=== PATIENT | female | born 1930 | race Two or more races ===

== ENCOUNTER → 2017-03-16 | Outpatient (CLI) | payer MEDICARE ==
[2017-03-16 10:39] LABS: ABSOLUTE EOSINOPHILS # (AUTO) 0.2 10^3/uL (0.0-0.6); ABSOLUTE LYMPHOCYTES (AUTO) 2.6 10^3/uL (0.5-4.7); BASOPHILS % (AUTO) 0.4 % (0-2); MEAN CORPUSCULAR HEMOGLOBIN 28.3 pg (27.0-33.4); MEAN CORPUSCULAR HGB CONC 33.2 g/dL (32.0-36.0); MEAN CORPUSCULAR VOLUME 85 fl (80-97); MONOCYTES % (AUTO) 9.1 % (3-13); RED BLOOD COUNT 3.87 10^6/uL (3.72-5.28); RED CELL DISTRIBUTION WIDTH 14.1 % (11.5-14.0); SEGMENTED NEUTROPHILS % (AUTO) 64.5 % (42-78); WHITE BLOOD COUNT 10.9 10^3/uL (4.0-10.5)
[2017-03-16 10:59] LABS: ALANINE AMINOTRANSFERASE 23 U/L (9-52); ALBUMIN 3.9 g/dL (3.5-5.0); ALKALINE PHOSPHATASE 76 U/L (38-126); ANION GAP 16 (5-19); ASPARTATE AMINO TRANSFERASE 22 U/L (14-36); BILIRUBIN,DIRECT 0.3 mg/dL (0.0-0.4); BILIRUBIN,TOTAL 0.7 mg/dL (0.2-1.3); BLOOD UREA NITROGEN 38 mg/dL (7-20); CALCIUM 9.3 mg/dL (8.4-10.2); CARBON DIOXIDE 27 mmol/L (22-30); CHLORIDE 100 mmol/L (98-107); CREATININE RESULT 1.29 mg/dL (0.52-1.25); GLUCOSE 175 mg/dL (75-110); POTASSIUM 4.9 mmol/L (3.6-5.0); TOTAL PROTEIN 7.8 g/dL (6.3-8.2)
== END ==
LOC: OD 09:28
PROVIDERS: ATTEND Internal Medicine
DX: K21.9 Gastro-esophageal reflux disease without esophagitis (principal)
CPT/HCPCS: 36415; 80053; 85025

== ENCOUNTER 2017-07-22 12:28 | Emergency (ER) | payer MEDICARE, MEDICAID ==
--- NOTE | 2017-07-22 13:24 | ER Document Report ---
ED Medical Screen (RME) - General Chief Complaint: Feet Swelling Stated Complaint: FOOT SWELLING Time Seen by Provider: 07/22/17 13:17 Notes: 87-year-old female here with complaints of bilateral lower extremity swelling that started this week. She has never had lower extremity swelling prior to this. She has been urinating normal amount. She denies any shortness of breath chest pain. She has no prior history of CHF or renal failure or DVT. EXAM LE swelling TRAVEL OUTSIDE OF THE [place] IN LAST 30 DAYS: No - Related Data Allergies/Adverse Reactions: No Known Allergies Allergy (Unverified 07/22/17 12:31) Past Medical History - Social History Chew tobacco use (# tins/day): No Frequency of alcohol use: None Drug Abuse: None Renal/ Medical History: Denies: Hx Peritoneal Dialysis Physical Exam - Vital signs Vitals: Temp Pulse Resp BP Pulse Ox 98.6 F 75 16 218/77 H 99 07/22/17 12:40 07/22/17 12:40 07/22/17 12:40 07/22/17 12:40 07/22/17 12:40 Course - Vital Signs Vital signs: Temp Pulse Resp BP Pulse Ox 98.6 F 75 16 218/77 H 99 07/22/17 12:40 07/22/17 12:40 07/22/17 12:40 07/22/17 12:40 07/22/17 12:40
[2017-07-22 13:48] LABS: ABSOLUTE BASOPHILS # (AUTO) 0.1 10^3/uL (0.0-0.2); ABSOLUTE EOSINOPHILS # (AUTO) 0.2 10^3/uL (0.0-0.6); ABSOLUTE LYMPHOCYTES (AUTO) 2.8 10^3/uL (0.5-4.7); ABSOLUTE MONOCYTES (AUTO) 0.9 10^3/uL (0.1-1.4); ABSOLUTE NEUT (AUTO) 5.1 10^3/uL (1.7-8.2); BASOPHILS % (AUTO) 0.7 % (0-2); EOSINOPHILS % (AUTO) 2.1 % (0-6); HEMATOCRIT 32.4 % (36.0-47.0); HEMOGLOBIN 10.9 g/dL (12.0-15.5); HGB HCT DIFFERENCE 0.3; LYMPHOCYTES % (AUTO) 31.1 % (13-45); MEAN CORPUSCULAR HEMOGLOBIN 28.7 pg (27.0-33.4); MEAN CORPUSCULAR HGB CONC 33.6 g/dL (32.0-36.0); MEAN CORPUSCULAR VOLUME 86 fl (80-97); MONOCYTES % (AUTO) 9.9 % (3-13); RED BLOOD COUNT 3.79 10^6/uL (3.72-5.28); RED CELL DISTRIBUTION WIDTH 12.7 % (11.5-14.0); SEGMENTED NEUTROPHILS % (AUTO) 56.2 % (42-78); WHITE BLOOD COUNT 9.1 10^3/uL (4.0-10.5)
[2017-07-22 14:08] LABS: ANION GAP 13 (5-19); BLOOD UREA NITROGEN 21 mg/dL (7-20); CALCIUM 9.6 mg/dL (8.4-10.2); CARBON DIOXIDE 27 mmol/L (22-30); CHLORIDE 103 mmol/L (98-107); CREATININE RESULT 0.87 mg/dL (0.52-1.25); POTASSIUM 4.2 mmol/L (3.6-5.0); SODIUM 143.4 mmol/L (137-145)
[2017-07-22 14:20] LABS: GLUCOSE 38 mg/dL (75-110)
--- NOTE | 2017-07-22 15:20 | ER Document Report ---
ED General - General Chief Complaint: Feet Swelling Stated Complaint: FOOT SWELLING Time Seen by Provider: 07/22/17 13:17 Mode of Arrival: Ambulatory Information source: Patient Notes: This is an 87-year-old female with a history of diabetes and diabetic neuropathy who presents to the emergency room with lower extremity pain and swelling having run out of her gabapentin. The patient denies any chest pain, shortness of breath, abdominal pain. The patient sugar was noted to be low. She does admit that she took her insulin this morning but she has any normal day. She was given juice and it and has eaten. TRAVEL OUTSIDE OF THE [place] IN LAST 30 DAYS: No - HPI Onset: Last week Onset/Duration: Gradual Quality of pain: Dull Severity: Mild Pain Level: 1 Associated symptoms: Leg swelling. denies: Fever, Shortness of breath Exacerbated by: Movement Relieved by: Denies Similar symptoms previously: No Recently seen / treated by doctor: No - Related Data Allergies/Adverse Reactions: No Known Allergies Allergy (Unverified 07/22/17 12:31) Past Medical History - General Information source: Patient - Social History Smoking Status: Never Smoker Cigarette use (# per day): No Chew tobacco use (# tins/day): No Frequency of alcohol use: None Drug Abuse: None Lives with: Family Family History: None Patient has suicidal ideation: No Patient has homicidal ideation: No - Past Medical History Cardiac Medical History: Reports: None Pulmonary Medical History: Reports: None EENT Medical History: Reports: None Neurological Medical History: Reports: None Endocrine Medical History: Reports: Hx Diabetes Mellitus Type 1 Renal/ Medical History: Denies: Hx Peritoneal Dialysis Malignancy Medical History: Reports: None GI Medical History: Reports: None Musculoskeltal Medical History: Reports Hx Arthritis, Reports Other Skin Medical History: Reports None Psychiatric Medical History: Reports: None Traumatic Medical History: Reports: None Infectious Medical History: Reports: None Surgical Hx: Negative Review of Systems - Review of Systems Constitutional: denies: Chills, Fever EENT: No symptoms reported Cardiovascular: No symptoms reported Respiratory: No symptoms reported Gastrointestinal: No symptoms reported Genitourinary: No symptoms reported Female Genitourinary: No symptoms reported Musculoskeletal: See HPI Skin: No symptoms reported Hematologic/Lymphatic: No symptoms reported Neurological/Psychological: No symptoms reported Physical Exam - Vital signs Vitals: Temp Pulse Resp BP Pulse Ox 98.6 F 75 16 218/77 H 99 07/22/17 12:40 07/22/17 12:40 07/22/17 12:40 07/22/17 12:40 07/22/17 12:40 Notes: Physical exam: GENERAL: Pleasant 87-year-old female, alert and oriented 3, HEAD: Atraumatic, normocephalic. EYES: Pupils equal round and reactive to light, extraocular movements intact, sclera anicteric, conjunctiva are normal. ENT: TMs normal, nares patent, oropharynx clear without exudates. Moist mucous membranes. NECK: Normal range of motion, supple without obvious mass or JVD. LUNGS: Breath sounds clear to auscultation bilaterally and equal. No wheezes rales or rhonchi. HEART: Regular rate and rhythm without murmurs, rubs or gallops. ABDOMEN: Soft, normoactive bowel sounds. No tenderness to palpation. No guarding, no rebound. No masses appreciated. EXTREMITIES: Normal range of motion, no pitting or edema. No clubbing or cyanosis. NEUROLOGICAL: Cranial nerves II through XII grossly intact. Normal speech, moving all extremities. PSYCH: Normal mood, normal affect. SKIN: Warm, Dry, normal turgor, no rashes or lesions noted. Course - Vital Signs Vital signs: Temp Pulse Resp BP Pulse Ox 98 F 84 15 184/75 H 97 07/22/17 16:00 07/22/17 16:00 07/22/17 16:00 07/22/17 16:00 07/22/17 16:00 - Laboratory Result Diagrams: 07/22/17 13:30 07/22/17 13:30 Laboratory results interpreted by me: 07/22/17 07/22/17 07/22/17 13:30 13:30 15:49 Hgb 10.9 L Hct 32.4 L BUN 21 H Glucose 38 L* POC Glucose 149 H - Diagnostic Test Radiology reviewed: Image reviewed, Reports reviewed - Ultrasound of the lower extremity shows no evidence of DVT Discharge - Discharge Clinical Impression: Diabetic neuropathy, Hypoglycemia Condition: Stable Disposition: HOME, SELF-CARE Instructions: Neuropathy ([facility]) Additional Instructions: The ultrasound of the lower legs showed no evidence of DVT. Your electrolytes and kidney function were good. You did have a low sugar but we feel this was because you have taken your insulin this morning and not eaten. I recommend continuing your current medicines. Your blood pressure was elevated in the emergency room. We do not change medicines based upon a single, asymptomatic elevated blood pressure. I recommend having your blood pressure rechecked when following up with a doctor. Restarting the gabapentin for the diabetic neuropathy. Follow-up with the new doctor's appointment as planned: Bring a copy of today's lab work and x-ray report with you when you go. Return to the emergency room for any problems. Prescriptions: Gabapentin 300 mg PO BID #60 capsule
--- NOTE | 2017-07-22 15:23 | RADIOLOGY REPORT (SQ) ---
EXAM DESCRIPTION: VENOUS BILATERAL LOWER COMPLETED DATE/TIME: 07/22/2017 3:06 pm REASON FOR STUDY: BLEs swelling; eval for DVT COMPARISON: None. TECHNIQUE: Dynamic and static brasher scale and color images acquired of both lower extremity venous sy stems. Selected spectral images acquired with additional compression and augmentation maneuvers. Imag es stored on PACS. LIMITATIONS: None. FINDINGS: RIGHT LEG COMMON FEMORAL AND FEMORAL: Normal phasicity, compression and augmentation. No visualized echogenic m aterial on brasher scale. No defects on color images. POPLITEAL: Normal compression and augmentation. No visualized echogenic material on brasher scale. No de fects on color images. CALF VESSELS: Normal compression and augmentation. No visualized echogenic material on brasher scale. No defects on color image. GSV AND SSV: Normal compression. No visualized echogenic material on brasher scale. No defects on color images. ANY DEEP VENOUS INSUFFICIENCY: Not evaluated. ANY EVIDENCE OF POPLITEAL CYST: No. OTHER: No other significant finding. LEFT LEG COMMON FEMORAL AND FEMORAL: Normal phasicity, compression and augmentation. No visualized echogenic m aterial on brasher scale. No defects on color images. POPLITEAL: Normal compression and augmentation. No visualized echogenic material on brasher scale. No de fects on color images. CALF VESSELS: Normal compression and augmentation. No visualized echogenic material on brasher scale. No defects on color images. GSV AND SSV: Normal compression. No visualized echogenic material on brasher scale. No defects on color images. ANY DEEP VENOUS INSUFFICIENCY: Not evaluated. ANY EVIDENCE POPLITEAL CYST: No. OTHER: No other significant finding. IMPRESSION: NO EVIDENCE DVT OR SVT IN EITHER LEG. TECHNICAL DOCUMENTATION: JOB ID: [id number] [employer]- All Rights Reserved
[2017-07-22 16:02] VITALS: BP 184/75
== END 2017-07-22 16:02 | disposition home or self-care (01) ==
LOC: ER 12:28
DX: M79.89 Other specified soft tissue disorders (principal); E11.649 Type 2 diabetes mellitus with hypoglycemia without coma; E10.40 Type 1 diabetes mellitus with diabetic neuropathy, unspecified
CPT/HCPCS: 36415; 80048; 82962; 85025; 93970; 99284

== ENCOUNTER → 2017-09-02 | Outpatient (CLI) | payer MEDICARE, MEDICAID ==
--- NOTE | 2017-09-02 10:08 | RADIOLOGY REPORT (SQ) ---
EXAM DESCRIPTION: HIP RIGHT AP/LATERAL COMPLETED DATE/TIME: 09/02/2017 9:49 am REASON FOR STUDY: RIGHT HIP PAIN (M25.551), PELVIC AND PERINEAL PAIN (R10.2) M25.551 PAIN IN RIGHT HIP R10.2 PELVIC AND PERINEAL PAIN COMPARISON: None. NUMBER OF VIEWS: Two views. TECHNIQUE: AP pelvis and additional frog-leg view of the right hip. LIMITATIONS: None. FINDINGS: MINERALIZATION: Osteopenic RIGHT HIP: No acute fracture or malalignment. There is very mild right hip joint space narrowing wit hout bulky bony spurring. There are ossified bodies over the greater trochanter, which could indicat e chronic trochanteric bursitis or calcific gluteal tendinopathy. LEFT HIP: No acute fracture or malalignment. Mild left hip joint space narrowing with moderate aceta bular rim bony spurring. PUBIS AND ISCHIUM: No fracture. PELVIS: No fracture. SACRUM: No fracture or dislocation. No worrisome bone lesions. Mild bony spurring at both SI joints LOWER LUMBAR SPINE: Disc space narrowing and facet arthropathy at L4-5 and L5-S1 SOFT TISSUES: Diffuse arterial vascular calcification OTHER: No other significant finding. IMPRESSION: No acute changes TECHNICAL DOCUMENTATION: JOB ID: [id number] [employer]- All Rights Reserved
== END ==
LOC: RAD 09:21
PROVIDERS: ATTEND Internal Medicine
DX: M25.551 Pain in right hip (principal); R10.2 Pelvic and perineal pain

== ENCOUNTER → 2017-11-17 | Outpatient (CLI) | payer MEDICARE, MEDICAID ==
[2017-11-17 08:47] LABS: ABSOLUTE BASOPHILS # (AUTO) 0.1 10^3/uL (0.0-0.2); ABSOLUTE EOSINOPHILS # (AUTO) 0.3 10^3/uL (0.0-0.6); ABSOLUTE LYMPHOCYTES (AUTO) 2.5 10^3/uL (0.5-4.7); ABSOLUTE MONOCYTES (AUTO) 0.9 10^3/uL (0.1-1.4); ABSOLUTE NEUT (AUTO) 3.8 10^3/uL (1.7-8.2); BASOPHILS % (AUTO) 1.4 % (0-2); EOSINOPHILS % (AUTO) 4.1 % (0-6); HEMATOCRIT 29.3 % (36.0-47.0); HEMOGLOBIN 9.6 g/dL (12.0-15.5); LYMPHOCYTES % (AUTO) 32.6 % (13-45); MEAN CORPUSCULAR HEMOGLOBIN 27.7 pg (27.0-33.4); MEAN CORPUSCULAR HGB CONC 32.8 g/dL (32.0-36.0); MEAN CORPUSCULAR VOLUME 85 fl (80-97); MONOCYTES % (AUTO) 12.2 % (3-13); PLATELET COUNT 278 10^3/uL (150-450); RED BLOOD COUNT 3.46 10^6/uL (3.72-5.28); SEGMENTED NEUTROPHILS % (AUTO) 49.7 % (42-78); TOTAL CELLS COUNTED % (AUTO) 100 %; WHITE BLOOD COUNT 7.6 10^3/uL (4.0-10.5)
[2017-11-17 09:12] LABS: ALANINE AMINOTRANSFERASE 25 U/L (9-52); ALBUMIN 3.1 g/dL (3.5-5.0); ALKALINE PHOSPHATASE 98 U/L (38-126); ANION GAP 6 (5-19); ASPARTATE AMINO TRANSFERASE 24 U/L (14-36); BILIRUBIN,DIRECT 0.1 mg/dL (0.0-0.4); BILIRUBIN,TOTAL 0.4 mg/dL (0.2-1.3); BLOOD UREA NITROGEN 26 mg/dL (7-20); CALCIUM 9.2 mg/dL (8.4-10.2); CARBON DIOXIDE 33 mmol/L (22-30); CHLORIDE 101 mmol/L (98-107); CHOLESTEROL 238.65 mg/dL (0-200); GLUCOSE 194 mg/dL (75-110); POTASSIUM 4.4 mmol/L (3.6-5.0); SODIUM 139.6 mmol/L (137-145); TOTAL PROTEIN 6.1 g/dL (6.3-8.2); TRIGLYCERIDES 113 mg/dL (<150)
[2017-11-17 09:23] LABS: DIRECT LDL 142 mg/dL (<100)
[2017-11-17 18:25] LABS: IRON(TIBC) 38.1 ug/dL (37-170)
[2017-11-17 18:27] LABS: ABSOLUTE RETICS # 0.049 10^6/uL (0.028-0.122); RETICULOCYTE COUNT (AUTO) 1.42 % (0.66-2.85)
[2017-11-17 19:36] LABS: FOLATE > 20.00 ng/mL (>2.76)
== END ==
LOC: OD 07:33
PROVIDERS: ATTEND Internal Medicine
DX: R60.9 Edema, unspecified (principal); I73.9 Peripheral vascular disease, unspecified; E11.9 Type 2 diabetes mellitus without complications; E78.5 Hyperlipidemia, unspecified; N18.9 Chronic kidney disease, unspecified; R53.83 Other fatigue; D64.9 Anemia, unspecified
CPT/HCPCS: 36415; 80053; 80061; 82607; 82728; 82746; 83036; 83540; 83550; 83735; 84443; 85025; 85045

== ENCOUNTER 2018-03-15 17:03 | Emergency (ER) | payer MEDICARE, MEDICAID ==
--- NOTE | 2018-03-15 19:55 | ER Document Report ---
ED Hand/Wrist Injury - General Chief Complaint: Hand Pain Stated Complaint: HAND PAIN Time Seen by Provider: 03/15/18 19:43 Mode of Arrival: Ambulatory Information source: Patient, Relative Notes: 87-year-old female presents to ED for complaint of left hand and right rib pain. She states she fell a week ago and the pain is continually gotten worse. She states she has swelling to the left hand and has some difficulty moving the middle finger. Daughter states she has been breathing okay but she states it hurts every time she takes a deep breath. Patient is alert and oriented respirations are regular and unlabored she does have clear breath sounds with equal air exchange on both sides. O2 sat was 99%. TRAVEL OUTSIDE OF THE [place] IN LAST 30 DAYS: No - HPI Injury to: Hand Onset: Last week Where: Home Timing: Still present Quality of pain: Achy, Sharp Severity: Moderate Pain Level: 4 Context: Fall, Swelling - Related Data Allergies/Adverse Reactions: No Known Allergies Allergy (Unverified 07/22/17 12:31) Past Medical History - General Information source: Patient - Social History Smoking Status: Never Smoker Cigarette use (# per day): No Chew tobacco use (# tins/day): No Smoking Education Provided: No Frequency of alcohol use: None Drug Abuse: None Lives with: Family Family History: None Patient has suicidal ideation: No Patient has homicidal ideation: No - Medical History Medical History: Other - Anemia - Past Medical History Cardiac Medical History: Reports: None Pulmonary Medical History: Reports: None EENT Medical History: Reports: None Neurological Medical History: Reports: None Endocrine Medical History: Reports: Hx Diabetes Mellitus Type 1, Hx Hypothyroidism Renal/ Medical History: Reports: None Malignancy Medical History: Reports: None GI Medical History: Reports: None Musculoskeletal Medical History: Reports Hx Arthritis Skin Medical History: Reports None Psychiatric Medical History: Reports: None Traumatic Medical History: Reports: None Infectious Medical History: Reports: None Surgical Hx: Negative Past Surgical History: Reports: None Review of Systems - Review of Systems Constitutional: No symptoms reported EENT: No symptoms reported Cardiovascular: No symptoms reported Respiratory: Hurts to breathe, Other - Right posterior rib pain Gastrointestinal: No symptoms reported Genitourinary: No symptoms reported Female Genitourinary: No symptoms reported Musculoskeletal: Back pain - Right posterior rib pain, Other - Left hand pain and swelling Skin: Other - Bruising to left hand Hematologic/Lymphatic: No symptoms reported Neurological/Psychological: No symptoms reported Physical Exam - Vital signs Vitals: Temp Pulse Resp BP Pulse Ox 98.6 F 62 16 155/49 H 99 03/15/18 17:10 03/15/18 17:10 03/15/18 17:10 03/15/18 17:10 03/15/18 17:10 Interpretation: Normal - General General appearance: Appears well, Alert - HEENT Head: Normocephalic, Atraumatic Eyes: Normal Pupils: PERRL - Respiratory Respiratory status: No respiratory distress Chest status: Tender - Posterior right ribs, Pain on movement - Posterior right ribs, Pain with cough - Posterior right ribs Breath sounds: Normal Chest palpation: Normal - Cardiovascular Rhythm: Regular Heart sounds: Normal auscultation Murmur: No - Abdominal Inspection: Normal Distension: No distension Bowel sounds: Normal Tenderness: Nontender Organomegaly: No organomegaly - Back Back: Normal, Nontender - Extremities General upper extremity: Normal temperature General lower extremity: Normal inspection, Nontender, Normal color, Normal ROM , Normal temperature, Normal weight bearing. No: Venessa's sign Hand: Tender, Ecchymosis, No evidence of human bite, No evidence of FB, Swelling , Other - Decreased range of motion to the middle finger left hand - Neurological Neuro grossly intact: Yes Cognition: Normal Orientation: AAOx4 Blanca Coma Scale Eye Opening: Spontaneous Delta Coma Scale Verbal: Oriented Delta Coma Scale Motor: Obeys Commands Blanca Coma Scale Total: 15 Speech: Normal Motor strength normal: LUE, RUE, LLE, RLE Sensory: Normal - Psychological Associated symptoms: Normal affect, Normal mood - Skin Skin Temperature: Warm Skin Moisture: Dry Skin Color: Normal Course - Re-evaluation Re-evalutation: 03/15/18 21:33 Discussed x-rays with patient and with family. Written report of x-rays given to daughter to follow-up with primary doctor. At time of discharge patient's blood pressure was 230/80. Discussed this with patient and with daughter. I then discussed it with Dr. Aguirre. Patient states she is feeling fine she does not have a headache she is not dizzy she does not feel anything different than normal she feels like her normal self except that she has some pain in her right ribs and left hand. She has been medicated with Tylenol which was what she would agree to take for her pain. She has also been instructed on use of incentive spirometry and ice for her pain. She states she feels fine please she wants to go home I discussed this with Dr. Aguirre and he stated she was okay to go home as long as she agreed to follow-up with her primary doctor tomorrow. Patient and daughter both verbalized understanding of instructions and agreement with treatment plan. - Vital Signs Vital signs: Temp Pulse Resp BP Pulse Ox 97.3 F 55 L 18 230/80 H 99 03/15/18 21:38 03/15/18 21:38 03/15/18 21:38 03/15/18 21:38 03/15/18 21:38 - Diagnostic Test Radiology reviewed: Image reviewed, Reports reviewed Discharge - Discharge Clinical Impression: HTN (hypertension) Contusion Qualifiers: Encounter type: initial encounter Contusion area: hand Laterality: left Qualified Code(s): S60.222A - Contusion of left hand, initial encounter Contusion of rib on right side Qualifiers: Encounter type: initial encounter Qualified Code(s): S20.211A - Contusion of right front wall of thorax, initial encounter Fall Qualifiers: Encounter type: initial encounter Qualified Code(s): W19.XXXA - Unspecified fall, initial encounter Condition: Stable Disposition: HOME, SELF-CARE Additional Instructions: CONTUSION: Your injury has resulted in a contusion -- a crushing of the deep tissues. No injury to important structures was detected during the physician's exam. Contusions vary in the amount of pain they cause, and in the length of time required for healing. Typically, the area will become bruised, and will remain painful to touch for two or three weeks. However, most patients are back to working and playing within a few days. After the initial period of rest and cold-packs, your symptoms (together with the doctor's recommendations) will determine how rapidly you can get back to full activity. Usually this means "do what feels okay, but don't do things that hurt." If re-examination was recommended, it's important to follow up as instructed. Call the doctor or return any time if pain increases, if swelling becomes severe, if you develop numbness or weakness in an injured extremity, or if any other alarming symptoms occur. Rib Contusion You have been diagnosed as having bruised ribs. It will usually take a few weeks for these injured ribs to heal. You should cough or take a deep breath at least every hour or two to prevent lung complications. You should not engage in any strenuous physical activity until released by your physician. The usual rule is "if it hurts, don' t do it." Return if you develop any of the following: (1) Fever or chills. (2) Persistent cough, coughing up blood, or shortness of breath. (3) Increasing pain. (4) Weakness, lightheadedness, or fainting. USE OF TYLENOL (ACETAMINOPHEN): Acetaminophen may be taken for pain relief or fever control. It's much safer than aspirin, offering a wider range of "safe" dosages. It is safe during . Some brand names are Tylenol, Panadol, Datril, Anacin 3, Tempra, and Liquiprin. Acetaminophen can be repeated every four hours. The following are maximum recommended dosages: WEIGHT Dose Drops Elixir Chewable( 80mg) (LBS.) drprs=droppers tsp=teaspoon 6 40 mg 0.4 ml (1/2) 6-11 80 mg 0.8 ml (full) tsp 1 tab 12-16 120 mg 1 1/2 drprs 3/4 tsp 1 1/2 tabs 17-23 160 mg 2 drprs 1 tsp 2 tabs 24-30 240 mg 3 drprs 1 1/2 tsp 3 tabs 30-35 320 mg 2 tsp 4 tabs 36-41 360 mg 2 1/4 tsp 4 1/2 tabs 42-47 400 mg 2 1/2 tsp 5 tabs 48-53 480 mg 3 tsp 6 tabs 54-59 520 mg 3 1/4 tsp 6 1/2 tabs 60-64 560 mg 3 1/2 tsp 7 tabs 65-70 600 mg 3 3/4 tsp 7 1/2 tabs 71-76 640 mg 4 tsp 8 tabs 77-82 720 mg 4 1/2 tsp 9 tabs 83-88 800 mg 5 tsp 10 tabs >89 pounds or adults 650 mg to 900 mg Acetaminophen can be repeated every four hours. Maximum dose not to exceed 4000 mg a day. These maximum recommended dosages are slightly higher than the dosages written on the product container, but these dosages are very safe and below the toxic dosage for acetaminophen. ICE PACKS: Apply ice packs frequently against the painful area. Many different schedules are recommended, such as "20 minutes on, 20 minutes off" or "one hour ice, two hours rest." If you need to work, you may need to go longer between ice treatments. You should plan to have the area ice packed AT LEAST one fourth of the time. The ice should be applied over the wrap, tape, or splint, or over a layer of cloth -- not directly against the skin. Some ice bags have a built-in cloth and can be put directly on the skin. FOLLOW-UP CARE: If you have been referred to a physician for follow-up care, call the physician s office for an appointment as you were instructed or within the next two days. If you experience worsening or a significant change in your symptoms, notify the physician immediately or return to the Emergency Department at any time for re-evaluation. Forms: Elevated Blood Pressure Referrals: EMILY CHANG MD [Primary Care Provider] - Follow up as needed VIN HOFF MD [ACTIVE STAFF] - Follow up as needed
--- NOTE | 2018-03-15 20:26 | RADIOLOGY REPORT (SQ) ---
EXAM DESCRIPTION: WRIST LEFT 3 VIEWS COMPLETED DATE/TIME: 03/15/2018 8:08 pm REASON FOR STUDY: fall with hand wrist and rib pain COMPARISON: None. NUMBER OF VIEWS: Three views. TECHNIQUE: AP, lateral, and oblique radiographic images acquired of the left wrist. LIMITATIONS: None. FINDINGS: MINERALIZATION: Normal. BONES: No acute fracture or dislocation. No worrisome bone lesions. Normal alignment. SOFT TISSUES: No soft tissue swelling. No foreign body. OTHER: No other significant finding. IMPRESSION: NEGATIVE STUDY OF THE LEFT WRIST. NO RADIOGRAPHIC EVIDENCE OF ACUTE INJURY. TECHNICAL DOCUMENTATION: JOB ID: [id number] [employer]- All Rights Reserved Reading location - IP/workstation name: [email or web address]
--- NOTE | 2018-03-15 20:28 | RADIOLOGY REPORT (SQ) ---
EXAM DESCRIPTION: HAND LEFT 3 VIEWS COMPLETED DATE/TIME: 03/15/2018 8:08 pm REASON FOR STUDY: fall with hand wrist and rib pain COMPARISON: None. EXAM PARAMETERS: NUMBER OF VIEWS: Three views. TECHNIQUE: AP, lateral and oblique radiographic images acquired of the left hand. LIMITATIONS: None. FINDINGS: MINERALIZATION: Normal. BONES: No acute fracture or dislocation. No worrisome bone lesions. JOINTS: Mild degenerative joint changes in the interphalangeal joints. SOFT TISSUES: No soft tissue swelling. No foreign body. OTHER: No other significant finding. IMPRESSION: Mild degenerative joint disease with no acute osseous abnormality. TECHNICAL DOCUMENTATION: JOB ID: [id number] [employer]- All Rights Reserved Reading location - IP/workstation name: [email or web address]
--- NOTE | 2018-03-15 20:29 | RADIOLOGY REPORT (SQ) ---
EXAM DESCRIPTION: RIBS RIGHT W/PA CHEST COMPLETED DATE/TIME: 03/15/2018 8:08 pm REASON FOR STUDY: fall with hand wrist and rib pain COMPARISON: None. TECHNIQUE: Frontal view of the chest and additional views of the right ribs acquired. NUMBER OF VIEWS: Three views LIMITATIONS: None. FINDINGS: FRONTAL CXR: No pneumothorax. No pleural effusion. No atelectasis or infiltrates. RIBS: No displaced rib fractures. No lytic or blastic bony lesions. OTHER: No other significant finding. IMPRESSION: NO PNEUMOTHORAX. NO DISPLACED RIB FRACTURES. COMMENT: SITE OF TRAUMA/COMPLAINT MARKED/STAMP COMPLETED: YES. TECHNICAL DOCUMENTATION: JOB ID: [id number] [employer]- All Rights Reserved Reading location - IP/workstation name: [email or web address]
[2018-03-15] MEDS ORDERED: ACETAMINOPHEN 325 MG TABLET PO ONE (20:50)
--- NOTE | 2018-03-15 21:32 | ER Document Report ---
Doctor's Note Notes: 03/15/18 21:31 Case was discussed with the nurse practitioner. This is an 87-year-old female with asymptomatic hypertension at this time. Already on Lasix. Has musculoskeletal injuries and some pain. Her discharge vitals revealed a systolic blood pressure that is around 200. At this time after lengthy discussion we have decided that the risk-benefit ratio is higher at this time getting more aggressive with blood pressure lowering than keeping a systolic blood pressure a little high at this patient's age. Patient does not want to stay here any longer. She has been made aware of fact that her blood pressure is high and that she needs to see her regular doctor for repeat evaluation. At this time we will discharge her in stable condition.
[2018-03-15 21:40] VITALS: BP 230/80
== END 2018-03-15 21:40 | disposition home or self-care (01) ==
LOC: ER 17:03
DX: S60.222A Contusion of left hand, initial encounter (principal); S20.211A Contusion of right front wall of thorax, initial encounter; W06.XXXA Fall from bed, initial encounter; Y92.003 Bedroom of unspecified non-institutional (private) residence as the place of occurrence of the external cause; I10 Essential (primary) hypertension; E10.9 Type 1 diabetes mellitus without complications
CPT/HCPCS: 99283; 73130; 71101; 73110; A9270

== ENCOUNTER 2018-03-25 12:38 | Inpatient (IN) | payer MEDICARE, MEDICAID ==
--- NOTE | 2018-03-25 13:22 | ER Document Report ---
ED Medical Screen (RME) - General Chief Complaint: Weakness Stated Complaint: BODY PAIN, NUMBNESS IN HANDS Time Seen by Provider: 03/25/18 13:15 Mode of Arrival: Wheelchair Information source: Patient, Relative TRAVEL OUTSIDE OF THE [place] IN LAST 30 DAYS: No - HPI Patient complains to provider of: generalized pain; confusion Onset: This morning - family states pt. had episode of confusion this am and lethargy. Also c/o generalized body pain - Related Data Allergies/Adverse Reactions: No Known Allergies Allergy (Verified 03/25/18 12:39) Past Medical History Endocrine Medical History: Reports: Hx Diabetes Mellitus Type 1, Hx Hypothyroidism Renal/ Medical History: Denies: Hx Peritoneal Dialysis Musculoskeltal Medical History: Reports Hx Arthritis Physical Exam - Vital signs Vitals: Temp Pulse Resp BP Pulse Ox 98.3 F 67 18 129/45 H 98 03/25/18 12:44 03/25/18 12:44 03/25/18 12:44 03/25/18 12:44 03/25/18 12:44 Course - Vital Signs Vital signs: Temp Pulse Resp BP Pulse Ox 98.3 F 67 18 129/45 H 98 03/25/18 12:44 03/25/18 12:44 03/25/18 12:44 03/25/18 12:44 03/25/18 12:44 Doctor's Discharge - Discharge Referrals: EMILY CHANG MD [Primary Care Provider] - Follow up as needed
[2018-03-25 14:24] LABS: ABSOLUTE BASOPHILS # (AUTO) 0.1 10^3/uL (0.0-0.2); ABSOLUTE EOSINOPHILS # (AUTO) 0.2 10^3/uL (0.0-0.6); ABSOLUTE LYMPHOCYTES (AUTO) 2.4 10^3/uL (0.5-4.7); ABSOLUTE MONOCYTES (AUTO) 0.6 10^3/uL (0.1-1.4); ABSOLUTE NEUT (AUTO) 8.5 10^3/uL (1.7-8.2); BASOPHILS % (AUTO) 0.6 % (0-2); EOSINOPHILS % (AUTO) 1.7 % (0-6); HEMATOCRIT 31.7 % (36.0-47.0); HEMOGLOBIN 10.1 g/dL (12.0-15.5); LYMPHOCYTES % (AUTO) 20.3 % (13-45); MEAN CORPUSCULAR HEMOGLOBIN 27.5 pg (27.0-33.4); MEAN CORPUSCULAR HGB CONC 31.8 g/dL (32.0-36.0); MEAN CORPUSCULAR VOLUME 87 fl (80-97); MONOCYTES % (AUTO) 5.5 % (3-13); PLATELET COUNT 256 10^3/uL (150-450); RED BLOOD COUNT 3.66 10^6/uL (3.72-5.28); RED CELL DISTRIBUTION WIDTH 12.6 % (11.5-14.0); SEGMENTED NEUTROPHILS % (AUTO) 71.9 % (42-78); TOTAL CELLS COUNTED % (AUTO) 100 %; WHITE BLOOD COUNT 11.8 10^3/uL (4.0-10.5)
--- NOTE | 2018-03-25 14:27 | RADIOLOGY REPORT (SQ) ---
EXAM DESCRIPTION: CT HEAD WITHOUT COMPLETED DATE/TIME: 03/25/2018 2:13 pm REASON FOR STUDY: confusion COMPARISON: None. TECHNIQUE: Axial images acquired through the brain without intravenous contrast. Images reviewed wi th bone, brain and subdural windows. Additional sagittal and coronal reconstructions were generated. Images stored on PACS. All CT scanners at this facility use dose modulation, iterative reconstruction, and/or weight based d osing when appropriate to reduce radiation dose to as low as reasonably achievable (ALARA). [facility]: Dose Right [facility]: CareDose [facility]: Dose Right [facility]: Teradose 4D [facility]: [employer] RADIATION DOSE: CT Rad equipment meets quality standard of care and radiation dose reduction techniq ues were employed. CTDIvol: 53.2 mGy. DLP: 964 mGy-cm.mGy. LIMITATIONS: None. FINDINGS: VENTRICLES: Prominent. CEREBRUM: No masses. No hemorrhage. No midline shift. Areas of low density in the white matter mos t likely due to chronic micro-vascular ischemic change. No evidence for acute infarction. CEREBELLUM: No masses. No hemorrhage. No alteration of density. No evidence for acute infarction. EXTRAAXIAL SPACES: Age-related involutional change. No fluid collections. No masses. ORBITS AND GLOBE: No intra- or extraconal masses. Normal contour of globe without masses. CALVARIUM: No fracture. PARANASAL SINUSES: No fluid or mucosal thickening. SOFT TISSUES: No mass or hematoma. OTHER: No other significant finding. IMPRESSION: CHRONIC CHANGES OF ATROPHY AND MICROVASCULAR ISCHEMIA. NO ACUTE PROCESS. EVIDENCE OF ACUTE STROKE: NO. TECHNICAL DOCUMENTATION: JOB ID: [id number] Quality ID # [id number]: Final reports with documentation of one or more dose reduction techniques (e.g., Au tomated exposure control, adjustment of the mA and/or kV according to patient size, use of iterative reconstruction technique) 2010 [employer]- All Rights Reserved Reading location - IP/workstation name: [email or web address]
[2018-03-25 14:42] LABS: ALANINE AMINOTRANSFERASE 23 U/L (9-52); ALBUMIN 4.1 g/dL (3.5-5.0); ALKALINE PHOSPHATASE 62 U/L (38-126); ANION GAP 17 (5-19); ASPARTATE AMINO TRANSFERASE 22 U/L (14-36); BILIRUBIN,DIRECT 0.3 mg/dL (0.0-0.4); BILIRUBIN,TOTAL 0.5 mg/dL (0.2-1.3); BLOOD UREA NITROGEN 74 mg/dL (7-20); CALCIUM 9.8 mg/dL (8.4-10.2); CARBON DIOXIDE 23 mmol/L (22-30); CHLORIDE 103 mmol/L (98-107); CREATINE KINASE 65 U/L (30-135); GLUCOSE 263 mg/dL (75-110); POTASSIUM 5.9 mmol/L (3.6-5.0); SODIUM 143.2 mmol/L (137-145); TOTAL PROTEIN 7.8 g/dL (6.3-8.2)
[2018-03-25 14:44] LABS: APPEARANCE,URINE CLOUDY; BILIRUBIN,URINE NEGATIVE (NEGATIVE); COLOR,URINE YELLOW; GLUCOSE, URINE NEGATIVE (NEGATIVE); KETONES,URINE NEGATIVE (NEGATIVE); LEUKOCYTE ESTERASE,URINE LARGE (NEGATIVE); NITRITE,URINE NEGATIVE (NEGATIVE); PROTEIN,URINE 100 mg/dL (NEGATIVE); URINE SPECIFIC GRAVITY 1.015; UROBILINOGEN,URINE NEGATIVE mg/dL (<2.0)
[2018-03-25 15:10] LABS: CREATINE KINASE MB 1.54 ng/mL (<4.55)
[2018-03-25 15:13] LABS: TROPONIN I < 0.012 ng/mL
--- NOTE | 2018-03-25 16:39 | ER Document Report ---
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 TRAVEL OUTSIDE OF THE [place] IN LAST 30 DAYS: No - HPI Onset: Other - 2 days Onset/Duration: Gradual Quality of pain: Other - HARD TO DESCRIBE Severity: Mild Associated symptoms: Body/muscle aches, Weakness. denies: Chest pain, Chills, Fever, Nausea, Shortness of breath Exacerbated by: Other - ANY ACTIVITY Relieved by: Other - REST Similar symptoms previously: No Recently seen / treated by doctor: Yes - YESTERDAY, BEGUN ON LISINOPRIL - Related Data Allergies/Adverse Reactions: No Known Allergies Allergy (Verified 03/25/18 12:39) Past Medical History - General Information source: Patient, Relative - Social History Smoking Status: Never Smoker Chew tobacco use (# tins/day): No Frequency of alcohol use: None Drug Abuse: None Lives with: Alone Family History: None Patient has suicidal ideation: No Patient has homicidal ideation: No - Past Medical History Cardiac Medical History: Reports: Hx Hypertension Pulmonary Medical History: Reports: None EENT Medical History: Reports: None Neurological Medical History: Reports: None Endocrine Medical History: Reports: Hx Diabetes Mellitus Type 1, Hx Hypothyroidism Renal/ Medical History: Reports: None. Denies: Hx Peritoneal Dialysis Malignancy Medical History: Reports: None GI Medical History: Reports: None Musculoskeletal Medical History: Reports Hx Arthritis Psychiatric Medical History: Reports: None Past Surgical History: Reports: Hx Hysterectomy Review of Systems - Review of Systems Constitutional: Weakness EENT: No symptoms reported Cardiovascular: Dizziness, Lightheaded. denies: Chest pain, Syncope Respiratory: No symptoms reported Gastrointestinal: Poor appetite Genitourinary: No symptoms reported Female Genitourinary: Post menopausal Musculoskeletal: See HPI Skin: No symptoms reported Neurological/Psychological: Weakness Physical Exam - Vital signs Vitals: Temp Pulse Resp BP Pulse Ox 98.3 F 67 18 129/45 H 98 03/25/18 12:44 03/25/18 12:44 03/25/18 12:44 03/25/18 12:44 03/25/18 12:44 Interpretation: Normal. No: Hypotensive, Tachycardic, Hypoxic, Tachypneic, Febrile - General General appearance: Appears well, Alert In distress: None - HEENT Head: Normocephalic Eyes: Normal Conjunctiva: Normal Ears: Normal Nasal: Normal Mouth/Lips: Normal Mucous membranes: Normal - Respiratory Respiratory status: No respiratory distress Breath sounds: Normal - Cardiovascular Rhythm: Regular Heart sounds: Normal auscultation Murmur: No - Abdominal Inspection: Normal Distension: No distension Bowel sounds: Normal - Extremities General upper extremity: Normal inspection General lower extremity: Normal inspection. No: Tender, Edema - Neurological Neuro grossly intact: Yes Cognition: Normal Orientation: AAOx4 - Psychological Associated symptoms: Normal affect, Normal mood - Skin Skin Temperature: Warm Skin Moisture: Dry Skin Color: Normal Skin Turgor: Elastic Course - Vital Signs Vital signs: Temp Pulse Resp BP Pulse Ox 98.3 F 67 18 129/45 H 98 03/25/18 12:44 03/25/18 12:44 03/25/18 12:44 03/25/18 12:44 03/25/18 12:44 - Laboratory Result Diagrams: 03/25/18 13:42 03/25/18 13:42 Laboratory results interpreted by me: 03/25/18 03/25/18 03/25/18 13:42 13:42 13:42 WBC 11.8 H RBC 3.66 L Hgb 10.1 L Hct 31.7 L MCHC 31.8 L Absolute Neutrophils 8.5 H Potassium 5.9 H BUN 74 H Creatinine 2.52 H Est GFR ( Amer) 22 L Est GFR (Non-Af Amer) 18 L Glucose 263 H Urine Protein 100 H Ur Leukocyte Esterase LARGE H Urine Ascorbic Acid 40 H - Consults DR. GU Time consulted: 17:20 Consulted provider: will come to ER Discharge - Discharge Clinical Impression: Hyperkalemia Acute renal failure (ARF) Qualifiers: Acute renal failure type: unspecified Qualified Code(s): N17.9 - Acute kidney failure, unspecified Urinary tract infection Qualifiers: Urinary tract infection type: site unspecified Hematuria presence: without hematuria Qualified Code(s): N39.0 - Urinary tract infection, site not specified Condition: Fair Admitting Provider: Hospitalist Referrals: EMILY CHANG MD [Primary Care Provider] - Follow up as needed
[2018-03-25] MEDS ORDERED: NORMAL SALINE 1000 ML 1,000 ML IV PRN (17:02)
[2018-03-25] MEDS ORDERED: CALCIUM GLUCONATE 1000 MG/10 ML INJ IV ONE (17:03)
[2018-03-25] MEDS ORDERED: INSULIN REG, HUMAN 100 UNIT/ML 3 ML VIAL (PYX) IV ONE (17:04)
[2018-03-25] MEDS ORDERED: ACETAMINOPHEN 325 MG TABLET PO PRN (18:33)
[2018-03-25] MEDS ORDERED: DEXTROSE 50%-WATER 25 GM/50 ML DISP.SYRIN IV PRN ×2 (18:40)
[2018-03-25] MEDS ORDERED: DEXTROSE 40% GEL 15 GM TUBE PO PRN ×2 (18:40)
[2018-03-25] MEDS ORDERED: GLUCAGON,HUMAN RECOMB 1 MG INJ IM PRN (18:40)
--- NOTE | 2018-03-25 21:07 | EKG REPORT ---
SEVERITY:- NORMAL ECG - SINUS RHYTHM : Confirmed by: Andreia Zuniga MD 25-Mar-2018 21:06:23
--- NOTE | 2018-03-25 22:36 | PDOC H&P ---
History of Present Illness Admission Date/PCP: 03/25/18 19:44 EMILY CHANG MD Patient complains of: Weakness, unable to walk. FTT. Poor appetite. History of Present Illness: RAJESH NIX is a 87 year old female who lives on her own. She was most recently seen normal the day before yesterday. Her daughter visited her today and found her too weak to walk and not eating. The patient is resting quietly, and currently denies any complaints. In the ED she was found to have a UTI and an elevated creatinine. Past Medical History Cardiac Medical History: Reports: Hypertension Pulmonary Medical History: Reports: None EENT Medical History: Reports: None Neurological Medical History: Reports: None Endocrine Medical History: Reports: Diabetes Mellitus Type 1, Hypothyroidism Renal/ Medical History: Reports: None Malignancy Medical History: Reports: None GI Medical History: Reports: None Musculoskeltal Medical History: Reports: Arthritis Psychiatric Medical History: Reports: None Past Surgical History Past Surgical History: Reports: Hysterectomy Social History Lives with: Alone Smoking Status: Never Smoker Family History Family History: None, Reviewed & Not Pertinent Parental Family History Reviewed: Yes Children Family History Reviewed: Yes Sibling(s) Family History Reviewed.: Yes Medication/Allergy Home Medications: Gabapentin 300 mg PO BID #60 capsule 07/22/17 Allergies/Adverse Reactions: No Known Allergies Allergy (Verified 03/25/18 12:39) Review of Systems Constitutional: PRESENT: anorexia, weakness Eyes: ABSENT: visual disturbances Ears: ABSENT: hearing changes Nose, Mouth, and Throat: ABSENT: mouth pain, sore throat, vertigo Cardiovascular: ABSENT: chest pain, dyspnea on exertion, orthropnea Respiratory: ABSENT: cough, dyspnea, hemoptysis Gastrointestinal: ABSENT: abdominal pain, coffee ground emesis, constipation, diarrhea, dysphagia, hematemesis, hematochezia, melena, nausea, vomiting Genitourinary: ABSENT: difficulty urinating, dysuria, hematuria, nocturia, other Musculoskeletal: ABSENT: deformity, joint swelling, muscle weakness Integumentary: ABSENT: lesions, pruritus, rash Neurological: PRESENT: dizziness, weakness. ABSENT: confusion, focal weakness, lack of coordination, memory loss, syncope Psychiatric: ABSENT: anxiety, depression, hallucinations Endocrine: ABSENT: cold intolerance, polyphagia, polyuria Hematologic/Lymphatic: ABSENT: easy bleeding, easy bruising, lymphadenopathy Physical Exam Vital Signs: Temp Pulse Resp BP Pulse Ox 98.1 F 67 19 162/69 H 98 03/25/18 20:15 03/25/18 12:44 03/25/18 20:32 03/25/18 20:32 03/25/18 20:32 General appearance: PRESENT: no acute distress, cooperative, thin, other - Elderlyh, weak, and frail. Head exam: PRESENT: atraumatic, normocephalic Eye exam: PRESENT: EOMI, PERRLA, other - No scleral injection.. ABSENT: scleral icterus Ear exam: ABSENT: bleeding, drainage, normal external ear exam Mouth exam: PRESENT: moist, neck supple, tongue midline Throat exam: ABSENT: post pharyngeal erythema, tonsillar erythema, tonsillar exudate Neck exam: ABSENT: JVD, lymphadenopathy, tenderness, thyromegaly Respiratory exam: PRESENT: other - No increased work of breathing.. ABSENT: accessory muscle use, rales, rhonchi, wheezes Cardiovascular exam: PRESENT: RRR. ABSENT: gallop, rubs, systolic murmur Pulses: PRESENT: other - Diminished distal pulses. GI/Abdominal exam: PRESENT: normal bowel sounds, soft. ABSENT: distended, hernia, organolmegaly, tenderness Rectal exam: PRESENT: deferred Extremities exam: ABSENT: calf tenderness, clubbing, joint swelling, tenderness Musculoskeletal exam: PRESENT: normal inspection. ABSENT: deformity, dislocation, tenderness Neurological exam: PRESENT: alert, awake, oriented to person, oriented to place , CN II-XII grossly intact. ABSENT: motor sensory deficit Psychiatric exam: PRESENT: appropriate affect, normal mood. ABSENT: anxious, depressed Skin exam: PRESENT: dry, intact, warm Results Laboratory Results: 03/25/18 03/25/18 03/25/18 13:42 13:42 13:42 WBC 11.8 H RBC 3.66 L Hgb 10.1 L Hct 31.7 L MCV 87 MCH 27.5 MCHC 31.8 L RDW 12.6 Plt Count 256 Seg Neutrophils % 71.9 Sodium 143.2 Potassium 5.9 H Chloride 103 Carbon Dioxide 23 Anion Gap 17 BUN 74 H Creatinine 2.52 H Est GFR ( Amer) 22 L Est GFR (Non-Af Amer) 18 L Glucose 263 H POC Glucose Calcium 9.8 Total Bilirubin 0.5 Direct Bilirubin 0.3 AST 22 ALT 23 Alkaline Phosphatase 62 Creatine Kinase 65 CK-MB (CK-2) 1.54 Troponin I < 0.012 Total Protein 7.8 Albumin 4.1 Urine Color Urine Appearance Urine pH Ur Specific [place] Urine Protein Ur Leukocyte Esterase Urine WBC (Auto) Urine RBC (Auto) U Hyaline Cast (Auto) Urine Bacteria (Auto) Squamous Epi Cells Auto Urine Ascorbic Acid 03/25/18 03/25/18 13:42 19:58 WBC RBC Hgb Hct MCV MCH MCHC RDW Plt Count Seg Neutrophils % Sodium Potassium Chloride Carbon Dioxide Anion Gap BUN Creatinine Est GFR ( Amer) Est GFR (Non-Af Amer) Glucose POC Glucose 103 Calcium Total Bilirubin Direct Bilirubin AST ALT Alkaline Phosphatase Creatine Kinase CK-MB (CK-2) Troponin I Total Protein Albumin Urine Color YELLOW Urine Appearance CLOUDY Urine pH 8.0 Ur Specific [place] 1.015 Urine Protein 100 H Ur Leukocyte Esterase LARGE H Urine WBC (Auto) 93 Urine RBC (Auto) 3 U Hyaline Cast (Auto) 7 Urine Bacteria (Auto) 2+ Squamous Epi Cells Auto 3 Urine Ascorbic Acid 40 H Impressions: Head CT 03/25/18 13:15 IMPRESSION: CHRONIC CHANGES OF ATROPHY AND MICROVASCULAR ISCHEMIA. NO ACUTE PROCESS. EVIDENCE OF ACUTE STROKE: NO. Assessment & Plan - Diagnosis (1) Adult failure to thrive Is this a current diagnosis for this admission?: Yes Plan: PT/OT. (2) Debility Is this a current diagnosis for this admission?: Yes Plan: PT/OT. The patient may require discharge to rehab. (3) Acute renal failure (ARF) Qualifiers: Acute renal failure type: unspecified Qualified Code(s): N17.9 - Acute kidney failure, unspecified Is this a current diagnosis for this admission?: Yes Plan: IV fluids. (4) Hyperkalemia Is this a current diagnosis for this admission?: Yes Plan: IV fluids and monitor. (5) Urinary tract infection Qualifiers: Urinary tract infection type: site unspecified Hematuria presence: without hematuria Qualified Code(s): N39.0 - Urinary tract infection, site not specified Is this a current diagnosis for this admission?: Yes Plan: IV antibiotics. Await culture. - Time Time Spent: 50 to 70 Minutes Medications reviewed and adjusted accordingly: Yes Anticipated discharge: SNF - Inpatient Certification Based on my medical assessment, after consideration of the patient's comorbidities, presenting symptoms, or acuity I expect that the services needed warrant INPATIENT care.: Yes I certify that my determination is in accordance with my understanding of Medicare's requirements for reasonable and necessary INPATIENT services [42 CFR 412.3e].: Yes Medical Necessity: Need Close Monitoring Due to Risk of Patient Decompensation, Need For IV Fluids, Need for IV Antibiotics
[2018-03-25] MEDS: HEPARIN SOD (PORCINE) 5,000 UNIT/ML 1 ML SYRINGE SUBCUT SCH (22:51)
[2018-03-25] MEDS: NORMAL SALINE 1000 ML 1,000 ML IV PRN (22:51)
[2018-03-26 04:42] LABS: ABSOLUTE BASOPHILS # (AUTO) 0.1 10^3/uL (0.0-0.2); ABSOLUTE EOSINOPHILS # (AUTO) 0.4 10^3/uL (0.0-0.6); ABSOLUTE LYMPHOCYTES (AUTO) 2.4 10^3/uL (0.5-4.7); ABSOLUTE NEUT (AUTO) 5.2 10^3/uL (1.7-8.2); BASOPHILS % (AUTO) 0.7 % (0-2); EOSINOPHILS % (AUTO) 4.2 % (0-6); HEMATOCRIT 25.5 % (36.0-47.0); HEMOGLOBIN 8.5 g/dL (12.0-15.5); LYMPHOCYTES % (AUTO) 26.8 % (13-45); MEAN CORPUSCULAR HEMOGLOBIN 28.6 pg (27.0-33.4); MEAN CORPUSCULAR HGB CONC 33.4 g/dL (32.0-36.0); MEAN CORPUSCULAR VOLUME 86 fl (80-97); MONOCYTES % (AUTO) 10.7 % (3-13); PLATELET COUNT 187 10^3/uL (150-450); RED BLOOD COUNT 2.98 10^6/uL (3.72-5.28); RED CELL DISTRIBUTION WIDTH 12.6 % (11.5-14.0); SEGMENTED NEUTROPHILS % (AUTO) 57.6 % (42-78); TOTAL CELLS COUNTED % (AUTO) 100 %
[2018-03-26 05:24] LABS: ALANINE AMINOTRANSFERASE 22 U/L (9-52); ALKALINE PHOSPHATASE 60 U/L (38-126); ANION GAP 12 (5-19); ASPARTATE AMINO TRANSFERASE 16 U/L (14-36); BILIRUBIN,DIRECT 0.2 mg/dL (0.0-0.4); BILIRUBIN,TOTAL 0.2 mg/dL (0.2-1.3); BLOOD UREA NITROGEN 62 mg/dL (7-20); CARBON DIOXIDE 22 mmol/L (22-30); CHLORIDE 111 mmol/L (98-107); GLUCOSE 200 mg/dL (75-110); SODIUM 144.5 mmol/L (137-145); TOTAL PROTEIN 6.1 g/dL (6.3-8.2)
[2018-03-26] MEDS: HEPARIN SOD (PORCINE) 5,000 UNIT/ML 1 ML SYRINGE SUBCUT SCH ×3 (05:30→21:11)
[2018-03-26 06:22] LABS: POTASSIUM 4.9 mmol/L (3.6-5.0)
[2018-03-26] MEDS: CEFTRIAXONE SODIUM 1,000 MG in NORMAL SALINE 50 ML IV SCH (09:35)
[2018-03-26] MEDS ORDERED: GABAPENTIN 300 MG CAPSULE PO SCH (10:00)
[2018-03-26] MEDS ORDERED: CEFTRIAXONE 1 GM/D5W RTU 1 GM/50 ML RTUPB IV SCH (10:00)
[2018-03-26] MEDS: GABAPENTIN 300 MG CAPSULE PO SCH ×2 (10:54→21:15)
[2018-03-26] MEDS: NORMAL SALINE 1000 ML 1,000 ML IV PRN (12:33)
[2018-03-26] MEDS: INSULIN REG, HUMAN 100 UNIT/ML 3 ML VIAL (PYX) SUBCUT PRN ×2 (12:37→21:14)
--- NOTE | 2018-03-26 18:29 | PDOC PROGRESS REPORT ---
Subjective Progress Note for:: 03/26/18 Subjective:: The patient states that she is feeling better. No new complaints. Reason For Visit: UTI,BALDOMERO Physical Exam Vital Signs: Temp Pulse Resp BP Pulse Ox 98.3 F 67 15 174/48 H 100 03/26/18 16:07 03/26/18 16:07 03/26/18 16:07 03/26/18 16:07 03/26/18 16:07 Intake & Output 03/25/18 03/26/18 03/27/18 06:59 06:59 06:59 Intake Total 1015 1050 Output Total 100 Balance 915 1050 Weight 52.4 kg General appearance: PRESENT: no acute distress, cooperative, thin Respiratory exam: PRESENT: other - No increased work of breathing. No wheezes, rales or rhonchi. No tactile fremitus. Cardiovascular exam: PRESENT: RRR, other - No lateral PMI. No thrills.. ABSENT : gallop, rubs, systolic murmur Pulses: PRESENT: other - Diminished distal pulses. GI/Abdominal exam: PRESENT: normal bowel sounds, soft, other - Scaffoid.. ABSENT: hernia, mass, organolmegaly, tenderness Rectal exam: PRESENT: deferred Neurological exam: PRESENT: alert, awake, oriented to person, oriented to place , oriented to time, oriented to situation, CN II-XII grossly intact. ABSENT: motor sensory deficit Psychiatric exam: PRESENT: appropriate affect, normal mood Skin exam: PRESENT: dry, intact, warm Results Laboratory Results: 03/26/18 03:49 03/26/18 03:49 03/26/18 03/26/18 03:49 03:49 WBC 9.0 RBC 2.98 L Hgb 8.5 L Hct 25.5 L MCV 86 MCH 28.6 MCHC 33.4 RDW 12.6 Plt Count 187 Seg Neutrophils % 57.6 Lymphocytes % 26.8 Monocytes % 10.7 Eosinophils % 4.2 Basophils % 0.7 Absolute Neutrophils 5.2 Absolute Lymphocytes 2.4 Absolute Monocytes 1.0 Absolute Eosinophils 0.4 Absolute Basophils 0.1 Sodium 144.5 Potassium 4.9 D Chloride 111 H Carbon Dioxide 22 Anion Gap 12 BUN 62 H Creatinine 2.07 H Est GFR ( Amer) 27 L Est GFR (Non-Af Amer) 23 L Glucose 200 H Calcium 9.0 Magnesium 2.2 Total Bilirubin 0.2 AST 16 ALT 22 Alkaline Phosphatase 60 Total Protein 6.1 L Albumin 3.0 L 03/25/18 03/25/18 03/25/18 13:42 13:42 13:42 WBC 11.8 H RBC 3.66 L Hgb 10.1 L Hct 31.7 L MCV 87 MCH 27.5 MCHC 31.8 L RDW 12.6 Plt Count 256 Seg Neutrophils % 71.9 Sodium 143.2 Potassium 5.9 H Chloride 103 Carbon Dioxide 23 Anion Gap 17 BUN 74 H Creatinine 2.52 H Est GFR ( Amer) 22 L Est GFR (Non-Af Amer) 18 L Glucose 263 H POC Glucose Calcium 9.8 Magnesium Total Bilirubin 0.5 Direct Bilirubin 0.3 AST 22 ALT 23 Alkaline Phosphatase 62 Creatine Kinase 65 CK-MB (CK-2) 1.54 Troponin I < 0.012 Total Protein 7.8 Albumin 4.1 Urine Color Urine Appearance Urine pH Ur Specific [place] Urine Protein Ur Leukocyte Esterase Urine WBC (Auto) Urine RBC (Auto) U Hyaline Cast (Auto) Urine Bacteria (Auto) Squamous Epi Cells Auto Urine Ascorbic Acid 03/25/18 03/25/18 03/26/18 13:42 19:58 03:49 WBC 9.0 RBC 2.98 L Hgb 8.5 L Hct 25.5 L MCV 86 MCH 28.6 MCHC 33.4 RDW 12.6 Plt Count 187 Seg Neutrophils % Sodium Potassium Chloride Carbon Dioxide Anion Gap BUN Creatinine Est GFR ( Amer) Est GFR (Non-Af Amer) Glucose POC Glucose 103 Calcium Magnesium Total Bilirubin Direct Bilirubin AST ALT Alkaline Phosphatase Creatine Kinase CK-MB (CK-2) Troponin I Total Protein Albumin Urine Color YELLOW Urine Appearance CLOUDY Urine pH 8.0 Ur Specific [place] 1.015 Urine Protein 100 H Ur Leukocyte Esterase LARGE H Urine WBC (Auto) 93 Urine RBC (Auto) 3 U Hyaline Cast (Auto) 7 Urine Bacteria (Auto) 2+ Squamous Epi Cells Auto 3 Urine Ascorbic Acid 40 H 03/26/18 03:49 WBC RBC Hgb Hct MCV MCH MCHC RDW Plt Count Seg Neutrophils % Sodium 144.5 Potassium 4.9 D Chloride 111 H Carbon Dioxide 22 Anion Gap 12 BUN 62 H Creatinine 2.07 H Est GFR ( Amer) 27 L Est GFR (Non-Af Amer) 23 L Glucose 200 H POC Glucose Calcium 9.0 Magnesium 2.2 Total Bilirubin 0.2 Direct Bilirubin 0.2 AST 16 ALT 22 Alkaline Phosphatase 60 Creatine Kinase CK-MB (CK-2) Troponin I Total Protein 6.1 L Albumin 3.0 L Urine Color Urine Appearance Urine pH Ur Specific [place] Urine Protein Ur Leukocyte Esterase Urine WBC (Auto) Urine RBC (Auto) U Hyaline Cast (Auto) Urine Bacteria (Auto) Squamous Epi Cells Auto Urine Ascorbic Acid Impressions: Head CT 03/25/18 13:15 IMPRESSION: CHRONIC CHANGES OF ATROPHY AND MICROVASCULAR ISCHEMIA. NO ACUTE PROCESS. EVIDENCE OF ACUTE STROKE: NO. Assessment & Plan - Diagnosis (1) Adult failure to thrive Is this a current diagnosis for this admission?: Yes Plan: PT/OT.Nutrition consult. (2) Debility Is this a current diagnosis for this admission?: Yes Plan: PT/OT. The patient may require discharge to rehab. (3) Acute renal failure (ARF) Qualifiers: Acute renal failure type: unspecified Qualified Code(s): N17.9 - Acute kidney failure, unspecified Is this a current diagnosis for this admission?: Yes Plan: IV fluids. Creatinine is improved, but not at baseline. (4) Hyperkalemia Is this a current diagnosis for this admission?: Yes Plan: Resolved. IV fluids and monitor. (5) Urinary tract infection Qualifiers: Urinary tract infection type: site unspecified Hematuria presence: without hematuria Qualified Code(s): N39.0 - Urinary tract infection, site not specified Is this a current diagnosis for this admission?: Yes Plan: IV antibiotics. Await culture. Gram negative rods have grown from urine. - Time Time Spent with patient: 25-34 minutes Medications reviewed and adjusted accordingly: Yes Anticipated discharge: SNF - Inpatient Certification Based on my medical assessment, after consideration of the patient's comorbidities, presenting symptoms, or acuity I expect that the services needed warrant INPATIENT care.: Yes I certify that my determination is in accordance with my understanding of Medicare's requirements for reasonable and necessary INPATIENT services [42 CFR 412.3e].: Yes Medical Necessity: Need For IV Fluids, Need for IV Antibiotics
[2018-03-26] MEDS ORDERED: HYDRALAZINE HCL INJ/PF 20 MG/1 ML SDV IV ONE (20:45)
[2018-03-27] MEDS: NORMAL SALINE 1000 ML 1,000 ML IV PRN ×2 (04:32→21:20)
[2018-03-27] MEDS: HEPARIN SOD (PORCINE) 5,000 UNIT/ML 1 ML SYRINGE SUBCUT SCH ×3 (05:40→21:20)
[2018-03-27] MEDS: CEFTRIAXONE SODIUM 1,000 MG in NORMAL SALINE 50 ML IV SCH (09:15)
[2018-03-27] MEDS: GABAPENTIN 300 MG CAPSULE PO SCH ×2 (09:15→21:20)
[2018-03-27 09:27] LABS: ABSOLUTE EOSINOPHILS # (AUTO) 0.3 10^3/uL (0.0-0.6); ABSOLUTE MONOCYTES (AUTO) 0.8 10^3/uL (0.1-1.4); ABSOLUTE NEUT (AUTO) 5.1 10^3/uL (1.7-8.2); BASOPHILS % (AUTO) 0.6 % (0-2); EOSINOPHILS % (AUTO) 3.3 % (0-6); HEMOGLOBIN 9.5 g/dL (12.0-15.5); MEAN CORPUSCULAR HEMOGLOBIN 28.4 pg (27.0-33.4); MEAN CORPUSCULAR HGB CONC 32.9 g/dL (32.0-36.0); MEAN CORPUSCULAR VOLUME 86 fl (80-97); MONOCYTES % (AUTO) 9.2 % (3-13); PLATELET COUNT 203 10^3/uL (150-450); RED BLOOD COUNT 3.36 10^6/uL (3.72-5.28); RED CELL DISTRIBUTION WIDTH 12.7 % (11.5-14.0); SEGMENTED NEUTROPHILS % (AUTO) 62.9 % (42-78); TOTAL CELLS COUNTED % (AUTO) 100 %; WHITE BLOOD COUNT 8.2 10^3/uL (4.0-10.5)
[2018-03-27 09:43] LABS: ANION GAP 12 (5-19); BLOOD UREA NITROGEN 43 mg/dL (7-20); CALCIUM 8.5 mg/dL (8.4-10.2); CARBON DIOXIDE 20 mmol/L (22-30); CHLORIDE 111 mmol/L (98-107); GLUCOSE 253 mg/dL (75-110); POTASSIUM 4.3 mmol/L (3.6-5.0); SODIUM 143.2 mmol/L (137-145)
[2018-03-27] MEDS: FOLIC ACID 1 MG TABLET PO SCH (12:31)
[2018-03-27] MEDS: ASPIRIN 81 MG TABLET, ENT COATED PO SCH (12:32)
[2018-03-27] MEDS: LISINOPRIL 10 MG TABLET PO SCH (12:32)
[2018-03-27] MEDS: LEVOTHYROXINE SODIUM 0.05 MG TABLET PO SCH (12:33)
[2018-03-27] MEDS: INSULIN REG, HUMAN 100 UNIT/ML 3 ML VIAL (PYX) SUBCUT PRN (12:34)
[2018-03-27] MEDS: GLIMEPIRIDE 1 MG TABLET PO SCH (12:34)
[2018-03-27] MEDS ORDERED: AMLODIPINE BESYLATE 5 MG TABLET PO ONE (13:31)
[2018-03-27] MEDS ORDERED: DEXTROSE 40% GEL 15 GM TUBE PO PRN (13:36)
[2018-03-27] MEDS ORDERED: GLUCAGON,HUMAN RECOMB 1 MG INJ IM PRN (13:36)
[2018-03-27] MEDS ORDERED: DEXTROSE 50%-WATER 25 GM/50 ML DISP.SYRIN IV PRN ×2 (13:36)
--- NOTE | 2018-03-27 13:36 | PDOC PROGRESS REPORT ---
Subjective Progress Note for:: 03/27/18 Subjective:: She states to feeling fine denies any headaches, dizziness, shortness of breath , weakness she ate 100% of her breakfast. Reason For Visit: UTI,BALDOMERO Physical Exam Vital Signs: Temp Pulse Resp BP Pulse Ox 98.3 F 61 14 188/55 H 99 03/27/18 07:28 03/27/18 07:28 03/27/18 07:28 03/27/18 07:28 03/27/18 07:28 Intake & Output 03/26/18 03/27/18 03/28/18 06:59 06:59 06:59 Intake Total 1015 2970 50 Output Total 100 Balance 915 2970 50 Weight 52.4 kg 51.9 kg General appearance: PRESENT: no acute distress, well-developed, well-nourished Head exam: PRESENT: atraumatic, normocephalic Eye exam: PRESENT: conjunctiva pink, EOMI, PERRLA. ABSENT: scleral icterus Ear exam: PRESENT: normal external ear exam Mouth exam: PRESENT: moist, tongue midline Neck exam: PRESENT: full ROM. ABSENT: carotid bruit, JVD, lymphadenopathy, thyromegaly Respiratory exam: PRESENT: clear to auscultation francisco, symmetrical, unlabored Cardiovascular exam: PRESENT: systolic murmur Murmur grade: 3 Pulses: PRESENT: normal dorsalis pedis pul, +2 pedal pulses bilateral Vascular exam: PRESENT: normal capillary refill GI/Abdominal exam: PRESENT: normal bowel sounds, soft. ABSENT: distended, guarding, mass, organolmegaly, rebound, tenderness Rectal exam: PRESENT: deferred Neurological exam: PRESENT: alert, awake, oriented to person, oriented to place , oriented to time, oriented to situation, CN II-XII grossly intact. ABSENT: motor sensory deficit Psychiatric exam: PRESENT: appropriate affect, normal mood. ABSENT: homicidal ideation, suicidal ideation Skin exam: PRESENT: dry, intact, warm. ABSENT: cyanosis, rash Results Laboratory Results: 03/27/18 08:58 03/27/18 08:58 03/27/18 03/27/18 08:58 08:58 WBC 8.2 RBC 3.36 L Hgb 9.5 L Hct 29.0 L MCV 86 MCH 28.4 MCHC 32.9 RDW 12.7 Plt Count 203 Seg Neutrophils % 62.9 Lymphocytes % 24.0 Monocytes % 9.2 Eosinophils % 3.3 Basophils % 0.6 Absolute Neutrophils 5.1 Absolute Lymphocytes 2.0 Absolute Monocytes 0.8 Absolute Eosinophils 0.3 Absolute Basophils 0.0 Sodium 143.2 Potassium 4.3 Chloride 111 H Carbon Dioxide 20 L Anion Gap 12 BUN 43 H Creatinine 1.39 H Est GFR ( Amer) 43 L Est GFR (Non-Af Amer) 36 L Glucose 253 H Calcium 8.5 Impressions: Head CT 03/25/18 13:15 IMPRESSION: CHRONIC CHANGES OF ATROPHY AND MICROVASCULAR ISCHEMIA. NO ACUTE PROCESS. EVIDENCE OF ACUTE STROKE: NO. Assessment & Plan - Diagnosis (1) Acute renal failure (ARF) Qualifiers: Acute renal failure type: unspecified Qualified Code(s): N17.9 - Acute kidney failure, unspecified Is this a current diagnosis for this admission?: Yes Plan: Continue on louise IV hydration monitor electrolytes, (2) Urinary tract infection Qualifiers: Urinary tract infection type: site unspecified Hematuria presence: without hematuria Qualified Code(s): N39.0 - Urinary tract infection, site not specified Is this a current diagnosis for this admission?: Yes Plan: Continue on ceftriaxone 1 sensitivities will switch over to orals antibiotics (3) Hyperkalemia Is this a current diagnosis for this admission?: Yes Plan: Resolved (4) Hypertension Qualifiers: Hypertension type: essential hypertension Qualified Code(s): I10 - Essential (primary) hypertension Is this a current diagnosis for this admission?: Yes Plan: Add amlodipine 5 mg daily (5) Diabetes mellitus Qualifiers: 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 Is this a current diagnosis for this admission?: Yes Plan: We will discontinue metformin as her creatinine is over 2, continue the glimepiride and we will put on Lantus 10 units daily at bedtime - Time Time Spent with patient: 15-24 minutes Medications reviewed and adjusted accordingly: Yes Anticipated discharge: Home Within: within 24 hours - Inpatient Certification I certify that my determination is in accordance with my understanding of Medicare's requirements for reasonable and necessary INPATIENT services [42 CFR 412.3e].: Yes Medical Necessity: Need for IV Antibiotics Post Hospital Care: D/C Certified Nurse Operating Room Documentation
[2018-03-27] MEDS: INSULIN GLARGINE,HUM.REC.ANLOG 300 UNIT/3 ML INSULN.PEN SUBCUT SCH (21:20)
[2018-03-28] MEDS: HEPARIN SOD (PORCINE) 5,000 UNIT/ML 1 ML SYRINGE SUBCUT SCH ×3 (05:37→21:53)
[2018-03-28] MEDS: LEVOTHYROXINE SODIUM 0.05 MG TABLET PO SCH (05:46)
[2018-03-28] MEDS: BISACODYL 5 MG TABEC PO PRN (05:46)
[2018-03-28 07:24] LABS: ANION GAP 11 (5-19); BLOOD UREA NITROGEN 41 mg/dL (7-20); CALCIUM 8.4 mg/dL (8.4-10.2); CARBON DIOXIDE 18 mmol/L (22-30); CHLORIDE 115 mmol/L (98-107); GLUCOSE 68 mg/dL (75-110); POTASSIUM 3.9 mmol/L (3.6-5.0)
[2018-03-28] MEDS: GLIMEPIRIDE 1 MG TABLET PO SCH (08:02)
[2018-03-28] MEDS: FOLIC ACID 1 MG TABLET PO SCH (09:46)
[2018-03-28] MEDS: GABAPENTIN 300 MG CAPSULE PO SCH ×2 (09:46→21:54)
[2018-03-28] MEDS: AMLODIPINE BESYLATE 10 MG TABLET PO SCH (09:47)
[2018-03-28] MEDS: DOCUSATE SODIUM 100 MG CAPSULE PO SCH ×2 (09:48→18:17)
[2018-03-28] MEDS: LISINOPRIL 10 MG TABLET PO SCH (09:48)
[2018-03-28] MEDS: ASPIRIN 81 MG TABLET, ENT COATED PO SCH (09:48)
[2018-03-28] MEDS: 1/2 NORMAL SALINE 1,000 ML IV PRN ×2 (09:49→23:27)
[2018-03-28] MEDS ORDERED: LEVOFLOXACIN 500 MG TABLET PO ONE (10:00)
[2018-03-28] MEDS: INSULIN REG, HUMAN 100 UNIT/ML 3 ML VIAL (PYX) SUBCUT PRN (13:06)
--- NOTE | 2018-03-28 15:15 | PDOC PROGRESS REPORT ---
Subjective Progress Note for:: 03/28/18 Subjective:: She states to feeling fine denies any headaches, dizziness, shortness of breath , weakness she ate 100% of her breakfast. Reason For Visit: UTI,BALDOMERO Patient is seen she is awake sitting up having breakfast offers no complaints. Physical Exam Vital Signs: Temp Pulse Resp BP Pulse Ox 97.6 F 72 16 227/58 H 97 03/28/18 11:59 03/28/18 11:59 03/28/18 11:59 03/28/18 11:59 03/28/18 11:59 Intake & Output 03/27/18 03/28/18 03/29/18 06:59 06:59 06:59 Intake Total 2970 2354 1300 Balance 2970 2354 1300 Weight 51.9 kg 52.8 kg General appearance: PRESENT: no acute distress, well-developed, well-nourished Head exam: PRESENT: atraumatic, normocephalic Eye exam: PRESENT: conjunctiva pink, EOMI, PERRLA. ABSENT: scleral icterus Ear exam: PRESENT: normal external ear exam Mouth exam: PRESENT: moist, tongue midline Neck exam: PRESENT: full ROM. ABSENT: carotid bruit, JVD, lymphadenopathy, thyromegaly Respiratory exam: PRESENT: clear to auscultation francisco, symmetrical, unlabored Cardiovascular exam: PRESENT: RRR. ABSENT: diastolic murmur, rubs, systolic murmur Murmur grade: 3 Pulses: PRESENT: normal dorsalis pedis pul, +2 pedal pulses bilateral Vascular exam: PRESENT: normal capillary refill GI/Abdominal exam: PRESENT: normal bowel sounds, soft. ABSENT: distended, guarding, mass, organolmegaly, rebound, tenderness Rectal exam: PRESENT: deferred Neurological exam: PRESENT: alert, awake, oriented to person, oriented to place , oriented to time, oriented to situation, CN II-XII grossly intact. ABSENT: motor sensory deficit Psychiatric exam: PRESENT: appropriate affect, normal mood. ABSENT: homicidal ideation, suicidal ideation Skin exam: PRESENT: dry, intact, warm. ABSENT: cyanosis, rash Results Laboratory Results: 03/27/18 08:58 03/28/18 06:10 03/28/18 06:10 Sodium 144.0 Potassium 3.9 Chloride 115 H Carbon Dioxide 18 L Anion Gap 11 BUN 41 H Creatinine 1.27 H Est GFR ( Amer) 48 L Est GFR (Non-Af Amer) 40 L Glucose 68 L Calcium 8.4 Impressions: Head CT 03/25/18 13:15 IMPRESSION: CHRONIC CHANGES OF ATROPHY AND MICROVASCULAR ISCHEMIA. NO ACUTE PROCESS. EVIDENCE OF ACUTE STROKE: NO. Assessment & Plan - Diagnosis (1) Acute renal failure (ARF) Qualifiers: Acute renal failure type: unspecified Qualified Code(s): N17.9 - Acute kidney failure, unspecified Is this a current diagnosis for this admission?: Yes (2) Urinary tract infection Qualifiers: Urinary tract infection type: site unspecified Hematuria presence: without hematuria Qualified Code(s): N39.0 - Urinary tract infection, site not specified Is this a current diagnosis for this admission?: Yes (3) Hyperkalemia Is this a current diagnosis for this admission?: Yes (4) Hypertension Qualifiers: Hypertension type: essential hypertension Qualified Code(s): I10 - Essential (primary) hypertension Is this a current diagnosis for this admission?: Yes Plan: Amlodipine 10 mg daily will be started. We will also put on metoprolol 25 p.o. 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
[2018-03-28] MEDS: CLONIDINE HCL 0.1 MG TABLET PO SCH ×2 (16:04→21:53)
[2018-03-28] MEDS: INSULIN GLARGINE,HUM.REC.ANLOG 300 UNIT/3 ML INSULN.PEN SUBCUT SCH (21:54)
[2018-03-29] MEDS: HEPARIN SOD (PORCINE) 5,000 UNIT/ML 1 ML SYRINGE SUBCUT SCH ×2 (05:03→15:28)
[2018-03-29] MEDS: LEVOTHYROXINE SODIUM 0.05 MG TABLET PO SCH (05:24)
[2018-03-29 05:42] LABS: ANION GAP 10 (5-19); BLOOD UREA NITROGEN 37 mg/dL (7-20); CALCIUM 8.4 mg/dL (8.4-10.2); CARBON DIOXIDE 19 mmol/L (22-30); CHLORIDE 114 mmol/L (98-107); GLUCOSE 57 mg/dL (75-110); SODIUM 142.8 mmol/L (137-145)
[2018-03-29] MEDS: GLIMEPIRIDE 1 MG TABLET PO SCH (08:18)
[2018-03-29] MEDS: FOLIC ACID 1 MG TABLET PO SCH (09:08)
[2018-03-29] MEDS: AMLODIPINE BESYLATE 10 MG TABLET PO SCH (09:08)
[2018-03-29] MEDS: GABAPENTIN 300 MG CAPSULE PO SCH (09:08)
[2018-03-29] MEDS: ASPIRIN 81 MG TABLET, ENT COATED PO SCH (09:08)
[2018-03-29] MEDS: DOCUSATE SODIUM 100 MG CAPSULE PO SCH ×2 (09:08→17:19)
[2018-03-29] MEDS: CLONIDINE HCL 0.1 MG TABLET PO SCH (09:08)
[2018-03-29] MEDS: LISINOPRIL 10 MG TABLET PO SCH (09:09)
[2018-03-29] MEDS ORDERED: LEVOFLOXACIN 250 MG TABLET PO SCH (10:00)
[2018-03-29] MEDS: BISACODYL 5 MG TABEC PO PRN (11:36)
[2018-03-29 11:49] LABS: FOLATE > 20.00 ng/mL (>2.76)
--- NOTE | 2018-03-29 14:27 | PDOC DISCHARGE SUMMARY ---
General - Admit/Disc Date/PCP Admission Date/Primary Care Provider: 03/25/18 19:44 EMILY CHANG MD Discharge Date: 03/29/18 - Discharge Diagnosis (1) Acute renal failure (ARF) Is this a current diagnosis for this admission?: Yes (2) Urinary tract infection Is this a current diagnosis for this admission?: Yes (3) Hyperkalemia Is this a current diagnosis for this admission?: Yes (4) Hypertension Is this a current diagnosis for this admission?: Yes (5) Diabetes mellitus Is this a current diagnosis for this admission?: Yes - Additional Information Prescriptions: Amlodipine Besylate [Norvasc 10 mg Tablet] 10 mg PO DAILY #30 tablet Clonidine HCl [Catapres 0.1 mg Tablet] 0.1 mg PO Q12 30 Days #60 tablet Docusate Sodium [Colace 100 mg Capsule] 100 mg PO BID 30 Days #60 capsule Levofloxacin [Levaquin 250 mg Tablet] 250 mg PO DAILY #7 tablet Home Medications: Gabapentin 300 mg PO BID #60 capsule 07/22/17 Aspirin [Aspirin EC] 81 mg PO DAILY 03/26/18 Levothyroxine Sodium [Synthroid 0.05 mg Tablet] 0.05 mg PO Q6AM 03/26/18 Lisinopril [Prinivil] 20 mg PO DAILY 03/26/18 Amlodipine Besylate [Norvasc 10 mg Tablet] 10 mg PO DAILY #30 tablet 03/29/18 Clonidine HCl [Catapres 0.1 mg Tablet] 0.1 mg PO Q12 30 Days #60 tablet Docusate Sodium [Colace 100 mg Capsule] 100 mg PO BID 30 Days #60 capsule Glimepiride [Amaryl] 2 mg PO BID 30 Days #60 03/29/18 Levofloxacin [Levaquin 250 mg Tablet] 250 mg PO DAILY #7 tablet 03/29/18 Lisinopril [Prinivil 10 mg Tablet] 20 mg PO DAILY tablet 03/29/18 History of Present Illness Patient complains of: Rest of weakness, anorexia, dizziness History of Present Illness: RAJESH NIX is a 87 year old female Hospital Course Hospital Course: Patient was seen was found to have acute on chronic kidney disease also found to have a urinary tract infection and hyperkalemia. She was placed on IV fluids her initial GFR was down to 27 prior to discharge it was 40. Her potassium prior to discharge was 3.9. She was placed on IV antibiotics once the sensitivities were found her leukocytosis, her fever and her kidney function had improved was changed over to Levaquin which was sensitive orally and she tolerated without any complications. With regards to blood pressure her medications were adjusted throughout her course prior to discharge they were stable with the addition of amlodipine and clonidine. Diabetes due to the worsening renal failure metformin was discontinued her Amaryl was increased and prior to discharge her fasting blood sugar was 90. Case was discussed in full detail with the 2 daughters at bedside she will be followed up in the office in 1 week. Physical Exam Vital Signs: Temp Pulse Resp BP Pulse Ox 97.4 F 58 L 15 174/61 H 99 03/29/18 12:00 03/29/18 12:00 03/29/18 12:00 03/29/18 12:00 03/29/18 12:00 Intake & Output 03/28/18 03/29/18 03/30/18 06:59 06:59 06:59 Intake Total 2354 2986 Balance 2354 2986 Weight 52.8 kg 56.5 kg General appearance: PRESENT: no acute distress, well-developed, well-nourished Head exam: PRESENT: atraumatic, normocephalic Eye exam: PRESENT: conjunctiva pink, EOMI, PERRLA. ABSENT: scleral icterus Ear exam: PRESENT: normal external ear exam Mouth exam: PRESENT: moist, tongue midline Neck exam: PRESENT: full ROM. ABSENT: carotid bruit, JVD, lymphadenopathy, thyromegaly Respiratory exam: PRESENT: clear to auscultation francisco, unlabored Cardiovascular exam: PRESENT: RRR. ABSENT: diastolic murmur, rubs, systolic murmur Murmur grade: 3 Pulses: PRESENT: normal dorsalis pedis pul, +2 pedal pulses bilateral Vascular exam: PRESENT: normal capillary refill GI/Abdominal exam: PRESENT: normal bowel sounds, soft. ABSENT: distended, guarding, mass, organolmegaly, rebound, tenderness Rectal exam: PRESENT: deferred Extremities exam: PRESENT: full ROM Musculoskeletal exam: PRESENT: ambulatory Neurological exam: PRESENT: alert, awake, oriented to person, oriented to place , oriented to time, oriented to situation, CN II-XII grossly intact. ABSENT: motor sensory deficit Psychiatric exam: PRESENT: appropriate affect, normal mood. ABSENT: homicidal ideation, suicidal ideation Skin exam: PRESENT: dry, intact, warm. ABSENT: cyanosis, rash Results Laboratory Results: 03/27/18 08:58 03/29/18 03:57 03/29/18 03/29/18 03:57 03:57 Sodium 142.8 Potassium 4.0 Chloride 114 H Carbon Dioxide 19 L Anion Gap 10 BUN 37 H Creatinine 1.54 H Est GFR ( Amer) 39 L Est GFR (Non-Af Amer) 32 L Glucose 57 L Calcium 8.4 Vitamin B12 370.0 Folate > 20.00 Impressions: Head CT 03/25/18 13:15 IMPRESSION: CHRONIC CHANGES OF ATROPHY AND MICROVASCULAR ISCHEMIA. NO ACUTE PROCESS. EVIDENCE OF ACUTE STROKE: NO. Qualifiers - * PATIENT BEING DISCHARGED WITH ANY OF THE FOLLOWING DIAGNOSIS: No Reason(s) for not prescribing Overlap Therapy:: Tx not tolerated, Medical Contraindication, Drug intolerance, Adverse reaction to drug, Drug declined by patient, Procedure Contraindicated, Drug Resistance, Compl of medication care, Not indicated, Contraindicated, Drug allergy, Propensity to reaction, Procedure not indicated, Comfort Measure, Hospice Care Reason(s) for not prescribing Anti-thrombolytic therapy:: Tx not tolerated, Medical Contraindication, Drug intolerance, Adverse reaction to drug, Drug declined by patient, Procedure Contraindicated, Drug Resistance, Compl of medication care, Not indicated, Contraindicated, Drug allergy, Propensity to reaction, Procedure not indicated, Comfort Measure, Hospice Care Reason(s) for not prescribing Anti-coagulation therapy:: Tx not tolerated, Medical Contraindication, Drug intolerance, Adverse reaction to drug, Drug declined by patient, Procedure Contraindicated, Drug Resistance, Compl of medication care, Not indicated, Contraindicated, Drug allergy, Propensity to reaction, Procedure not indicated, Comfort Measure, Hospice Care Reason(s) for not prescribing Statins therapy:: Tx not tolerated, Medical Contraindication, Drug intolerance, Adverse reaction to drug, Drug declined by patient, Procedure Contraindicated, Drug Resistance, Compl of medication care, Not indicated, Contraindicated, Drug allergy, Propensity to reaction, Procedure not indicated, Comfort Measure, Hospice Care Reason(s) for not prescribing Aspirin therapy:: Tx not tolerated, Medical Contraindication, Drug intolerance, Adverse reaction to drug, Drug declined by patient, Procedure Contraindicated, Drug Resistance, Compl of medication care, Not indicated, Contraindicated, Drug allergy, Propensity to reaction, Procedure not indicated, Comfort Measure, Hospice Care Reason(s) for not prescribing Statin therapy:: Tx not tolerated, Medical Contraindication, Drug intolerance, Adverse reaction to drug, Drug declined by patient, Procedure Contraindicated, Drug Resistance, Compl of medication care, Not indicated, Contraindicated, Drug allergy, Propensity to reaction, Procedure not indicated, Comfort Measure, Hospice Care Reason(s) for not prescribing ACEI/ARBS:: Tx not tolerated, Medical Contraindication, Drug intolerance, Adverse reaction to drug, Drug declined by patient, Procedure Contraindicated, Drug Resistance, Compl of medication care, Not indicated, Contraindicated, Drug allergy, Propensity to reaction, Procedure not indicated, Comfort Measure, Hospice Care Reason(s) for not prescribing ACEI:: Tx not tolerated, Medical Contraindication , Drug intolerance, Adverse reaction to drug, Drug declined by patient, Procedure Contraindicated, Drug Resistance, Compl of medication care, Not indicated, Contraindicated, Drug allergy, Propensity to reaction, Procedure not indicated, Comfort Measure, Hospice Care Reason(s) for not prescribing ARBS:: Tx not tolerated, Medical Contraindication , Drug intolerance, Adverse reaction to drug, Drug declined by patient, Procedure Contraindicated, Drug Resistance, Compl of medication care, Not indicated, Contraindicated, Drug allergy, Propensity to reaction, Procedure not indicated, Comfort Measure, Hospice Care Reason(s) for not prescribing Warfarin:: Tx not tolerated, Medical Contraindication, Drug intolerance, Adverse reaction to drug, Drug declined by patient, Procedure Contraindicated, Drug Resistance, Compl of medication care, Not indicated, Contraindicated, Drug allergy, Propensity to reaction, Procedure not indicated, Comfort Measure, Hospice Care Reason(s) for not prescribing evidence-based Beta Gregory:: Tx not tolerated, Medical Contraindication, Drug intolerance, Adverse reaction to drug, Drug declined by patient, Procedure Contraindicated, Drug Resistance, Compl of medication care, Not indicated, Contraindicated, Drug allergy, Propensity to reaction, Procedure not indicated, Comfort Measure, Hospice Care Plan Discharge Plan: Patient will be discharged home with home health aide, PT, physical therapy and occupational. She will get a repeat blood test in 1 week to follow-up kidney function and potassium. And she will be seen in the office in 1 week. Time Spent: Less than 30 Minutes
[2018-03-29] MEDS ORDERED: NA PHOS,M-B/NA PHOS,DI-BA (ADULT) 133 ML ENEMA PR ONE ×2 (15:00→15:26)
[2018-03-29 16:10] VITALS: BP 149/89
== END 2018-03-29 18:40 | disposition home health service (06) | DRG 683 ==
LOC: ER 12:38 → EH 19:44 → 4S 21:15
PROVIDERS: ADMIT Internal Medicine; ATTEND Internal Medicine
DX: N17.9 Acute kidney failure, unspecified (principal); N39.0 Urinary tract infection, site not specified; E87.5 Hyperkalemia; E11.22 Type 2 diabetes mellitus with diabetic chronic kidney disease; I12.9 Hypertensive chronic kidney disease with stage 1 through stage 4 chronic kidney disease, or unspecified chronic kidney disease; N18.9 Chronic kidney disease, unspecified; R62.7 Adult failure to thrive; E03.9 Hypothyroidism, unspecified; M19.90 Unspecified osteoarthritis, unspecified site; Z90.49 Acquired absence of other specified parts of digestive tract; Z90.710 Acquired absence of both cervix and uterus; Z79.4 Long term (current) use of insulin
CPT/HCPCS: 36415; 70450; 80048; 80053; 81001; 82550; 82553; 82607; 82746; 82962; 83735; 84484; 85025; 87040; 87086; 87088; 87186; 93005; 93010; 96365; 99285; G8978-GP; G8979-GP; J0360; J0610; J0696; J1644; J1815; J7030

== ENCOUNTER → 2018-04-06 | Outpatient (CLI) | payer MEDICARE, MEDICAID ==
[2018-04-06 09:56] LABS: ANION GAP 12 (5-19); BLOOD UREA NITROGEN 37 mg/dL (7-20); CALCIUM 9.2 mg/dL (8.4-10.2); CARBON DIOXIDE 25 mmol/L (22-30); CHLORIDE 107 mmol/L (98-107); GLUCOSE 213 mg/dL (75-110); POTASSIUM 5.5 mmol/L (3.6-5.0); SODIUM 143.7 mmol/L (137-145)
== END ==
LOC: OD 08:05
PROVIDERS: ATTEND Family Medicine
DX: R60.9 Edema, unspecified (principal)
CPT/HCPCS: 36415; 80048

== ENCOUNTER → 2018-04-10 | Outpatient (CLI) | payer MEDICARE, MEDICAID ==
[2018-04-10 11:54] LABS: ABSOLUTE BASOPHILS # (AUTO) 0.1 10^3/uL (0.0-0.2); ABSOLUTE EOSINOPHILS # (AUTO) 0.3 10^3/uL (0.0-0.6); ABSOLUTE LYMPHOCYTES (AUTO) 2.5 10^3/uL (0.5-4.7); ABSOLUTE MONOCYTES (AUTO) 0.8 10^3/uL (0.1-1.4); ABSOLUTE NEUT (AUTO) 6.5 10^3/uL (1.7-8.2); BASOPHILS % (AUTO) 0.5 % (0-2); HEMATOCRIT 26.4 % (36.0-47.0); HEMOGLOBIN 8.8 g/dL (12.0-15.5); LYMPHOCYTES % (AUTO) 24.8 % (13-45); MEAN CORPUSCULAR HEMOGLOBIN 28.5 pg (27.0-33.4); MEAN CORPUSCULAR HGB CONC 33.1 g/dL (32.0-36.0); MEAN CORPUSCULAR VOLUME 86 fl (80-97); MONOCYTES % (AUTO) 8.1 % (3-13); PLATELET COUNT 287 10^3/uL (150-450); RED BLOOD COUNT 3.07 10^6/uL (3.72-5.28); RED CELL DISTRIBUTION WIDTH 12.3 % (11.5-14.0); SEGMENTED NEUTROPHILS % (AUTO) 63.6 % (42-78); TOTAL CELLS COUNTED % (AUTO) 100 %; WHITE BLOOD COUNT 10.2 10^3/uL (4.0-10.5)
[2018-04-10 12:28] LABS: ANION GAP 12 (5-19); BLOOD UREA NITROGEN 36 mg/dL (7-20); CALCIUM 9.4 mg/dL (8.4-10.2); CARBON DIOXIDE 28 mmol/L (22-30); CHLORIDE 104 mmol/L (98-107); GLUCOSE 136 mg/dL (75-110); POTASSIUM 4.6 mmol/L (3.6-5.0); SODIUM 143.9 mmol/L (137-145)
== END ==
LOC: OD 11:02
PROVIDERS: ATTEND Internal Medicine
DX: N17.9 Acute kidney failure, unspecified (principal); D64.9 Anemia, unspecified
CPT/HCPCS: 36415; 80048; 85025

== ENCOUNTER → 2018-04-12 | Outpatient (CLI) | payer MEDICARE, MEDICAID ==
[2018-04-12 14:46] LABS: IRON(TIBC) 14.7 ug/dL (37-170)
[2018-04-13 11:40] LABS: CREATININE URINE 14.9 mg/dL (Not Estab.)
[2018-04-13 12:32] LABS: MICROALBUMIN URINE 448.4 ug/mL (Not Estab.)
[2018-04-13 14:16] LABS: ERYTHROPOIETIN (EPO) 6.8 mIU/mL (2.6-18.5)
[2018-04-13 16:39] LABS: A/G RATIO 0.8 (0.7-1.7); ALBUMIN 2 3.6 g/dL (2.9-4.4); BETA GLOBULINS 1.1 g/dL (0.7-1.3); GAMMA GLOBULIN 1.8 g/dL (0.4-1.8); GLOBULIN TOTAL 4.3 g/dL (2.2-3.9); MONOCLONAL SPIKE Not Observed g/dL (Not Observ); PROTEIN TOTAL SERUM 7.9 g/dL (6.0-8.5)
[2018-04-13 17:37] LABS: IMMUNOGLOBULIN A 351 mg/dL (64-422); IMMUNOGLOBULIN G 1821 mg/dL (700-1600)
[2018-04-13 17:37] LABS: ALBUMIN UR 69.1 % (.); ALPHA-1-GLOBULIN URINE 3.8 % (.); ALPHA-2-GLOBULIN URINE 2.7 % (.); GAMMA GLOBULIN URINE 14.5 % (.); M-SPIKE % UR Not Observed % (Not Observ); PROTEIN TOTAL URINE 67.8 mg/dL (Not Estab.)
[2018-04-14 14:53] LABS: IMMUNOGLOBULIN M 161 mg/dL (26-217)
== END ==
LOC: OD 11:59
PROVIDERS: ATTEND Internal Medicine
DX: D64.9 Anemia, unspecified (principal); E11.9 Type 2 diabetes mellitus without complications; N19 Unspecified kidney failure
CPT/HCPCS: 36415; 82043; 82570; 82668; 82728; 82784; 83036; 83540; 83550; 84165; 84166

== ENCOUNTER → 2018-04-25 | Outpatient (CLI) | payer MEDICARE, MEDICAID ==
[2018-04-25 13:24] LABS: ABSOLUTE BASOPHILS # (AUTO) 0.1 10^3/uL (0.0-0.2); ABSOLUTE EOSINOPHILS # (AUTO) 0.3 10^3/uL (0.0-0.6); ABSOLUTE LYMPHOCYTES (AUTO) 2.5 10^3/uL (0.5-4.7); ABSOLUTE MONOCYTES (AUTO) 1.1 10^3/uL (0.1-1.4); ABSOLUTE NEUT (AUTO) 5.8 10^3/uL (1.7-8.2); BASOPHILS % (AUTO) 0.9 % (0-2); EOSINOPHILS % (AUTO) 2.7 % (0-6); HEMOGLOBIN 8.2 g/dL (12.0-15.5); LYMPHOCYTES % (AUTO) 25.6 % (13-45); MEAN CORPUSCULAR HEMOGLOBIN 28.4 pg (27.0-33.4); MEAN CORPUSCULAR HGB CONC 32.9 g/dL (32.0-36.0); MEAN CORPUSCULAR VOLUME 86 fl (80-97); MONOCYTES % (AUTO) 11.2 % (3-13); PLATELET COUNT 347 10^3/uL (150-450); RED CELL DISTRIBUTION WIDTH 12.6 % (11.5-14.0); SEGMENTED NEUTROPHILS % (AUTO) 59.6 % (42-78); TOTAL CELLS COUNTED % (AUTO) 100 %; WHITE BLOOD COUNT 9.7 10^3/uL (4.0-10.5)
== END ==
LOC: OD 11:12
PROVIDERS: ATTEND Internal Medicine
DX: D64.9 Anemia, unspecified (principal)
CPT/HCPCS: 36415; 85025

== ENCOUNTER → 2018-05-10 | Outpatient (CLI) | payer MEDICARE, MEDICAID ==
[2018-05-10 11:17] LABS: ABSOLUTE BASOPHILS # (AUTO) 0.1 10^3/uL (0.0-0.2); ABSOLUTE EOSINOPHILS # (AUTO) 0.3 10^3/uL (0.0-0.6); ABSOLUTE LYMPHOCYTES (AUTO) 2.4 10^3/uL (0.5-4.7); ABSOLUTE MONOCYTES (AUTO) 0.9 10^3/uL (0.1-1.4); ABSOLUTE NEUT (AUTO) 5.2 10^3/uL (1.7-8.2); BASOPHILS % (AUTO) 0.9 % (0-2); EOSINOPHILS % (AUTO) 3.4 % (0-6); HEMATOCRIT 25.5 % (36.0-47.0); HEMOGLOBIN 8.4 g/dL (12.0-15.5); MEAN CORPUSCULAR HEMOGLOBIN 28.1 pg (27.0-33.4); MEAN CORPUSCULAR HGB CONC 32.9 g/dL (32.0-36.0); MEAN CORPUSCULAR VOLUME 85 fl (80-97); PLATELET COUNT 302 10^3/uL (150-450); RED CELL DISTRIBUTION WIDTH 12.7 % (11.5-14.0); SEGMENTED NEUTROPHILS % (AUTO) 58.7 % (42-78); TOTAL CELLS COUNTED % (AUTO) 100 %; WHITE BLOOD COUNT 8.8 10^3/uL (4.0-10.5)
== END ==
LOC: OD 10:20
PROVIDERS: ATTEND Internal Medicine
DX: D64.9 Anemia, unspecified (principal)
CPT/HCPCS: 36415; 85025

== ENCOUNTER → 2018-05-11 | Outpatient (CLI) | payer MEDICARE, MEDICAID ==
[2018-05-11 11:17] LABS: ABSOLUTE BASOPHILS # (AUTO) 0.1 10^3/uL (0.0-0.2); ABSOLUTE EOSINOPHILS # (AUTO) 0.3 10^3/uL (0.0-0.6); ABSOLUTE LYMPHOCYTES (AUTO) 2.3 10^3/uL (0.5-4.7); ABSOLUTE MONOCYTES (AUTO) 0.9 10^3/uL (0.1-1.4); ABSOLUTE NEUT (AUTO) 6.7 10^3/uL (1.7-8.2); BASOPHILS % (AUTO) 0.8 % (0-2); EOSINOPHILS % (AUTO) 2.7 % (0-6); HEMATOCRIT 27.6 % (36.0-47.0); HEMOGLOBIN 9.1 g/dL (12.0-15.5); LYMPHOCYTES % (AUTO) 22.1 % (13-45); MEAN CORPUSCULAR HGB CONC 32.9 g/dL (32.0-36.0); MEAN CORPUSCULAR VOLUME 85 fl (80-97); MONOCYTES % (AUTO) 8.9 % (3-13); PLATELET COUNT 318 10^3/uL (150-450); RED BLOOD COUNT 3.24 10^6/uL (3.72-5.28); RED CELL DISTRIBUTION WIDTH 12.7 % (11.5-14.0); SEGMENTED NEUTROPHILS % (AUTO) 65.5 % (42-78); TOTAL CELLS COUNTED % (AUTO) 100 %; WHITE BLOOD COUNT 10.2 10^3/uL (4.0-10.5)
[2018-05-11 11:36] LABS: ANION GAP 9 (5-19); BLOOD UREA NITROGEN 36 mg/dL (7-20); CALCIUM 9.4 mg/dL (8.4-10.2); CARBON DIOXIDE 25 mmol/L (22-30); CHLORIDE 106 mmol/L (98-107); CREATINE KINASE 117 U/L (30-135); GLUCOSE 171 mg/dL (75-110); POTASSIUM 5.8 mmol/L (3.6-5.0); SODIUM 140.1 mmol/L (137-145); URIC ACID 5.5 mg/dL (2.5-7.5)
== END ==
LOC: OD 10:39
PROVIDERS: ATTEND Internal Medicine
DX: M32.9 Systemic lupus erythematosus, unspecified (principal); N19 Unspecified kidney failure; E83.42 Hypomagnesemia
CPT/HCPCS: 36415; 80048; 82550; 83735; 83970; 84436; 84443; 84550; 85025; 86038

== ENCOUNTER → 2018-05-31 | Outpatient (CLI) | payer MEDICARE, MEDICAID ==
[2018-05-31 12:17] LABS: ANION GAP 13 (5-19); BLOOD UREA NITROGEN 71 mg/dL (7-20); CALCIUM 9.7 mg/dL (8.4-10.2); CARBON DIOXIDE 30 mmol/L (22-30); CHLORIDE 95 mmol/L (98-107); GLUCOSE 330 mg/dL (75-110); POTASSIUM 5.7 mmol/L (3.6-5.0); SODIUM 138.2 mmol/L (137-145)
== END ==
LOC: OD 10:40
PROVIDERS: ATTEND Internal Medicine
DX: E87.5 Hyperkalemia (principal)
CPT/HCPCS: 36415; 80048

== ENCOUNTER 2018-06-01 12:08 | Inpatient (IN) | payer MEDICARE ==
[2018-06-01] MEDS ORDERED: DEXTROSE 40% GEL 15 GM TUBE X 2 PO PRN (13:08)
[2018-06-01] MEDS ORDERED: GLUCAGON,HUMAN RECOMB 1 MG INJ IM PRN (13:08)
[2018-06-01] MEDS ORDERED: DEXTROSE 50%-WATER SYRINGE 12.5 GM/25 ML DOSE IV PRN (13:08)
[2018-06-01] MEDS ORDERED: DEXTROSE 50%-WATER SYRINGE 25 GM/50 ML DOSE IV PRN (13:08)
[2018-06-01] MEDS ORDERED: DEXTROSE 40% GEL 15 GM TUBE PO PRN (13:08)
--- NOTE | 2018-06-01 13:18 | PDOC H&P ---
History of Present Illness Admission Date/PCP: 06/01/18 12:08 MARISSA JOHN MD Patient complains of: Patient comes in today having some weakness and worsening lab testing. She denies any fever chills nausea vomiting. She does state that she had been taking glipizide which was not documented on the records. She has also been taking her Lasix as it was thought she had discontinued them. History of Present Illness: RAJESH NIX is a 87 year old female presents to the hospital after direct admit from my office due to worsening renal failure and hyperkalemia. Past Medical History Cardiac Medical History: Reports: Hypertension EENT Medical History: Reports: Cataracts Endocrine Medical History: Reports: Diabetes Mellitus Type 1, Hypothyroidism Renal/ Medical History: Reports: Chronic Kidney Disease Musculoskeltal Medical History: Reports: Arthritis Psychiatric Medical History: Denies: Depression Hematology: Reports: Anemia Past Surgical History Past Surgical History: Reports: Hysterectomy Social History Lives with: Family Smoking Status: Never Smoker Frequency of Alcohol Use: None Hx Recreational Drug Use: No Drugs: None Hx Prescription Drug Abuse: No Family History Family History: None, Reviewed & Not Pertinent, Hyperlipidemia Parental Family History Reviewed: Yes Children Family History Reviewed: Yes Sibling(s) Family History Reviewed.: Yes Medication/Allergy Home Medications: Gabapentin 300 mg PO BID #60 capsule 07/22/17 Aspirin [Aspirin EC] 81 mg PO DAILY 03/26/18 Levothyroxine Sodium [Synthroid 0.05 mg Tablet] 0.05 mg PO Q6AM 03/26/18 Lisinopril [Prinivil] 20 mg PO DAILY 03/26/18 Amlodipine Besylate [Norvasc 10 mg Tablet] 10 mg PO DAILY #30 tablet 03/29/18 Clonidine HCl [Catapres 0.1 mg Tablet] 0.1 mg PO Q12 30 Days #60 tablet Docusate Sodium [Colace 100 mg Capsule] 100 mg PO BID 30 Days #60 capsule Glimepiride [Amaryl] 2 mg PO BID 30 Days #60 03/29/18 Levofloxacin [Levaquin 250 mg Tablet] 250 mg PO DAILY #7 tablet 03/29/18 Lisinopril [Prinivil 10 mg Tablet] 20 mg PO DAILY tablet 03/29/18 Allergies/Adverse Reactions: No Known Allergies Allergy (Verified 03/26/18 13:53) Review of Systems Constitutional: PRESENT: weight loss Neurological: PRESENT: dizziness, weakness Endocrine: PRESENT: as per HPI Physical Exam Vital Signs: Temp Pulse Resp BP Pulse Ox 97.6 F 70 13 151/52 H 100 06/01/18 12:58 06/01/18 12:58 06/01/18 12:58 06/01/18 12:58 06/01/18 12:58 Intake & Output 05/31/18 06/01/18 06/02/18 06:59 06:59 06:59 Weight 56.4 kg General appearance: PRESENT: no acute distress Head exam: PRESENT: atraumatic, normocephalic Eye exam: PRESENT: conjunctiva pink Mouth exam: PRESENT: moist Teeth exam: PRESENT: poor dentation Throat exam: PRESENT: post pharyngeal erythema Neck exam: PRESENT: full ROM, JVD Respiratory exam: PRESENT: decreased breath sounds Cardiovascular exam: PRESENT: RRR. ABSENT: diastolic murmur, rubs, systolic murmur Pulses: PRESENT: normal dorsalis pedis pul, +2 pedal pulses bilateral Vascular exam: PRESENT: normal capillary refill GI/Abdominal exam: PRESENT: normal bowel sounds, soft. ABSENT: distended, guarding, mass, organolmegaly, rebound, tenderness Rectal exam: PRESENT: deferred Extremities exam: PRESENT: full ROM Musculoskeletal exam: PRESENT: ambulatory Neurological exam: PRESENT: alert, awake, oriented to person, oriented to place , oriented to time, oriented to situation, CN II-XII grossly intact. ABSENT: motor sensory deficit Psychiatric exam: PRESENT: appropriate affect, normal mood. ABSENT: homicidal ideation, suicidal ideation Skin exam: PRESENT: dry, intact, warm. ABSENT: cyanosis, rash Assessment & Plan - Diagnosis (1) Diabetes mellitus Qualifiers: Diabetes mellitus type: type 1 Diabetes mellitus complication status: with kidney complications Diabetes mellitus complication detail: with chronic kidney disease Chronic kidney disease stage: stage 4 (severe) Qualified Code (s): E10.22 - Type 1 diabetes mellitus with diabetic chronic kidney disease; N18.4 - Chronic kidney disease, stage 4 (severe); N18.4 - Chronic kidney disease , stage 4 (severe); N18.4 - Chronic kidney disease, stage 4 (severe); N18.4 - Chronic kidney disease, stage 4 (severe) (3) Hypertension Qualifiers: Hypertension type: essential hypertension Qualified Code(s): I10 - Essential (primary) hypertension Is this a current diagnosis for this admission?: Yes (4) Anemia Qualifiers: Anemia type: iron deficiency Iron deficiency anemia type: unspecified iron deficiency Qualified Code(s): D50.9 - Iron deficiency anemia, unspecified Is this a current diagnosis for this admission?: Yes - Time Time Spent: 30 to 50 Minutes Medications reviewed and adjusted accordingly: Yes Anticipated discharge: Home Within: Other - Inpatient Certification I certify that my determination is in accordance with my understanding of Medicare's requirements for reasonable and necessary INPATIENT services [42 CFR 412.3e].: Yes Medical Necessity: Significant Comorbidiites Make Outpatient Treatment Too Risky , Need Close Monitoring Due to Risk of Patient Decompensation, Need For IV Fluids 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 We will put her on Kayexalate to decrease her potassium level we will resume her gabapentin her folic acid and iron we will consult nephrology.
[2018-06-01] MEDS: HYDRALAZINE HCL 25 MG TABLET PO SCH ×2 (14:55→21:20)
[2018-06-01] MEDS: NORMAL SALINE 1000 ML 1,000 ML IV PRN (14:56)
[2018-06-01] MEDS: SODIUM POLYSTYRENE SULFONATE 15 GM/60 ML PO SCH ×2 (14:56→21:20)
[2018-06-01 15:42] LABS: APPEARANCE,URINE CLOUDY; BILIRUBIN,URINE NEGATIVE (NEGATIVE); COLOR,URINE YELLOW; GLUCOSE, URINE 50 mg/dL (NEGATIVE); KETONES,URINE NEGATIVE (NEGATIVE); LEUKOCYTE ESTERASE,URINE MODERATE (NEGATIVE); NITRITE,URINE NEGATIVE (NEGATIVE); PROTEIN,URINE 100 mg/dL (NEGATIVE); UROBILINOGEN,URINE NEGATIVE mg/dL (<2.0)
[2018-06-01] MEDS: INSULIN LISPRO 100 UNIT/ML 3 ML VIAL SUBCUT PRN (16:52)
--- NOTE | 2018-06-01 18:57 | PDOC CONSULTATION ---
Consultation Consult Date: 06/01/18 Attending physician:: MARISSA JOHN Consult reason:: I was asked to see the patient because of worsening kidney function and hyperkalemia. History of Present Illness Admission Date/PCP: 06/01/18 12:08 MARISSA JOHN MD History of Present Illness: RAJESH NIX is a 87 year old female from [place] with history of diabetes mellitus, hypertension, chronic kidney disease baseline stage IV and proteinuria who was directly admitted by Dr. John because of worsening kidney function and hyperkalemia. According the patient's daughter the patient has been feeling weak on and off but has actually felt better for the last 4 days. The patient herself though denies this and the daughter at bedside told me that she is denying symptoms because she wants to go back to [place]. The patient said she has good appetite. She has some constipation. She denies any nausea, vomiting, diarrhea, cough, fever, chest pains, no shortness of breath. She denies any known problems with urination including gross hematuria or foamy urine. According to the daughter whom I spoke to over the phone along with her other sister at bedside the patient has been having increased swelling about 2 weeks ago so she was taking Lasix 40 mg twice a day approximately 1 month now. She is been on Lasix on and off. Patient is not being given any NSAIDs, no history of hepatitis, no history of kidney stones, but known to have kidney disease at least for the last 2-3 months while they were following up with Dr. John. Yesterday the patient had a blood work which showed a potassium of 5.7, BUN of 71, creatinine of 2.35 and estimated GFR of 20. Base for the last few months patient's BUN is been running around 36-38 and her creatinine has been running 1.5-1.86 with baseline EGFR of about 26-32%. She has negative serum protein electrophoresis and urine protein electrophoresis in April 12, 2018. She has a urine to microalbumin ratio of 3009.4 on April 12. She had a kidney ultrasound on April 19 which showed the right kidney measuring 9.5 cm in the left kidney 11.7 cm with increased echogenicity. There was a finding of several hypoechoic lesion on the right kidney which was interpreted as a complex cystic lesion otherwise the left kidney does not have any other solid or suspicious masses. Both kidneys has no hydronephrosis nor calcifications. 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 Renal/ Medical History: Reports: Chronic Kidney Disease Stage IV Musculoskeltal Medical History: Reports: Arthritis Hematology Medical History: Reports Anemia of Chronic Kidney Disease, Reports Iron Deficiency Anemia Past Surgical History Past Surgical History: Reports: Hysterectomy, Other - Cataract surgery Social History Information Source: Patient, Relative Lives with: Family Smoking Status: Never Smoker Frequency of Alcohol Use: None Hx Recreational Drug Use: No Drugs: None Hx Prescription Drug Abuse: No Family History Family History: DM - Brother and children Parental Family History Reviewed: Yes Children Family History Reviewed: Yes Sibling(s) Family History Reviewed.: Yes Medication/Allergy Home Medications: Aspirin [Aspirin EC] 81 mg PO DAILY 03/26/18 Levothyroxine Sodium [Synthroid 0.05 mg Tablet] 0.05 mg PO Q6AM 03/26/18 Amlodipine Besylate [Norvasc 10 mg Tablet] 10 mg PO DAILY #30 tablet 03/29/18 Cyanocobalamin/FA/Pyridoxine [Folbee Tablet] 1 tab PO DAILY 06/01/18 Ferrous Sulfate [Iron] 325 mg PO DAILY 06/01/18 Folic Acid 1 mg PO DAILY 06/01/18 Furosemide [Lasix 40 mg Tablet] 40 mg PO BID 06/01/18 Gabapentin 300 mg PO TID 06/01/18 Glimepiride [Amaryl] 2 mg PO [id number] 06/01/18 Hydralazine HCl [Apresoline 25 mg Tablet] 25 mg PO TID 06/01/18 Insulin Glargine,Hum.rec.anlog [Lantus Solostar] 15 unit SQ DAILY 06/01/18 Metformin HCl [Glucophage] 1,000 mg PO BID 06/01/18 Polyethylene Glycol 3350 [Miralax Powder 17 gm/Packet] 1 packet PO DAILY Sodium Polystyrene Sulfonate [Kayexalate 15 Gm/60 Ml Susp 60 Ml] 30 gm PO BID Allergies/Adverse Reactions: No Known Allergies Allergy (Verified 03/26/18 13:53) Review of Systems All systems: reviewed and no additional remarkable complaints except as stated Review of Systems: Constitutional: ABSENT: chills, fever(s), headache(s), weight gain, weight loss ; admits feeling weak Eyes: ABSENT: visual disturbances Ears: ABSENT: hearing changes Cardiovascular: ABSENT: chest pain, dyspnea on exertion, edema, orthropnea, palpitations Respiratory: ABSENT: cough, dyspnea, hemoptysis Gastrointestinal: ABSENT: abdominal pain, diarrhea, hematemesis, hematochezia, nausea, vomiting; admits constipation Genitourinary: ABSENT: dysuria, hematuria Musculoskeletal: ABSENT: joint swelling Integumentary: ABSENT: rash, wounds Neurological: ABSENT: abnormal gait, abnormal speech, confusion, dizziness, focal weakness, numbness, syncope Psychiatric: ABSENT: anxiety, depression Endocrine: ABSENT: cold intolerance, heat intolerance, polydipsia, polyuria Hematologic/Lymphatic: ABSENT: easy bleeding, easy bruising, lymphadenopathy Physical Exam Vital Signs: Temp Pulse Resp BP Pulse Ox 98.0 F 68 15 131/47 H 100 06/01/18 15:40 06/01/18 15:40 06/01/18 15:40 06/01/18 15:40 06/01/18 15:40 Intake & Output 05/31/18 06/01/18 06/02/18 06:59 06:59 06:59 Intake Total 237 Balance 237 Weight 56.4 kg Exam: General appearance: No acute distress, cooperative, well-developed, well- nourished Head exam: PRESENT: atraumatic, normocephalic Eye exam: PRESENT: Conjunctiva pale, EOMI, PERRLA. ABSENT: conjunctival injection, scleral icterus Mouth exam: PRESENT: moist, neck supple, tongue midline Neck exam: PRESENT: full ROM. ABSENT: carotid bruit, JVD, lymphadenopathy, thyromegaly Respiratory exam: PRESENT: clear to auscultation bilaterally. ABSENT: rales, rhonchi, stridor, wheezes Cardiovascular exam: PRESENT: RRR, +S1, +S2. Grade 2/6 systolic murmur Pulses: PRESENT: normal radial pulses, normal dorsalis pedis pulses GI/Abdominal exam: PRESENT: normal bowel sounds, soft. ABSENT: guarding, mass, tenderness Rectal exam: Deferred Extremities exam: PRESENT: full ROM. ABSENT: calf tenderness, pedal edema Musculoskeletal: PRESENT: full ROM. ABSENT: deformity Neurological exam: PRESENT: alert, Awake, Oriented to person, Oriented to place , Oriented to time, reflexes normal, CN II-XII grossly intact. ABSENT: motor sensory deficit Psychiatric exam: PRESENT: appropriate affect, normal mood. ABSENT: homicidal ideation, suicidal ideation Skin exam: PRESENT: intact, dry, warm. ABSENT: rash Results Laboratory Results: 06/01/18 15:16 Urine Color YELLOW Urine Appearance CLOUDY Urine pH 5.0 Ur Specific [place] 1.010 Urine Protein 100 H Urine Glucose (UA) 50 H Urine Ketones NEGATIVE Urine Blood NEGATIVE Urine Nitrite NEGATIVE Ur Leukocyte Esterase MODERATE H Urine WBC (Auto) 112 Urine RBC (Auto) 1 04/10/18 04/12/18 04/12/18 11:13 12:30 12:30 BUN 36 H Creatinine 1.72 H Est GFR (Non-Af Amer) 28 L Hemoglobin A1c % Iron % Saturation Erythropoietin Ferritin Microalb/Creat Ratio 3009.4 H U Random M-Rad (%) Not Observed Stool Occult Blood ONDINA (Multiplex) 04/12/18 04/12/18 05/11/18 12:38 12:38 11:01 BUN 36 H Creatinine 1.86 H Est GFR (Non-Af Amer) 26 L Hemoglobin A1c % Iron 14.7 L % Saturation 5 Erythropoietin 6.8 Ferritin 165.00 Microalb/Creat Ratio U Random M-Rad (%) Stool Occult Blood ONDINA (Multiplex) 05/11/18 05/12/18 05/31/18 11:01 23:00 10:47 BUN 71 H Creatinine 2.35 H Est GFR (Non-Af Amer) 20 L Hemoglobin A1c % Iron % Saturation Erythropoietin Ferritin Microalb/Creat Ratio U Random M-Rad (%) Stool Occult Blood NEGATIVE ONDINA (Multiplex) Negative 06/01/18 13:17 BUN Creatinine Est GFR (Non-Af Amer) Hemoglobin A1c % 6.8 H Iron % Saturation Erythropoietin Ferritin Microalb/Creat Ratio U Random M-Rad (%) Stool Occult Blood ONDINA (Multiplex) Assessment & Plan - Diagnosis (1) Acute kidney injury superimposed on chronic kidney disease Is this a current diagnosis for this admission?: Yes Plan: This could be secondary to prerenal azotemia because of intake of Lasix for the last few weeks. Agree with holding the Lasix at this time since the patient does not really have any leg swelling anymore. Agree with holding metformin as well. Agree with cautious IV fluid hydration. Avoid any nephrotoxic medications. Patient does not need any renal replacement therapy at this time. Continue to monitor kidney function. (2) Chronic kidney disease, stage IV (severe) Is this a current diagnosis for this admission?: Yes Plan: Patient has nephrotic range proteinuria from previous months. This is most likely secondary to diabetic nephropathy. She has negative serum and urine protein electrophoresis in the past. (3) Diabetic nephropathy Qualifiers: Diabetes mellitus type: type 2 Qualified Code(s): E11.21 - Type 2 diabetes mellitus with diabetic nephropathy Is this a current diagnosis for this admission?: Yes (4) Hyperkalemia Is this a current diagnosis for this admission?: Yes Plan: Patient seems to be have been given Kayexalate and is currently now on IV fluids. I think her potassium is just going to go down from here. (5) Anemia in chronic kidney disease (CKD) Qualifiers: Chronic kidney disease stage: stage 4 (severe) Qualified Code(s): N18.4 - Chronic kidney disease, stage 4 (severe); D63.1 - Anemia in chronic kidney disease; D63.1 - Anemia in chronic kidney disease Is this a current diagnosis for this admission?: Yes Plan: As the patient has been taking iron for at least more than 1 month we will check her iron panel again. If her iron panel is within acceptable limits patient might need to be initiated on Procrit injections. Check stool for occult blood. (6) Iron deficiency anemia Is this a current diagnosis for this admission?: Yes Plan: Recheck iron panel. (7) Diabetes mellitus type 2 in nonobese Is this a current diagnosis for this admission?: Yes (8) Complex renal cyst Is this a current diagnosis for this admission?: Yes Plan: Patient probably needs to be evaluated by urology after she gets discharged. (9) Hypertension Qualifiers: Hypertension type: essential hypertension Qualified Code(s): I10 - Essential (primary) hypertension Is this a current diagnosis for this admission?: Yes - Notes Notes: Impression and assessment discussed with the patient in the presence of 1 of her daughters and another daughter on the phone. Thank you very much for this consultation, I will follow the patient with you here in the hospital and as an outpatient. - Time Time Spent: Greater than 70 Minutes
[2018-06-01] MEDS: ACETAMINOPHEN 325 MG TABLET PO PRN (21:20)
[2018-06-01] MEDS ORDERED: INSULIN GLARGINE,HUM.REC.ANLOG 300 UNIT/3 ML INSULN.PEN SUBCUT SCH (22:00)
[2018-06-02] MEDS: NORMAL SALINE 1000 ML 1,000 ML IV PRN ×3 (00:51→22:17)
[2018-06-02 04:52] LABS: ABSOLUTE BASOPHILS # (AUTO) 0.1 10^3/uL (0.0-0.2); ABSOLUTE EOSINOPHILS # (AUTO) 0.2 10^3/uL (0.0-0.6); ABSOLUTE LYMPHOCYTES (AUTO) 2.3 10^3/uL (0.5-4.7); ABSOLUTE NEUT (AUTO) 4.9 10^3/uL (1.7-8.2); ABSOLUTE RETICS # 0.037 10^6/uL (0.028-0.122); BASOPHILS % (AUTO) 0.6 % (0-2); HEMATOCRIT 25.5 % (36.0-47.0); HEMOGLOBIN 8.5 g/dL (12.0-15.5); LYMPHOCYTES % (AUTO) 26.9 % (13-45); MEAN CORPUSCULAR HEMOGLOBIN 27.9 pg (27.0-33.4); MEAN CORPUSCULAR HGB CONC 33.2 g/dL (32.0-36.0); MEAN CORPUSCULAR VOLUME 84 fl (80-97); MONOCYTES % (AUTO) 11.8 % (3-13); PLATELET COUNT 213 10^3/uL (150-450); RED BLOOD COUNT 3.04 10^6/uL (3.72-5.28); RED CELL DISTRIBUTION WIDTH 12.6 % (11.5-14.0); SEGMENTED NEUTROPHILS % (AUTO) 57.7 % (42-78); TOTAL CELLS COUNTED % (AUTO) 100 %; WHITE BLOOD COUNT 8.4 10^3/uL (4.0-10.5)
[2018-06-02 05:09] LABS: ANION GAP 11 (5-19); BLOOD UREA NITROGEN 80 mg/dL (7-20); CALCIUM 8.3 mg/dL (8.4-10.2); CARBON DIOXIDE 28 mmol/L (22-30); CHLORIDE 102 mmol/L (98-107); GLUCOSE 172 mg/dL (75-110); IRON(TIBC) 39.9 ug/dL (37-170); PHOSPHORUS 5.7 mg/dL (2.5-4.5); POTASSIUM 3.7 mmol/L (3.6-5.0); SODIUM 141.1 mmol/L (137-145)
[2018-06-02] MEDS: SODIUM POLYSTYRENE SULFONATE 15 GM/60 ML PO SCH (05:21)
[2018-06-02] MEDS: HYDRALAZINE HCL 25 MG TABLET PO SCH ×3 (05:21→21:15)
[2018-06-02 06:21] LABS: FOLATE > 20.00 ng/mL (>2.76)
--- NOTE | 2018-06-02 09:17 | PDOC PROGRESS REPORT ---
Subjective Progress Note for:: 06/02/18 Subjective:: She states today to feeling good denies any fever, shortness of breath, chest pain Kayexalate as work she has had 3 bowel movements her potassium is 3.7. She denies abdominal pain nausea vomiting. Appreciate Dr. Londono's consultation. Reason For Visit: ACUTE RENAL FAILURE/HYPERKALEMIA Physical Exam Vital Signs: Temp Pulse Resp BP Pulse Ox 98.3 F 76 17 135/47 H 97 06/02/18 07:32 06/02/18 07:32 06/02/18 07:32 06/02/18 07:32 06/02/18 07:32 Intake & Output 06/01/18 06/02/18 06/03/18 06:59 06:59 06:59 Intake Total 1869 Output Total 700 Balance 1169 Weight 59.8 kg General appearance: PRESENT: no acute distress, well-developed, well-nourished Head exam: PRESENT: atraumatic, normocephalic Eye exam: PRESENT: conjunctiva pink, EOMI, PERRLA. ABSENT: scleral icterus Ear exam: PRESENT: normal external ear exam Mouth exam: PRESENT: moist, tongue midline Teeth exam: PRESENT: poor dentation Throat exam: PRESENT: post pharyngeal erythema Neck exam: PRESENT: full ROM. ABSENT: carotid bruit, JVD, lymphadenopathy, thyromegaly Respiratory exam: PRESENT: clear to auscultation francisco, unlabored Cardiovascular exam: PRESENT: systolic murmur Murmur grade: 2 Pulses: PRESENT: normal dorsalis pedis pul, +2 pedal pulses bilateral Vascular exam: PRESENT: normal capillary refill GI/Abdominal exam: PRESENT: normal bowel sounds, soft. ABSENT: distended, guarding, mass, organolmegaly, rebound, tenderness Rectal exam: PRESENT: deferred Extremities exam: PRESENT: full ROM Musculoskeletal exam: PRESENT: ambulatory Neurological exam: PRESENT: alert, awake, oriented to person, oriented to place , oriented to time, oriented to situation, CN II-XII grossly intact. ABSENT: motor sensory deficit Psychiatric exam: PRESENT: appropriate affect, normal mood. ABSENT: homicidal ideation, suicidal ideation Skin exam: PRESENT: dry, intact, warm. ABSENT: cyanosis, rash Results Laboratory Results: 06/02/18 04:24 06/02/18 04:24 1006/02/18 06/02/18 15:16 04:24 04:24 WBC 8.4 RBC 3.04 L Hgb 8.5 L Hct 25.5 L MCV 84 MCH 27.9 MCHC 33.2 RDW 12.6 Plt Count 213 Seg Neutrophils % 57.7 Lymphocytes % 26.9 Monocytes % 11.8 Eosinophils % 3.0 Basophils % 0.6 Absolute Neutrophils 4.9 Absolute Lymphocytes 2.3 Absolute Monocytes 1.0 Absolute Eosinophils 0.2 Absolute Basophils 0.1 Retic Count (auto) 1.20 Absolute Retic 0.037 Sodium 141.1 Potassium 3.7 Chloride 102 Carbon Dioxide 28 Anion Gap 11 BUN 80 H Creatinine 2.43 H Est GFR ( Amer) 23 L Est GFR (Non-Af Amer) 19 L Glucose 172 H Calcium 8.3 L Phosphorus 5.7 H Iron 39.9 TIBC 253 % Saturation 16 Ferritin 177.00 Vitamin B12 763.0 Folate > 20.00 Urine Color YELLOW Urine Appearance CLOUDY Urine pH 5.0 Ur Specific [place] 1.010 Urine Protein 100 H Urine Glucose (UA) 50 H Urine Ketones NEGATIVE Urine Blood NEGATIVE Urine Nitrite NEGATIVE Ur Leukocyte Esterase MODERATE H Urine WBC (Auto) 112 Urine RBC (Auto) 1 Stool Occult Blood 06/02/18 05:00 WBC RBC Hgb Hct MCV MCH MCHC RDW Plt Count Seg Neutrophils % Lymphocytes % Monocytes % Eosinophils % Basophils % Absolute Neutrophils Absolute Lymphocytes Absolute Monocytes Absolute Eosinophils Absolute Basophils Retic Count (auto) Absolute Retic Sodium Potassium Chloride Carbon Dioxide Anion Gap BUN Creatinine Est GFR ( Amer) Est GFR (Non-Af Amer) Glucose Calcium Phosphorus Iron TIBC % Saturation Ferritin Vitamin B12 Folate Urine Color Urine Appearance Urine pH Ur Specific [place]yson Urine Protein Urine Glucose (UA) Urine Ketones Urine Blood Urine Nitrite Ur Leukocyte Esterase Urine WBC (Auto) Urine RBC (Auto) Stool Occult Blood NEGATIVE Assessment & Plan - Diagnosis (1) Diabetes mellitus Qualifiers: Diabetes mellitus type: type 1 Diabetes mellitus complication status: with kidney complications Diabetes mellitus complication detail: with chronic kidney disease Chronic kidney disease stage: stage 4 (severe) Qualified Code (s): E10.22 - Type 1 diabetes mellitus with diabetic chronic kidney disease; N18.4 - Chronic kidney disease, stage 4 (severe); N18.4 - Chronic kidney disease , stage 4 (severe); N18.4 - Chronic kidney disease, stage 4 (severe); N18.4 - Chronic kidney disease, stage 4 (severe) Is this a current diagnosis for this admission?: Yes Plan: We will increase her Lantus to 25 units daily her hemoglobin A1c was 6.8 her microalbumin was over 3000 (2) Hyperkalemia Is this a current diagnosis for this admission?: Yes Plan: Potassium is 3.7 we will continue to monitor we will hold Kayexalate presently and check BMP daily. (3) Hypertension Qualifiers: Hypertension type: essential hypertension Qualified Code(s): I10 - Essential (primary) hypertension Is this a current diagnosis for this admission?: Yes Plan: To new hydroxylate her present dosage we will try to maintain systolic less than 135 diastolic less than 80 (4) Anemia Qualifiers: Anemia type: iron deficiency Iron deficiency anemia type: unspecified iron deficiency Qualified Code(s): D50.9 - Iron deficiency anemia, unspecified Is this a current diagnosis for this admission?: Yes (5) Acute kidney injury superimposed on chronic kidney disease Is this a current diagnosis for this admission?: Yes Plan: Continue IV hydration gingerly will monitor daily BMP 7 waiting for vitamin D level calcium level is within normal - Time Time Spent with patient: 15-24 minutes Anticipated discharge: Home Within: within 72 hours - Inpatient Certification I certify that my determination is in accordance with my understanding of Medicare's requirements for reasonable and necessary INPATIENT services [42 CFR 412.3e].: Yes Medical Necessity: Failure to Improve With Outpatient Therapy, Need Close Monitoring Due to Risk of Patient Decompensation, Need For IV Fluids Post Hospital Care: D/C Cigar Maker Documentation - Plan Summary Plan Summary: Plan discussion was had with patient and family she wishes to be a DNR documented on the records and will not change current treatment plan though discussion will be had with family as she continues to hydrate if her hemoglobin drops below critical level whether transfusion will be indicated for bone marrow stimulation with erythropoietin will be utilized.
[2018-06-02 10:56] LABS: ANION GAP 15 (5-19); BLOOD UREA NITROGEN 75 mg/dL (7-20); CALCIUM 8.6 mg/dL (8.4-10.2); CARBON DIOXIDE 25 mmol/L (22-30); CHLORIDE 102 mmol/L (98-107); GLUCOSE 308 mg/dL (75-110); POTASSIUM 4.1 mmol/L (3.6-5.0)
[2018-06-02] MEDS: FOLIC ACID 1 MG TABLET PO SCH (11:17)
[2018-06-02] MEDS: ENOXAPARIN SODIUM INJ 60 MG/0.6 ML DISP.SYRIN SUBCUT SCH (11:18)
[2018-06-02] MEDS: FERROUS SULFATE 325 MG TABLET PO SCH (11:18)
[2018-06-02] MEDS: GABAPENTIN 300 MG CAPSULE PO SCH (11:18)
[2018-06-02] MEDS: ACETAMINOPHEN 325 MG TABLET PO PRN (11:19)
[2018-06-02] MEDS: INSULIN LISPRO 100 UNIT/ML 3 ML VIAL SUBCUT PRN ×2 (12:36→21:14)
--- NOTE | 2018-06-02 18:06 | PDOC PROGRESS REPORT ---
Subjective Progress Note for:: 06/02/18 Subjective:: Patient is doing fine and is hemodynamically stable except for episodes of hypoglycemia. She is just complaining of right arm pain and back pain which the daughter said is been going on for a couple weeks and is nothing new. When I saw her she is eating her dinner. No other new complaints. Reason For Visit: ACUTE RENAL FAILURE/HYPERKALEMIA Physical Exam Vital Signs: Temp Pulse Resp BP Pulse Ox 98.2 F 78 16 118/38 L 98 06/02/18 15:42 06/02/18 15:42 06/02/18 15:42 06/02/18 15:42 06/02/18 15:42 Intake & Output 06/01/18 06/02/18 06/03/18 06:59 06:59 06:59 Intake Total 1869 1237 Output Total 700 Balance 1169 1237 Weight 59.8 kg Exam: General appearance: PRESENT: no acute distress, cooperative, well-developed, well-nourished Head exam: PRESENT: atraumatic, normocephalic Eye exam: PRESENT: conjunctiva pale, PERRLA. ABSENT: scleral icterus Neck exam: ABSENT: JVD Respiratory exam: PRESENT: Diminished breath sounds. ABSENT: crackles, rales, rhonchi, unlabored, wheezes Cardiovascular exam: PRESENT: Regular rate rhythm -+S1, +S2. ABSENT: diastolic murmur, systolic murmur GI/Abdominal exam: PRESENT: normal bowel sounds, soft. ABSENT: guarding, mass, tenderness Extremities exam: ABSENT: No edema Neurological exam: PRESENT: alert, awake, oriented to person, place and time. Skin exam: PRESENT: dry, warm, Results Laboratory Results: 06/02/18 04:24 06/02/18 10:30 06/02/18 06/02/18 06/02/18 04:24 04:24 05:00 WBC 8.4 RBC 3.04 L Hgb 8.5 L Hct 25.5 L MCV 84 MCH 27.9 MCHC 33.2 RDW 12.6 Plt Count 213 Seg Neutrophils % 57.7 Lymphocytes % 26.9 Monocytes % 11.8 Eosinophils % 3.0 Basophils % 0.6 Absolute Neutrophils 4.9 Absolute Lymphocytes 2.3 Absolute Monocytes 1.0 Absolute Eosinophils 0.2 Absolute Basophils 0.1 Retic Count (auto) 1.20 Absolute Retic 0.037 Sodium 141.1 Potassium 3.7 Chloride 102 Carbon Dioxide 28 Anion Gap 11 BUN 80 H Creatinine 2.43 H Est GFR ( Amer) 23 L Est GFR (Non-Af Amer) 19 L Glucose 172 H Calcium 8.3 L Phosphorus 5.7 H Iron 39.9 TIBC 253 % Saturation 16 Ferritin 177.00 Vitamin B12 763.0 Folate > 20.00 Stool Occult Blood NEGATIVE 06/02/18 10:30 WBC RBC Hgb Hct MCV MCH MCHC RDW Plt Count Seg Neutrophils % Lymphocytes % Monocytes % Eosinophils % Basophils % Absolute Neutrophils Absolute Lymphocytes Absolute Monocytes Absolute Eosinophils Absolute Basophils Retic Count (auto) Absolute Retic Sodium 142.0 Potassium 4.1 Chloride 102 Carbon Dioxide 25 Anion Gap 15 BUN 75 H Creatinine 2.24 H Est GFR ( Amer) 25 L Est GFR (Non-Af Amer) 21 L Glucose 308 H Calcium 8.6 Phosphorus Iron TIBC % Saturation Ferritin Vitamin B12 Folate Stool Occult Blood Assessment & Plan - Diagnosis (1) Acute kidney injury superimposed on chronic kidney disease Is this a current diagnosis for this admission?: Yes Plan: Patient's kidney function is minimally improved with IV fluid hydration. Patient appears to be euvolemic currently. I suspect this is the patient's new baseline kidney function. (2) Chronic kidney disease, stage IV (severe) Is this a current diagnosis for this admission?: Yes (3) Diabetic nephropathy Qualifiers: Diabetes mellitus type: type 2 Qualified Code(s): E11.21 - Type 2 diabetes mellitus with diabetic nephropathy Is this a current diagnosis for this admission?: Yes Plan: Patient has nephrotic range proteinuria and will benefit from an YUKI or ARB which we can consider in the future. (4) Urinary tract infection Qualifiers: Urinary tract infection type: site unspecified Hematuria presence: without hematuria Qualified Code(s): N39.0 - Urinary tract infection, site not specified Is this a current diagnosis for this admission?: Yes Plan: Urine cultures positive for gram-negative rods. We will start oral ciprofloxacin 250 mg p.o. daily starting today. (5) Hyperkalemia Is this a current diagnosis for this admission?: Yes Plan: Currently resolved. If we start the patient on YUKI or ARB for her proteinuria she is probably going to need a maintenance medication for hyperkalemia like Veltassa. (6) Anemia in chronic kidney disease (CKD) Qualifiers: Chronic kidney disease stage: stage 4 (severe) Qualified Code(s): N18.4 - Chronic kidney disease, stage 4 (severe); D63.1 - Anemia in chronic kidney disease; D63.1 - Anemia in chronic kidney disease Is this a current diagnosis for this admission?: Yes Plan: Patient's iron panel are near acceptable level. We will continue oral ferrous sulfate. We will give the patient Procrit 40,000 units subcutaneously x1 dose today. Discussed benefits and risks with the patient and daughter at bedside. The Procrit injection is most likely going to need to be continued as an outpatient which we can give in the office. (7) Iron deficiency anemia Is this a current diagnosis for this admission?: Yes (8) Diabetes mellitus type 2 in nonobese Is this a current diagnosis for this admission?: Yes (9) Complex renal cyst Is this a current diagnosis for this admission?: Yes (10) Hypertension Qualifiers: Hypertension type: essential hypertension Qualified Code(s): I10 - Essential (primary) hypertension Is this a current diagnosis for this admission?: Yes - Notes Notes: From nephrology standpoint as long as the patient's kidney function is improving and the patient is eating and drinking fluids, I think she may be able to go home over the weekend. I would be happy to see her in my office in 2 -3 weeks with repeat labs including at least CBC and BMP. - Time Time with patient: 15-25 minutes
[2018-06-02] MEDS ORDERED: EPOETIN ALFA INJ 40000 UNIT/1 ML (RENAL) SUBCUT ONE (19:00)
[2018-06-02] MEDS ORDERED: INSULIN LISPRO 100 UNIT/ML 3 ML VIAL ONE (21:11)
[2018-06-02] MEDS: INSULIN GLARGINE,HUM.REC.ANLOG 300 UNIT/3 ML INSULN.PEN SUBCUT SCH (21:14)
[2018-06-02] MEDS: CIPROFLOXACIN HCL 500 MG TABLET PO SCH (21:15)
[2018-06-03] MEDS: HYDRALAZINE HCL 25 MG TABLET PO SCH ×3 (05:34→21:40)
[2018-06-03 06:36] LABS: ABSOLUTE RETICS # 0.036 10^6/uL (0.028-0.122); RETICULOCYTE COUNT (AUTO) 1.21 % (0.66-2.85)
[2018-06-03 06:49] LABS: IRON(TIBC) 23.5 ug/dL (37-170)
[2018-06-03 07:20] LABS: UR PRO/CREAT RATIO RESULT 2.1 mg/mg (0.0-0.2); URINE CREATININE 61.4 mg/dL (15-278); URINE PROTEIN 127.7 mg/dL (<12)
[2018-06-03 08:01] LABS: FOLATE > 20.00 ng/mL (>2.76)
[2018-06-03] MEDS: GABAPENTIN 300 MG CAPSULE PO SCH (10:08)
[2018-06-03] MEDS: ACETAMINOPHEN 325 MG TABLET PO PRN (10:08)
[2018-06-03] MEDS: FERROUS SULFATE 325 MG TABLET PO SCH (10:08)
[2018-06-03] MEDS: FOLIC ACID 1 MG TABLET PO SCH (10:08)
[2018-06-03] MEDS: ENOXAPARIN SODIUM INJ 60 MG/0.6 ML DISP.SYRIN SUBCUT SCH (10:09)
[2018-06-03] MEDS: NORMAL SALINE 1000 ML 1,000 ML IV PRN ×2 (10:09→20:09)
[2018-06-03 10:23] LABS: ANION GAP 9 (5-19); CALCIUM 8.6 mg/dL (8.4-10.2); CARBON DIOXIDE 26 mmol/L (22-30); CHLORIDE 106 mmol/L (98-107); GLUCOSE 107 mg/dL (75-110); PHOSPHORUS 3.7 mg/dL (2.5-4.5); POTASSIUM 3.8 mmol/L (3.6-5.0); SODIUM 140.6 mmol/L (137-145)
[2018-06-03 10:35] LABS: BLOOD UREA NITROGEN 52 mg/dL (7-20)
--- NOTE | 2018-06-03 15:02 | PDOC PROGRESS REPORT ---
Subjective Progress Note for:: 06/03/18 Subjective:: 87 y.o. F admitted to [facility] for ARF and HYPERkalemia. Patient seen this morning on rounds. Lungs clear to auscultation, S1S2, (+) systolic murmur, no peripheral edema. Nursing staff reports the patient did not eat very much yesterday, no other concerns. Creatinine improving, BUN remains very high (>50). HYPERkalemia resolved. Urine C&S resulted today, resistant to Cipro. Will adjust antibiotics. Reason For Visit: ACUTE RENAL FAILURE/HYPERKALEMIA Physical Exam Vital Signs: Temp Pulse Resp BP Pulse Ox 97.8 F 72 20 125/55 L 99 06/03/18 07:17 06/03/18 07:17 06/03/18 07:17 06/03/18 07:17 06/03/18 07:17 Intake & Output 06/02/18 06/03/18 06/04/18 06:59 06:59 06:59 Intake Total 1869 2461 1000 Output Total 700 350 300 Balance 1169 2111 700 Weight 59.8 kg 63.4 kg General appearance: PRESENT: no acute distress, well-developed, well-nourished Head exam: PRESENT: atraumatic, normocephalic Eye exam: PRESENT: conjunctiva pink, EOMI, PERRLA. ABSENT: scleral icterus Ear exam: PRESENT: normal external ear exam Mouth exam: PRESENT: moist, tongue midline Teeth exam: PRESENT: poor dentation Neck exam: ABSENT: carotid bruit, JVD, lymphadenopathy, thyromegaly Respiratory exam: PRESENT: clear to auscultation francisco, symmetrical, unlabored. ABSENT: rales, rhonchi, wheezes Cardiovascular exam: PRESENT: RRR, +S1, +S2, systolic murmur. ABSENT: diastolic murmur, rubs Pulses: PRESENT: normal radial pulses, normal dorsalis pedis pul Vascular exam: PRESENT: normal capillary refill GI/Abdominal exam: PRESENT: normal bowel sounds, soft. ABSENT: distended, guarding, mass, organolmegaly, rebound, tenderness Rectal exam: PRESENT: deferred Extremities exam: PRESENT: full ROM. ABSENT: calf tenderness, clubbing, pedal edema Neurological exam: PRESENT: alert, awake, oriented to person, oriented to place , oriented to time, oriented to situation Psychiatric exam: PRESENT: appropriate affect, normal mood Skin exam: PRESENT: dry, intact, warm Results Laboratory Results: 06/02/18 04:24 06/03/18 09:35 06/03/18 06/03/18 06/03/18 05:37 05:37 09:35 Retic Count (auto) 1.21 Absolute Retic 0.036 Sodium 140.6 Potassium 3.8 Chloride 106 Carbon Dioxide 26 Anion Gap 9 BUN 52 H D Creatinine 1.87 H Est GFR ( Amer) 31 L Est GFR (Non-Af Amer) 25 L Glucose 107 Calcium 8.6 Phosphorus 3.7 Magnesium 2.3 Iron 23.5 L TIBC 235 L % Saturation 10 Ferritin 145.00 Vitamin B12 616.0 Folate > 20.00 Status: Imported from PACS Assessment & Plan - Diagnosis (1) Diabetes mellitus Qualifiers: Diabetes mellitus type: type 1 Diabetes mellitus complication status: with kidney complications Diabetes mellitus complication detail: with chronic kidney disease Chronic kidney disease stage: stage 4 (severe) Qualified Code (s): E10.22 - Type 1 diabetes mellitus with diabetic chronic kidney disease; N18.4 - Chronic kidney disease, stage 4 (severe); N18.4 - Chronic kidney disease , stage 4 (severe); N18.4 - Chronic kidney disease, stage 4 (severe); N18.4 - Chronic kidney disease, stage 4 (severe) Is this a current diagnosis for this admission?: Yes Plan: Continue Lantus 25 units daily Accu-Cheks AC at bedtime Humalog sliding scale insulin for mealtime coverage (2) Hyperkalemia Is this a current diagnosis for this admission?: Yes Plan: Resolved. Potassium is 3.8 Daily BMP (3) Hypertension Qualifiers: Hypertension type: essential hypertension Qualified Code(s): I10 - Essential (primary) hypertension Is this a current diagnosis for this admission?: Yes Plan: Blood pressure well controlled on scheduled hydralazine (4) Urinary tract infection Qualifiers: Urinary tract infection type: site unspecified Hematuria presence: without hematuria Qualified Code(s): N39.0 - Urinary tract infection, site not specified Is this a current diagnosis for this admission?: Yes Plan: Urine culture positive for E. coli Cultures and sensitivities resulted today Resistance to ciprofloxacin Switch to ceftriaxone - Time Time Spent with patient: 15-24 minutes Anticipated discharge: Home Within: within 48 hours - Inpatient Certification Based on my medical assessment, after consideration of the patient's comorbidities, presenting symptoms, or acuity I expect that the services needed warrant INPATIENT care.: Yes I certify that my determination is in accordance with my understanding of Medicare's requirements for reasonable and necessary INPATIENT services [42 CFR 412.3e].: Yes Medical Necessity: Risk of Complication if Not Cared For in Hospital - Plan Summary Plan Summary: CONTINUE GENTLE HYDRATION. SWITCH ABX FROM CIPRO TO CEFTRIAXONE.
[2018-06-03] MEDS: CIPROFLOXACIN HCL 500 MG TABLET PO SCH (21:40)
[2018-06-03] MEDS: INSULIN GLARGINE,HUM.REC.ANLOG 300 UNIT/3 ML INSULN.PEN SUBCUT SCH (21:45)
[2018-06-04] MEDS: NORMAL SALINE 1000 ML 1,000 ML IV PRN ×3 (06:12→16:20)
[2018-06-04] MEDS: HYDRALAZINE HCL 25 MG TABLET PO SCH ×3 (06:13→21:37)
[2018-06-04 09:28] LABS: ANION GAP 8 (5-19); BLOOD UREA NITROGEN 39 mg/dL (7-20); CALCIUM 8.5 mg/dL (8.4-10.2); CARBON DIOXIDE 22 mmol/L (22-30); CHLORIDE 110 mmol/L (98-107); GLUCOSE 230 mg/dL (75-110); PHOSPHORUS 3.2 mg/dL (2.5-4.5); POTASSIUM 3.7 mmol/L (3.6-5.0); SODIUM 139.9 mmol/L (137-145)
[2018-06-04] MEDS: ENOXAPARIN SODIUM INJ 60 MG/0.6 ML DISP.SYRIN SUBCUT SCH (10:21)
[2018-06-04] MEDS: FERROUS SULFATE 325 MG TABLET PO SCH (10:21)
[2018-06-04] MEDS: GABAPENTIN 300 MG CAPSULE PO SCH (10:22)
[2018-06-04] MEDS: FOLIC ACID 1 MG TABLET PO SCH (10:22)
[2018-06-04] MEDS: INSULIN LISPRO 100 UNIT/ML 3 ML VIAL SUBCUT PRN (12:37)
[2018-06-04] MEDS ORDERED: CEFTRIAXONE 1 GM/D5W RTU 1 GM/50 ML RTUPB IV ONE (20:37)
--- NOTE | 2018-06-04 21:31 | PDOC PROGRESS REPORT ---
Subjective Progress Note for:: 06/04/18 Subjective:: 87 y.o. F admitted to [facility] for ARF and HYPERkalemia. Patient seen this morning on rounds. Lungs clear to auscultation, S1S2, (+) systolic murmur, no peripheral edema. No concerns per nursing staff. Creatinine at baseline, BUN acceptable. HYPERkalemia resolved. Discontinue IVF. Discuss need for YUKI or ARB with Nephrology prior to discharge. Plan for d/c home tomorrow. Reason For Visit: ACUTE RENAL FAILURE/HYPERKALEMIA Physical Exam Vital Signs: Temp Pulse Resp BP Pulse Ox 99.1 F 85 18 167/80 H 96 06/04/18 19:41 06/04/18 19:41 06/04/18 19:41 06/04/18 19:41 06/04/18 19:41 Intake & Output 06/03/18 06/04/18 06/05/18 06:59 06:59 06:59 Intake Total 2461 4017 1696 Output Total 350 1150 900 Balance 2111 2867 796 Weight 63.4 kg 65.5 kg General appearance: PRESENT: no acute distress, thin Head exam: PRESENT: atraumatic Eye exam: PRESENT: conjunctiva pink, PERRLA Mouth exam: PRESENT: moist Teeth exam: PRESENT: poor dentation Neck exam: PRESENT: full ROM Respiratory exam: PRESENT: clear to auscultation francisco, symmetrical, unlabored Cardiovascular exam: PRESENT: +S1, +S2, systolic murmur Pulses: PRESENT: normal radial pulses, normal dorsalis pedis pul Vascular exam: PRESENT: normal capillary refill GI/Abdominal exam: PRESENT: normal bowel sounds, soft. ABSENT: tenderness Rectal exam: PRESENT: deferred Extremities exam: PRESENT: full ROM Musculoskeletal exam: PRESENT: ambulatory, full ROM, normal inspection Neurological exam: PRESENT: alert, awake, oriented to person, oriented to place , oriented to time, oriented to situation Psychiatric exam: PRESENT: appropriate affect Skin exam: PRESENT: dry, intact, normal color, warm Results Laboratory Results: 06/02/18 04:24 06/04/18 08:56 06/04/18 08:56 Sodium 139.9 Potassium 3.7 Chloride 110 H Carbon Dioxide 22 Anion Gap 8 BUN 39 H Creatinine 1.63 H Est GFR ( Amer) 36 L Est GFR (Non-Af Amer) 30 L Glucose 230 H Calcium 8.5 Phosphorus 3.2 Magnesium 2.2 06/01/18 15:16 Clean Catch Midstream Urine Culture - Final Escherichia Coli Klebsiella Pneumoniae Status: Imported from PACS Assessment & Plan - Diagnosis (1) Diabetes mellitus Qualifiers: Diabetes mellitus type: type 1 Diabetes mellitus complication status: with kidney complications Diabetes mellitus complication detail: with chronic kidney disease Chronic kidney disease stage: stage 4 (severe) Qualified Code (s): E10.22 - Type 1 diabetes mellitus with diabetic chronic kidney disease; N18.4 - Chronic kidney disease, stage 4 (severe); N18.4 - Chronic kidney disease , stage 4 (severe); N18.4 - Chronic kidney disease, stage 4 (severe); N18.4 - Chronic kidney disease, stage 4 (severe) Is this a current diagnosis for this admission?: Yes Plan: Continue Lantus 25 units daily Accu-Cheks AC at bedtime Humalog sliding scale insulin for mealtime coverage (2) Hyperkalemia Is this a current diagnosis for this admission?: Yes Plan: Resolved. Potassium is 3.7 Daily BMP (3) Hypertension Qualifiers: Hypertension type: essential hypertension Qualified Code(s): I10 - Essential (primary) hypertension Is this a current diagnosis for this admission?: Yes Plan: Blood pressure well controlled on scheduled hydralazine (4) Urinary tract infection Qualifiers: Urinary tract infection type: site unspecified Hematuria presence: without hematuria Qualified Code(s): N39.0 - Urinary tract infection, site not specified Is this a current diagnosis for this admission?: Yes Plan: Urine culture positive for E. coli Cultures and sensitivities resulted today Resistance to ciprofloxacin Switch to ceftriaxone - Time Time Spent with patient: 15-24 minutes Medications reviewed and adjusted accordingly: Yes Anticipated discharge: Home Within: within 24 hours - Inpatient Certification Based on my medical assessment, after consideration of the patient's comorbidities, presenting symptoms, or acuity I expect that the services needed warrant INPATIENT care.: Yes I certify that my determination is in accordance with my understanding of Medicare's requirements for reasonable and necessary INPATIENT services [42 CFR 412.3e].: Yes Medical Necessity: Risk of Complication if Not Cared For in Hospital - Plan Summary Plan Summary: DISCUSS NEED FOR YUKI/ARB WITH NEPHROLOGY PRIOR TO D/C. CONTINUE ABX FOR UTI. LIKELY READY FOR D/C HOME TOMORROW.
[2018-06-04] MEDS: INSULIN GLARGINE,HUM.REC.ANLOG 300 UNIT/3 ML INSULN.PEN SUBCUT SCH (21:37)
[2018-06-04] MEDS ORDERED: CEFTRIAXONE 1 GM/D5W RTU 1 GM/50 ML RTUPB IV SCH (22:00)
[2018-06-05] MEDS ORDERED: METOPROLOL TARTRATE PF/INJ 5 MG/5 ML SDV IV PRN ×2 (03:03→04:30)
[2018-06-05] MEDS ORDERED: FUROSEMIDE INJ/PF 20 MG/2 ML SDV IV ONE (03:15)
[2018-06-05] MEDS: HYDRALAZINE HCL 25 MG TABLET PO SCH (05:30)
[2018-06-05] MEDS: ENOXAPARIN SODIUM INJ 60 MG/0.6 ML DISP.SYRIN SUBCUT SCH (10:19)
[2018-06-05] MEDS: FERROUS SULFATE 325 MG TABLET PO SCH (10:20)
[2018-06-05] MEDS: FOLIC ACID 1 MG TABLET PO SCH (10:20)
[2018-06-05] MEDS: GABAPENTIN 300 MG CAPSULE PO SCH (10:20)
[2018-06-05 10:26] LABS: ANION GAP 9 (5-19); BLOOD UREA NITROGEN 30 mg/dL (7-20); CALCIUM 8.7 mg/dL (8.4-10.2); CARBON DIOXIDE 24 mmol/L (22-30); CHLORIDE 108 mmol/L (98-107); GLUCOSE 200 mg/dL (75-110); POTASSIUM 4.2 mmol/L (3.6-5.0); SODIUM 140.7 mmol/L (137-145)
--- NOTE | 2018-06-05 11:30 | PDOC PROGRESS REPORT ---
Subjective Progress Note for:: 06/05/18 Subjective:: She is sitting up in her chair having breakfast she is eating well she denies nausea vomiting shortness of breath she does have low-grade temperature today. She vocalizes her or wanting to go home as soon as possible. Reason For Visit: ACUTE RENAL FAILURE/HYPERKALEMIA Physical Exam Vital Signs: Temp Pulse Resp BP Pulse Ox 100.0 F 90 22 H 158/50 H 95 06/05/18 07:41 06/05/18 07:41 06/05/18 07:41 06/05/18 07:41 06/05/18 07:41 Intake & Output 06/04/18 06/05/18 06/06/18 06:59 06:59 06:59 Intake Total 4017 2299 Output Total 1150 1900 Balance 2867 399 Weight 65.5 kg 67 kg General appearance: PRESENT: no acute distress, well-developed, well-nourished Head exam: PRESENT: atraumatic, normocephalic Eye exam: PRESENT: conjunctiva pink, EOMI, PERRLA. ABSENT: scleral icterus Ear exam: PRESENT: normal external ear exam Mouth exam: PRESENT: moist, tongue midline Neck exam: PRESENT: full ROM. ABSENT: carotid bruit, JVD, lymphadenopathy, thyromegaly Respiratory exam: PRESENT: clear to auscultation francisco Cardiovascular exam: PRESENT: systolic murmur Murmur grade: 2 Pulses: PRESENT: normal dorsalis pedis pul, +2 pedal pulses bilateral Vascular exam: PRESENT: normal capillary refill GI/Abdominal exam: PRESENT: normal bowel sounds, soft. ABSENT: distended, guarding, mass, organolmegaly, rebound, tenderness Rectal exam: PRESENT: deferred Extremities exam: PRESENT: full ROM Musculoskeletal exam: PRESENT: ambulatory Neurological exam: PRESENT: alert, awake, oriented to person, oriented to place , oriented to time, oriented to situation, CN II-XII grossly intact. ABSENT: motor sensory deficit Psychiatric exam: PRESENT: appropriate affect, normal mood. ABSENT: homicidal ideation, suicidal ideation Skin exam: PRESENT: dry, intact, warm. ABSENT: cyanosis, rash Results Laboratory Results: 06/02/18 04:24 06/05/18 09:53 06/05/18 09:53 Sodium 140.7 Potassium 4.2 Chloride 108 H Carbon Dioxide 24 Anion Gap 9 BUN 30 H Creatinine 1.55 H Est GFR ( Amer) 38 L Est GFR (Non-Af Amer) 32 L Glucose 200 H Calcium 8.7 06/01/18 15:16 Clean Catch Midstream Urine Culture - Final Escherichia Coli Klebsiella Pneumoniae Assessment & Plan - Diagnosis (1) Diabetes mellitus Qualifiers: Diabetes mellitus type: type 1 Diabetes mellitus complication status: with kidney complications Diabetes mellitus complication detail: with chronic kidney disease Chronic kidney disease stage: stage 4 (severe) Qualified Code (s): E10.22 - Type 1 diabetes mellitus with diabetic chronic kidney disease; N18.4 - Chronic kidney disease, stage 4 (severe); N18.4 - Chronic kidney disease , stage 4 (severe); N18.4 - Chronic kidney disease, stage 4 (severe); N18.4 - Chronic kidney disease, stage 4 (severe) Is this a current diagnosis for this admission?: Yes Plan: We will increase her Lantus to 30 units at at bedtime as her fasting blood sugar was 200 today. (2) Hyperkalemia Is this a current diagnosis for this admission?: Yes Plan: Continue current treatment of monitoring her potassium level and other electrolytes. (3) Hypertension Qualifiers: Hypertension type: essential hypertension Qualified Code(s): I10 - Essential (primary) hypertension Is this a current diagnosis for this admission?: Yes Plan: Increase hydralazine to 50 mg every 8 understanding that prior to discharge her when she goes home she will be instituted on YUIK or ARB medication for the diabetic proteinuria reduction. (4) Anemia Qualifiers: Anemia type: iron deficiency Iron deficiency anemia type: unspecified iron deficiency Qualified Code(s): D50.9 - Iron deficiency anemia, unspecified Is this a current diagnosis for this admission?: Yes Plan: Continue on the iron supplementation and agree with Dr. Londono will require Procrit injections periodically due to the anemia of chronic disease. (5) Acute kidney injury superimposed on chronic kidney disease Is this a current diagnosis for this admission?: Yes Plan: Tana hydration she is getting closer to baseline with a GFR 38 we will decrease her IV fluids. (6) Urinary tract infection Qualifiers: Urinary tract infection type: acute cystitis Is this a current diagnosis for this admission?: Yes Plan: A low-grade temperature we will monitor she has been started on ceftriaxone which is sensitive to the 2 E. coli isolates. - Time Time Spent with patient: 15-24 minutes Medications reviewed and adjusted accordingly: Yes Anticipated discharge: Home Within: within 24 hours - Inpatient Certification I certify that my determination is in accordance with my understanding of Medicare's requirements for reasonable and necessary INPATIENT services [42 CFR 412.3e].: Yes Medical Necessity: Need For IV Fluids, Need for IV Antibiotics Post Hospital Care: D/C [employer] Documentation
[2018-06-05] MEDS ORDERED: INSULIN GLARGINE,HUM.REC.ANLOG 300 UNIT/3 ML INSULN.PEN SUBCUT SCH (11:31)
[2018-06-05] MEDS: INSULIN LISPRO 100 UNIT/ML 3 ML VIAL SUBCUT PRN (12:09)
[2018-06-05] MEDS: HYDRALAZINE HCL 50 MG TABLET PO SCH ×2 (14:09→21:49)
[2018-06-05] MEDS ORDERED: CEFTRIAXONE SODIUM 1,000 MG in DEXTROSE 5%-WATER 50 ML IV SCH (22:00)
[2018-06-06] MEDS: HYDRALAZINE HCL 50 MG TABLET PO SCH (08:11)
--- NOTE | 2018-06-06 09:28 | PDOC DISCHARGE SUMMARY ---
General - Admit/Disc Date/PCP Admission Date/Primary Care Provider: 06/01/18 12:08 MARISSA JOHN MD Discharge Date: 06/06/18 - Discharge Diagnosis (1) Diabetes mellitus Is this a current diagnosis for this admission?: Yes (2) Hyperkalemia Is this a current diagnosis for this admission?: Yes (3) Hypertension Is this a current diagnosis for this admission?: Yes (4) Anemia Is this a current diagnosis for this admission?: Yes (5) Acute kidney injury superimposed on chronic kidney disease Is this a current diagnosis for this admission?: Yes (6) Urinary tract infection Is this a current diagnosis for this admission?: Yes - Additional Information Resuscitation Status: Do Not Resuscitate Prescriptions: Hydralazine HCl [Apresoline 50 mg Tablet] 50 mg PO Q8 30 Days #90 tablet Insulin Glargine,Hum.rec.anlog [Lantus Insulin 100 Unit/mL] 30 unit SUBCUT QHS # 7 insuln.pen Home Medications: Aspirin [Aspirin EC] 81 mg PO DAILY 03/26/18 Levothyroxine Sodium [Synthroid 0.05 mg Tablet] 0.05 mg PO Q6AM 03/26/18 Cyanocobalamin/FA/Pyridoxine [Folbee Tablet] 1 tab PO DAILY 06/01/18 Ferrous Sulfate [Iron] 325 mg PO DAILY 06/01/18 Folic Acid 1 mg PO DAILY 06/01/18 Ferrous Sulfate [Feosol 325 mg Tablet] 325 mg PO DAILY tablet 06/06/18 Folic Acid [Folvite 1 mg Tablet] 1 mg PO DAILY tablet 06/06/18 Gabapentin [Neurontin 300 mg Capsule] 300 mg PO DAILY #30 capsule 06/06/18 Hydralazine HCl [Apresoline 50 mg Tablet] 50 mg PO Q8 30 Days #90 tablet Insulin Glargine,Hum.rec.anlog [Lantus Insulin 100 Unit/mL] 30 unit SUBCUT QHS # 7 insuln.pen 06/06/18 History of Present Illness Patient complains of: Patient had worsening renal failure and hyperkalemia with progressive weakness. History of Present Illness: Patient was sent from my office due to progressive worsening of acute on chronic kidney disease stage IV also found to have hyperkalemia refractory to Kayexalate. Hospital Course Hospital Course: Patient was admitted to the hospital started on IV fluids any nephrotoxic medication was discontinued, she was continued on Accu-Cheks with sliding scale her insulin dose of Lantus was increased to 30 units at at bedtime which was deemed her discharge dose. She was also found to have leukocyte esterase and bacteria in the urine she grew E. coli and Klebsiella she was started on ceftriaxone, after she became afebrile she will be switched to Bactrim double strength adjusted for renal dose disease. She clinically improved and was felt stable for discharge her creatinine prior to discharge went down to 1.53 with her GFR up to 39. He was seen by nephrology was advised follow-up with nephrology in 2 weeks. Physical Exam Vital Signs: Temp Pulse Resp BP Pulse Ox 98.4 F 84 21 H 173/63 H 98 06/06/18 08:04 06/06/18 08:04 06/06/18 08:04 06/06/18 08:04 06/06/18 08:04 Intake & Output 06/05/18 06/06/18 06/07/18 06:59 06:59 06:59 Intake Total 2299 1697 Output Total 1900 600 Balance 399 1097 Weight 67 kg 67.5 kg General appearance: PRESENT: no acute distress, well-developed, well-nourished Head exam: PRESENT: atraumatic, normocephalic Eye exam: PRESENT: conjunctiva pink, EOMI, PERRLA. ABSENT: scleral icterus Ear exam: PRESENT: normal external ear exam Mouth exam: PRESENT: moist, tongue midline Teeth exam: PRESENT: poor dentation Neck exam: PRESENT: full ROM. ABSENT: carotid bruit, JVD, lymphadenopathy, thyromegaly Respiratory exam: PRESENT: clear to auscultation francisco Cardiovascular exam: PRESENT: systolic murmur Murmur grade: 2 Pulses: PRESENT: normal dorsalis pedis pul, +2 pedal pulses bilateral Vascular exam: PRESENT: normal capillary refill GI/Abdominal exam: PRESENT: normal bowel sounds, soft. ABSENT: distended, guarding, mass, organolmegaly, rebound, tenderness Rectal exam: PRESENT: deferred Extremities exam: PRESENT: full ROM Musculoskeletal exam: PRESENT: ambulatory Neurological exam: PRESENT: alert, awake, oriented to person, oriented to place , oriented to time, oriented to situation, CN II-XII grossly intact. ABSENT: motor sensory deficit Psychiatric exam: PRESENT: appropriate affect, normal mood. ABSENT: homicidal ideation, suicidal ideation Skin exam: PRESENT: dry, intact, warm. ABSENT: cyanosis, rash Results Laboratory Results: 06/02/18 04:24 06/05/18 09:53 06/05/18 09:53 Sodium 140.7 Potassium 4.2 Chloride 108 H Carbon Dioxide 24 Anion Gap 9 BUN 30 H Creatinine 1.55 H Est GFR ( Amer) 38 L Est GFR (Non-Af Amer) 32 L Glucose 200 H Calcium 8.7 Qualifiers - * PATIENT BEING DISCHARGED WITH ANY OF THE FOLLOWING DIAGNOSIS: No Plan Discharge Plan: Patient will be discharged home on increased dose of hydralazine to 50 every 8, she will be sent home on Bactrim double strength 1 tablet twice daily, her Lantus will be 30 mg at at bedtime she will no longer be on glimepiride or metformin. She will be seen in the office in 1 week and she will follow-up with nephrology in 2 weeks. This hospitalization she was given a flu vaccine. Time Spent: Less than 30 Minutes
[2018-06-06] MEDS: FOLIC ACID 1 MG TABLET PO SCH (10:35)
[2018-06-06] MEDS: ENOXAPARIN SODIUM INJ 60 MG/0.6 ML DISP.SYRIN SUBCUT SCH (10:35)
[2018-06-06] MEDS: FERROUS SULFATE 325 MG TABLET PO SCH (10:35)
[2018-06-06] MEDS: GABAPENTIN 300 MG CAPSULE PO SCH (10:35)
[2018-06-06 10:49] VITALS: BP 187/64
== END 2018-06-06 14:12 | disposition home or self-care (01) | DRG 683 ==
LOC: 3W 12:08
PROVIDERS: ADMIT Internal Medicine; ATTEND Internal Medicine
DX: N17.9 Acute kidney failure, unspecified (principal); N39.0 Urinary tract infection, site not specified; E87.5 Hyperkalemia; E11.22 Type 2 diabetes mellitus with diabetic chronic kidney disease; E11.21 Type 2 diabetes mellitus with diabetic nephropathy; N18.4 Chronic kidney disease, stage 4 (severe); I12.9 Hypertensive chronic kidney disease with stage 1 through stage 4 chronic kidney disease, or unspecified chronic kidney disease; D63.1 Anemia in chronic kidney disease; E03.9 Hypothyroidism, unspecified; R53.1 Weakness; N28.1 Cyst of kidney, acquired; B96.20 Unspecified Escherichia coli [E. coli] as the cause of diseases classified elsewhere
CPT/HCPCS: 36415; 80048; 81001; 82272; 82570; 82607; 82652; 82728; 82746; 82962; 83036; 83540; 83550; 83735; 84100; 84156; 85025; 85045; 87086; 87088; 87186; 90686; J0696; J1650; J1815; J1940; J3490; J7030; Q4081

== ENCOUNTER 2018-06-15 10:41 | Inpatient (IN) | payer MEDICARE ==
--- NOTE | 2018-06-15 11:04 | ER Document Report ---
ED General - General Stated Complaint: BLOOD SUGAR ISSUES Time Seen by Provider: 06/15/18 10:50 Notes: Patient is a 88-year-old female with diabetes and chronic kidney disease that presents to the emergency department for chief complaint of generalized weakness and fall. Patient apparently had fallen around midnight, and was on the floor since until this morning until family was able to help her. She is complaining of some pain in her right knee and right forearm. She was laying on her right side over the entire night. She currently rates her pain as a 2 out of 10, describes as aching sensation in her knee and arm. She denies any numbness, tingling or weakness in any extremity. Denies having any chest pain, shortness of breath, nausea or vomiting. She did not have a syncopal episode she does not believe that she passed out. Per EMS, her blood glucose was 67, they did attempt to give her D10 water, but were unsuccessful, to give her 3 g of oral glucose prior to ED arrival. Past Medical History: Diabetes mellitus, chronic kidney disease, hypertension Past Surgical History: Denies recent and pertinent surgical history Social History: Lives at home, denies current tobacco, alcohol or drug use Family History: Reviewed and noncontributory for presenting illness Allergies: Reviewed, see documented allergy list. REVIEW OF SYSTEMS: Unless otherwise stated in this report the patient's positive and negative responses for review of systems for constitutional, eyes, ENT, cardiovascular, respiratory, gastrointestinal, neurological, genitourinary, musculoskeletal, and integumentary systems and related systems to the presenting problem are either as stated in the HPI or were not pertinent or were negative for the symptoms and/or complaints related to the presenting medical problem. PHYSICAL EXAMINATION: Vital signs reviewed, nursing noted reviewed. GENERAL: Elderly female, no acute distress HEAD: There is some edema over the patient's right zygoma, without tenderness or laceration, normocephalic. EYES: Eyes appear normal, extraocular movements intact, sclera anicteric, conjunctiva are normal. ENT: nares patent, oropharynx clear without exudates. Moist mucous membranes. NECK: Normal range of motion, supple without lymphadenopathy LUNGS: Breath sounds clear to auscultation bilaterally and equal. No wheezes rales or rhonchi. HEART: Regular rate and rhythm without murmurs ABDOMEN: Soft, nontender, normoactive bowel sounds. No rebound, guarding, or rigidity. No masses appreciated. EXTREMITIES: Mild tenderness to palpation of the left knee, but she is able to move it without too much difficulty, she is able to flex at the hips without difficulty or pain, there is mild tenderness to palpation of the right forearm as well, no obvious deformity. Patient is neurovascular intact distally in all extremities. Nontender, good range of motion, no pitting or edema. NEUROLOGICAL: No focal neurological deficits. Moves all extremities spontaneously Motor and sensory grossly intact on exam. PSYCH: Normal mood, normal affect. SKIN: Warm, Dry, normal turgor, no rashes or lesions noted on exposed skin TRAVEL OUTSIDE OF THE [place] IN LAST 30 DAYS: No - Related Data Allergies/Adverse Reactions: No Known Allergies Allergy (Verified 03/26/18 13:53) Past Medical History - Social History Smoking Status: Never Smoker Family History: None, Reviewed & Not Pertinent, Hyperlipidemia - Past Medical History Cardiac Medical History: Reports: Hx Hypertension Endocrine Medical History: Reports: Hx Diabetes Mellitus Type 1, Hx Diabetes Mellitus Type 2, Hx Hypothyroidism Renal/ Medical History: Denies: Hx Peritoneal Dialysis Musculoskeletal Medical History: Reports Hx Arthritis Psychiatric Medical History: Denies: Hx Depression Past Surgical History: Reports: Hx Hysterectomy, Other - Cataract surgery Physical Exam - Vital signs Vitals: Temp Pulse Resp BP Pulse Ox 97.3 F 90 21 H 153/95 H 93 06/15/18 11:25 06/15/18 11:25 06/15/18 11:25 06/15/18 11:25 06/15/18 11:25 Course - Re-evaluation Re-evalutation: Patient seen and examined vital signs reviewed. Laboratory data and imaging were ordered as appropriate for the patient's presenting symptoms and complaint, with consideration of any critical or life threatening conditions that may be associated with their obtained history and exam as noted above. Patient was treated with IV fluid Results were reviewed when available and demonstrated hyperkalemia with a potassium of 6.7, at this point I ordered sodium bicarbonate, calcium gluconate , Kayexalate, did not use insulin as the patient was hypoglycemic. She was actually given an amp of D50. The patient was re-evaluated and was hemodynamically stable, and tolerating medications, case discussed with the patient's primary care physician Evaluation was most consistent with fall, hyperkalemia, hyperglycemia, contusion to the right knee and forearm Results were discussed with the patient at this point after careful consideration I feel that that patient should be admitted to the hospital. This was discussed with the patient that it is in the best interest for their care to be admitted for further evaluation and management. Patient agreed with this plan of care. A call was placed to the admitted physician, [] who graciously accepted the patient onto their service. *Note is created using voice recognition software and may contain spelling, syntax or grammatical errors. Laboratory 06/15/18 06/15/18 06/15/18 11:00 12:33 12:33 WBC 9.8 RBC 3.00 L Hgb 8.6 L Hct 26.2 L MCV 87 MCH 28.7 MCHC 32.9 RDW 15.4 H Plt Count 477 H Seg Neutrophils % 89.1 H Lymphocytes % 6.9 L Monocytes % 3.1 Eosinophils % 0.1 Basophils % 0.8 Absolute Neutrophils 8.7 H Absolute Lymphocytes 0.7 Absolute Monocytes 0.3 Absolute Eosinophils 0.0 Absolute Basophils 0.1 Sodium Cancelled Potassium Cancelled Chloride Cancelled Carbon Dioxide Cancelled Anion Gap Cancelled BUN Cancelled Creatinine Cancelled Est GFR ( Amer) Cancelled Est GFR (Non-Af Amer) Cancelled Glucose Cancelled POC Glucose 82 Calcium Cancelled Total Bilirubin Cancelled Direct Bilirubin Cancelled Neonat Total Bilirubin Cancelled Neonat Direct Bilirubin Cancelled Neonat Indirect Bili Cancelled AST Cancelled ALT Cancelled Alkaline Phosphatase Cancelled Creatine Kinase Cancelled Troponin I Total Protein Cancelled Albumin Cancelled 06/15/18 06/15/18 06/15/18 13:27 15:02 15:30 WBC RBC Hgb Hct MCV MCH MCHC RDW Plt Count Seg Neutrophils % Lymphocytes % Monocytes % Eosinophils % Basophils % Absolute Neutrophils Absolute Lymphocytes Absolute Monocytes Absolute Eosinophils Absolute Basophils Sodium 139.6 Potassium 6.7 H* Chloride 107 Carbon Dioxide 21 L Anion Gap 12 BUN 41 H Creatinine 2.03 H Est GFR ( Amer) 28 L Est GFR (Non-Af Amer) 23 L Glucose 40 L* POC Glucose 137 H Calcium 9.0 Total Bilirubin 0.4 Direct Bilirubin 0.1 Neonat Total Bilirubin Not Reportable Neonat Direct Bilirubin Not Reportable Neonat Indirect Bili Not Reportable AST 49 H ALT 31 Alkaline Phosphatase 110 Creatine Kinase 260 H 274 H Troponin I Total Protein 7.3 Albumin 3.7 06/15/18 06/15/18 15:30 17:23 WBC RBC Hgb Hct MCV MCH MCHC RDW Plt Count Seg Neutrophils % Lymphocytes % Monocytes % Eosinophils % Basophils % Absolute Neutrophils Absolute Lymphocytes Absolute Monocytes Absolute Eosinophils Absolute Basophils Sodium Potassium Chloride Carbon Dioxide Anion Gap BUN Creatinine Est GFR ( Amer) Est GFR (Non-Af Amer) Glucose POC Glucose 82 Calcium Total Bilirubin Direct Bilirubin Neonat Total Bilirubin Neonat Direct Bilirubin Neonat Indirect Bili AST ALT Alkaline Phosphatase Creatine Kinase Troponin I 0.026 Total Protein Albumin Hip/Pelvis X-Ray 06/15/18 00:00 IMPRESSION: Mild osteoarthritis. Knee X-Ray 06/15/18 11:02 IMPRESSION: NO RADIOGRAPHIC EVIDENCE OF ACUTE INJURY. Forearm X-Ray 06/15/18 12:18 IMPRESSION: NEGATIVE STUDY OF THE RIGHT FOREARM. NO RADIOGRAPHIC EVIDENCE OF ACUTE INJURY. - Vital Signs Vital signs: Temp Pulse Resp BP Pulse Ox 98.2 F 64 20 187/51 H 97 06/15/18 17:22 06/15/18 17:51 06/15/18 17:22 06/15/18 17:22 06/15/18 17:22 - Laboratory Result Diagrams: 06/15/18 12:33 06/15/18 13:27 Laboratory results interpreted by me: 06/15/18 06/15/18 06/15/18 12:33 13:27 15:02 RBC 3.00 L Hgb 8.6 L Hct 26.2 L RDW 15.4 H Plt Count 477 H Seg Neutrophils % 89.1 H Lymphocytes % 6.9 L Absolute Neutrophils 8.7 H Potassium 6.7 H* Carbon Dioxide 21 L BUN 41 H Creatinine 2.03 H Est GFR ( Amer) 28 L Est GFR (Non-Af Amer) 23 L Glucose 40 L* POC Glucose 137 H AST 49 H Creatine Kinase 260 H - EKG Interpretation by Me Additional EKG results interpreted by me: EKG demonstrates sinus rhythm with a ventricular rate of 85 bpm, normal axis, normal intervals, no evidence of acute ischemia on this EKG, this is compared with prior EKG from 03/25/2018, without significant change. Critical Care Note - Critical Care Note Total time excluding time spent on procedures (mins): 38 Comments: Critical care time 38 minutes exclusive from separate billable procedures for a patient requiring complex medical decision making, and high potential for clinical deterioration. In a patient with significant hyperkalemia requiring intervention,. Time spent obtaining history from patient or surrogate, discussions with consultants, development of treatment plan with patient or surrogate, evaluation of patient's response to treatment, examination of patient , ordering and performing treatments and interventions, ordering and review of laboratory studies, re-evaluation of patient's condition, ordering and review of radiographic studies and review of old charts Discharge - Discharge Clinical Impression: Hyperkalemia, Hypoglycemia, Right leg pain, Right forearm pain Fall Qualifiers: Encounter type: initial encounter Qualified Code(s): W19.XXXA - Unspecified fall, initial encounter Condition: Stable Disposition: ADMITTED INPATIENT Admitting Provider: Mauro [facility] Admitted: [facility]
--- NOTE | 2018-06-15 12:48 | RADIOLOGY REPORT (SQ) ---
EXAM DESCRIPTION: KNEE RIGHT 3 VIEWS COMPLETED DATE/TIME: 06/15/2018 11:57 am REASON FOR STUDY: right knee pain COMPARISON: None. NUMBER OF VIEWS: Three views. TECHNIQUE: AP, lateral, and sunrise patella radiographic images acquired of the right knee. LIMITATIONS: None. FINDINGS: MINERALIZATION: Osteopenia. BONES: No acute fracture or dislocation. No worrisome bone lesions. JOINT: Chondrocalcinosis. No effusion. SOFT TISSUES: No soft tissue swelling. No radio-opaque foreign body. OTHER: No other significant finding. IMPRESSION: NO RADIOGRAPHIC EVIDENCE OF ACUTE INJURY. TECHNICAL DOCUMENTATION: JOB ID: [id number] [employer]- All Rights Reserved Reading location - IP/workstation name: [email or web address]
[2018-06-15 13:00] LABS: ABSOLUTE BASOPHILS # (AUTO) 0.1 10^3/uL (0.0-0.2); ABSOLUTE LYMPHOCYTES (AUTO) 0.7 10^3/uL (0.5-4.7); ABSOLUTE MONOCYTES (AUTO) 0.3 10^3/uL (0.1-1.4); ABSOLUTE NEUT (AUTO) 8.7 10^3/uL (1.7-8.2); BASOPHILS % (AUTO) 0.8 % (0-2); EOSINOPHILS % (AUTO) 0.1 % (0-6); HEMATOCRIT 26.2 % (36.0-47.0); HEMOGLOBIN 8.6 g/dL (12.0-15.5); LYMPHOCYTES % (AUTO) 6.9 % (13-45); MEAN CORPUSCULAR HEMOGLOBIN 28.7 pg (27.0-33.4); MEAN CORPUSCULAR HGB CONC 32.9 g/dL (32.0-36.0); MEAN CORPUSCULAR VOLUME 87 fl (80-97); MONOCYTES % (AUTO) 3.1 % (3-13); PLATELET COUNT 477 10^3/uL (150-450); RED CELL DISTRIBUTION WIDTH 15.4 % (11.5-14.0); SEGMENTED NEUTROPHILS % (AUTO) 89.1 % (42-78); TOTAL CELLS COUNTED % (AUTO) 100 %; WHITE BLOOD COUNT 9.8 10^3/uL (4.0-10.5)
--- NOTE | 2018-06-15 13:34 | RADIOLOGY REPORT (SQ) ---
EXAM DESCRIPTION: FOREARM RIGHT COMPLETED DATE/TIME: 06/15/2018 1:24 pm REASON FOR STUDY: arm pain, fall COMPARISON: None. NUMBER OF VIEWS: Two views. TECHNIQUE: Two radiographic images acquired of the right forearm, including elbow and wrist in at le ast one projection. LIMITATIONS: None. FINDINGS: MINERALIZATION: Normal. BONES: No acute fracture. No worrisome bone lesions. SOFT TISSUES: No obvious swelling or foreign body. OTHER: No other significant finding. IMPRESSION: NEGATIVE STUDY OF THE RIGHT FOREARM. NO RADIOGRAPHIC EVIDENCE OF ACUTE INJURY. TECHNICAL DOCUMENTATION: JOB ID: [id number] [employer]- All Rights Reserved Reading location - IP/workstation name: [email or web address]
[2018-06-15 13:59] LABS: ALANINE AMINOTRANSFERASE 31 U/L (9-52); ALBUMIN 3.7 g/dL (3.5-5.0); ALKALINE PHOSPHATASE 110 U/L (38-126); ANION GAP 12 (5-19); ASPARTATE AMINO TRANSFERASE 49 U/L (14-36); BILIRUBIN,DIRECT 0.1 mg/dL (0.0-0.4); BILIRUBIN,TOTAL 0.4 mg/dL (0.2-1.3); BLOOD UREA NITROGEN 41 mg/dL (7-20); CARBON DIOXIDE 21 mmol/L (22-30); CHLORIDE 107 mmol/L (98-107); CREATINE KINASE 260 U/L (30-135); SODIUM 139.6 mmol/L (137-145); TOTAL PROTEIN 7.3 g/dL (6.3-8.2)
[2018-06-15 14:06] LABS: POTASSIUM 6.7 mmol/L (3.6-5.0)
[2018-06-15 14:07] LABS: GLUCOSE 40 mg/dL (75-110)
[2018-06-15] MEDS ORDERED: SODIUM POLYSTYRENE SULFONATE 15 GM/60 ML PO ONE (14:07)
[2018-06-15] MEDS ORDERED: NORMAL SALINE 1000 ML 1,000 ML IV ONE (14:07)
[2018-06-15] MEDS ORDERED: SODIUM BICARBONATE 8.4% INJ 50 MEQ/50 ML DISP.SYRIN IV ONE (14:08)
[2018-06-15] MEDS ORDERED: DEXTROSE 50%-WATER 25 GM/50 ML DISP.SYRIN IV ONE (14:08)
[2018-06-15] MEDS ORDERED: CALCIUM GLUCONATE 1000 MG/10 ML INJ IV ONE (14:18)
[2018-06-15] MEDS ORDERED: ONDANSETRON HCL INJ/PF 4 MG/2 ML SDV IV PRN (14:34)
[2018-06-15] MEDS ORDERED: NORMAL SALINE 1000 ML 1,000 ML IV PRN (14:34)
[2018-06-15] MEDS ORDERED: DEXTROSE 40% GEL 15 GM TUBE PO PRN ×2 (14:42)
[2018-06-15] MEDS ORDERED: DEXTROSE 50%-WATER 25 GM/50 ML DISP.SYRIN IV PRN ×2 (14:42)
[2018-06-15] MEDS ORDERED: GLUCAGON,HUMAN RECOMB 1 MG INJ IM PRN (14:42)
[2018-06-15] MEDS ORDERED: CYANOCOBALAMIN (VITAMIN B-12) 1,000 MCG TABLET PO ONE (14:43)
--- NOTE | 2018-06-15 15:23 | PDOC H&P ---
History of Present Illness Admission Date/PCP: June 15, 2018 MARISSA JOHN MD Patient complains of: Patient had a slip and fall was unable to get up out of bed is complaining of multiple joint pains was found to be hyperglycemic and hyperkalemic. History of Present Illness: RAJESH NIX is a 88 year old female Woke up in the middle night to go to the bathroom had a slip and fall as far as aware of was unable to get up out of the bathroom was found this morning by the daughter checked the blood sugar showed low EMS was called on the sugar less than 40. She denied any chest pain, shortness of breath palpitations fever chills. He is complaining of right forearm and right hip pain. Past Medical History Cardiac Medical History: Reports: Coronary Artery Disease, Hypertension Endocrine Medical History: Reports: Diabetes Mellitus Type 1, Diabetes Mellitus Type 2, Hypothyroidism Renal/ Medical History: Reports: Chronic Kidney Disease Musculoskeltal Medical History: Reports: Arthritis Psychiatric Medical History: Denies: Depression Hematology: Reports: Anemia Infectious Medical History: Reports: Other Infectious History Note: Urinary tract infections Past Surgical History Past Surgical History: Reports: Hysterectomy, Other - Cataract surgery Social History Lives with: Family Smoking Status: Never Smoker Frequency of Alcohol Use: None Hx Recreational Drug Use: No Drugs: None Hx Prescription Drug Abuse: No Family History Family History: None, Reviewed & Not Pertinent, Hyperlipidemia Parental Family History Reviewed: Yes Children Family History Reviewed: Yes Sibling(s) Family History Reviewed.: Yes Medication/Allergy Home Medications: Aspirin [Aspirin 81 mg Chewable Tablet] 81 mg PO DAILY 06/15/18 Ferrous Sulfate [Feosol 325 mg Tablet] 325 mg PO DAILY 06/15/18 Folic Acid [Folvite 1 mg Tablet] 1 mg PO DAILY 06/15/18 Gabapentin [Neurontin 300 mg Capsule] 300 mg PO Q8 06/15/18 Hydralazine HCl [Apresoline 50 mg Tablet] 50 mg PO Q8 06/15/18 Insulin Glargine,Hum.rec.anlog [Lantus Solostar] 20 units SQ QPM 06/15/18 Levothyroxine Sodium [Synthroid] 50 mcg PO Q6AM 06/15/18 Allergies/Adverse Reactions: No Known Allergies Allergy (Verified 03/26/18 13:53) Review of Systems All systems: as per PMH Constitutional: PRESENT: anorexia Eyes: ABSENT: visual disturbances Ears: ABSENT: hearing changes Cardiovascular: ABSENT: chest pain, dyspnea on exertion, edema, orthropnea, palpitations Respiratory: ABSENT: cough, hemoptysis Gastrointestinal: ABSENT: abdominal pain, constipation, diarrhea, hematemesis, hematochezia, nausea, vomiting Genitourinary: ABSENT: dysuria, hematuria Musculoskeletal: PRESENT: other Integumentary: ABSENT: rash, wounds Neurological: ABSENT: abnormal gait, abnormal speech, confusion, dizziness, focal weakness, syncope Psychiatric: ABSENT: anxiety, depression, homidical ideation, suicidal ideation Endocrine: ABSENT: cold intolerance, heat intolerance, menstrual abnormalities, polydipsia, polyuria Hematologic/Lymphatic: ABSENT: easy bleeding, easy bruising, lymphadenopathy Physical Exam Vital Signs: Temp Pulse Resp BP Pulse Ox 97.3 F 90 24 H 153/95 H 92 06/15/18 11:25 06/15/18 11:25 06/15/18 14:49 06/15/18 11:25 06/15/18 14:49 Intake & Output 06/14/18 06/15/18 06/16/18 06:59 06:59 06:59 Weight 68.4 kg General appearance: PRESENT: mild distress Head exam: PRESENT: atraumatic, normocephalic Eye exam: PRESENT: conjunctiva pink Ear exam: PRESENT: normal external ear exam Mouth exam: PRESENT: moist, tongue midline Neck exam: PRESENT: full ROM. ABSENT: carotid bruit, JVD, lymphadenopathy, thyromegaly Respiratory exam: PRESENT: clear to auscultation francisco Cardiovascular exam: PRESENT: systolic murmur Murmur grade: 2 Pulses: PRESENT: normal dorsalis pedis pul, +2 pedal pulses bilateral Vascular exam: PRESENT: normal capillary refill GI/Abdominal exam: PRESENT: normal bowel sounds, soft. ABSENT: distended, guarding, mass, organolmegaly, rebound, tenderness Rectal exam: PRESENT: deferred Extremities exam: PRESENT: tenderness Additional comments: Right forearm tenderness there is no deformity swelling or ecchymosis has full range of motion, right hip pain over the lateral aspect no bruising or swelling no pain on abduction or abduction Musculoskeletal exam: PRESENT: ambulatory Neurological exam: PRESENT: alert, awake, oriented to person, oriented to place , oriented to time, oriented to situation, CN II-XII grossly intact. ABSENT: motor sensory deficit Psychiatric exam: PRESENT: appropriate affect, normal mood. ABSENT: homicidal ideation, suicidal ideation Results Laboratory Results: 06/15/18 12:33 06/15/18 13:27 06/15/18 06/15/18 06/15/18 12:33 12:33 13:27 WBC 9.8 RBC 3.00 L Hgb 8.6 L Hct 26.2 L MCV 87 MCH 28.7 MCHC 32.9 RDW 15.4 H Plt Count 477 H Seg Neutrophils % 89.1 H Lymphocytes % 6.9 L Monocytes % 3.1 Eosinophils % 0.1 Basophils % 0.8 Absolute Neutrophils 8.7 H Absolute Lymphocytes 0.7 Absolute Monocytes 0.3 Absolute Eosinophils 0.0 Absolute Basophils 0.1 Sodium Cancelled 139.6 Potassium Cancelled 6.7 H* Chloride Cancelled 107 Carbon Dioxide Cancelled 21 L Anion Gap Cancelled 12 BUN Cancelled 41 H Creatinine Cancelled 2.03 H Est GFR ( Amer) Cancelled 28 L Est GFR (Non-Af Amer) Cancelled 23 L Glucose Cancelled 40 L* Calcium Cancelled 9.0 Total Bilirubin Cancelled 0.4 AST Cancelled 49 H ALT Cancelled 31 Alkaline Phosphatase Cancelled 110 Total Protein Cancelled 7.3 Albumin Cancelled 3.7 06/15/18 06/15/18 12:33 13:27 Creatine Kinase Cancelled 260 H Impressions: Knee X-Ray 06/15/18 11:02 IMPRESSION: NO RADIOGRAPHIC EVIDENCE OF ACUTE INJURY. Forearm X-Ray 06/15/18 12:18 IMPRESSION: NEGATIVE STUDY OF THE RIGHT FOREARM. NO RADIOGRAPHIC EVIDENCE OF ACUTE INJURY. Assessment & Plan - Diagnosis (1) Hypertension Is this a current diagnosis for this admission?: Yes Plan: Her hydralazine 50 mg every 8 (2) Hip pain Qualifiers: Laterality: right Qualified Code(s): M25.551 - Pain in right hip Is this a current diagnosis for this admission?: Yes Plan: X-ray will be done she has been given a codeine on 12/15/2024 every 6 (3) Hyperkalemia Is this a current diagnosis for this admission?: Yes Plan: 1 amp of sodium bicarb, 1 g of calcium gluconate, Kayexalate 30 g every 6 (4) Hypoglycemia Is this a current diagnosis for this admission?: Yes Plan: Lantus and we will do Accu-Cheks every 6 with a Humalog sliding scale (5) Acute kidney injury superimposed on chronic kidney disease Is this a current diagnosis for this admission?: Yes Plan: She will be started on IV fluids at 125 cc an hour (6) Anemia Qualifiers: Anemia type: due to chronic kidney disease Chronic kidney disease stage: stage 4 (severe) Qualified Code(s): N18.4 - Chronic kidney disease, stage 4 ( severe); D63.1 - Anemia in chronic kidney disease; D63.1 - Anemia in chronic kidney disease Is this a current diagnosis for this admission?: Yes Plan: She will be admitted to [facility] for monitoring, we will put her on normal saline at 125 she is Bryan been given an amp of sodium bicarb we will give her a gram of calcium gluconate we will start her on Kayexalate 30 every 6 she will get a BMP 7 at 6 PM, we will resume her levothyroxine and her hydralazine we will give her Zofran as needed for nausea and vomiting we will give her Tylenol 650 as needed for temp, we will do Accu-Cheks every 6 with a Humalog sliding scale we will hold her Lovenox we will do blood cultures and urine cultures. We will put her on oxycodone 12/15/2024 every 6 as needed for pain she will get a right hip x-ray she will be put on Lovenox 30 subcu daily we will consult nephrology. - Time Time Spent: 30 to 50 Minutes Medications reviewed and adjusted accordingly: Yes Anticipated discharge: Home Within: Other - Inpatient Certification I certify that my determination is in accordance with my understanding of Medicare's requirements for reasonable and necessary INPATIENT services [42 CFR 412.3e].: Yes Medical Necessity: Significant Comorbidiites Make Outpatient Treatment Too Risky , Need For IV Fluids Post Hospital Care: D/C [employer] Documentation
[2018-06-15] MEDS: SODIUM POLYSTYRENE SULFONATE 15 GM/60 ML PO SCH ×2 (15:51→21:46)
[2018-06-15] MEDS ORDERED: LEVOTHYROXINE SODIUM 0.05 MG TABLET PO ONE (16:00)
--- NOTE | 2018-06-15 16:01 | RADIOLOGY REPORT (SQ) ---
EXAM DESCRIPTION: HIP RIGHT AP/LATERAL COMPLETED DATE/TIME: 06/15/2018 3:51 pm REASON FOR STUDY: Hip pain COMPARISON: None. NUMBER OF VIEWS: Two views. TECHNIQUE: AP pelvis and additional frog-leg view of the right hip. LIMITATIONS: None. FINDINGS: MINERALIZATION: Normal. RIGHT HIP: Mild joint space narrowing and osteophyte formation. LEFT HIP: Mild joint space narrowing and osteophyte formation. PUBIS AND ISCHIUM: No fracture. PELVIS: No fracture. SACRUM: No fracture or dislocation. No worrisome bone lesions. LOWER LUMBAR SPINE: Spondylosis. SOFT TISSUES: Vascular calcifications. OTHER: No other significant finding. IMPRESSION: Mild osteoarthritis. TECHNICAL DOCUMENTATION: JOB ID: [id number] [employer]- All Rights Reserved Reading location - IP/workstation name: [email or web address]
[2018-06-15] MEDS ORDERED: METOPROLOL TARTRATE PF/INJ 5 MG/5 ML SDV IV ONE ×2 (16:40→17:53)
[2018-06-15] MEDS: ACETAMINOPHEN 325 MG TABLET PO PRN (16:44)
[2018-06-15] MEDS ORDERED: HYDRALAZINE HCL 50 MG TABLET ONE (17:53)
[2018-06-15] MEDS: DOCUSATE SODIUM 100 MG CAPSULE PO SCH (17:59)
[2018-06-15] MEDS ORDERED: DEXTROSE 5%-WATER 1000 ML 1,000 ML IV PRN (18:02)
[2018-06-15] MEDS: HYDROCODONE/ACETAMINOPHEN 5-325 MG TABLET PO PRN (18:03)
[2018-06-15] MEDS ORDERED: HYDRALAZINE HCL 50 MG TABLET PO ONE (18:30)
[2018-06-15 19:31] LABS: ANION GAP 10 (5-19); BLOOD UREA NITROGEN 41 mg/dL (7-20); CALCIUM 8.8 mg/dL (8.4-10.2); CARBON DIOXIDE 21 mmol/L (22-30); CHLORIDE 109 mmol/L (98-107); SODIUM 140.3 mmol/L (137-145)
[2018-06-15 19:41] LABS: GLUCOSE 32 mg/dL (75-110)
--- NOTE | 2018-06-15 20:43 | EKG REPORT ---
SEVERITY:- NORMAL ECG - SINUS RHYTHM : Confirmed by: Andreia Zuniga MD 15-Jun-2018 20:42:52
[2018-06-15] MEDS: ZOLPIDEM TARTRATE 5 MG TABLET PO SCH ×2 (21:46→21:48)
[2018-06-15] MEDS: HYDRALAZINE HCL 50 MG TABLET PO SCH (21:46)
[2018-06-16] MEDS: SODIUM POLYSTYRENE SULFONATE 15 GM/60 ML PO SCH ×2 (03:57→11:33)
[2018-06-16 04:31] LABS: ABSOLUTE BASOPHILS # (AUTO) 0.1 10^3/uL (0.0-0.2); ABSOLUTE EOSINOPHILS # (AUTO) 0.2 10^3/uL (0.0-0.6); ABSOLUTE LYMPHOCYTES (AUTO) 1.6 10^3/uL (0.5-4.7); ABSOLUTE MONOCYTES (AUTO) 0.8 10^3/uL (0.1-1.4); ABSOLUTE NEUT (AUTO) 4.2 10^3/uL (1.7-8.2); BASOPHILS % (AUTO) 0.8 % (0-2); EOSINOPHILS % (AUTO) 3.2 % (0-6); HEMATOCRIT 22.4 % (36.0-47.0); LYMPHOCYTES % (AUTO) 22.8 % (13-45); MEAN CORPUSCULAR HEMOGLOBIN 28.2 pg (27.0-33.4); MEAN CORPUSCULAR HGB CONC 32.4 g/dL (32.0-36.0); MEAN CORPUSCULAR VOLUME 87 fl (80-97); MONOCYTES % (AUTO) 12.3 % (3-13); PLATELET COUNT 325 10^3/uL (150-450); RED BLOOD COUNT 2.58 10^6/uL (3.72-5.28); RED CELL DISTRIBUTION WIDTH 14.9 % (11.5-14.0); SEGMENTED NEUTROPHILS % (AUTO) 60.9 % (42-78); TOTAL CELLS COUNTED % (AUTO) 100 %; WHITE BLOOD COUNT 6.8 10^3/uL (4.0-10.5)
[2018-06-16 04:36] LABS: HEMOGLOBIN 7.3 g/dL (12.0-15.5)
[2018-06-16 04:47] LABS: ANION GAP 11 (5-19); BLOOD UREA NITROGEN 36 mg/dL (7-20); CALCIUM 8.2 mg/dL (8.4-10.2); CARBON DIOXIDE 23 mmol/L (22-30); CHLORIDE 104 mmol/L (98-107); GLUCOSE 120 mg/dL (75-110); POTASSIUM 5.1 mmol/L (3.6-5.0)
[2018-06-16] MEDS ORDERED: SODIUM POLYSTYRENE SULFONATE 15 GM/60 ML PO ONE ×2 (05:00→05:17)
[2018-06-16] MEDS: LANSOPRAZOLE 30 MG TAB.RAP.DR PO SCH (05:24)
[2018-06-16] MEDS: HYDRALAZINE HCL 50 MG TABLET PO SCH ×3 (05:24→21:14)
[2018-06-16] MEDS: HYDROCODONE/ACETAMINOPHEN 5-325 MG TABLET PO PRN ×3 (05:29→21:13)
[2018-06-16] MEDS ORDERED: NORMAL SALINE 250 ML IV PRN (08:55)
[2018-06-16 09:16] LABS: RETICULOCYTE COUNT (AUTO) 1.95 % (0.66-2.85)
--- NOTE | 2018-06-16 10:30 | RADIOLOGY REPORT (SQ) ---
EXAM DESCRIPTION: SHOULDER RIGHT 1 VIEW COMPLETED DATE/TIME: 06/16/2018 10:01 am REASON FOR STUDY: fall COMPARISON: None. NUMBER OF VIEWS: One view. TECHNIQUE: AP portable images acquired of the right shoulder. LIMITATIONS: None. FINDINGS: No fracture or dislocation identified. Moderate right pleural effusion. IMPRESSION: No fracture or dislocation. TECHNICAL DOCUMENTATION: JOB ID: [id number] [employer]- All Rights Reserved Reading location - IP/workstation name: [facility]
[2018-06-16 11:01] LABS: FOLATE > 20.00 ng/mL (>2.76)
--- NOTE | 2018-06-16 11:01 | RADIOLOGY REPORT (SQ) ---
EXAM DESCRIPTION: CT HEAD WITHOUT COMPLETED DATE/TIME: 06/16/2018 10:41 am REASON FOR STUDY: fell at home. COMPARISON: 03/25/2018 TECHNIQUE: Axial images acquired through the brain without intravenous contrast. Images reviewed wi th bone, brain and subdural windows. Additional sagittal and coronal reconstructions were generated. Images stored on PACS. All CT scanners at this facility use dose modulation, iterative reconstruction, and/or weight based d osing when appropriate to reduce radiation dose to as low as reasonably achievable (ALARA). [facility]: Dose Right [facility]: CareDose [facility]: Dose Right [facility]: Teradose 4D [facility]: Smart Well Beyond Care RADIATION DOSE: CT Rad equipment meets quality standard of care and radiation dose reduction techniq ues were employed. CTDIvol: 48.6 mGy. DLP: 953 mGy-cm. LIMITATIONS: None. FINDINGS: VENTRICLES: Prominent commensurate with the sulci. The cisterns are patent. CEREBRUM: Chronic small vessel ischemic changes. No masses. No hemorrhage. No midline shift. No evidence for acute infarction. CEREBELLUM: No masses. No hemorrhage. No alteration of density. No evidence for acute infarction. EXTRAAXIAL SPACES: Age related involutional change. No fluid collections. No masses. ORBITS AND GLOBE: No intra- or extraconal masses. Normal contour of globe without masses. CALVARIUM: No fracture. PARANASAL SINUSES: No fluid or mucosal thickening. SOFT TISSUES: No mass or hematoma. OTHER: There is opacification of the left mastoid air cells which represents a new finding since the previous examinations. Considerations for this finding includes left mastoid effusion. IMPRESSION: 1. Since the previous examination dated 03/25/2018, new left mastoid effusion. Correlat ion suggested. 2. No acute intracranial abnormality. 3. Atrophy and chronic small vessel ischemic changes. EVIDENCE OF ACUTE STROKE: NO. COMMENT: Quality ID # [id number]: Final reports with documentation of one or more dose reduction techniques (e.g., Automated exposure control, adjustment of the mA and/or kV according to patient size, use of iterative reconstruction technique) TECHNICAL DOCUMENTATION: JOB ID: [id number] [employer]- All Rights Reserved Reading location - IP/workstation name: [email or web address]
--- NOTE | 2018-06-16 11:10 | PDOC PROGRESS REPORT ---
Subjective Progress Note for:: 06/16/18 Subjective:: SHE STATES TO STILL SOME RT. SHOULDER PAIN, APPETITE POOR DENIES ABD. PAIN N/V, NO C/P, FEVER, CSOB. dISCUSSED LAB RESULTS WITH PATIENT AND FAMILY. Reason For Visit: HYPERKALEMIA,ACUTE ON CHRONIC RENAL FAILURE Physical Exam Vital Signs: Temp Pulse Resp BP Pulse Ox 98.5 F 74 16 171/49 H 96 06/16/18 09:31 06/16/18 09:31 06/16/18 09:31 06/16/18 09:31 06/16/18 09:31 Intake & Output 06/15/18 06/16/18 06/17/18 06:59 06:59 06:59 Intake Total 1000 Balance 1000 Weight 69.1 kg General appearance: PRESENT: no acute distress, well-developed, well-nourished Head exam: PRESENT: atraumatic, normocephalic Eye exam: PRESENT: conjunctiva pink, EOMI, PERRLA. ABSENT: scleral icterus Ear exam: PRESENT: normal external ear exam Mouth exam: PRESENT: moist, tongue midline Neck exam: PRESENT: full ROM. ABSENT: carotid bruit, JVD, lymphadenopathy, thyromegaly Respiratory exam: PRESENT: clear to auscultation francisco Cardiovascular exam: PRESENT: RRR. ABSENT: diastolic murmur, rubs, systolic murmur Murmur grade: 2 Pulses: PRESENT: normal dorsalis pedis pul, +2 pedal pulses bilateral Vascular exam: PRESENT: normal capillary refill GI/Abdominal exam: PRESENT: normal bowel sounds, soft. ABSENT: distended, guarding, mass, organolmegaly, rebound, tenderness Rectal exam: PRESENT: deferred Extremities exam: PRESENT: full ROM Musculoskeletal exam: PRESENT: ambulatory Neurological exam: PRESENT: alert, awake, oriented to person, oriented to place , oriented to time, oriented to situation, CN II-XII grossly intact. ABSENT: motor sensory deficit Psychiatric exam: PRESENT: appropriate affect, normal mood. ABSENT: homicidal ideation, suicidal ideation Skin exam: PRESENT: dry, intact, warm. ABSENT: cyanosis, rash Results Laboratory Results: 06/16/18 04:06 06/16/18 04:06 06/15/18 06/16/18 06/16/18 19:04 04:06 04:06 WBC 6.8 RBC 2.58 L Hgb 7.3 L Hct 22.4 L MCV 87 MCH 28.2 MCHC 32.4 RDW 14.9 H Plt Count 325 Seg Neutrophils % 60.9 Lymphocytes % 22.8 Monocytes % 12.3 Eosinophils % 3.2 Basophils % 0.8 Absolute Neutrophils 4.2 Absolute Lymphocytes 1.6 Absolute Monocytes 0.8 Absolute Eosinophils 0.2 Absolute Basophils 0.1 Retic Count (auto) Absolute Retic Sodium 140.3 138.0 Potassium 6.0 H* 5.1 H Chloride 109 H 104 Carbon Dioxide 21 L 23 Anion Gap 10 11 BUN 41 H 36 H Creatinine 1.92 H 1.92 H Est GFR ( Amer) 30 L 30 L Est GFR (Non-Af Amer) 25 L 25 L Glucose 32 L* 120 H Calcium 8.8 8.2 L Magnesium 2.4 H Iron TIBC % Saturation Ferritin Vitamin B12 Folate Blood Type Antibody Screen 06/16/18 06/16/18 06/16/18 04:06 04:06 09:25 WBC RBC Hgb Hct MCV MCH MCHC RDW Plt Count Seg Neutrophils % Lymphocytes % Monocytes % Eosinophils % Basophils % Absolute Neutrophils Absolute Lymphocytes Absolute Monocytes Absolute Eosinophils Absolute Basophils Retic Count (auto) 1.95 Absolute Retic 0.050 Sodium Potassium Chloride Carbon Dioxide Anion Gap BUN Creatinine Est GFR ( Amer) Est GFR (Non-Af Amer) Glucose Calcium Magnesium Iron 43.0 TIBC 223 L % Saturation 19 Ferritin 172.00 Vitamin B12 838.0 Folate > 20.00 Blood Type A POSITIVE Antibody Screen NEGATIVE 06/15/18 06/15/18 06/15/18 15:30 15:30 19:04 Creatine Kinase 274 H 265 H Troponin I 0.026 06/15/18 06/16/18 06/16/18 19:04 04:06 04:06 Creatine Kinase 173 H Troponin I 0.032 0.018 Impressions: Hip/Pelvis X-Ray 06/15/18 00:00 IMPRESSION: Mild osteoarthritis. Knee X-Ray 06/15/18 11:02 IMPRESSION: NO RADIOGRAPHIC EVIDENCE OF ACUTE INJURY. Forearm X-Ray 06/15/18 12:18 IMPRESSION: NEGATIVE STUDY OF THE RIGHT FOREARM. NO RADIOGRAPHIC EVIDENCE OF ACUTE INJURY. Head CT 06/15/18 17:49 IMPRESSION: 1. Since the previous examination dated 03/25/2018, new left mastoid effusion. Correlation suggested. 2. No acute intracranial abnormality. 3. Atrophy and chronic small vessel ischemic changes. EVIDENCE OF ACUTE STROKE: NO. Shoulder X-Ray 06/16/18 00:00 IMPRESSION: No fracture or dislocation. Assessment & Plan - Diagnosis (1) Hypertension Is this a current diagnosis for this admission?: Yes Plan: cont on hydralazine and prn metoprolol. (2) Hip pain Qualifiers: Laterality: right Qualified Code(s): M25.551 - Pain in right hip Is this a current diagnosis for this admission?: Yes (3) Hyperkalemia Is this a current diagnosis for this admission?: Yes Plan: cont. kayexalate and will check potassium at 12 oclock (4) Hypoglycemia Is this a current diagnosis for this admission?: Yes Plan: cont. accuchecks with sliding scale and IVD5W (5) Acute kidney injury superimposed on chronic kidney disease Is this a current diagnosis for this admission?: Yes Plan: cont, IV fluids it is improving (6) Anemia Qualifiers: Anemia type: due to chronic kidney disease Chronic kidney disease stage: stage 4 (severe) Qualified Code(s): N18.4 - Chronic kidney disease, stage 4 ( severe); D63.1 - Anemia in chronic kidney disease; D63.1 - Anemia in chronic kidney disease Is this a current diagnosis for this admission?: Yes Plan: transfuse 2 units pRBC, check stools occult blood iron studies - Time Time Spent with patient: 15-24 minutes Anticipated discharge: Home Within: Other - Inpatient Certification I certify that my determination is in accordance with my understanding of Medicare's requirements for reasonable and necessary INPATIENT services [42 CFR 412.3e].: Yes Medical Necessity: Significant Comorbidiites Make Outpatient Treatment Too Risky , Need For IV Fluids Post Hospital 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 above ttreatment
[2018-06-16] MEDS: METOPROLOL TARTRATE PF/INJ 5 MG/5 ML SDV IV PRN ×2 (11:18→18:35)
[2018-06-16] MEDS: ENOXAPARIN SODIUM INJ 30 MG/0.3 ML DISP.SYRIN SUBCUT SCH (11:24)
[2018-06-16] MEDS: IRON POLYSACCHARIDES COMPLEX 150 MG CAPSULE PO SCH (11:24)
[2018-06-16] MEDS: GABAPENTIN 300 MG CAPSULE PO SCH (11:24)
[2018-06-16] MEDS: DOCUSATE SODIUM 100 MG CAPSULE PO SCH ×2 (11:32→17:07)
[2018-06-16] MEDS: INSULIN REG, HUMAN 100 UNIT/ML 3 ML VIAL (PYX) SUBCUT PRN (12:25)
--- NOTE | 2018-06-16 12:38 | EKG REPORT ---
SEVERITY:- BORDERLINE ECG - SINUS RHYTHM BORDERLINE R WAVE PROGRESSION, ANTERIOR LEADS : Confirmed by: Andreia Zuniga MD 16-Jun-2018 12:37:40
[2018-06-16 13:03] LABS: ANION GAP 12 (5-19); BLOOD UREA NITROGEN 31 mg/dL (7-20); CALCIUM 8.2 mg/dL (8.4-10.2); CARBON DIOXIDE 20 mmol/L (22-30); CHLORIDE 104 mmol/L (98-107); GLUCOSE 112 mg/dL (75-110); SODIUM 135.9 mmol/L (137-145)
--- NOTE | 2018-06-16 16:12 | PDOC CONSULTATION ---
Consultation Consult Date: 06/16/18 Attending physician:: MARISSA JOHN Consult reason:: I was asked to see the patient because of hyperkalemia and worsening kidney function. 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 The night prior to the admission yesterday the patient woke up in the middle of the night going to the bathroom and fell. Family found her and she was complaining of multiple joint pains. Her blood sugar was also very low at 40 so she was brought to the emergency room. Initial evaluation yesterday in the emergency room showed a potassium of 6.7, BUN of 41, creatinine of 2.03 with estimated GFR of 23. X- rays were done and were negative for any fracture. Patient was started on IV fluid hydration with D5 water for the hypoglycemia. She was also being given Kayexalate since yesterday. Her blood pressure was also elevated when she came in. The only complaints that the patient has today is right shoulder pain. She otherwise denies any other further complaints. For the hyperkalemia the patient's son confirmed that the patient has been eating orange juice whenever she has hypoglycemia at home at the same time she is eating a lot of oranges and she loves bananas. Patient is also constipated prior to admission. Her fluid intake at home is also questionable per son at bedside. 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, Nephropathy, Other Renal/ Medical History: Reports: Chronic Kidney Disease Stage IV, Proteinuria Musculoskeltal Medical History: Reports: Arthritis Hematology Medical History: Reports Anemia of Chronic Kidney Disease, Reports Iron Deficiency Anemia Past Surgical History Past Surgical History: Reports: Hysterectomy, Other - Cataract surgery Social History Information Source: Patient, [facility] Records Lives with: Family Smoking Status: Never Smoker Frequency of Alcohol Use: None Hx Recreational Drug Use: No Drugs: None Hx Prescription Drug Abuse: No - Advance Directive Resuscitation Status: Do Not Resuscitate Family History Family History: DM - Brother and children Parental Family History Reviewed: Yes Children Family History Reviewed: Yes Sibling(s) Family History Reviewed.: Yes Medication/Allergy Home Medications: Aspirin [Aspirin 81 mg Chewable Tablet] 81 mg PO DAILY 06/15/18 Ferrous Sulfate [Feosol 325 mg Tablet] 325 mg PO DAILY 06/15/18 Folic Acid [Folvite 1 mg Tablet] 1 mg PO DAILY 06/15/18 Gabapentin [Neurontin 300 mg Capsule] 300 mg PO Q8 06/15/18 Hydralazine HCl [Apresoline 50 mg Tablet] 50 mg PO Q8 06/15/18 Insulin Glargine,Hum.rec.anlog [Lantus Solostar] 20 units SQ QPM 06/15/18 Levothyroxine Sodium [Synthroid] 50 mcg PO Q6AM 06/15/18 Allergies/Adverse Reactions: No Known Allergies Allergy (Verified 03/26/18 13:53) Review of Systems All systems: reviewed and no additional remarkable complaints except as stated Review of Systems: Constitutional: ABSENT: chills, fatigue, fever(s), headache(s), weight gain, weight loss Eyes: ABSENT: visual disturbances Ears: ABSENT: hearing changes Cardiovascular: ABSENT: chest pain, dyspnea on exertion, edema, orthropnea, palpitations Respiratory: ABSENT: cough, dyspnea, hemoptysis Gastrointestinal: ABSENT: abdominal pain, diarrhea, hematemesis, hematochezia, nausea, vomiting; admits constipation prior to admission Genitourinary: ABSENT: dysuria, hematuria Musculoskeletal: ABSENT: joint swelling; right shoulder pain Integumentary: ABSENT: rash, wounds Neurological: ABSENT: abnormal gait, abnormal speech, confusion, dizziness, focal weakness, numbness, syncope Psychiatric: ABSENT: anxiety, depression Endocrine: ABSENT: cold intolerance, heat intolerance, polydipsia, polyuria Hematologic/Lymphatic: ABSENT: easy bleeding, easy bruising, lymphadenopathy Physical Exam Vital Signs: Temp Pulse Resp BP Pulse Ox 98.3 F 55 L 20 161/47 H 95 06/16/18 14:26 06/16/18 14:26 06/16/18 14:22 06/16/18 14:26 06/16/18 14:26 Intake & Output 06/15/18 06/16/18 06/17/18 06:59 06:59 06:59 Intake Total 1000 300 Balance 1000 300 Weight 69.1 kg Exam: General appearance: No acute distress, cooperative, well-developed, well- nourished Head exam: PRESENT: atraumatic, normocephalic Eye exam: PRESENT: Conjunctiva pale, EOMI, PERRLA. ABSENT: conjunctival injection, scleral icterus Mouth exam: PRESENT: moist, neck supple, tongue midline Neck exam: PRESENT: full ROM. ABSENT: carotid bruit, JVD, lymphadenopathy, thyromegaly Respiratory exam: PRESENT: clear to auscultation bilaterally. ABSENT: rales, rhonchi, stridor, wheezes Cardiovascular exam: PRESENT: RRR, +S1, +S2. Grade 2/6 systolic murmur Pulses: PRESENT: normal radial pulses, normal dorsalis pedis pulses GI/Abdominal exam: PRESENT: normal bowel sounds, soft. ABSENT: guarding, mass, tenderness Rectal exam: Deferred Extremities exam: PRESENT: full ROM. ABSENT: calf tenderness, pedal edema Musculoskeletal: PRESENT: full ROM. ABSENT: deformity Neurological exam: PRESENT: alert, Awake, Oriented to person, Oriented to place , Oriented to time, reflexes normal, CN II-XII grossly intact. ABSENT: motor sensory deficit Psychiatric exam: PRESENT: appropriate affect, normal mood. ABSENT: homicidal ideation, suicidal ideation Skin exam: PRESENT: intact, dry, warm. Pale ABSENT: rash Results Laboratory Results: 06/16/18 04:06 06/16/18 12:11 06/15/18 06/16/18 06/16/18 19:04 04:06 04:06 WBC 6.8 RBC 2.58 L Hgb 7.3 L Hct 22.4 L MCV 87 MCH 28.2 MCHC 32.4 RDW 14.9 H Plt Count 325 Seg Neutrophils % 60.9 Lymphocytes % 22.8 Monocytes % 12.3 Eosinophils % 3.2 Basophils % 0.8 Absolute Neutrophils 4.2 Absolute Lymphocytes 1.6 Absolute Monocytes 0.8 Absolute Eosinophils 0.2 Absolute Basophils 0.1 Retic Count (auto) Absolute Retic Sodium 140.3 138.0 Potassium 6.0 H* 5.1 H Chloride 109 H 104 Carbon Dioxide 21 L 23 Anion Gap 10 11 BUN 41 H 36 H Creatinine 1.92 H 1.92 H Est GFR ( Amer) 30 L 30 L Est GFR (Non-Af Amer) 25 L 25 L Glucose 32 L* 120 H Calcium 8.8 8.2 L Magnesium 2.4 H Iron TIBC % Saturation Ferritin Vitamin B12 Folate Blood Type Antibody Screen 06/16/18 06/16/18 06/16/18 04:06 04:06 09:25 WBC RBC Hgb Hct MCV MCH MCHC RDW Plt Count Seg Neutrophils % Lymphocytes % Monocytes % Eosinophils % Basophils % Absolute Neutrophils Absolute Lymphocytes Absolute Monocytes Absolute Eosinophils Absolute Basophils Retic Count (auto) 1.95 Absolute Retic 0.050 Sodium Potassium Chloride Carbon Dioxide Anion Gap BUN Creatinine Est GFR ( Amer) Est GFR (Non-Af Amer) Glucose Calcium Magnesium Iron 43.0 TIBC 223 L % Saturation 19 Ferritin 172.00 Vitamin B12 838.0 Folate > 20.00 Blood Type A POSITIVE Antibody Screen NEGATIVE 06/16/18 12:11 WBC RBC Hgb Hct MCV MCH MCHC RDW Plt Count Seg Neutrophils % Lymphocytes % Monocytes % Eosinophils % Basophils % Absolute Neutrophils Absolute Lymphocytes Absolute Monocytes Absolute Eosinophils Absolute Basophils Retic Count (auto) Absolute Retic Sodium 135.9 L Potassium 5.0 Chloride 104 Carbon Dioxide 20 L Anion Gap 12 BUN 31 H Creatinine 1.84 H Est GFR ( Amer) 31 L Est GFR (Non-Af Amer) 26 L Glucose 112 H Calcium 8.2 L Magnesium Iron TIBC % Saturation Ferritin Vitamin B12 Folate Blood Type Antibody Screen 06/15/18 06/15/18 06/15/18 15:30 15:30 19:04 Creatine Kinase 274 H 265 H Troponin I 0.026 06/15/18 06/16/18 06/16/18 19:04 04:06 04:06 Creatine Kinase 173 H Troponin I 0.032 0.018 Impressions: Hip/Pelvis X-Ray 06/15/18 00:00 IMPRESSION: Mild osteoarthritis. Knee X-Ray 06/15/18 11:02 IMPRESSION: NO RADIOGRAPHIC EVIDENCE OF ACUTE INJURY. Forearm X-Ray 06/15/18 12:18 IMPRESSION: NEGATIVE STUDY OF THE RIGHT FOREARM. NO RADIOGRAPHIC EVIDENCE OF ACUTE INJURY. Head CT 06/15/18 17:49 IMPRESSION: 1. Since the previous examination dated 03/25/2018, new left mastoid effusion. Correlation suggested. 2. No acute intracranial abnormality. 3. Atrophy and chronic small vessel ischemic changes. EVIDENCE OF ACUTE STROKE: NO. Shoulder X-Ray 06/16/18 00:00 IMPRESSION: No fracture or dislocation. Assessment & Plan - Diagnosis (1) Acute kidney injury superimposed on chronic kidney disease Is this a current diagnosis for this admission?: Yes Plan: The minimal worsening of kidney function could be secondary to some prerenal azotemia which is currently improved to almost baseline kidney function. (2) Hyperkalemia Is this a current diagnosis for this admission?: Yes Plan: Discussed with the patient and the son regarding low potassium diet. Patient has been consuming a lot of high potassium foods at home which will precipitate hyperkalemia along with constipation. Continue low potassium diet. Continue stool softener. (3) Hypertension Is this a current diagnosis for this admission?: Yes Plan: Uncontrolled but improved from admission. Start amlodipine 5 mg p.o. daily and continue hydralazine. (4) Anemia in chronic kidney disease (CKD) Qualifiers: Chronic kidney disease stage: stage 4 (severe) Qualified Code(s): N18.4 - Chronic kidney disease, stage 4 (severe); D63.1 - Anemia in chronic kidney disease; D63.1 - Anemia in chronic kidney disease Is this a current diagnosis for this admission?: Yes Plan: Patient is being transfused 2 units of packed RBC and his stool for occult blood and iron panel were ordered. I will also order for Procrit 20,000 units subcutaneously to be given today. The Procrit needs to be continued as an outpatient. I instructed son to call my office after discharge so that we can arrange continuation of Procrit shots. (5) Hypoglycemia Is this a current diagnosis for this admission?: Yes Plan: I will change the D5 water to D5 half normal saline due to relative hyponatremia. (6) Chronic kidney disease, stage IV (severe) Is this a current diagnosis for this admission?: Yes (7) Diabetic nephropathy Qualifiers: Diabetes mellitus type: type 2 Qualified Code(s): E11.21 - Type 2 diabetes mellitus with diabetic nephropathy Is this a current diagnosis for this admission?: Yes Plan: With known nephrotic range proteinuria and negative protein electrophoresis. (8) Diabetes mellitus type 2 in nonobese Is this a current diagnosis for this admission?: Yes - Notes Notes: Thank you very much for this consultation. I will follow the patient with you. - Time Time Spent: Greater than 70 Minutes
[2018-06-16] MEDS ORDERED: EPOETIN ALFA INJ 20000 UNIT/1 ML VIAL (RENAL) SUBCUT ONE (16:30)
[2018-06-16] MEDS: AMLODIPINE BESYLATE 5 MG TABLET PO SCH (16:53)
[2018-06-16] MEDS: DEXTROSE 5%-1/2 NORMAL SALINE 1,000 ML IV PRN (17:23)
[2018-06-17] MEDS: DEXTROSE 5%-1/2 NORMAL SALINE 1,000 ML IV PRN ×2 (04:10→14:26)
[2018-06-17] MEDS: ZOLPIDEM TARTRATE 5 MG TABLET PO SCH ×2 (05:06→21:40)
[2018-06-17] MEDS: HYDROCODONE/ACETAMINOPHEN 5-325 MG TABLET PO PRN ×3 (05:12→19:00)
[2018-06-17] MEDS: HYDRALAZINE HCL 50 MG TABLET PO SCH ×3 (05:12→21:35)
[2018-06-17] MEDS: LANSOPRAZOLE 30 MG TAB.RAP.DR PO SCH (05:13)
[2018-06-17 07:09] LABS: ANION GAP 9 (5-19); BLOOD UREA NITROGEN 27 mg/dL (7-20); CALCIUM 7.9 mg/dL (8.4-10.2); CARBON DIOXIDE 23 mmol/L (22-30); CHLORIDE 104 mmol/L (98-107); GLUCOSE 237 mg/dL (75-110); POTASSIUM 4.7 mmol/L (3.6-5.0); SODIUM 136.2 mmol/L (137-145)
[2018-06-17] MEDS: IRON POLYSACCHARIDES COMPLEX 150 MG CAPSULE PO SCH (11:34)
[2018-06-17] MEDS: GABAPENTIN 300 MG CAPSULE PO SCH (11:34)
[2018-06-17] MEDS: DOCUSATE SODIUM 100 MG CAPSULE PO SCH ×2 (11:34→19:00)
[2018-06-17] MEDS: AMLODIPINE BESYLATE 5 MG TABLET PO SCH ×2 (11:35→21:35)
[2018-06-17] MEDS: ENOXAPARIN SODIUM INJ 30 MG/0.3 ML DISP.SYRIN SUBCUT SCH (11:35)
[2018-06-17 13:19] LABS: ABSOLUTE BASOPHILS # (AUTO) 0.1 10^3/uL (0.0-0.2); ABSOLUTE EOSINOPHILS # (AUTO) 0.1 10^3/uL (0.0-0.6); ABSOLUTE LYMPHOCYTES (AUTO) 1.1 10^3/uL (0.5-4.7); ABSOLUTE MONOCYTES (AUTO) 0.6 10^3/uL (0.1-1.4); ABSOLUTE NEUT (AUTO) 3.1 10^3/uL (1.7-8.2); BASOPHILS % (AUTO) 1.8 % (0-2); EOSINOPHILS % (AUTO) 2.1 % (0-6); HEMATOCRIT 34.6 % (36.0-47.0); LYMPHOCYTES % (AUTO) 22.5 % (13-45); MEAN CORPUSCULAR HEMOGLOBIN 28.9 pg (27.0-33.4); MEAN CORPUSCULAR HGB CONC 33.2 g/dL (32.0-36.0); MEAN CORPUSCULAR VOLUME 87 fl (80-97); MONOCYTES % (AUTO) 12.3 % (3-13); PLATELET COUNT 277 10^3/uL (150-450); RED BLOOD COUNT 3.97 10^6/uL (3.72-5.28); RED CELL DISTRIBUTION WIDTH 15.1 % (11.5-14.0); SEGMENTED NEUTROPHILS % (AUTO) 61.3 % (42-78); TOTAL CELLS COUNTED % (AUTO) 100 %; WHITE BLOOD COUNT 5.1 10^3/uL (4.0-10.5)
[2018-06-17 13:29] LABS: HEMOGLOBIN 11.5 g/dL (12.0-15.5)
[2018-06-17] MEDS ORDERED: INSULIN GLARGINE,HUM.REC.ANLOG 300 UNIT/3 ML INSULN.PEN SUBCUT SCH (18:00)
--- NOTE | 2018-06-17 18:56 | PROGRESS NOTE E ---
Progress Note NAME: RAJESH NIX : 1930 AGE: 88Y DATE: 06/17/2018 ROOM: 315 SUBJECTIVE: The patient is lying in bed. The patient does complain that she has low back pain, which correlates with a previous fall. Today the patient had complained to nursing staff regarding abdominal pain. However, she denies that upon my evaluation. The patient has had no shortness of breath, dizziness, chest pain. No documented episodes of vomiting nor diarrhea. The patient does not voice any specific concern at this time. REVIEW OF SYSTEMS: A full review of systems could not be appreciated given the patient's mental status. MEDICATIONS: Medications have been reviewed. OBJECTIVE: GENERAL: The patient is an 88-year-old female who is awake, alert. She is oriented to person, time, place, situation. She is verbal, conversational. She does not appear to be in any acute distress. VITAL SIGNS: Temperature is 98.4, pulse 78, respirations 18, blood pressure is 173/57, oxygen saturation is 92% on room air. SKIN: Warm and dry. No rash. She is not diaphoretic. HEENT: Pupils equal, round and reactive to light and accommodation. Conjunctivae are pink. There is no evidence of JVP. CARDIOVASCULAR: Heart is regular. No rub. CHEST: Clear, symmetrical, unlabored. ABDOMEN: Soft, nontender. BACK: No CVA tenderness or sacral edema. EXTREMITIES: No clubbing, cyanosis, edema. PSYCHIATRIC: Appropriate affect, pleasant mood. DIAGNOSTICS: Lab values are as follows - Hematology on 06/15/18; WBC is 5.1, hemoglobin is 11.5, hematocrit 34.6, platelet count is 277,000. Chemistry obtained on 06/17/2018; sodium is 136, potassium is 4.7, chloride is 104, carbon dioxide 23, BUN 27, creatinine is 1.68, glucose 237, calcium 7.9, lipase is 131.5. Urine culture obtained on 06/15/2018 reveals a gram-negative jody. IMPRESSION AND PLAN: 1. HYPERTENSIVE URGENCY. The patient has been continued on hydralazine. Given the patient's persistent elevations, will slightly increase dose and follow response. 2. HIP PAIN. This has been ongoing. Will treat the patient symptomatically. 3. HYPERKALEMIA. The patient was treated with Kayexalate. 4. HYPERGLYCEMIA. The patient was placed on sliding scale coverage and was placed on fluids with dextrose as well. Basal dosing insulin has been adjusted. 5. CHRONIC KIDNEY DISEASE STAGE 3. Management as per nephrology. 6. ACUTE KIDNEY INJURY. The patient's creatinine appears to be near baseline. 7. ANEMIA, MOST LIKELY OF UNDERLYING CHRONIC DISEASE. The patient has received blood transfusion and hemoglobin has improved. No overt evidence of bleeding. 8. GRAM-NEGATIVE JODY URINARY TRACT INFECTION. The patient's urine culture was positive. The patient is unable to articulate any specific symptoms, but given her confusion will treat this with Ceftin and as her previous cultures have been sensitive to this in the past. CODE STATUS: The patient is a do not resuscitate/do not intubate. DISPOSITION: Depending on the patient's symptomatology and diagnostic findings will reevaluate in the a.m. TIME SPENT: On this follow up, including assessment and plan, physical examination, patient education, review of records, family meeting is 30 minutes. DICTATING PHYSICIAN: EMILY UGARTE NP [id number] PHY#: [id number] ID: [id number] JOB#: [id number] ACCT: [id number] cc: >
[2018-06-17] MEDS: CEFUROXIME 500 MG TABLET PO SCH (19:00)
[2018-06-17] MEDS: GABAPENTIN 100 MG CAPSULE PO SCH (21:35)
[2018-06-17] MEDS ORDERED: GABAPENTIN 300 MG CAPSULE PO SCH ×2 (22:00)
[2018-06-17] MEDS: INSULIN REG, HUMAN 100 UNIT/ML 3 ML VIAL (PYX) SUBCUT PRN (22:45)
[2018-06-18] MEDS: HYDROCODONE/ACETAMINOPHEN 5-325 MG TABLET PO PRN ×3 (01:33→15:10)
[2018-06-18] MEDS: METOPROLOL TARTRATE PF/INJ 5 MG/5 ML SDV IV PRN (01:33)
[2018-06-18] MEDS: DEXTROSE 5%-1/2 NORMAL SALINE 1,000 ML IV PRN (01:34)
[2018-06-18] MEDS: GABAPENTIN 100 MG CAPSULE PO SCH ×3 (05:57→21:31)
[2018-06-18] MEDS: HYDRALAZINE HCL 50 MG TABLET PO SCH ×3 (05:57→21:31)
[2018-06-18] MEDS: LANSOPRAZOLE 30 MG TAB.RAP.DR PO SCH (05:58)
[2018-06-18 06:23] LABS: ANION GAP 8 (5-19); BLOOD UREA NITROGEN 23 mg/dL (7-20); CALCIUM 8.1 mg/dL (8.4-10.2); CARBON DIOXIDE 24 mmol/L (22-30); CHLORIDE 105 mmol/L (98-107); GLUCOSE 110 mg/dL (75-110); POTASSIUM 4.2 mmol/L (3.6-5.0); SODIUM 136.8 mmol/L (137-145)
[2018-06-18] MEDS: DOCUSATE SODIUM 100 MG CAPSULE PO SCH ×2 (10:49→18:47)
[2018-06-18] MEDS: ASPIRIN 81 MG TABLET, CHEWABLE PO SCH (10:49)
[2018-06-18] MEDS: LEVOTHYROXINE SODIUM 0.05 MG TABLET PO SCH (10:49)
[2018-06-18] MEDS: AMLODIPINE BESYLATE 5 MG TABLET PO SCH ×2 (10:49→21:31)
[2018-06-18] MEDS: IRON POLYSACCHARIDES COMPLEX 150 MG CAPSULE PO SCH (10:49)
[2018-06-18] MEDS: ENOXAPARIN SODIUM INJ 30 MG/0.3 ML DISP.SYRIN SUBCUT SCH (10:50)
[2018-06-18] MEDS: CEFUROXIME 500 MG TABLET PO SCH (10:51)
[2018-06-18] MEDS: FOLIC ACID 1 MG TABLET PO SCH (10:51)
[2018-06-18] MEDS ORDERED: IMIPENEM/CILASTATIN SODIUM 1,000 MG in NORMAL SALINE 250 ML IV SCH (12:00)
[2018-06-18] MEDS ORDERED: ONDANSETRON 4 MG TAB.RAPDIS PO PRN (13:47)
[2018-06-18] MEDS: IMIPENEM/CILASTATIN SODIUM 500 MG in NORMAL SALINE 100 ML IV SCH ×2 (15:15→21:31)
--- NOTE | 2018-06-18 17:01 | PROGRESS NOTE E ---
Progress Note NAME: RAJESH NIX : 1930 AGE: 88Y DATE: 06/18/2018 ROOM: 315 SUBJECTIVE: The patient is lying in bed. Her son is present at the bedside, active in the patient's care. The patient today is feeling much better and is intaking orally. The patient denies any nausea or vomiting. No shortness of breath, dizziness, or chest pain. The patient states that her abdominal pain is gone and she does not recall having pain in her right arm. No other concerns are voiced at this time. BRIEF HISTORY: Over the weekend the patient's appetite ever increased. The morning of 06/18/2018, did discontinue her IV fluids as the patient's glucose was trending up as well and the patient's creatinine appeared to be at baseline. The patient has been eating quite well today. However, the patient's urine culture over the weekend grew out polymicrobial findings of staph but most interestingly ESBL. This is not consistent with her previous UTIs. This is sensitive to Augmentin; however, given the patient's hospitalization, will cover her with imipenem for now as both are sensitive to this and the patient can be transitioned at a later time. Family is in agreeance to this plan. The patient has had no evidence of bleeding and has otherwise been stable. REVIEW OF SYSTEMS: Full review of systems is difficult to appreciate given the patient's mental status. MEDICATIONS: Medications have been reviewed. OBJECTIVE: GENERAL: The patient is an 88-year-old female who is awake, alert. She is oriented, very pleasant, does not appear to be in any acute distress. VITAL SIGNS: As follows: Temperature is 97.7, pulse 57, respirations 18, blood pressure is 138/47, oxygen saturation is 90% on room air. SKIN: Warm and dry. No rash. She is not diaphoretic. HEENT: Pupils are reactive. There is no JVP. CARDIOVASCULAR: Heart is regular. No rub. CHEST: Clear, symmetrical, unlabored. ABDOMEN: Soft, nontender. EXTREMITIES: No clubbing, cyanosis, edema. Patient does have some dependent edema in the left hand relative to her IV site. PSYCHIATRIC: Very pleasant. DIAGNOSTICS: Lab values are as follows. Hematology obtained on 06/17/2018: WBCs are 5.1, hemoglobin is 11.3, hematocrit is 34.6, platelet count is 277,000. Chemistry obtained on 06/18/2018: Sodium is 136, potassium 4.2, chloride is 105, carbon dioxide 24, BUN 23, creatinine is 0.16, glucose 110, calcium is 8.1, magnesium is 2.2. IMPRESSION AND PLAN: 1. HYPERTENSIVE URGENCY. The patient has been continued on hydralazine. Did increase the dose slightly and the patient has responded well. Continue current dosing and follow. 2. HYPERKALEMIA. This was treated with Kayexalate. 3. DIABETES MELLITUS, TYPE 2, WITH HYPOGLYCEMIA. The patient has been on dextrose; however, now she is eating quite well. Will discontinue dextrose. Will hold the patient's basal dose of insulin for now and just place on sliding-scale coverage to see how the patient does since her oral intake is quite labile. 4. CHRONIC KIDNEY DISEASE, STAGE 3. The patient's creatinine appears to be at baseline. 5. ACUTE KIDNEY INJURY. Again, has been back to baseline. Will discontinue IV fluids. 6. ANEMIA, MOST LIKELY OF UNDERLYING CHRONIC DISEASE. The patient has received blood transfusion. Hemoglobin has improved. No evidence of bleeding. 7. ESBL URINARY TRACT INFECTION. The patient denies any symptoms of this; however, given the nature of this will go ahead and treat it, start with imipenem and this can be decreased as necessary. While this was pending the patient did receive 1 day's dosing of Ceftin; therefore, she has only been on appropriate antibiotic coverage for 1 day. DISPOSITION: THE PATIENT IS A DO NOT RESUSCITATE/DO NOT INTUBATE. Pending the patient's symptomatology and diagnostic findings, will re-evaluate in the a.m. Time spent on this followup, including assessment/plan, physical examination, patient education, review of records, and family meeting, is 25 minutes. DICTATING PHYSICIAN: EMILY UGARTE NP [id number] PHY#: [id number] ID: [id number] JOB#: [id number] ACCT: [id number] cc: >
[2018-06-18] MEDS ORDERED: INSULIN GLARGINE,HUM.REC.ANLOG 300 UNIT/3 ML INSULN.PEN SUBCUT SCH (18:00)
[2018-06-18] MEDS: ZOLPIDEM TARTRATE 5 MG TABLET PO SCH (22:55)
[2018-06-19] MEDS: IMIPENEM/CILASTATIN SODIUM 500 MG in NORMAL SALINE 100 ML IV SCH ×3 (05:30→21:43)
[2018-06-19] MEDS: HYDRALAZINE HCL 50 MG TABLET PO SCH ×3 (05:30→21:39)
[2018-06-19] MEDS: LEVOTHYROXINE SODIUM 0.05 MG TABLET PO SCH (05:30)
[2018-06-19] MEDS: GABAPENTIN 100 MG CAPSULE PO SCH ×3 (05:30→21:39)
[2018-06-19] MEDS: LANSOPRAZOLE 30 MG TAB.RAP.DR PO SCH (05:30)
[2018-06-19] MEDS: ACETAMINOPHEN 325 MG TABLET PO PRN (05:39)
[2018-06-19 06:23] LABS: HEMOGLOBIN 11.4 g/dL (12.0-15.5); MEAN CORPUSCULAR HEMOGLOBIN 29.3 pg (27.0-33.4); MEAN CORPUSCULAR HGB CONC 33.7 g/dL (32.0-36.0); MEAN CORPUSCULAR VOLUME 87 fl (80-97); PLATELET COUNT 258 10^3/uL (150-450); RED BLOOD COUNT 3.91 10^6/uL (3.72-5.28); RED CELL DISTRIBUTION WIDTH 14.8 % (11.5-14.0); WHITE BLOOD COUNT 5.6 10^3/uL (4.0-10.5)
[2018-06-19 06:39] LABS: ANION GAP 11 (5-19); BLOOD UREA NITROGEN 20 mg/dL (7-20); CALCIUM 8.1 mg/dL (8.4-10.2); CARBON DIOXIDE 23 mmol/L (22-30); CHLORIDE 107 mmol/L (98-107); GLUCOSE 117 mg/dL (75-110); POTASSIUM 4.4 mmol/L (3.6-5.0)
[2018-06-19] MEDS: ASPIRIN 81 MG TABLET, CHEWABLE PO SCH (09:18)
[2018-06-19] MEDS: DOCUSATE SODIUM 100 MG CAPSULE PO SCH ×2 (09:18→17:45)
[2018-06-19] MEDS: IRON POLYSACCHARIDES COMPLEX 150 MG CAPSULE PO SCH (09:19)
[2018-06-19] MEDS: ENOXAPARIN SODIUM INJ 30 MG/0.3 ML DISP.SYRIN SUBCUT SCH (09:19)
[2018-06-19] MEDS: AMLODIPINE BESYLATE 5 MG TABLET PO SCH ×2 (09:19→21:40)
[2018-06-19] MEDS: FOLIC ACID 1 MG TABLET PO SCH (09:19)
--- NOTE | 2018-06-19 11:56 | PDOC PROGRESS REPORT ---
Subjective Progress Note for:: 06/19/18 Subjective:: Patient states today feeling well her appetite increased over the weekend she has been afebrile she is still having some joint pains, she denies any shortness of breath chest pain nausea vomiting. Discuss recent lab test with her at full detail at length. Reason For Visit: HYPERKALEMIA,ACUTE ON CHRONIC RENAL FAILURE Physical Exam Vital Signs: Temp Pulse Resp BP Pulse Ox 98.3 F 73 17 145/43 H 94 06/19/18 07:16 06/19/18 07:16 06/19/18 07:16 06/19/18 07:16 06/19/18 07:48 Intake & Output 06/18/18 06/19/18 06/20/18 06:59 06:59 06:59 Intake Total 825 100 Output Total 1987 Balance -1162 100 Weight 68.1 kg General appearance: PRESENT: no acute distress, well-developed, well-nourished Head exam: PRESENT: atraumatic, normocephalic Eye exam: PRESENT: conjunctiva pink, EOMI, PERRLA. ABSENT: scleral icterus Ear exam: PRESENT: normal external ear exam Mouth exam: PRESENT: moist, tongue midline Neck exam: PRESENT: full ROM. ABSENT: carotid bruit, JVD, lymphadenopathy, thyromegaly Respiratory exam: PRESENT: clear to auscultation francisco Cardiovascular exam: PRESENT: systolic murmur Murmur grade: 2 Pulses: PRESENT: normal dorsalis pedis pul, +2 pedal pulses bilateral Vascular exam: PRESENT: normal capillary refill GI/Abdominal exam: PRESENT: normal bowel sounds, soft. ABSENT: distended, guarding, mass, organolmegaly, rebound, tenderness Rectal exam: PRESENT: deferred Extremities exam: PRESENT: full ROM Musculoskeletal exam: PRESENT: ambulatory Neurological exam: PRESENT: alert, awake, oriented to person, oriented to place , oriented to time, oriented to situation, CN II-XII grossly intact. ABSENT: motor sensory deficit Psychiatric exam: PRESENT: appropriate affect, normal mood. ABSENT: homicidal ideation, suicidal ideation Skin exam: PRESENT: dry, intact, warm. ABSENT: cyanosis, rash Results Laboratory Results: 06/19/18 05:37 06/19/18 05:31 06/19/18 06/19/18 06/19/18 05:31 05:31 05:37 WBC 5.6 RBC 3.91 Hgb 11.4 L Hct 34.0 L MCV 87 MCH 29.3 MCHC 33.7 RDW 14.8 H Plt Count 258 Sodium 141.0 Potassium 4.4 Chloride 107 Carbon Dioxide 23 Anion Gap 11 BUN 20 Creatinine 1.34 H Est GFR ( Amer) 45 L Est GFR (Non-Af Amer) 37 L Glucose 117 H Calcium 8.1 L Magnesium 2.2 TSH 2.81 06/15/18 06/15/18 06/15/18 15:30 15:30 19:04 Creatine Kinase 274 H 265 H Troponin I 0.026 06/15/18 06/16/18 06/16/18 19:04 04:06 04:06 Creatine Kinase 173 H Troponin I 0.032 0.018 Impressions: Hip/Pelvis X-Ray 06/15/18 00:00 IMPRESSION: Mild osteoarthritis. Knee X-Ray 06/15/18 11:02 IMPRESSION: NO RADIOGRAPHIC EVIDENCE OF ACUTE INJURY. Forearm X-Ray 06/15/18 12:18 IMPRESSION: NEGATIVE STUDY OF THE RIGHT FOREARM. NO RADIOGRAPHIC EVIDENCE OF ACUTE INJURY. Head CT 06/15/18 17:49 IMPRESSION: 1. Since the previous examination dated 03/25/2018, new left mastoid effusion. Correlation suggested. 2. No acute intracranial abnormality. 3. Atrophy and chronic small vessel ischemic changes. EVIDENCE OF ACUTE STROKE: NO. Shoulder X-Ray 06/16/18 00:00 IMPRESSION: No fracture or dislocation. Assessment & Plan - Diagnosis (1) Hypertension Is this a current diagnosis for this admission?: Yes Plan: Anaya is currently taking hydroxyzine and amlodipine moderate response she is using as needed metoprolol we will decrease her IV fluids. (2) Hip pain Qualifiers: Laterality: right Qualified Code(s): M25.551 - Pain in right hip Is this a current diagnosis for this admission?: Yes (3) Hyperkalemia Is this a current diagnosis for this admission?: Yes Plan: Patient is now more potassium without using Kayexalate we will continue to monitor. (4) Hypoglycemia Is this a current diagnosis for this admission?: Yes (5) Acute kidney injury superimposed on chronic kidney disease Is this a current diagnosis for this admission?: Yes Plan: Continue monitoring her BMP 7 it seems to be back to her baseline GFR. (6) Anemia Qualifiers: Anemia type: due to chronic kidney disease Chronic kidney disease stage: stage 4 (severe) Qualified Code(s): N18.4 - Chronic kidney disease, stage 4 ( severe); D63.1 - Anemia in chronic kidney disease; D63.1 - Anemia in chronic kidney disease Is this a current diagnosis for this admission?: Yes Plan: Letter is stable no need for any further replacement but she will need erythropoietin as an outpatient. (7) UTI due to extended-spectrum beta lactamase (ESBL) producing Escherichia coli Is this a current diagnosis for this admission?: Yes Plan: Is currently getting imipenem would continue for another 48 hours for a total of [address] there is a decrease incidence of recurrence. - Time Time Spent with patient: 15-24 minutes Medications reviewed and adjusted accordingly: Yes Anticipated discharge: Home Within: within 48 hours - Inpatient Certification Medical Necessity: Need for IV Antibiotics Post Hospital Care: D/C Library Clerk Documentation - Plan Summary Plan Summary: Continue with the IV antibiotics, the Accu-Cheks and the basal insulin, hydroxyzine and amlodipine we will get physical therapy evaluation.
[2018-06-19] MEDS: INSULIN REG, HUMAN 100 UNIT/ML 3 ML VIAL (PYX) SUBCUT PRN (16:31)
[2018-06-19] MEDS: ZOLPIDEM TARTRATE 5 MG TABLET PO SCH (21:40)
[2018-06-20 05:37] LABS: ANION GAP 11 (5-19); BLOOD UREA NITROGEN 20 mg/dL (7-20); CALCIUM 8.3 mg/dL (8.4-10.2); CARBON DIOXIDE 23 mmol/L (22-30); CHLORIDE 106 mmol/L (98-107); GLUCOSE 141 mg/dL (75-110); POTASSIUM 4.5 mmol/L (3.6-5.0); SODIUM 139.9 mmol/L (137-145)
[2018-06-20] MEDS: HYDRALAZINE HCL 50 MG TABLET PO SCH ×3 (06:01→17:47)
[2018-06-20] MEDS: GABAPENTIN 100 MG CAPSULE PO SCH ×3 (06:02→21:59)
[2018-06-20] MEDS: IMIPENEM/CILASTATIN SODIUM 500 MG in NORMAL SALINE 100 ML IV SCH ×3 (06:02→21:59)
[2018-06-20] MEDS: LANSOPRAZOLE 30 MG TAB.RAP.DR PO SCH (06:02)
[2018-06-20] MEDS: LEVOTHYROXINE SODIUM 0.05 MG TABLET PO SCH (06:02)
[2018-06-20] MEDS: IRON POLYSACCHARIDES COMPLEX 150 MG CAPSULE PO SCH (09:51)
[2018-06-20] MEDS: ASPIRIN 81 MG TABLET, CHEWABLE PO SCH (09:51)
[2018-06-20] MEDS: ENOXAPARIN SODIUM INJ 30 MG/0.3 ML DISP.SYRIN SUBCUT SCH (09:51)
[2018-06-20] MEDS: DOCUSATE SODIUM 100 MG CAPSULE PO SCH ×2 (09:52→17:47)
[2018-06-20] MEDS: FOLIC ACID 1 MG TABLET PO SCH (09:52)
[2018-06-20] MEDS: AMLODIPINE BESYLATE 5 MG TABLET PO SCH ×2 (09:52→21:59)
[2018-06-20] MEDS ORDERED: METOPROLOL TARTRATE 25 MG TABLET PO SCH (10:00)
[2018-06-20] MEDS: MEGESTROL ACETATE SUSP 400 MG/10 ML UDCUP PO SCH (10:01)
--- NOTE | 2018-06-20 11:58 | RADIOLOGY REPORT (SQ) ---
EXAM DESCRIPTION: KUB/ABDOMEN (SINGLE VIEW) COMPLETED DATE/TIME: 06/20/2018 11:49 am REASON FOR STUDY: abdominal pain COMPARISON: None. NUMBER OF VIEWS: One view. TECHNIQUE: Supine radiographic image of the abdomen acquired. LIMITATIONS: Body habitus. Positioning. FINDINGS: BOWEL GAS PATTERN: Abundant gas and fecal material within nondilated colon. CALCIFICATIONS: No suspicious calcifications. SOFT TISSUES: No gross mass or suggestion of organomegaly. HARDWARE: None. BONES: No bone lesions or fracture. OTHER: No other significant finding. IMPRESSION: Fecal retention. Reading location - IP/workstation name: [email or web address]
--- NOTE | 2018-06-20 14:13 | PDOC PROGRESS REPORT ---
Subjective Progress Note for:: 06/20/18 Subjective:: Patient is seen today with daughter and her appetite has decreased she is afebrile , constipated early saiety, she denies SOB, she has not gotten out of bed. Reason For Visit: HYPERKALEMIA,ACUTE ON CHRONIC RENAL FAILURE Physical Exam Vital Signs: Temp Pulse Resp BP Pulse Ox 98.3 F 77 20 174/48 H 95 06/20/18 12:10 06/20/18 12:10 06/20/18 12:10 06/20/18 12:10 06/20/18 12:10 Intake & Output 06/19/18 06/20/18 06/21/18 06:59 06:59 06:59 Intake Total 825 727 215 Output Total 1987 200 200 Balance -1162 527 15 Weight 68.1 kg 67.8 kg General appearance: PRESENT: no acute distress, well-developed, well-nourished Head exam: PRESENT: atraumatic, normocephalic Eye exam: PRESENT: conjunctiva pink, EOMI, PERRLA. ABSENT: scleral icterus Ear exam: PRESENT: normal external ear exam Mouth exam: PRESENT: moist, tongue midline Neck exam: PRESENT: full ROM. ABSENT: carotid bruit, JVD, lymphadenopathy, thyromegaly Respiratory exam: PRESENT: clear to auscultation francisco Cardiovascular exam: PRESENT: systolic murmur Murmur grade: 2 Pulses: PRESENT: normal dorsalis pedis pul, +2 pedal pulses bilateral Vascular exam: PRESENT: normal capillary refill GI/Abdominal exam: PRESENT: normal bowel sounds, soft. ABSENT: distended, guarding, mass, organolmegaly, rebound, tenderness Rectal exam: PRESENT: deferred Extremities exam: PRESENT: pedal edema Musculoskeletal exam: PRESENT: ambulatory Neurological exam: PRESENT: alert, awake, oriented to person, oriented to place , oriented to time, oriented to situation, CN II-XII grossly intact. ABSENT: motor sensory deficit Psychiatric exam: PRESENT: depressed Skin exam: PRESENT: dry, intact, warm. ABSENT: cyanosis, rash Results Laboratory Results: 06/19/18 05:37 06/20/18 04:10 06/20/18 06/20/18 04:10 09:40 Sodium 139.9 Potassium 4.5 Chloride 106 Carbon Dioxide 23 Anion Gap 11 BUN 20 Creatinine 1.36 H Est GFR ( Amer) 44 L Est GFR (Non-Af Amer) 37 L Glucose 141 H Calcium 8.3 L Ionized Calcium Altagracia 1.14 06/15/18 06/15/18 06/15/18 15:30 15:30 19:04 Creatine Kinase 274 H 265 H Troponin I 0.026 06/15/18 06/16/18 06/16/18 19:04 04:06 04:06 Creatine Kinase 173 H Troponin I 0.032 0.018 Impressions: Hip/Pelvis X-Ray 06/15/18 00:00 IMPRESSION: Mild osteoarthritis. Knee X-Ray 06/15/18 11:02 IMPRESSION: NO RADIOGRAPHIC EVIDENCE OF ACUTE INJURY. Forearm X-Ray 06/15/18 12:18 IMPRESSION: NEGATIVE STUDY OF THE RIGHT FOREARM. NO RADIOGRAPHIC EVIDENCE OF ACUTE INJURY. Head CT 06/15/18 17:49 IMPRESSION: 1. Since the previous examination dated 03/25/2018, new left mastoid effusion. Correlation suggested. 2. No acute intracranial abnormality. 3. Atrophy and chronic small vessel ischemic changes. EVIDENCE OF ACUTE STROKE: NO. Shoulder X-Ray 06/16/18 00:00 IMPRESSION: No fracture or dislocation. KUB X-Ray 06/20/18 00:00 IMPRESSION: Fecal retention. Assessment & Plan - Diagnosis (1) Hypertension Is this a current diagnosis for this admission?: Yes Plan: will add metoprolol 25 mg bid, cont amlodipine and her hydralazine. (2) Hip pain Qualifiers: Laterality: right Qualified Code(s): M25.551 - Pain in right hip Is this a current diagnosis for this admission?: Yes (3) Hyperkalemia Is this a current diagnosis for this admission?: Yes Plan: has resolved recieved kayexalate (4) Hypoglycemia Is this a current diagnosis for this admission?: Yes (5) Acute kidney injury superimposed on chronic kidney disease Is this a current diagnosis for this admission?: Yes Plan: back to baseline GFR (6) Anemia Qualifiers: Anemia type: due to chronic kidney disease Chronic kidney disease stage: stage 4 (severe) Qualified Code(s): N18.4 - Chronic kidney disease, stage 4 ( severe); D63.1 - Anemia in chronic kidney disease; D63.1 - Anemia in chronic kidney disease Is this a current diagnosis for this admission?: Yes (7) UTI due to extended-spectrum beta lactamase (ESBL) producing Escherichia coli Is this a current diagnosis for this admission?: Yes Plan: will need 5 days IV imipenem (8) Anorexia Is this a current diagnosis for this admission?: Yes Plan: megace 200mg daily (9) Depression Qualifiers: Depression Type: reactive depression Qualified Code(s): F32.9 - Major depressive disorder, single episode, unspecified Is this a current diagnosis for this admission?: Yes Plan: celexa 10 mg daily - Time Time Spent with patient: 25-34 minutes Medications reviewed and adjusted accordingly: Yes Anticipated discharge: Home Within: Other Disposition: HOME - Inpatient Certification I certify that my determination is in accordance with my understanding of Medicare's requirements for reasonable and necessary INPATIENT services [42 CFR 412.3e].: Yes Medical Necessity: Need For IV Fluids, Need for IV Antibiotics Post Hospital Care: D/C 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
[2018-06-20] MEDS: POLYETHYLENE GLYCOL 3350 POWDER 17 GM/1 PACKET PO SCH (16:29)
[2018-06-20] MEDS: METOPROLOL TARTRATE PF/INJ 5 MG/5 ML SDV IV PRN (16:50)
[2018-06-20] MEDS: INSULIN REG, HUMAN 100 UNIT/ML 3 ML VIAL (PYX) SUBCUT PRN ×2 (17:48→22:00)
[2018-06-20] MEDS: METOPROLOL TARTRATE 50 MG TABLET PO SCH (21:59)
[2018-06-20] MEDS: CITALOPRAM HYDROBROMIDE 20 MG TABLET PO SCH (21:59)
[2018-06-21] MEDS: HYDRALAZINE HCL 50 MG TABLET PO SCH ×4 (05:09→17:32)
[2018-06-21 05:34] LABS: ANION GAP 12 (5-19); BLOOD UREA NITROGEN 25 mg/dL (7-20); CALCIUM 8.8 mg/dL (8.4-10.2); CARBON DIOXIDE 24 mmol/L (22-30); CHLORIDE 106 mmol/L (98-107); GLUCOSE 147 mg/dL (75-110); POTASSIUM 4.9 mmol/L (3.6-5.0); SODIUM 141.8 mmol/L (137-145)
[2018-06-21] MEDS: GABAPENTIN 100 MG CAPSULE PO SCH ×3 (05:36→21:14)
[2018-06-21] MEDS: LEVOTHYROXINE SODIUM 0.05 MG TABLET PO SCH (05:36)
[2018-06-21] MEDS: IMIPENEM/CILASTATIN SODIUM 500 MG in NORMAL SALINE 100 ML IV SCH ×3 (05:36→21:14)
[2018-06-21] MEDS: LANSOPRAZOLE 30 MG TAB.RAP.DR PO SCH (05:36)
[2018-06-21] MEDS: POLYETHYLENE GLYCOL 3350 POWDER 17 GM/1 PACKET PO SCH (09:28)
[2018-06-21] MEDS: ENOXAPARIN SODIUM INJ 30 MG/0.3 ML DISP.SYRIN SUBCUT SCH (09:29)
[2018-06-21] MEDS: MEGESTROL ACETATE SUSP 400 MG/10 ML UDCUP PO SCH (09:29)
[2018-06-21] MEDS: METOPROLOL TARTRATE 50 MG TABLET PO SCH ×2 (09:31→21:14)
[2018-06-21] MEDS: FOLIC ACID 1 MG TABLET PO SCH (09:31)
[2018-06-21] MEDS: AMLODIPINE BESYLATE 5 MG TABLET PO SCH ×2 (09:32→21:14)
[2018-06-21] MEDS: DOCUSATE SODIUM 100 MG CAPSULE PO SCH ×2 (09:32→17:32)
[2018-06-21] MEDS: IRON POLYSACCHARIDES COMPLEX 150 MG CAPSULE PO SCH (09:32)
[2018-06-21] MEDS: ASPIRIN 81 MG TABLET, CHEWABLE PO SCH (09:32)
[2018-06-21 09:41] LABS: ALANINE AMINOTRANSFERASE 18 U/L (9-52); ALBUMIN 2.9 g/dL (3.5-5.0); ALKALINE PHOSPHATASE 96 U/L (38-126); ASPARTATE AMINO TRANSFERASE 22 U/L (14-36); BILIRUBIN,DIRECT 0.2 mg/dL (0.0-0.4); BILIRUBIN,TOTAL 0.3 mg/dL (0.2-1.3); TOTAL PROTEIN 6.3 g/dL (6.3-8.2)
--- NOTE | 2018-06-21 13:49 | PDOC PROGRESS REPORT ---
Subjective Progress Note for:: 06/21/18 Subjective:: Patient is seen today with daughter and her appetite has decreased she is afebrile , constipated early saiety, she denies SOB, she got OOB and walked 30 feet with PT. sHE STILL HAS NOT HAD BOWEL MOVEMENT SHE IS AFEBRILE AND LOOKS COMFORTABLE. Reason For Visit: HYPERKALEMIA,ACUTE ON CHRONIC RENAL FAILURE Physical Exam Vital Signs: Temp Pulse Resp BP Pulse Ox 98.3 F 54 L 16 155/52 H 99 06/21/18 11:29 06/21/18 11:29 06/21/18 11:29 06/21/18 11:29 06/21/18 11:29 Intake & Output 06/20/18 06/21/18 06/22/18 06:59 06:59 06:59 Intake Total 727 465 474 Output Total 200 200 400 Balance 527 265 74 Weight 67.8 kg 66.2 kg General appearance: PRESENT: no acute distress, well-developed, well-nourished Head exam: PRESENT: atraumatic, normocephalic Eye exam: PRESENT: conjunctiva pink, EOMI, PERRLA. ABSENT: scleral icterus Ear exam: PRESENT: normal external ear exam Mouth exam: PRESENT: moist, tongue midline Neck exam: PRESENT: full ROM. ABSENT: carotid bruit, JVD, lymphadenopathy, thyromegaly Respiratory exam: PRESENT: clear to auscultation francisco Cardiovascular exam: PRESENT: systolic murmur Murmur grade: 2 Pulses: PRESENT: normal dorsalis pedis pul, +2 pedal pulses bilateral Vascular exam: PRESENT: normal capillary refill GI/Abdominal exam: PRESENT: normal bowel sounds, soft. ABSENT: distended, guarding, mass, organolmegaly, rebound, tenderness Rectal exam: PRESENT: deferred Extremities exam: PRESENT: full ROM, pedal edema Musculoskeletal exam: PRESENT: ambulatory Neurological exam: PRESENT: alert, awake, oriented to person, oriented to place , oriented to time, oriented to situation, CN II-XII grossly intact. ABSENT: motor sensory deficit Psychiatric exam: PRESENT: depressed Skin exam: PRESENT: dry, intact, warm. ABSENT: cyanosis, rash Results Laboratory Results: 06/19/18 05:37 06/21/18 04:02 06/21/18 06/21/18 04:02 04:02 Sodium 141.8 Potassium 4.9 Chloride 106 Carbon Dioxide 24 Anion Gap 12 BUN 25 H Creatinine 1.29 H Est GFR ( Amer) 47 L Est GFR (Non-Af Amer) 39 L Glucose 147 H Calcium 8.8 Total Bilirubin 0.3 AST 22 ALT 18 Alkaline Phosphatase 96 Total Protein 6.3 Albumin 2.9 L 06/15/18 19:04 Blood Blood Culture - Final NO GROWTH IN 5 DAYS 06/15/18 06/15/18 06/15/18 15:30 15:30 19:04 Creatine Kinase 274 H 265 H Troponin I 0.026 06/15/18 06/16/18 06/16/18 19:04 04:06 04:06 Creatine Kinase 173 H Troponin I 0.032 0.018 Impressions: Hip/Pelvis X-Ray 06/15/18 00:00 IMPRESSION: Mild osteoarthritis. Knee X-Ray 06/15/18 11:02 IMPRESSION: NO RADIOGRAPHIC EVIDENCE OF ACUTE INJURY. Forearm X-Ray 06/15/18 12:18 IMPRESSION: NEGATIVE STUDY OF THE RIGHT FOREARM. NO RADIOGRAPHIC EVIDENCE OF ACUTE INJURY. Head CT 06/15/18 17:49 IMPRESSION: 1. Since the previous examination dated 03/25/2018, new left mastoid effusion. Correlation suggested. 2. No acute intracranial abnormality. 3. Atrophy and chronic small vessel ischemic changes. EVIDENCE OF ACUTE STROKE: NO. Shoulder X-Ray 06/16/18 00:00 IMPRESSION: No fracture or dislocation. KUB X-Ray 06/20/18 00:00 IMPRESSION: Fecal retention. Assessment & Plan - Diagnosis (1) Hypertension Is this a current diagnosis for this admission?: Yes Plan: will add metoprolol 25 mg bid, cont amlodipine and her hydralazine. (2) Hip pain Qualifiers: Laterality: right Qualified Code(s): M25.551 - Pain in right hip Is this a current diagnosis for this admission?: Yes (3) Hyperkalemia Is this a current diagnosis for this admission?: Yes Plan: has resolved recieved kayexalate (4) Hypoglycemia Is this a current diagnosis for this admission?: Yes (5) Acute kidney injury superimposed on chronic kidney disease Is this a current diagnosis for this admission?: Yes Plan: Patient is back to baseline she is off fluids will continue to monitor. (6) Anemia Qualifiers: Anemia type: due to chronic kidney disease Chronic kidney disease stage: stage 4 (severe) Qualified Code(s): N18.4 - Chronic kidney disease, stage 4 ( severe); D63.1 - Anemia in chronic kidney disease; D63.1 - Anemia in chronic kidney disease Is this a current diagnosis for this admission?: Yes (7) UTI due to extended-spectrum beta lactamase (ESBL) producing Escherichia coli Is this a current diagnosis for this admission?: Yes Plan: will need 5 days IV imipenem (8) Anorexia Is this a current diagnosis for this admission?: Yes Plan: megace 200mg daily (9) Depression Qualifiers: Depression Type: reactive depression Qualified Code(s): F32.9 - Major depressive disorder, single episode, unspecified Is this a current diagnosis for this admission?: Yes Plan: celexa 10 mg daily - Time Time Spent with patient: 15-24 minutes Medications reviewed and adjusted accordingly: Yes Anticipated discharge: Home Within: Other - Inpatient Certification Medical Necessity: Need for IV Antibiotics Post Hospital Care: D/C Chief Pilot Documentation - Plan Summary Plan Summary: plan will add lactulose and monitorbowel function we discussed continued need for increased activity.
[2018-06-21] MEDS: LACTULOSE SYRUP 20 GM/30 ML UDCUP PO SCH ×2 (14:14→21:12)
[2018-06-21] MEDS: CITALOPRAM HYDROBROMIDE 20 MG TABLET PO SCH (21:14)
[2018-06-21] MEDS: INSULIN REG, HUMAN 100 UNIT/ML 3 ML VIAL (PYX) SUBCUT PRN (21:20)
[2018-06-22] MEDS: METOPROLOL TARTRATE PF/INJ 5 MG/5 ML SDV IV PRN (00:02)
[2018-06-22] MEDS: HYDRALAZINE HCL 50 MG TABLET PO SCH ×4 (00:02→18:08)
[2018-06-22] MEDS: LACTULOSE SYRUP 20 GM/30 ML UDCUP PO SCH ×4 (05:18→21:53)
[2018-06-22] MEDS: GABAPENTIN 100 MG CAPSULE PO SCH ×3 (05:21→21:28)
[2018-06-22] MEDS: LANSOPRAZOLE 30 MG TAB.RAP.DR PO SCH (05:22)
[2018-06-22] MEDS: LEVOTHYROXINE SODIUM 0.05 MG TABLET PO SCH (05:22)
[2018-06-22] MEDS: IMIPENEM/CILASTATIN SODIUM 500 MG in NORMAL SALINE 100 ML IV SCH ×3 (05:22→21:33)
[2018-06-22 08:47] LABS: ALANINE AMINOTRANSFERASE 14 U/L (9-52); ALBUMIN 2.8 g/dL (3.5-5.0); ALKALINE PHOSPHATASE 87 U/L (38-126); ANION GAP 11 (5-19); ASPARTATE AMINO TRANSFERASE 18 U/L (14-36); BILIRUBIN,DIRECT 0.2 mg/dL (0.0-0.4); BILIRUBIN,TOTAL 0.4 mg/dL (0.2-1.3); BLOOD UREA NITROGEN 28 mg/dL (7-20); CALCIUM 8.6 mg/dL (8.4-10.2); CARBON DIOXIDE 23 mmol/L (22-30); CHLORIDE 105 mmol/L (98-107); GLUCOSE 148 mg/dL (75-110); POTASSIUM 4.8 mmol/L (3.6-5.0); SODIUM 139.4 mmol/L (137-145); TOTAL PROTEIN 5.8 g/dL (6.3-8.2)
[2018-06-22] MEDS: POLYETHYLENE GLYCOL 3350 POWDER 17 GM/1 PACKET PO SCH (10:05)
[2018-06-22] MEDS: IRON POLYSACCHARIDES COMPLEX 150 MG CAPSULE PO SCH (10:05)
[2018-06-22] MEDS: ASPIRIN 81 MG TABLET, CHEWABLE PO SCH (10:05)
[2018-06-22] MEDS: METOPROLOL TARTRATE 50 MG TABLET PO SCH ×2 (10:05→21:28)
[2018-06-22] MEDS: AMLODIPINE BESYLATE 5 MG TABLET PO SCH ×2 (10:05→21:28)
[2018-06-22] MEDS: ENOXAPARIN SODIUM INJ 30 MG/0.3 ML DISP.SYRIN SUBCUT SCH (10:05)
[2018-06-22] MEDS: DOCUSATE SODIUM 100 MG CAPSULE PO SCH ×2 (10:05→18:08)
[2018-06-22] MEDS: FOLIC ACID 1 MG TABLET PO SCH (10:07)
[2018-06-22] MEDS: MEGESTROL ACETATE SUSP 400 MG/10 ML UDCUP PO SCH (10:07)
[2018-06-22] MEDS: INSULIN REG, HUMAN 100 UNIT/ML 3 ML VIAL (PYX) SUBCUT PRN ×2 (12:55→21:34)
--- NOTE | 2018-06-22 13:54 | PDOC PROGRESS REPORT ---
Subjective Progress Note for:: 06/22/18 Subjective:: She is seen today laying in bed happy she had 2 bowel movements yesterday she was able to eat better last night she is afebrile no shortness of breath. She was able to ambulate with physical therapy and a walker 80 feet. Test results of recent lab test with her and her daughter in full detail. Advised physical therapy recommended rehab patient is leery that she will have to stay there forever and was hesitant. Reason For Visit: HYPERKALEMIA,ACUTE ON CHRONIC RENAL FAILURE Physical Exam Vital Signs: Temp Pulse Resp BP Pulse Ox 98.5 F 59 L 16 157/46 H 97 06/22/18 11:07 06/22/18 11:07 06/22/18 11:07 06/22/18 11:07 06/22/18 11:07 Intake & Output 06/21/18 06/22/18 06/23/18 06:59 06:59 06:59 Intake Total 565 944 237 Output Total 200 800 Balance 365 144 237 Weight 66.2 kg 70.6 kg General appearance: PRESENT: no acute distress, well-developed, well-nourished Head exam: PRESENT: atraumatic, normocephalic Eye exam: PRESENT: conjunctiva pink, EOMI, PERRLA. ABSENT: scleral icterus Ear exam: PRESENT: normal external ear exam Mouth exam: PRESENT: moist, tongue midline Neck exam: PRESENT: full ROM. ABSENT: carotid bruit, JVD, lymphadenopathy, thyromegaly Respiratory exam: PRESENT: clear to auscultation francisco Cardiovascular exam: PRESENT: RRR, systolic murmur. ABSENT: diastolic murmur, rubs Murmur grade: 2 Pulses: PRESENT: normal dorsalis pedis pul, +2 pedal pulses bilateral Vascular exam: PRESENT: normal capillary refill GI/Abdominal exam: PRESENT: normal bowel sounds, soft. ABSENT: distended, guarding, mass, organolmegaly, rebound, tenderness Rectal exam: PRESENT: deferred Extremities exam: PRESENT: pedal edema Musculoskeletal exam: PRESENT: ambulatory Neurological exam: PRESENT: alert, awake, oriented to person, oriented to place , oriented to time, oriented to situation, CN II-XII grossly intact. ABSENT: motor sensory deficit Psychiatric exam: PRESENT: appropriate affect, depressed. ABSENT: homicidal ideation, suicidal ideation Results Laboratory Results: 06/19/18 05:37 06/22/18 07:56 06/22/18 07:56 Sodium 139.4 Potassium 4.8 Chloride 105 Carbon Dioxide 23 Anion Gap 11 BUN 28 H Creatinine 1.46 H Est GFR ( Amer) 41 L Est GFR (Non-Af Amer) 34 L Glucose 148 H Calcium 8.6 Total Bilirubin 0.4 AST 18 ALT 14 Alkaline Phosphatase 87 Total Protein 5.8 L Albumin 2.8 L 06/15/18 06/15/18 06/15/18 15:30 15:30 19:04 Creatine Kinase 274 H 265 H Troponin I 0.026 06/15/18 06/16/18 06/16/18 19:04 04:06 04:06 Creatine Kinase 173 H Troponin I 0.032 0.018 Impressions: Hip/Pelvis X-Ray 06/15/18 00:00 IMPRESSION: Mild osteoarthritis. Knee X-Ray 06/15/18 11:02 IMPRESSION: NO RADIOGRAPHIC EVIDENCE OF ACUTE INJURY. Forearm X-Ray 06/15/18 12:18 IMPRESSION: NEGATIVE STUDY OF THE RIGHT FOREARM. NO RADIOGRAPHIC EVIDENCE OF ACUTE INJURY. Head CT 06/15/18 17:49 IMPRESSION: 1. Since the previous examination dated 03/25/2018, new left mastoid effusion. Correlation suggested. 2. No acute intracranial abnormality. 3. Atrophy and chronic small vessel ischemic changes. EVIDENCE OF ACUTE STROKE: NO. Shoulder X-Ray 06/16/18 00:00 IMPRESSION: No fracture or dislocation. KUB X-Ray 06/20/18 00:00 IMPRESSION: Fecal retention. Assessment & Plan - Diagnosis (1) Hypertension Is this a current diagnosis for this admission?: Yes Plan: Continue current treatment will increase her beta-beltran (2) Hip pain Qualifiers: Laterality: right Qualified Code(s): M25.551 - Pain in right hip Is this a current diagnosis for this admission?: Yes (3) Hyperkalemia Is this a current diagnosis for this admission?: Yes Plan: Now is normokalemic we will continue on current treatment. (4) Hypoglycemia Is this a current diagnosis for this admission?: Yes (5) Acute kidney injury superimposed on chronic kidney disease Is this a current diagnosis for this admission?: Yes Plan: Anaya is back to her baseline chronic kidney disease 3/4 (6) Anemia Qualifiers: Anemia type: due to chronic kidney disease Chronic kidney disease stage: stage 4 (severe) Qualified Code(s): N18.4 - Chronic kidney disease, stage 4 ( severe); D63.1 - Anemia in chronic kidney disease; D63.1 - Anemia in chronic kidney disease Is this a current diagnosis for this admission?: Yes (7) UTI due to extended-spectrum beta lactamase (ESBL) producing Escherichia coli Is this a current diagnosis for this admission?: Yes Plan: We will give another 24 hours of imipenem and then discontinue. (8) Anorexia Is this a current diagnosis for this admission?: Yes Plan: We will continue on current dose of Megace and she is seems to be responding. 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
[2018-06-22] MEDS: ACETAMINOPHEN 325 MG TABLET PO PRN (18:12)
[2018-06-22] MEDS: CITALOPRAM HYDROBROMIDE 20 MG TABLET PO SCH (21:28)
[2018-06-23] MEDS: HYDRALAZINE HCL 50 MG TABLET PO SCH ×3 (00:33→12:32)
[2018-06-23] MEDS: ACETAMINOPHEN 325 MG TABLET PO PRN (00:33)
[2018-06-23] MEDS: LACTULOSE SYRUP 20 GM/30 ML UDCUP PO SCH ×2 (05:56→13:55)
[2018-06-23] MEDS: GABAPENTIN 100 MG CAPSULE PO SCH ×2 (05:56→13:55)
[2018-06-23] MEDS: LEVOTHYROXINE SODIUM 0.05 MG TABLET PO SCH (05:56)
[2018-06-23] MEDS: LANSOPRAZOLE 30 MG TAB.RAP.DR PO SCH (05:57)
[2018-06-23] MEDS: IMIPENEM/CILASTATIN SODIUM 500 MG in NORMAL SALINE 100 ML IV SCH ×2 (06:02→13:55)
[2018-06-23] MEDS: INSULIN REG, HUMAN 100 UNIT/ML 3 ML VIAL (PYX) SUBCUT PRN ×2 (08:16→12:32)
[2018-06-23] MEDS: POLYETHYLENE GLYCOL 3350 POWDER 17 GM/1 PACKET PO SCH (09:30)
[2018-06-23] MEDS: AMLODIPINE BESYLATE 5 MG TABLET PO SCH (09:31)
[2018-06-23] MEDS: DOCUSATE SODIUM 100 MG CAPSULE PO SCH (09:32)
[2018-06-23] MEDS: IRON POLYSACCHARIDES COMPLEX 150 MG CAPSULE PO SCH (09:32)
[2018-06-23] MEDS: ASPIRIN 81 MG TABLET, CHEWABLE PO SCH (09:32)
[2018-06-23] MEDS: ENOXAPARIN SODIUM INJ 30 MG/0.3 ML DISP.SYRIN SUBCUT SCH (09:33)
[2018-06-23] MEDS: MEGESTROL ACETATE SUSP 400 MG/10 ML UDCUP PO SCH (09:34)
[2018-06-23] MEDS: FOLIC ACID 1 MG TABLET PO SCH (09:36)
[2018-06-23] MEDS: METOPROLOL TARTRATE 50 MG TABLET PO SCH (09:36)
[2018-06-23 15:31] VITALS: BP 145/48
--- NOTE | 2018-06-26 11:58 | PDOC DISCHARGE SUMMARY ---
General - Admit/Disc Date/PCP Admission Date/Primary Care Provider: 06/15/18 15:24 MARISSA JOHN MD Discharge Date: 06/23/18 - Discharge Diagnosis (1) Hypertension Is this a current diagnosis for this admission?: Yes (2) Hip pain Is this a current diagnosis for this admission?: Yes (3) Hyperkalemia Is this a current diagnosis for this admission?: Yes (4) Hypoglycemia Is this a current diagnosis for this admission?: Yes (5) Acute kidney injury superimposed on chronic kidney disease Is this a current diagnosis for this admission?: Yes (6) Anemia Is this a current diagnosis for this admission?: Yes (7) UTI due to extended-spectrum beta lactamase (ESBL) producing Escherichia coli Is this a current diagnosis for this admission?: Yes (8) Anorexia Is this a current diagnosis for this admission?: Yes (9) Depression Is this a current diagnosis for this admission?: Yes - Additional Information Resuscitation Status: Do Not Resuscitate Discharge Diet: Diabetic Discharge Activity: Activity As Tolerated, Balance Activity w/Rest Prescriptions: Amlodipine Besylate [Norvasc 5 mg Tablet] 5 mg PO Q12 30 Days #60 tablet Citalopram Hydrobromide [Celexa 20 mg Tablet] 10 mg PO QHS 30 Days #30 tablet Hydralazine HCl [Apresoline 50 mg Tablet] 50 mg PO Q6 30 Days #120 tablet Megestrol Acetate [Megace Raya 400 mg/10 ml Udcup] 200 mg PO DAILY 30 Days udc Metoprolol Tartrate [Lopressor 50 mg Tablet] 25 mg PO Q12 30 Days #60 tablet Home Medications: Folic Acid [Folvite 1 mg Tablet] 1 mg PO DAILY 06/15/18 Gabapentin [Neurontin 300 mg Capsule] 300 mg PO Q8 06/15/18 Amlodipine Besylate [Norvasc 5 mg Tablet] 5 mg PO Q12 30 Days #60 tablet Aspirin [Aspirin 81 mg Chewable Tablet] 81 mg PO DAILY tab.chew 06/23/18 Citalopram Hydrobromide [Celexa 20 mg Tablet] 10 mg PO QHS 30 Days #30 tablet Docusate Sodium [Colace 100 mg Capsule] 100 mg PO BID capsule 06/23/18 Hydralazine HCl [Apresoline 50 mg Tablet] 50 mg PO Q6 30 Days #120 tablet Iron Polysaccharides Complex [Nu-Iron 150 Capsule] 150 mg PO DAILY capsule 05/02 Levothyroxine Sodium [Synthroid 0.05 mg Tablet] 0.05 mg PO Q6AM tablet Megestrol Acetate [Megace Raya 400 mg/10 ml Udcup] 200 mg PO DAILY 30 Days udc 06/23/18 Metoprolol Tartrate [Lopressor 50 mg Tablet] 25 mg PO Q12 30 Days #60 tablet 05/02 History of Present Illness History of Present Illness: Patient comes into the hospital after having a hypoglycemic episode being found on the ground at home by the daughter in the morning. EMS was called found a blood sugar less than 40. Upon arrival to the emergency room she had a potassium of 6.7 a blood sugar of 58, and acute on chronic renal failure subsequent which was felt she should be admitted for observation and medical management. Hospital Course Hospital Course: Patient was admitted to the hospital IV fluids were given calcium gluconate, D50 and water and insulin, she was started on Kayexalate to correct the 6.7 potassium. That was corrected and throughout her hospitalization no further hyper kalemia was noted. She also came in with acute on chronic renal failure stage IV, IV hydration was given prior to discharge her creatinine went down to a baseline of 1.5. Throughout her hospitalization she was noticed also to have a urine infection culture showed E. coli with ESBL, he was started on imipenem. She received a full course of treatment. Throughout her hospitalization she had complaints of joint pains x-rays were done CT of the head no evidence of acute fracture she was given Tylenol and hydrocodone. Unfortunately because of the hydrocodone she developed constipation which led to anorexia she had an x- ray which showed redundant stools and gas she was given laxatives and she moved her bowels her appetite improved with that and with the addition of Megace. Her blood pressure throughout her hospital course was elevated and medications were adjusted multiple times and prior to discharge her blood pressure was in a safe range. After this it was felt patient was stable for discharge she was evaluated by physical therapy felt the patient would be a good candidate for rehab but she declined so she will go home with physical therapy. Physical Exam Vital Signs: Temp Pulse Resp BP Pulse Ox 98.7 F 51 L 20 145/48 H 95 06/23/18 15:23 06/23/18 15:23 06/23/18 15:23 06/23/18 15:23 06/23/18 15:23 General appearance: PRESENT: no acute distress, well-developed, well-nourished Head exam: PRESENT: atraumatic, normocephalic Eye exam: PRESENT: conjunctiva pink, EOMI, PERRLA. ABSENT: scleral icterus Ear exam: PRESENT: normal external ear exam Mouth exam: PRESENT: moist, tongue midline Neck exam: PRESENT: full ROM. ABSENT: carotid bruit, JVD, lymphadenopathy, thyromegaly Respiratory exam: PRESENT: clear to auscultation francisco Cardiovascular exam: PRESENT: RRR, systolic murmur Murmur grade: 2 Pulses: PRESENT: normal dorsalis pedis pul, +2 pedal pulses bilateral Vascular exam: PRESENT: normal capillary refill GI/Abdominal exam: PRESENT: normal bowel sounds, soft. ABSENT: distended, guarding, mass, organolmegaly, rebound, tenderness Rectal exam: PRESENT: deferred Extremities exam: PRESENT: full ROM Musculoskeletal exam: PRESENT: ambulatory Neurological exam: PRESENT: alert, awake, oriented to person, oriented to place , oriented to time, oriented to situation, CN II-XII grossly intact. ABSENT: motor sensory deficit Psychiatric exam: PRESENT: appropriate affect, depressed, normal mood. ABSENT: homicidal ideation, suicidal ideation Skin exam: PRESENT: dry, intact, warm. ABSENT: cyanosis, rash Results Laboratory Results: 06/19/18 05:37 06/22/18 07:56 06/15/18 06/15/18 06/15/18 15:30 15:30 19:04 Creatine Kinase 274 H 265 H Troponin I 0.026 06/15/18 06/16/18 06/16/18 19:04 04:06 04:06 Creatine Kinase 173 H Troponin I 0.032 0.018 Impressions: Hip/Pelvis X-Ray 06/15/18 00:00 IMPRESSION: Mild osteoarthritis. Knee X-Ray 06/15/18 11:02 IMPRESSION: NO RADIOGRAPHIC EVIDENCE OF ACUTE INJURY. Forearm X-Ray 06/15/18 12:18 IMPRESSION: NEGATIVE STUDY OF THE RIGHT FOREARM. NO RADIOGRAPHIC EVIDENCE OF ACUTE INJURY. Head CT 06/15/18 17:49 IMPRESSION: 1. Since the previous examination dated 03/25/2018, new left mastoid effusion. Correlation suggested. 2. No acute intracranial abnormality. 3. Atrophy and chronic small vessel ischemic changes. EVIDENCE OF ACUTE STROKE: NO. Shoulder X-Ray 06/16/18 00:00 IMPRESSION: No fracture or dislocation. KUB X-Ray 06/20/18 00:00 IMPRESSION: Fecal retention. Qualifiers - * PATIENT BEING DISCHARGED WITH ANY OF THE FOLLOWING DIAGNOSIS: No VTE patient discharged on overlapping Therapy?: No Plan Discharge Plan: Time discharge with home health, aide, medications were sent to her pharmacy and reconciled. She will follow-up in my office in 1 week, she will follow-up with nephrology in 2 weeks for her continued Epogen injections. Time Spent: Less than 30 Minutes
== END 2018-06-23 17:36 | disposition home health service (06) | DRG 638 ==
LOC: ER 10:41 → EH 15:24 → 3W 17:20
PROVIDERS: ADMIT Internal Medicine; ATTEND Internal Medicine
PROC: 30233N1 Transfusion of Nonautologous Red Blood Cells into Peripheral Vein, Percutaneous Approach (ICD-10-PCS; principal; 2018-06-16)
DX: E11.649 Type 2 diabetes mellitus with hypoglycemia without coma (principal); N39.0 Urinary tract infection, site not specified; E87.5 Hyperkalemia; N17.9 Acute kidney failure, unspecified; N18.4 Chronic kidney disease, stage 4 (severe); I16.0 Hypertensive urgency; I12.9 Hypertensive chronic kidney disease with stage 1 through stage 4 chronic kidney disease, or unspecified chronic kidney disease; Z66 Do not resuscitate; D63.1 Anemia in chronic kidney disease; B96.20 Unspecified Escherichia coli [E. coli] as the cause of diseases classified elsewhere; F32.9 Major depressive disorder, single episode, unspecified; R63.0 Anorexia; E11.22 Type 2 diabetes mellitus with diabetic chronic kidney disease; I25.10 Atherosclerotic heart disease of native coronary artery without angina pectoris; E03.9 Hypothyroidism, unspecified; E11.43 Type 2 diabetes mellitus with diabetic autonomic (poly)neuropathy; M19.90 Unspecified osteoarthritis, unspecified site; E11.65 Type 2 diabetes mellitus with hyperglycemia; M25.551 Pain in right hip; S50.11XA Contusion of right forearm, initial encounter; S80.01XA Contusion of right knee, initial encounter; W19.XXXA Unspecified fall, initial encounter; K59.03 Drug induced constipation; T40.2X5A Adverse effect of other opioids, initial encounter; Z90.710 Acquired absence of both cervix and uterus; Z79.82 Long term (current) use of aspirin; Z79.4 Long term (current) use of insulin
CPT/HCPCS: 36415; 36430; 70450; 74018; 80048; 80053; 80076; 82330; 82550; 82607; 82728; 82746; 82962; 83540; 83550; 83690; 83735; 84443; 84484; 85025; 85027; 85045; 86850; 86900; 86901; 86920; 87040; 87086; 87088; 87186; 93005; 93010; 96365; 96375; 99291; G8978-GP; G8979-GP; J0610; J0743; J1650; J1815; J2405; J3490; J7030; J7060; P9016; Q4081

== ENCOUNTER → 2018-06-28 | Outpatient (CLI) | payer MEDICARE ==
--- NOTE | 2018-06-28 12:52 | RADIOLOGY REPORT (SQ) ---
EXAM DESCRIPTION: CHEST PA/LATERAL COMPLETED DATE/TIME: 06/28/2018 12:32 pm REASON FOR STUDY: HEART FAILURE COMPARISON: 03/15/2018 EXAM PARAMETERS: NUMBER OF VIEWS: two views TECHNIQUE: Digital Frontal and Lateral radiographic views of the chest acquired. RADIATION DOSE: NA LIMITATIONS: none FINDINGS: LUNGS AND PLEURA: Marked increase in heart size since the previous study. Large bilateral pleural effusions with basilar opacities. MEDIASTINUM AND HILAR STRUCTURES: No masses or contour abnormalities. HEART AND VASCULAR STRUCTURES: Heart enlarged. Perihilar haziness. BONES: No acute findings. HARDWARE: None in the chest. OTHER: No other significant finding. IMPRESSION: Congestive heart failure. Large bilateral pleural effusions with basilar atelectasis. TECHNICAL DOCUMENTATION: JOB ID: [id number] [employer]- All Rights Reserved Reading location - IP/workstation name: [email or web address]
== END ==
LOC: OD 12:18
PROVIDERS: ATTEND Internal Medicine
DX: I50.9 Heart failure, unspecified (principal)
CPT/HCPCS: 71046

== ENCOUNTER 2018-06-29 10:29 | Inpatient (IN) | payer MEDICARE ==
[2018-06-29] MEDS ORDERED: HYDRALAZINE HCL 50 MG TABLET PO SCH (11:30)
[2018-06-29 11:48] LABS: HEMATOCRIT 34.1 % (36.0-47.0); HEMOGLOBIN 11.3 g/dL (12.0-15.5); MEAN CORPUSCULAR HEMOGLOBIN 28.4 pg (27.0-33.4); MEAN CORPUSCULAR HGB CONC 33.1 g/dL (32.0-36.0); MEAN CORPUSCULAR VOLUME 86 fl (80-97); PLATELET COUNT 313 10^3/uL (150-450); RED BLOOD COUNT 3.98 10^6/uL (3.72-5.28); RED CELL DISTRIBUTION WIDTH 14.5 % (11.5-14.0); WHITE BLOOD COUNT 10.5 10^3/uL (4.0-10.5)
[2018-06-29 12:10] LABS: ALANINE AMINOTRANSFERASE 22 U/L (9-52); ALKALINE PHOSPHATASE 120 U/L (38-126); ANION GAP 12 (5-19); ASPARTATE AMINO TRANSFERASE 28 U/L (14-36); BILIRUBIN,DIRECT 0.3 mg/dL (0.0-0.4); BILIRUBIN,TOTAL 0.5 mg/dL (0.2-1.3); BLOOD UREA NITROGEN 60 mg/dL (7-20); CALCIUM 8.4 mg/dL (8.4-10.2); CARBON DIOXIDE 22 mmol/L (22-30); CHLORIDE 104 mmol/L (98-107); CREATINE KINASE 34 U/L (30-135); GLUCOSE 141 mg/dL (75-110); POTASSIUM 5.2 mmol/L (3.6-5.0); SODIUM 138.4 mmol/L (137-145); TOTAL PROTEIN 6.8 g/dL (6.3-8.2)
--- NOTE | 2018-06-29 12:36 | RADIOLOGY REPORT (SQ) ---
EXAM DESCRIPTION: CHEST SINGLE VIEW COMPLETED DATE/TIME: 06/29/2018 11:40 am REASON FOR STUDY: acute systolic heart failure COMPARISON: Previous day. NUMBER OF VIEWS: One view. TECHNIQUE: Single frontal radiographic image of the chest acquired. LIMITATIONS: None. FINDINGS: LUNGS AND PLEURA: Bilateral pleural effusions, right greater than left not significantly c hanged. No pneumothorax. MEDIASTINUM AND HEART: Stable heart size and mediastinal structures. BONY STRUCTURES: No acute findings. HARDWARE: None. OTHER: No other significant finding. IMPRESSION: CHF. No significant change. TECHNICAL DOCUMENTATION: JOB ID: [id number] Reading location - IP/workstation name: [email or web address]
[2018-06-29 12:37] LABS: NT PRO BNP 4570 pg/mL (<450)
[2018-06-29 12:42] LABS: TROPONIN I < 0.012 ng/mL
[2018-06-29] MEDS: ASPIRIN 81 MG TABLET, ENT COATED PO SCH (14:55)
[2018-06-29] MEDS: FOLIC ACID 1 MG TABLET PO SCH (14:55)
[2018-06-29] MEDS: CARVEDILOL 3.125 MG TABLET PO SCH ×2 (14:55→22:07)
[2018-06-29] MEDS: CITALOPRAM HYDROBROMIDE 20 MG TABLET PO SCH (14:55)
[2018-06-29] MEDS: LEVOTHYROXINE SODIUM 0.05 MG TABLET PO SCH (14:56)
[2018-06-29] MEDS ORDERED: FUROSEMIDE INJ/PF 40 MG/4 ML SDV IV ONE (15:00)
[2018-06-29] MEDS ORDERED: HYDRALAZINE HCL 50 MG TABLET PO ONE (15:00)
[2018-06-29] MEDS: FUROSEMIDE INJ/PF 40 MG/4 ML SDV IV SCH ×2 (15:28→22:07)
[2018-06-29] MEDS: HYDRALAZINE HCL 50 MG TABLET PO SCH ×2 (15:29→18:05)
[2018-06-29] MEDS ORDERED: INSULIN LISPRO 100 UNIT/ML 3 ML VIAL ONE (18:02)
[2018-06-29] MEDS ORDERED: GLUCAGON,HUMAN RECOMB 1 MG INJ IM PRN (18:04)
[2018-06-29] MEDS ORDERED: DEXTROSE 40% GEL 15 GM TUBE PO PRN (18:04)
[2018-06-29] MEDS ORDERED: DEXTROSE 50%-WATER SYRINGE 25 GM/50 ML DOSE IV PRN (18:04)
[2018-06-29] MEDS ORDERED: DEXTROSE 50%-WATER SYRINGE 12.5 GM/25 ML DOSE IV PRN (18:04)
[2018-06-29] MEDS ORDERED: DEXTROSE 40% GEL 15 GM TUBE X 2 PO PRN (18:04)
[2018-06-29 18:13] LABS: CREATINE KINASE MB 1.09 ng/mL (<4.55)
[2018-06-29 18:16] LABS: TROPONIN I < 0.012 ng/mL
--- NOTE | 2018-06-29 18:51 | XCELERA REPORT ---
[address] [address] Transthoracic Echocardiogram Report Name: RAJESH NIX Age: 88 yrs Gender: Female : 1930 Patient Status: Inpatient Patient Location: [address] [place] [address] Study Date: 06/29/2018 02:11 PM Height: 62 in Weight: 163 lb BSA: 1.8 m2 Procedure: A complete two-dimensional transthoracic echocardiogram was performed (2D, M-mode, spectral and color flow Doppler). The study was technically adequate with some images being suboptimal in quality. Reason For Study: acute systolic heart failure Ordering Physician: MARISSA JOHN Performed By: Maria Del Rosario Cuellar Interpretation Summary The left ventricular ejection fraction is normal. There is borderline concentric left ventricular hypertrophy. The left ventricle is grossly normal size. Doppler measurements suggest pseudonormalized left ventricular relaxation, which is associated with grade II/IV or mild to moderate diastolic dysfunction Wall motion cannot be accurately commented on, but no definite regional wall motion abnormalities noted. Borderline right ventricular enlargement. The right ventricular systolic function is normal. The right atrium is mildly dilated. The left atrium is mildly dilated. There is a mild to moderate amount of mitral regurgitation There is no mitral valve stenosis. No aortic regurgitation is present. There is no aortic valve stenosis There is a trace or physiologic amount of tricuspid regurgitation Tricuspid regurgitation jet envelope not well defined to measure RV systolic pressure accurately. The aortic root is not well visualized but is probably normal size. The inferior vena cava appeared normal and decreased < 50% with respiration (RAP 10-15 mmHg) There is no pericardial effusion. MMode/2D Measurements & Calculations RVDd: 2.9 cm LVIDd: 4.4 cm FS: 38.0 % Ao root diam: 2.4 cm IVSd: 0.97 cm LVIDs: 2.8 cm EDV(Teich): 89.3 ml Ao root area: 4.7 cm2 LVPWd: 0.90 cm ESV(Teich): 28.3 ml LA dimension: 3.8 cm EF(Teich): 68.3 % Doppler Measurements & Calculations MV E max anu: MV P1/2t max anu: Ao V2 max: LV V1 max P.4 cm/sec 120.4 cm/sec 179.0 cm/sec 5.5 mmHg MV A max anu: MV P1/2t: 71.0 msec Ao max PG: LV V1 max: 97.2 cm/sec MVA(P1/2t): 3.1 cm2 12.8 mmHg 117.3 cm/sec MV E/A: 1.2 MV dec slope: 496.8 cm/sec2 MV dec time: 0.23 sec PA V2 max: TR max anu: MV P1/2t-pr_phl: 116.5 cm/sec 336.6 cm/sec 71.0 msec PA max P.4 mmHgTR max P.3 mmHg Left Ventricle The left ventricle is grossly normal size. There is borderline concentric left ventricular hypertrophy. The left ventricular ejection fraction is normal. Doppler measurements suggest pseudonormalized left ventricular relaxation, which is associated with grade II/IV or mild to moderate diastolic dysfunction. Wall motion cannot be accurately commented on, but no definite regional wall motion abnormalities noted. Right Ventricle Borderline right ventricular enlargement. There is normal right ventricular wall thickness. The right ventricular systolic function is normal. Atria The right atrium is mildly dilated. The left atrium is mildly dilated. Interarterial septum not well visualized and not well dopplered. Cannot comment on ASD/PFO presence. Mitral Valve The mitral valve leaflets are sclerotic, but show no functional abnormalities. There is no mitral valve stenosis. There is a mild to moderate amount of mitral regurgitation. Aortic Valve The aortic valve opens well. The aortic valve is not well visualized secondary to technical limitations. There is no aortic valve stenosis. No aortic regurgitation is present. Tricuspid Valve The tricuspid valve is not well visualized secondary to technical limitations. There is no tricuspid stenosis. There is a trace or physiologic amount of tricuspid regurgitation. Tricuspid regurgitation jet envelope not well defined to measure RV systolic pressure accurately. Pulmonic Valve The pulmonic valve is not well visualized. Great Vessels The aortic root is not well visualized but is probably normal size. The inferior vena cava appeared normal and decreased < 50% with respiration (RAP 10-15 mmHg). Effusions There is no pericardial effusion. : MARISSA JOHN > Ramone Altman
[2018-06-29] MEDS: ACETAMINOPHEN 325 MG TABLET PO PRN (19:19)
[2018-06-29] MEDS: GABAPENTIN 300 MG CAPSULE PO SCH (22:07)
[2018-06-29] MEDS: INSULIN GLARGINE,HUM.REC.ANLOG 300 UNIT/3 ML INSULN.PEN SUBCUT SCH (22:07)
--- NOTE | 2018-06-29 22:10 | PDOC CONSULTATION ---
Consultation Consult Date: 06/29/18 Attending physician:: MARISSA JOHN Consult reason:: CHF History of Present Illness Admission Date/PCP: 06/29/18 10:29 MARISSA JOHN MD Patient complains of: Pedal edema and shortness of breath History of Present Illness: RAJESH NIX is a 88 year old female Past Medical History Cardiac Medical History: Reports: Coronary Artery Disease, Hypertension Endocrine Medical History: Reports: Diabetes Mellitus Type 1, Diabetes Mellitus Type 2, Hypothyroidism Musculoskeltal Medical History: Reports: Arthritis Psychiatric Medical History: Reports: Depression Hematology: Reports: Anemia Past Surgical History Past Surgical History: Reports: Hysterectomy, Other - Cataract surgery Social History Information Source: Patient Smoking Status: Never Smoker Frequency of Alcohol Use: None Hx Recreational Drug Use: No Drugs: None Hx Prescription Drug Abuse: No - Advance Directive Resuscitation Status: Do Not Resuscitate Family History Family History: Hyperlipidemia, Hypertension Parental Family History Reviewed: Yes Children Family History Reviewed: Yes Sibling(s) Family History Reviewed.: Yes Medication/Allergy Home Medications: Amlodipine Besylate [Norvasc 5 mg Tablet] 5 mg PO BID 06/29/18 Aspirin [Adult Low Dose Aspirin EC] 81 mg PO DAILY 06/29/18 Citalopram Hydrobromide [Celexa 10 mg Tablet] 10 mg PO DAILY 06/29/18 Docusate Sodium [Colace 100 mg Capsule] 100 mg PO DAILYP PRN 06/29/18 Ferrous Sulfate [Feosol 325 mg Tablet] 325 mg PO DAILY 06/29/18 Folic Acid [Folvite 1 mg Tablet] 1 mg PO DAILY 06/29/18 Furosemide [Lasix 20 mg Tablet] 20 mg PO DAILY 06/29/18 Gabapentin [Neurontin 300 mg Capsule] 300 mg PO Q8 06/29/18 Hydralazine HCl [Apresoline 50 mg Tablet] 50 mg PO TID 06/29/18 Insulin Glargine,Hum.rec.anlog [Lantus Insulin 100 Unit/mL] 20 units SQ DAILY Iron Polysaccharide Complex [Poly-Iron] 150 mg PO DAILY 06/29/18 Levothyroxine Sodium [Synthroid 0.05 mg Tablet] 0.05 mg PO Q6AM 06/29/18 Metoprolol Tartrate [Lopressor 25 mg Tablet] 25 mg PO TID 06/29/18 Allergies/Adverse Reactions: No Known Allergies Allergy (Verified 03/26/18 13:53) Review of Systems ROS unobtainable: Due to mental status Physical Exam Vital Signs: Temp Pulse Resp BP Pulse Ox 98.6 F 67 18 148/44 H 94 06/29/18 19:10 06/29/18 19:10 06/29/18 19:10 06/29/18 19:10 06/29/18 19:10 Intake & Output 06/28/18 06/29/18 06/30/18 06:59 06:59 06:59 Intake Total 874 Output Total 1 Balance 873 Weight 76.3 kg General appearance: PRESENT: no acute distress, well-developed, well-nourished Head exam: PRESENT: atraumatic, normocephalic Eye exam: PRESENT: conjunctiva pink, EOMI, PERRLA. ABSENT: scleral icterus Ear exam: PRESENT: normal external ear exam Mouth exam: PRESENT: moist, tongue midline Neck exam: PRESENT: JVD - 10 cm. ABSENT: carotid bruit, lymphadenopathy, thyromegaly Respiratory exam: PRESENT: decreased breath sounds - both bases, rales - bilat basal. ABSENT: rhonchi, wheezes Cardiovascular exam: PRESENT: RRR. ABSENT: diastolic murmur, rubs, systolic murmur Pulses: PRESENT: normal dorsalis pedis pul, +1 pedal pulses bilateral Vascular exam: PRESENT: normal capillary refill GI/Abdominal exam: PRESENT: normal bowel sounds, soft. ABSENT: distended, guarding, mass, organolmegaly, rebound, tenderness Rectal exam: PRESENT: deferred Extremities exam: PRESENT: full ROM, pedal edema, +2 edema. ABSENT: calf tenderness, clubbing Neurological exam: PRESENT: alert, awake, oriented to person, oriented to place , oriented to situation, CN II-XII grossly intact. ABSENT: motor sensory deficit Psychiatric exam: PRESENT: normal mood. ABSENT: homicidal ideation, suicidal ideation Skin exam: PRESENT: dry, intact, warm. ABSENT: cyanosis, rash Results Laboratory Results: 06/29/18 11:25 06/29/18 11:25 06/29/18 06/29/18 11:25 11:25 WBC 10.5 RBC 3.98 Hgb 11.3 L Hct 34.1 L MCV 86 MCH 28.4 MCHC 33.1 RDW 14.5 H Plt Count 313 Sodium 138.4 Potassium 5.2 H Chloride 104 Carbon Dioxide 22 Anion Gap 12 BUN 60 H Creatinine 1.84 H Est GFR ( Amer) 31 L Est GFR (Non-Af Amer) 26 L Glucose 141 H Calcium 8.4 Total Bilirubin 0.5 AST 28 ALT 22 Alkaline Phosphatase 120 Total Protein 6.8 Albumin 3.0 L 06/29/18 06/29/18 06/29/18 11:25 11:25 17:20 Creatine Kinase 34 30 CK-MB (CK-2) 1.20 Troponin I < 0.012 NT-Pro-B Natriuret Pep 4570 H 06/29/18 17:20 Creatine Kinase CK-MB (CK-2) 1.09 Troponin I < 0.012 NT-Pro-B Natriuret Pep EKG Comments: Not available for review. Orders written Impressions: Chest X-Ray 06/29/18 11:00 IMPRESSION: CHF. No significant change. Assessment & Plan - Diagnosis (1) Congestive heart failure Qualifiers: Heart failure type: diastolic Heart failure chronicity: acute on chronic Qualified Code(s): I50.33 - Acute on chronic diastolic (congestive) heart failure Is this a current diagnosis for this admission?: Yes (2) Chronic kidney disease, stage IV (severe) Is this a current diagnosis for this admission?: Yes (3) Diabetes mellitus Qualifiers: Diabetes mellitus type: type 2 Diabetes mellitus complication status: with kidney complications Diabetes mellitus complication detail: with chronic kidney disease Chronic kidney disease stage: stage 4 (severe) Is this a current diagnosis for this admission?: Yes (4) Hypertension Qualifiers: Hypertension type: essential hypertension Qualified Code(s): I10 - Essential (primary) hypertension Is this a current diagnosis for this admission?: Yes - Notes Notes: Congestive heart failure: Continue with diuretic therapy. CHF most likely related to diastolic dysfunction and with contribution from right heart failure. Recommend oxygenation, diuretic therapy. Chronic kidney disease: May consider involving shoulder joiner. Diabetes: Continue current management plans but avoid any hypo-or hyperglycemia. Hypertension: Currently reasonably well controlled. Blood pressure goal is 135/ 85 in a patient with diabetes but can be more liberal in this elderly lady. Bilateral pleural effusion: Possibly CHF related but consider thoracentesis for diagnostic purposes. 2D echo results reviewed. Will follow with restorative rehab aide. - Time Time Spent: 30 to 50 Minutes Medications reviewed and adjusted accordingly: Yes
[2018-06-30 00:23] LABS: CREATINE KINASE MB 0.64 ng/mL (<4.55)
[2018-06-30 00:25] LABS: TROPONIN I < 0.012 ng/mL
[2018-06-30] MEDS: HYDRALAZINE HCL 50 MG TABLET PO SCH ×4 (00:30→17:25)
[2018-06-30 06:05] LABS: ANION GAP 13 (5-19); BLOOD UREA NITROGEN 60 mg/dL (7-20); CALCIUM 8.5 mg/dL (8.4-10.2); CARBON DIOXIDE 23 mmol/L (22-30); CHLORIDE 103 mmol/L (98-107); GLUCOSE 46 mg/dL (75-110); POTASSIUM 4.6 mmol/L (3.6-5.0); SODIUM 138.6 mmol/L (137-145)
--- NOTE | 2018-06-30 09:05 | PDOC H&P ---
History of Present Illness Admission Date/PCP: 06/29/18 10:29 MARISSA JOHN MD Patient complains of: Short of breath and leg edema. History of Present Illness: RAJESH NIX is a 88 year old female She comes in after being sent from my office due to progressive swelling generalized with SOB, SAUL, leg edema gaining 15 pounds. Past Medical History Cardiac Medical History: Reports: Coronary Artery Disease, Hypertension, Heart Murmur Endocrine Medical History: Reports: Diabetes Mellitus Type 1, Diabetes Mellitus Type 2, Hypothyroidism Renal/ Medical History: Reports: Chronic Kidney Disease Musculoskeltal Medical History: Reports: Arthritis Psychiatric Medical History: Reports: Depression Hematology: Reports: Anemia Past Surgical History Past Surgical History: Reports: Hysterectomy, Other - Cataract surgery Social History Lives with: Family Smoking Status: Never Smoker Frequency of Alcohol Use: None Hx Recreational Drug Use: No Drugs: None Hx Prescription Drug Abuse: No - Advance Directive Resuscitation Status: Do Not Resuscitate Family History Family History: Hyperlipidemia, Hypertension Parental Family History Reviewed: Yes Children Family History Reviewed: Yes Sibling(s) Family History Reviewed.: Unknown Medication/Allergy Home Medications: Amlodipine Besylate [Norvasc 5 mg Tablet] 5 mg PO BID 06/29/18 Aspirin [Adult Low Dose Aspirin EC] 81 mg PO DAILY 06/29/18 Citalopram Hydrobromide [Celexa 10 mg Tablet] 10 mg PO DAILY 06/29/18 Docusate Sodium [Colace 100 mg Capsule] 100 mg PO DAILYP PRN 06/29/18 Ferrous Sulfate [Feosol 325 mg Tablet] 325 mg PO DAILY 06/29/18 Folic Acid [Folvite 1 mg Tablet] 1 mg PO DAILY 06/29/18 Furosemide [Lasix 20 mg Tablet] 20 mg PO DAILY 06/29/18 Gabapentin [Neurontin 300 mg Capsule] 300 mg PO Q8 06/29/18 Hydralazine HCl [Apresoline 50 mg Tablet] 50 mg PO TID 06/29/18 Insulin Glargine,Hum.rec.anlog [Lantus Insulin 100 Unit/mL] 20 units SQ DAILY Iron Polysaccharide Complex [Poly-Iron] 150 mg PO DAILY 06/29/18 Levothyroxine Sodium [Synthroid 0.05 mg Tablet] 0.05 mg PO Q6AM 06/29/18 Metoprolol Tartrate [Lopressor 25 mg Tablet] 25 mg PO TID 06/29/18 Allergies/Adverse Reactions: No Known Allergies Allergy (Verified 03/26/18 13:53) Review of Systems All systems: as per PMH Physical Exam Vital Signs: Temp Pulse Resp BP Pulse Ox 97.7 F 68 14 135/44 H 98 06/30/18 07:35 06/30/18 07:35 06/30/18 07:35 06/30/18 07:35 06/30/18 07:35 Intake & Output 06/29/18 06/30/18 07/01/18 06:59 06:59 06:59 Intake Total 974 Output Total 1 Balance 973 Weight 77.7 kg General appearance: PRESENT: no acute distress Head exam: PRESENT: atraumatic, normocephalic Eye exam: PRESENT: conjunctiva pink Ear exam: PRESENT: normal external ear exam Mouth exam: PRESENT: moist, tongue midline Neck exam: PRESENT: full ROM, JVD. ABSENT: carotid bruit, lymphadenopathy, thyromegaly Additional comments: elevated at 45 degrees Respiratory exam: PRESENT: crackles, decreased breath sounds Cardiovascular exam: PRESENT: RRR, systolic murmur Murmur grade: 2 Pulses: PRESENT: normal dorsalis pedis pul, +2 pedal pulses bilateral Vascular exam: PRESENT: normal capillary refill GI/Abdominal exam: PRESENT: normal bowel sounds, soft. ABSENT: distended, guarding, mass, organolmegaly, rebound, tenderness Rectal exam: PRESENT: deferred Extremities exam: PRESENT: other Additional comments: 2 plus edema to mid tibia Neurological exam: PRESENT: alert, awake, oriented to person, oriented to place , oriented to time, oriented to situation, CN II-XII grossly intact. ABSENT: motor sensory deficit Psychiatric exam: PRESENT: appropriate affect, normal mood. ABSENT: homicidal ideation, suicidal ideation Skin exam: PRESENT: dry, intact, warm. ABSENT: cyanosis, rash Results Laboratory Results: 06/29/18 11:25 06/30/18 05:26 06/29/18 06/29/18 06/30/18 11:25 11:25 05:26 WBC 10.5 RBC 3.98 Hgb 11.3 L Hct 34.1 L MCV 86 MCH 28.4 MCHC 33.1 RDW 14.5 H Plt Count 313 Sodium 138.4 138.6 Potassium 5.2 H 4.6 Chloride 104 103 Carbon Dioxide 22 23 Anion Gap 12 13 BUN 60 H 60 H Creatinine 1.84 H 1.77 H Est GFR ( Amer) 31 L 33 L Est GFR (Non-Af Amer) 26 L 27 L Glucose 141 H 46 L Calcium 8.4 8.5 Magnesium 2.7 H Total Bilirubin 0.5 AST 28 ALT 22 Alkaline Phosphatase 120 Total Protein 6.8 Albumin 3.0 L 06/29/18 06/29/18 06/29/18 11:25 11:25 17:20 Creatine Kinase 34 30 CK-MB (CK-2) 1.20 Troponin I < 0.012 NT-Pro-B Natriuret Pep 4570 H 06/29/18 06/29/18 06/29/18 17:20 23:18 23:18 Creatine Kinase 27 L CK-MB (CK-2) 1.09 0.64 Troponin I < 0.012 < 0.012 NT-Pro-B Natriuret Pep Impressions: Chest X-Ray 06/29/18 11:00 IMPRESSION: CHF. No significant change. Assessment & Plan - Diagnosis (1) Congestive heart failure Qualifiers: Heart failure type: diastolic Heart failure chronicity: acute on chronic Qualified Code(s): I50.33 - Acute on chronic diastolic (congestive) heart failure Is this a current diagnosis for this admission?: Yes Plan: will continue louise diuresis, monitor electrolytes (2) Chronic kidney disease, stage IV (severe) Is this a current diagnosis for this admission?: Yes (3) Diabetes mellitus type 2 in nonobese Plan: continue lantus and monitor for hypoglycemia maintain between 120-180 (4) Hypertension Qualifiers: Hypertension type: essential hypertension Qualified Code(s): I10 - Essential (primary) hypertension Is this a current diagnosis for this admission?: Yes Plan: presently controlled maintain less than 130 systolic - Time Time Spent: 50 to 70 Minutes Critical Time spent with patient: 15-24 minutes Medications reviewed and adjusted accordingly: Yes Anticipated discharge: Home Within: Other - Inpatient Certification I certify that my determination is in accordance with my understanding of Medicare's requirements for reasonable and necessary INPATIENT services [42 CFR 412.3e].: Yes Medical Necessity: Failure to Improve With Outpatient Therapy, Significant Comorbidiites Make Outpatient Treatment Too Risky, Need Close Monitoring Due to Risk of Patient Decompensation Post Hospital Care: D/C Manager Baby Documentation
[2018-06-30] MEDS: ACETAMINOPHEN 325 MG TABLET PO PRN ×2 (09:10→16:34)
[2018-06-30] MEDS: CARVEDILOL 3.125 MG TABLET PO SCH ×2 (10:22→22:48)
[2018-06-30] MEDS: FOLIC ACID 1 MG TABLET PO SCH (10:23)
[2018-06-30] MEDS: FUROSEMIDE INJ/PF 40 MG/4 ML SDV IV SCH ×2 (10:23→22:48)
[2018-06-30] MEDS: CITALOPRAM HYDROBROMIDE 20 MG TABLET PO SCH (10:23)
[2018-06-30] MEDS: LEVOTHYROXINE SODIUM 0.05 MG TABLET PO SCH (10:23)
[2018-06-30] MEDS: ASPIRIN 81 MG TABLET, ENT COATED PO SCH (10:23)
--- NOTE | 2018-06-30 10:38 | EKG REPORT ---
SEVERITY:- BORDERLINE ECG - SINUS RHYTHM BORDERLINE R WAVE PROGRESSION, ANTERIOR LEADS : Confirmed by: Ramone Altman 30-Jun-2018 10:37:34
[2018-06-30] MEDS: ENOXAPARIN SODIUM INJ 30 MG/0.3 ML DISP.SYRIN SUBCUT SCH (14:22)
--- NOTE | 2018-06-30 15:13 | RADIOLOGY REPORT (SQ) ---
EXAM DESCRIPTION: NM LUNG PERFUSION SCAN COMPLETED DATE/TIME: 06/30/2018 1:59 pm REASON FOR STUDY: Right heart CHF COMPARISON: CHEST FILMS 06/19/2018, 06/28/2018 RADIONUCLIDE AND DOSE: 5.25 millicuries TC-99m MAA The route of agent administration: Intravenous TECHNIQUE: Eight views of the lungs acquired following injection of MAA. LIMITATIONS: None. FINDINGS: PERFUSION: Patient has a right pleural effusion and right lower lobe airspace disease. Th ere is minimal attenuation of the activity at the right base on the today's profusion scan related to the pleural effusion. No perfusion defects worrisome for acute or chronic pulmonary emboli. OTHER: No other significant finding. IMPRESSION: No perfusion defects worrisome for acute or chronic pulmonary emboli. Mild decrease in intensity of the activity over the right lung base related to right pleural effusion TECHNICAL DOCUMENTATION: JOB ID: [id number] [employer]- All Rights Reserved Reading location - IP/workstation name: [email or web address]
[2018-06-30] MEDS: INSULIN LISPRO 100 UNIT/ML 3 ML VIAL SUBCUT PRN (17:25)
[2018-06-30] MEDS: GABAPENTIN 300 MG CAPSULE PO SCH (22:48)
[2018-06-30] MEDS: INSULIN GLARGINE,HUM.REC.ANLOG 300 UNIT/3 ML INSULN.PEN SUBCUT SCH (22:53)
--- NOTE | 2018-07-01 00:09 | PDOC PROGRESS REPORT ---
Subjective Progress Note for:: 06/30/18 Subjective:: Patient seems to be doing better with gradual improvement. Pt is denying any chest arm or neck discomfort. Patient denying any PND, orthopnea. Patient denied any sustained palpitations, dizziness, syncope, near syncope. Patient denying any fever chills. Patient denying any other significant discomfort. Patient is maintaining sinus rhythm. Review of systems: Rest review of systems negative. Medications: Medications have been reviewed. Reason For Visit: ACUTE SYSTOLIC HEART FAILURE Physical Exam Vital Signs: Temp Pulse Resp BP Pulse Ox 99.4 F 65 20 135/42 H 98 06/30/18 19:59 06/30/18 19:59 06/30/18 19:59 06/30/18 19:59 06/30/18 19:59 Intake & Output 06/29/18 06/30/18 07/01/18 06:59 06:59 06:59 Intake Total 974 887 Output Total 1 0 Balance 973 887 Weight 77.7 kg Exam: GENERAL: well-nourished and in no acute distress. Alert and oriented x2 HEAD: Atraumatic, normocephalic. EYES: [place], sclera anicteric, conjunctiva are normal. ENT: Moist mucous membranes. No oral ulcerations or bleeding gums noted. No obvious ear, nose or throat abnormalities noted. NECK: supple without lymphadenopathy. Trachea is central. No cervical or axillary lymphadenopathy noted. Carotids are 2+, JVD 12 centimeters LUNGS: Bibasilar crackles and mild right basal dullness noted on percussion. CHEST: Palpation of the chest wall shows no significant chest wall tenderness. HEART: [place] INSPECTOR RAG SORTING, No PSH, 1/6 [place] aortic area, 1/6 [place] systolic murmur mitral area, no rubs, no gallops. ABDOMEN: Soft, no significant tenderness appreciated, normoactive bowel sounds. No guarding, no rebound. No rigidity noted . No masses appreciated. EXTREMITIES: Pedal pulses are 1-2+, no calf tenderness noted. No clubbing or cyanosis. negative pedal edema noted NEUROLOGICAL: Focused neurological exam showed no significant neurologic deficit. Normal speech, no focal weakness appreciated. PSYCH: Normal mood, normal affect. Judgment and insight not checked. SKIN: No significant ecchymosis, skin is noted to be warm. MUSCULOSKELETAL EXAM: No significant acute joint swelling noted. Results Laboratory Results: 06/29/18 11:25 06/30/18 05:26 06/30/18 05:26 Sodium 138.6 Potassium 4.6 Chloride 103 Carbon Dioxide 23 Anion Gap 13 BUN 60 H Creatinine 1.77 H Est GFR ( Amer) 33 L Est GFR (Non-Af Amer) 27 L Glucose 46 L Calcium 8.5 Magnesium 2.7 H 06/29/18 06/29/18 06/29/18 11:25 11:25 17:20 Creatine Kinase 34 30 CK-MB (CK-2) 1.20 Troponin I < 0.012 NT-Pro-B Natriuret Pep 4570 H 06/29/18 06/29/18 06/29/18 17:20 23:18 23:18 Creatine Kinase 27 L CK-MB (CK-2) 1.09 0.64 Troponin I < 0.012 < 0.012 NT-Pro-B Natriuret Pep EKG Comments: Telemetry shows sinus rhythm Impressions: Chest X-Ray 06/29/18 11:00 IMPRESSION: CHF. No significant change. Lung Scan-VQ NM 06/30/18 00:00 IMPRESSION: No perfusion defects worrisome for acute or chronic pulmonary emboli. Mild decrease in intensity of the activity over the right lung base related to right pleural effusion Assessment & Plan - Diagnosis (1) Congestive heart failure Qualifiers: Heart failure type: diastolic Heart failure chronicity: acute on chronic Qualified Code(s): I50.33 - Acute on chronic diastolic (congestive) heart failure Is this a current diagnosis for this admission?: Yes (2) Chronic kidney disease, stage IV (severe) Is this a current diagnosis for this admission?: Yes (3) Diabetes mellitus Qualifiers: Diabetes mellitus type: type 2 Diabetes mellitus complication status: with kidney complications Diabetes mellitus complication detail: with chronic kidney disease Chronic kidney disease stage: stage 4 (severe) Is this a current diagnosis for this admission?: Yes (4) Hypertension Qualifiers: Hypertension type: essential hypertension Qualified Code(s): I10 - Essential (primary) hypertension Is this a current diagnosis for this admission?: Yes - Notes Notes: Congestive heart failure: [place] to be predominantly from right heart failure. A VQ scan was ordered which was negative. Continue with diuretic therapy. Patient also has some diastolic dysfunction. Chronic kidney disease: Continue with close monitoring of renal functions. Diabetes: Currently under satisfactory control. Hypertension: Currently stable on current regimen. Dr. Zuniga to follow from tomorrow. - Time Time with patient: Greater than 35 minutes - CODE STATUS : was discussed, patient remains DO NOT RESUSCITATE. Surrogate decision-maker patient's daughter. Multiple medical problems were addressed. More than 50% of the time spent coordinating care, discussing management plans with involved caregivers. Management plans discussed with involved personnels. Medical decision making was of moderate to high complexity, patient's has multiple comorbidities. 2 D Echo results were reviewed. Case and management plans discussed with Dr. Bojorquez. Medications reviewed and adjusted accordingly: Yes
[2018-07-01] MEDS: HYDRALAZINE HCL 50 MG TABLET PO SCH ×4 (00:47→17:26)
[2018-07-01 06:29] LABS: ANION GAP 8 (5-19); BLOOD UREA NITROGEN 58 mg/dL (7-20); CALCIUM 8.2 mg/dL (8.4-10.2); CARBON DIOXIDE 27 mmol/L (22-30); CHLORIDE 101 mmol/L (98-107); GLUCOSE 60 mg/dL (75-110); POTASSIUM 5.3 mmol/L (3.6-5.0); SODIUM 136.1 mmol/L (137-145)
[2018-07-01] MEDS: ACETAMINOPHEN 325 MG TABLET PO PRN ×3 (08:38→17:27)
[2018-07-01] MEDS: CARVEDILOL 3.125 MG TABLET PO SCH ×2 (10:03→21:34)
[2018-07-01] MEDS: CITALOPRAM HYDROBROMIDE 20 MG TABLET PO SCH (10:03)
[2018-07-01] MEDS: ASPIRIN 81 MG TABLET, ENT COATED PO SCH (10:03)
[2018-07-01] MEDS: FUROSEMIDE INJ/PF 40 MG/4 ML SDV IV SCH ×2 (10:04→21:35)
[2018-07-01] MEDS: FOLIC ACID 1 MG TABLET PO SCH (10:04)
[2018-07-01] MEDS: ENOXAPARIN SODIUM INJ 30 MG/0.3 ML DISP.SYRIN SUBCUT SCH (10:04)
[2018-07-01] MEDS: LEVOTHYROXINE SODIUM 0.05 MG TABLET PO SCH (10:04)
[2018-07-01] MEDS ORDERED: INSULIN GLARGINE,HUM.REC.ANLOG 300 UNIT/3 ML INSULN.PEN SUBCUT SCH (10:46)
[2018-07-01] MEDS ORDERED: LACTULOSE SYRUP 20 GM/30 ML UDCUP PO ONE (11:15)
--- NOTE | 2018-07-01 16:22 | Progress Note ---
Provider Note Provider Note: CARDIOLOGY PROGRESS NOTES by Dr. Andreia Zuniga on 07/01/2018. SUBJECTIVE: The patient is complaining of pain all over her body. But denies any chest pressure or tightness suggestive of angina. She has she has no leg edema. She denies any shortness of breath at present. She denies any PND. She does have orthopnea. There is no palpitations syncope or near syncope. There is no TIA CVA symptoms. As per the patient's relatives the patient's appetite is good. There is no cough or wheezing or sputum production. Review of monitor shows no arrhythmias patient is in sinus rhythm. Her medications have been reviewed. PHYSICAL EXAMINATION: The patient is a frail build and looks chronically ill. But appears to be in no acute distress at present. Selected Entries 07/01/18 11:33 Temperature 98.6 F Temperature Oral Source Pulse Rate 63 Blood Pressure 127/35 H Blood Pressure 65 Mean BP Location Left Arm BP Position Sitting O2 Sat by Pulse 97 Oximetry Oxygen Flow 3.00 Rate Oxygen Delivery Nasal Cannula Method HEAD: Is atraumatic normocephalic. EYES: Pupils are equal round regular reactive to light accommodation. ENT: Is negative. Neck is supple there is no JVD. Carotids are equal there is no bruit there is no lymphadenopathy. There is no goiter. Trachea central. LUNGS: Show few bibasilar crackles. And dullness of a small area in the right base. HEART: S1-S2 is heard there is no S3 gallop there is no S4 gallop the systolic murmur in the left sternal border and also at the apex. There is no rub. S1 is of normal intensity. ABDOMEN: Is soft nontender there is no hepatosplenomegaly. Bowel sounds are well heard. There is no tender areas of masses. EXTREMITIES: Pedal pulses are slightly diminished. Femorals are slightly diminished. There is no femoral bruits. There is no pedal edema. There is no DVT or cellulitis. There is no calf tenderness. There is no sinus or clubbing. GLACING MACHINE TENDER: The patient is conscious awake alert oriented x3. PSYCHIATRIC:: At present. Cardiac examination not done. But the patient does not seem to be agitated or anxious. 06/30/18 07/01/18 07/01/18 05:26 05:51 06:11 Sodium 138.6 136.1 L Potassium 4.6 5.3 H Chloride 103 101 Carbon Dioxide 23 27 Anion Gap 13 8 BUN 60 H 58 H Creatinine 1.77 H 1.62 H Est GFR ( Amer) 33 L Est GFR (Non-Af Amer) 27 L 30 L Glucose 60 L POC Glucose 56 L Calcium 8.5 8.2 L Magnesium 2.7 H The patient's intake and output record is not accurate. IMPRESSION/RECOMMENDATION: 1. Congestive heart failure secondary to volume overload due to renal failure causing systolic heart failure, and secondary to LV diastolic dysfunction. 2. Chronic kidney disease: At present slight improvement in the GFR patient now is stage III-IV compared with stage IV from prior GFR. The GFR is improved f from 27-30 mL/min. Continue diuresis. 3. Hyper kalemia: Recommend Kayexalate. 4. Hypertension: Blood pressure well controlled. 5. 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 Continue antidiabetic medication. 6. Hypo-thyroidism: Continue replacement. Will check thyroid function test in the a.m. Medications have been reviewed note that the patient still remains a DNR, with a surrogate healthcare decision maker not having changed. 40 minutes spent on this patient with more than 50% of time spent in direct patient care medical decision making is of moderate complexity. Discussed with the physician covering Dr. Wade for the weekend, the management plan. Note the patient's chart also has been reviewed. The patient's systolic function is normal. She does have significant diastolic dysfunction. She also has volume overload secondary to chronic kidney disease. Once the patient's potassium is controlled and is within the normal range, then consider switching back the patient to Toprol-XL 25 mg once a day, and history of Coreg. Will follow with you. Thanking you
--- NOTE | 2018-07-01 17:06 | PROGRESS NOTE E ---
Progress Note NAME: RAJESH NIX : 1930 AGE: 88Y DATE: 07/01/2018 ROOM: 302 SUBJECTIVE: The patient is lying in bed. She states she feels okay today. Family is present at the bedside, active in the patient's care. It appears the patient's appetite has picked up today. The patient did have some low blood sugars this morning but the patient's appetite was not as good yesterday. The patient herself denies any pain. She has received some Tylenol and also complains of some constipation. No other concerns are voiced at this time. BRIEF HISTORY: The patient is an 88-year-old female with a past medical history of congestive heart failure as well as diabetes. The patient has had 3 inpatient stays since March. The patient is cared for at home by her family who is quite participatory in her care. The patient was brought in at this time due to increasing shortness of breath, wheezing, and findings of anasarca. The patient was admitted by Dr. Wade who is her primary care provider and we are providing coverage this weekend. REVIEW OF SYSTEMS: A full review of systems cannot be appreciated. MEDICATIONS: Have been reviewed. OBJECTIVE: GENERAL: The patient is a very pleasant 88-year-old female who is awake, alert. She is oriented to place and person, but not full insight to situation. She does not appear to be distressed. VITAL SIGNS: Temperature is 98.2, pulse 66, respirations 16, blood pressure is 118/80, oxygen saturation is 100% on 3 liters nasal cannula. SKIN: Warm and dry. No rash. She is not diaphoretic. HEENT: Her pupils are reactive, some slight periorbital edema. Mucous membranes are moist. CARDIOVASCULAR: Heart is regular. CHEST: Symmetrical, unlabored with bilateral basal crackles. Diminished as well. ABDOMEN: Mildly distended, but no area of focal tenderness. EXTREMITIES: Consistent with anasarca. PSYCHIATRIC: A very pleasant affect, very sweet lady. DIAGNOSTICS: Lab values are as follows - Hematology obtained on 06/29/2018; WBC 10.5, hemoglobin 11.3, hematocrit is 34.1, platelet count is 314,000. Chemistry obtained on 07/01/2018; sodium is 136, potassium 5.3, chloride is 101, carbon dioxide 27, BUN 58, creatinine is 1.62, glucose 60, calcium is 8.2. IMPRESSION AND PLAN: 1. ACUTE ON CHRONIC DIASTOLIC CONGESTIVE HEART FAILURE. Will continue with gentle diuresis, monitor the patient's electrolytes. Do appreciate cardiology's help with this. 2. CHRONIC KIDNEY DISEASE STAGE 4. The patient's creatinine is near baseline. 3. DIABETES MELLITUS TYPE 2.. The patient has had an episode of hypoglycemia. Her appetite unfortunately waxes and wanes. We will go ahead and decrease the patient's Lantus dosing at night, but continue sliding scale coverage. Goal for her is between 120-180. 4. HYPERTENSION. Blood pressure has been in acceptable range. CODE STATUS: The patient is a DO NOT RESUSCITATE/DO NOT INTUBATE. DISPOSITION: Depending on the patient's symptomatology and diagnostic findings will reevaluate in the a.m. TIME SPENT: On this follow up, including assessment and plan, physical examination, patient education, review of records is 35 minutes. DICTATING PHYSICIAN: EMILY UGARTE NP [id number] Y#: [id number] ID: [id number] JOB#: [id number] ACCT: [id number] cc: > MTDD
[2018-07-01] MEDS: INSULIN LISPRO 100 UNIT/ML 3 ML VIAL SUBCUT PRN (17:27)
[2018-07-01] MEDS: GABAPENTIN 300 MG CAPSULE PO SCH (21:34)
[2018-07-02] MEDS: HYDRALAZINE HCL 50 MG TABLET PO SCH ×3 (00:15→12:26)
[2018-07-02] MEDS: ACETAMINOPHEN 325 MG TABLET PO PRN ×2 (03:28→16:15)
[2018-07-02 07:08] LABS: ANION GAP 10 (5-19); BLOOD UREA NITROGEN 51 mg/dL (7-20); CALCIUM 8.2 mg/dL (8.4-10.2); CARBON DIOXIDE 28 mmol/L (22-30); CHLORIDE 99 mmol/L (98-107); GLUCOSE 76 mg/dL (75-110); POTASSIUM 4.3 mmol/L (3.6-5.0); SODIUM 136.9 mmol/L (137-145)
[2018-07-02] MEDS: FUROSEMIDE INJ/PF 40 MG/4 ML SDV IV SCH ×2 (09:05→21:48)
[2018-07-02] MEDS: FOLIC ACID 1 MG TABLET PO SCH (09:05)
[2018-07-02] MEDS: LEVOTHYROXINE SODIUM 0.05 MG TABLET PO SCH (09:05)
[2018-07-02] MEDS: ENOXAPARIN SODIUM INJ 30 MG/0.3 ML DISP.SYRIN SUBCUT SCH (09:05)
[2018-07-02] MEDS: ASPIRIN 81 MG TABLET, ENT COATED PO SCH (09:05)
[2018-07-02] MEDS: CARVEDILOL 3.125 MG TABLET PO SCH ×2 (09:06→21:47)
[2018-07-02] MEDS: CITALOPRAM HYDROBROMIDE 20 MG TABLET PO SCH (09:06)
--- NOTE | 2018-07-02 10:37 | EKG REPORT ---
SEVERITY:- NORMAL ECG - SINUS RHYTHM : Confirmed by: Ramone Altman 02-Jul-2018 10:36:57
--- NOTE | 2018-07-02 10:56 | PDOC PROGRESS REPORT ---
Subjective Progress Note for:: 07/02/18 Subjective:: No overnight events per RN. Patient was sleeping in room however awakes to verbal stimuli. Denies complaints, specifically no pain, chest pain, SOB. Reason For Visit: ACUTE SYSTOLIC HEART FAILURE Physical Exam Vital Signs: Temp Pulse Resp BP Pulse Ox 97.9 F 62 16 141/40 H 96 07/02/18 07:36 07/02/18 07:36 07/02/18 07:36 07/02/18 07:36 07/02/18 08:50 Intake & Output 07/01/18 07/02/18 07/03/18 06:59 06:59 06:59 Intake Total 887 474 Output Total 0 950 Balance 887 -476 Weight 72.6 kg 72.2 kg General appearance: PRESENT: no acute distress, other - Elderly Mouth exam: PRESENT: dry mucosa Teeth exam: PRESENT: edentulous Cardiovascular exam: PRESENT: RRR, +S1, +S2. ABSENT: tachycardia GI/Abdominal exam: PRESENT: soft. ABSENT: tenderness Neurological exam: PRESENT: alert, awake Psychiatric exam: PRESENT: normal mood Skin exam: PRESENT: dry, intact Results Laboratory Results: 06/29/18 11:25 07/02/18 06:17 07/02/18 06:17 Sodium 136.9 L Potassium 4.3 Chloride 99 Carbon Dioxide 28 Anion Gap 10 BUN 51 H Creatinine 1.65 H Est GFR ( Amer) 36 L Est GFR (Non-Af Amer) 29 L Glucose 76 Calcium 8.2 L 06/29/18 06/29/18 06/29/18 11:25 11:25 17:20 Creatine Kinase 34 30 CK-MB (CK-2) 1.20 Troponin I < 0.012 NT-Pro-B Natriuret Pep 4570 H 06/29/18 06/29/18 06/29/18 17:20 23:18 23:18 Creatine Kinase 27 L CK-MB (CK-2) 1.09 0.64 Troponin I < 0.012 < 0.012 NT-Pro-B Natriuret Pep Impressions: Chest X-Ray 06/29/18 11:00 IMPRESSION: CHF. No significant change. Lung Scan-VQ NM 06/30/18 00:00 IMPRESSION: No perfusion defects worrisome for acute or chronic pulmonary emboli. Mild decrease in intensity of the activity over the right lung base related to right pleural effusion Assessment & Plan - Diagnosis (1) Congestive heart failure Qualifiers: Heart failure type: diastolic Heart failure chronicity: acute on chronic Qualified Code(s): I50.33 - Acute on chronic diastolic (congestive) heart failure Is this a current diagnosis for this admission?: Yes Plan: Chronic Dystolic dsyfunction - Continue diuresis - Appears euvolemic on exam - Cardiology following, appreciate continued recs (2) Adult failure to thrive Is this a current diagnosis for this admission?: Yes Plan: Appears to be chronic. Unclear home situation - Patient of Dr. Yepez, will defer residential plan to him - Per Social work notes, will need home health equipment and services - Consider placement in facility if caretakes feel patient is not able to be taken care of at home (3) Anorexia Is this a current diagnosis for this admission?: Yes Plan: Per above. (4) Chronic kidney disease, stage IV (severe) Is this a current diagnosis for this admission?: Yes Plan: This appears to be chronic as well. - Cr 1.65 today - Time Time Spent with patient: Less than 15 minutes
[2018-07-02 12:47] LABS: FREE T3 1.88 pg/mL (2.77-5.27); FREE T4 (FREE THYROXINE) 1.27 ng/dL (0.78-2.19)
[2018-07-02 13:01] LABS: THYROID STIMULATING HORMONE 1.79 uIU/mL (0.47-4.68)
--- NOTE | 2018-07-02 13:10 | Progress Note ---
Provider Note Provider Note: CARDIOLOGY PROGRESS NOTES by Dr. Andreia Zuniga on 07/02/2018. SUBJECTIVE: The family states that the patient feels weaker today. Her potassium is now normal. Renal functions have worsened and her GFR has gone down to 29 which is again stage IV chronic kidney disease from stage III chronic kidney disease of yesterday. The patient remains in sinus rhythm. There is no arrhythmias on the monitor. denies any chest pressure or tightness suggestive of angina. She has she has no leg edema. She denies any shortness of breath at present. She denies any PND. She does have orthopnea. There is no palpitations syncope or near syncope. There is no TIA CVA symptoms. As per the patient's relatives the patient's appetite is good. There is no cough or wheezing or sputum production PHYSICAL EXAMINATION: The patient is a frail build, and looks chronically ill, but in no acute distress. Selected Entries 07/02/18 11:14 Temperature 98.3 F Temperature Oral Source Pulse Rate 60 Respiratory 16 Rate Blood Pressure 133/33 H Blood Pressure 66 Mean BP Location Left Arm BP Position Sitting O2 Sat by Pulse 98 Oximetry Oxygen Flow 3.00 Rate Oxygen Delivery Nasal Cannula Method HEAD: Is atraumatic normocephalic. EYES: Pupils are equal round regular reactive to light accommodation. ENT: Is negative. Neck is supple there is no JVD. Carotids are equal there is no bruit there is no lymphadenopathy. There is no goiter. Trachea central. LUNGS: Show few bibasilar crackles. And dullness of a small area in the right base. HEART: S1-S2 is heard there is no S3 gallop there is no S4 gallop the systolic murmur in the left sternal border and also at the apex. There is no rub. S1 is of normal intensity. ABDOMEN: Is soft nontender there is no hepatosplenomegaly. Bowel sounds are well heard. There is no tender areas of masses. EXTREMITIES: Pedal pulses are slightly diminished. Femorals are slightly diminished. There is no femoral bruits. There is no pedal edema. There is no DVT or cellulitis. There is no calf tenderness. There is no sinus or clubbing. FERMENTER OPERATOR: The patient is conscious awake alert oriented x3. PSYCHIATRIC:: At present. Cardiac examination not done. But the patient does not seem to be agitated or anxious. 07/02/18 06:17 Sodium 136.9 L Potassium 4.3 Chloride 99 Carbon Dioxide 28 BUN 51 H Creatinine 1.65 H Est GFR (Non-Af Amer) 29 L Glucose 76 Calcium 8.2 L The patient's 24-hour total intake is 474 mL, with an output of 950 mL. Await results of thyroid function tests. IMPRESSION/RECOMMENDATION: 1. Congestive heart failure secondary to volume overload due to renal failure causing systolic heart failure, and secondary to LV diastolic dysfunction. 2. Chronic kidney disease: At present slight improvement in the GFR patient now is stage III-IV compared with stage IV from prior GFR. The GFR is improved f from 27-30 mL/min. Continue diuresis. 3. Hyper kalemia: Resolved. Potassium now is normal. 4. Hypertension: Blood pressure well controlled. 5. 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 Continue antidiabetic medication. 6. Hypo-thyroidism: Continue replacement. Will check thyroid function test in the a.m. Medications have been reviewed note that the patient still remains a DNR, with a surrogate healthcare decision maker not having changed. 40 minutes spent on this patient with more than 50% of time spent in direct patient care medical decision making is of moderate complexity. Discussed with the physician covering Dr. Wade for the weekend, the management plan. Note the patient's chart also has been reviewed. The patient's left ventricular systolic function is normal. She does have significant diastolic dysfunction. She also has volume overload secondary to chronic kidney disease. Note that the patient's heart rate is only 60 bpm, and in this elderly patient switching to Toprol-XL 25 once a day may further decrease the patient's heart rate. Hence at present we will continue with Coreg 3.125 mg p.o. twice daily. We will later check the patient's thyroid function tests when they are available on the chart in [facility].
[2018-07-02] MEDS ORDERED: SODIUM CHLORIDE NASAL SPRAY 44 ML NASL PRN (15:14)
[2018-07-02] MEDS: GABAPENTIN 300 MG CAPSULE PO SCH (21:47)
[2018-07-02] MEDS: INSULIN GLARGINE,HUM.REC.ANLOG 300 UNIT/3 ML INSULN.PEN SUBCUT SCH (22:05)
[2018-07-03] MEDS: ACETAMINOPHEN 325 MG TABLET PO PRN (08:09)
[2018-07-03 08:36] LABS: ALANINE AMINOTRANSFERASE 16 U/L (9-52); ALBUMIN 2.8 g/dL (3.5-5.0); ALKALINE PHOSPHATASE 115 U/L (38-126); ANION GAP 10 (5-19); ASPARTATE AMINO TRANSFERASE 24 U/L (14-36); BILIRUBIN,DIRECT 0.3 mg/dL (0.0-0.4); BILIRUBIN,TOTAL 0.6 mg/dL (0.2-1.3); BLOOD UREA NITROGEN 49 mg/dL (7-20); CALCIUM 8.6 mg/dL (8.4-10.2); CARBON DIOXIDE 31 mmol/L (22-30); CHLORIDE 97 mmol/L (98-107); GLUCOSE 101 mg/dL (75-110); POTASSIUM 4.3 mmol/L (3.6-5.0); SODIUM 137.7 mmol/L (137-145); TOTAL PROTEIN 6.3 g/dL (6.3-8.2)
[2018-07-03] MEDS: ASPIRIN 81 MG TABLET, ENT COATED PO SCH (09:40)
[2018-07-03] MEDS: FOLIC ACID 1 MG TABLET PO SCH (09:40)
[2018-07-03] MEDS: CARVEDILOL 3.125 MG TABLET PO SCH ×2 (09:40→22:04)
[2018-07-03] MEDS: LEVOTHYROXINE SODIUM 0.05 MG TABLET PO SCH (09:40)
[2018-07-03] MEDS: CITALOPRAM HYDROBROMIDE 20 MG TABLET PO SCH (09:41)
[2018-07-03] MEDS: FUROSEMIDE INJ/PF 40 MG/4 ML SDV IV SCH ×2 (09:42→22:04)
[2018-07-03] MEDS: ENOXAPARIN SODIUM INJ 30 MG/0.3 ML DISP.SYRIN SUBCUT SCH (09:43)
--- NOTE | 2018-07-03 10:22 | RADIOLOGY REPORT (SQ) ---
EXAM DESCRIPTION: CHEST SINGLE VIEW COMPLETED DATE/TIME: 07/03/2018 8:25 am REASON FOR STUDY: chf COMPARISON: 06/29/2018. EXAM PARAMETERS: NUMBER OF VIEWS: One view. TECHNIQUE: Single frontal radiographic view of the chest acquired. RADIATION DOSE: NA LIMITATIONS: None. FINDINGS: LUNGS AND PLEURA: Basilar densities and pleural effusions, right greater than left, unchan ged. MEDIASTINUM AND HILAR STRUCTURES: No masses. Contour normal. HEART AND VASCULAR STRUCTURES: Mild cardiac enlargement unchanged. BONES: No acute findings. HARDWARE: None in the chest. OTHER: No other significant finding. IMPRESSION: NO CHANGE IN APPEARANCE OF THE CHEST. TECHNICAL DOCUMENTATION: JOB ID: [id number] [employer]- All Rights Reserved Reading location - IP/workstation name: [email or web address]
[2018-07-03] MEDS: INSULIN LISPRO 100 UNIT/ML 3 ML VIAL SUBCUT PRN (12:48)
--- NOTE | 2018-07-03 13:21 | PDOC PROGRESS REPORT ---
Subjective Progress Note for:: 07/03/18 Subjective:: She complains neck pain has not been out of bed, denies SOB,C/P,palpitation has had bowel movement denies muscle cramps. Reason For Visit: ACUTE SYSTOLIC HEART FAILURE Physical Exam Vital Signs: Temp Pulse Resp BP Pulse Ox 98.7 F 63 17 146/41 H 97 07/03/18 12:01 07/03/18 12:01 07/03/18 12:01 07/03/18 12:01 07/03/18 12:01 Intake & Output 07/02/18 07/03/18 07/04/18 06:59 06:59 06:59 Intake Total 474 487 200 Output Total 950 4875 700 Balance -796 -4622 -677 Weight 72.2 kg 72.8 kg General appearance: PRESENT: no acute distress, well-developed, well-nourished Head exam: PRESENT: atraumatic, normocephalic Eye exam: PRESENT: conjunctiva pink, EOMI, PERRLA. ABSENT: scleral icterus Ear exam: PRESENT: normal external ear exam Mouth exam: PRESENT: moist, tongue midline Neck exam: PRESENT: JVD Additional comments: 5 cm at 45 degrees Respiratory exam: PRESENT: crackles, decreased breath sounds Cardiovascular exam: PRESENT: systolic murmur Murmur grade: 2 Pulses: PRESENT: normal dorsalis pedis pul, +2 pedal pulses bilateral Vascular exam: PRESENT: normal capillary refill GI/Abdominal exam: PRESENT: normal bowel sounds, soft. ABSENT: distended, guarding, mass, organolmegaly, rebound, tenderness Rectal exam: PRESENT: deferred Additional comments: edema has subsided Neurological exam: PRESENT: alert, awake, oriented to person, oriented to place , oriented to time, oriented to situation, CN II-XII grossly intact. ABSENT: motor sensory deficit Psychiatric exam: PRESENT: appropriate affect, normal mood. ABSENT: homicidal ideation, suicidal ideation Skin exam: PRESENT: dry, intact, warm. ABSENT: cyanosis, rash Results Laboratory Results: 06/29/18 11:25 07/03/18 07:47 07/03/18 07:47 Sodium 137.7 Potassium 4.3 Chloride 97 L Carbon Dioxide 31 H Anion Gap 10 BUN 49 H Creatinine 1.56 H Est GFR ( Amer) 38 L Est GFR (Non-Af Amer) 31 L Glucose 101 Calcium 8.6 Total Bilirubin 0.6 AST 24 ALT 16 Alkaline Phosphatase 115 Total Protein 6.3 Albumin 2.8 L 06/29/18 06/29/18 06/29/18 11:25 11:25 17:20 Creatine Kinase 34 30 CK-MB (CK-2) 1.20 Troponin I < 0.012 NT-Pro-B Natriuret Pep 4570 H 06/29/18 06/29/18 06/29/18 17:20 23:18 23:18 Creatine Kinase 27 L CK-MB (CK-2) 1.09 0.64 Troponin I < 0.012 < 0.012 NT-Pro-B Natriuret Pep Impressions: Lung Scan-VQ NM 06/30/18 00:00 IMPRESSION: No perfusion defects worrisome for acute or chronic pulmonary emboli. Mild decrease in intensity of the activity over the right lung base related to right pleural effusion Chest X-Ray 07/03/18 06:00 IMPRESSION: NO CHANGE IN APPEARANCE OF THE CHEST. Assessment & Plan - Diagnosis (1) Congestive heart failure Qualifiers: Heart failure type: diastolic Heart failure chronicity: acute on chronic Qualified Code(s): I50.33 - Acute on chronic diastolic (congestive) heart failure Is this a current diagnosis for this admission?: Yes Plan: continue diuretics monitor kidney status. (2) Chronic kidney disease, stage IV (severe) Is this a current diagnosis for this admission?: Yes Plan: continue current treatment actually improved to baseline CKD stage3-4 (3) Diabetes mellitus type 2 in nonobese Is this a current diagnosis for this admission?: Yes Plan: maintain blood sugar 120-180 (4) Hypertension Qualifiers: Hypertension type: essential hypertension Qualified Code(s): I10 - Essential (primary) hypertension Is this a current diagnosis for this admission?: Yes Plan: continue current treatment - Time Time Spent with patient: 25-34 minutes Medications reviewed and adjusted accordingly: Yes Anticipated discharge: Other Within: Other - Inpatient Certification I certify that my determination is in accordance with my understanding of Medicare's requirements for reasonable and necessary INPATIENT services [42 CFR 412.3e].: Yes Medical Necessity: Failure to Improve With Outpatient Therapy, Significant Comorbidiites Make Outpatient Treatment Too Risky Post Hospital Care: D/C Bioinformatics Research Technician Documentation - Plan Summary Plan Summary: discussed with family will get paliative care consult and will get PT evaluation will also start on tramadol 50 mg q8 hrs for pain.
[2018-07-03] MEDS: GABAPENTIN 300 MG CAPSULE PO SCH (22:03)
[2018-07-03] MEDS: INSULIN GLARGINE,HUM.REC.ANLOG 300 UNIT/3 ML INSULN.PEN SUBCUT SCH (22:05)
--- NOTE | 2018-07-03 23:15 | Progress Note ---
Provider Note Provider Note: CARDIOLOGY PROGRESS NOTES by Dr. Andreia Zuniga on 07/03/2018. SUBJECTIVE: The family states that the patient feels weaker today. Her potassium is now normal. Renal functions are slightly better, and her GFR has come up to 31 mL/per minute, which is chronic kidney disease from stage III.. The patient remains in sinus rhythm. There is no arrhythmias on the monitor. denies any chest pressure or tightness suggestive of angina. She has she has no leg edema. She denies any shortness of breath at present. She denies any PND. She does have orthopnea. There is no palpitations syncope or near syncope. There is no TIA CVA symptoms. As per the patient's relatives the patient's appetite is good. There is no cough or wheezing or sputum production PHYSICAL EXAMINATION: The patient is a frail build, and looks chronically ill, but in no acute distress. 07/03/18 16:21 Temperature 98.9 F Temperature Oral Source Pulse Rate 63 Respiratory 18 Rate Blood Pressure 146/48 H Blood Pressure 80 Mean BP Location Left Arm BP Position Supine O2 Sat by Pulse 100 Oximetry Oxygen Flow 2.50 Rate Oxygen Delivery Nasal Cannula Method HEAD: Is atraumatic normocephalic. EYES: Pupils are equal round regular reactive to light accommodation. ENT: Is negative. Neck is supple there is no JVD. Carotids are equal there is no bruit there is no lymphadenopathy. There is no goiter. Trachea central. LUNGS: Show few bibasilar crackles. And dullness of a small area in the right base. HEART: S1-S2 is heard there is no S3 gallop there is no S4 gallop the systolic murmur in the left sternal border and also at the apex. There is no rub. S1 is of normal intensity. ABDOMEN: Is soft nontender there is no hepatosplenomegaly. Bowel sounds are well heard. There is no tender areas of masses. EXTREMITIES: Pedal pulses are slightly diminished. Femorals are slightly diminished. There is no femoral bruits. There is no pedal edema. There is no DVT or cellulitis. There is no calf tenderness. There is no sinus or clubbing. HOSPITAL UNIT COORDINATOR: The patient is conscious awake alert oriented x3. PSYCHIATRIC:: At present. Cardiac examination not done. But the patient does not seem to be agitated or anxious. 07/02/18 07/03/18 06:17 07:47 Sodium 137.7 Potassium 4.3 Chloride 97 L Carbon Dioxide 31 H BUN 49 H Creatinine 1.56 H Est GFR (Non-Af Amer) 31 L Glucose 101 Calcium 8.6 Total Bilirubin 0.6 Direct Bilirubin 0.3 Neonat Total Bilirubin Not Reportable Neonat Direct Bilirubin Not Reportable Neonat Indirect Bili Not Reportable AST 24 ALT 16 Alkaline Phosphatase 115 Total Protein 6.3 Albumin 2.8 L TSH 1.79 Free T4 1.27 Free T3 pg/mL 1.88 L The patient's 24-hour total intake is 474 mL, with an output of 950 mL. Await results of thyroid function tests. IMPRESSION/RECOMMENDATION: 1. Congestive heart failure secondary to volume overload due to renal failure causing systolic heart failure, and secondary to LV diastolic dysfunction. 2. Chronic kidney disease: At present slight improvement in the GFR patient now is stage III-IV compared with stage IV from prior GFR. The GFR is improved f from 27-30 mL/min. Continue diuresis. 3. Hyper kalemia: Resolved. Potassium now is normal. 4. Hypertension: Blood pressure well controlled. 5. 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 Continue antidiabetic medication. 6. Hypo-thyroidism: Continue replacement. Although the patient's TSH is normal , the patient's free T3 is slightly low. Will increase the patient's thyroid replacement, and see if this brings the heart rate up, at which point beta- blockers can be increased. Medications have been reviewed note that the patient still remains a DNR, with a surrogate healthcare decision maker not having changed. 40 minutes spent on this patient with more than 50% of time spent in direct patient care medical decision making is of moderate complexity. Discussed with the physician covering Dr. Wade for the weekend, the management plan. Note the patient's chart also has been reviewed. The patient's left ventricular systolic function is normal. She does have significant diastolic dysfunction. She also has volume overload secondary to chronic kidney disease. We will follow with you.
[2018-07-04] MEDS: ACETAMINOPHEN 325 MG TABLET PO PRN (03:48)
[2018-07-04] MEDS: HYDRALAZINE HCL 50 MG TABLET PO PRN (03:48)
[2018-07-04 05:14] LABS: ABSOLUTE BASOPHILS # (AUTO) 0.1 10^3/uL (0.0-0.2); ABSOLUTE EOSINOPHILS # (AUTO) 0.3 10^3/uL (0.0-0.6); ABSOLUTE NEUT (AUTO) 3.3 10^3/uL (1.7-8.2); BASOPHILS % (AUTO) 1.1 % (0-2); EOSINOPHILS % (AUTO) 3.9 % (0-6); HEMATOCRIT 32.1 % (36.0-47.0); HEMOGLOBIN 10.6 g/dL (12.0-15.5); MEAN CORPUSCULAR HEMOGLOBIN 27.8 pg (27.0-33.4); MEAN CORPUSCULAR VOLUME 84 fl (80-97); MONOCYTES % (AUTO) 15.1 % (3-13); PLATELET COUNT 356 10^3/uL (150-450); RED BLOOD COUNT 3.81 10^6/uL (3.72-5.28); RED CELL DISTRIBUTION WIDTH 14.2 % (11.5-14.0); SEGMENTED NEUTROPHILS % (AUTO) 49.9 % (42-78); TOTAL CELLS COUNTED % (AUTO) 100 %; WHITE BLOOD COUNT 6.7 10^3/uL (4.0-10.5)
[2018-07-04 05:36] LABS: ANION GAP 12 (5-19); BLOOD UREA NITROGEN 61 mg/dL (7-20); CALCIUM 8.4 mg/dL (8.4-10.2); CARBON DIOXIDE 30 mmol/L (22-30); CHLORIDE 97 mmol/L (98-107); GLUCOSE 72 mg/dL (75-110); SODIUM 139.4 mmol/L (137-145)
[2018-07-04] MEDS: TRAMADOL HCL 50 MG TABLET PO PRN (07:52)
[2018-07-04] MEDS: FUROSEMIDE INJ/PF 40 MG/4 ML SDV IV SCH ×2 (09:10→22:14)
[2018-07-04] MEDS: FOLIC ACID 1 MG TABLET PO SCH (09:11)
[2018-07-04] MEDS: ENOXAPARIN SODIUM INJ 30 MG/0.3 ML DISP.SYRIN SUBCUT SCH (09:11)
[2018-07-04] MEDS: CARVEDILOL 3.125 MG TABLET PO SCH ×2 (09:11→22:14)
[2018-07-04] MEDS: LEVOTHYROXINE SODIUM 0.05 MG TABLET PO SCH (09:11)
[2018-07-04] MEDS: CITALOPRAM HYDROBROMIDE 20 MG TABLET PO SCH (09:11)
[2018-07-04] MEDS: ASPIRIN 81 MG TABLET, ENT COATED PO SCH (09:12)
--- NOTE | 2018-07-04 09:17 | PDOC PROGRESS REPORT ---
Subjective Progress Note for:: 07/04/18 Subjective:: Patiwent states to feeling weak denies any pain she is afebrile negative balance of 1700 over last 24 hours, denies c/p, SOB,palpitation minimal cough nonproductive. She is scheduled for PT and palliative consults. Discussed in full detail labs results. Reason For Visit: ACUTE SYSTOLIC HEART FAILURE Physical Exam Vital Signs: Temp Pulse Resp BP Pulse Ox 98.1 F 68 18 159/41 H 100 07/04/18 07:50 07/04/18 07:50 07/04/18 07:50 07/04/18 07:50 07/04/18 07:50 Intake & Output 07/03/18 07/04/18 07/05/18 06:59 06:59 06:59 Intake Total 487 437 Output Total 2225 700 Balance -1738 -263 Weight 72.8 kg 64.4 kg General appearance: PRESENT: no acute distress, thin, well-developed, well- nourished Head exam: PRESENT: atraumatic, normocephalic Eye exam: PRESENT: conjunctiva pink, EOMI, PERRLA. ABSENT: scleral icterus Ear exam: PRESENT: normal external ear exam Mouth exam: PRESENT: moist, tongue midline Neck exam: PRESENT: full ROM. ABSENT: carotid bruit, JVD, lymphadenopathy, thyromegaly Additional comments: elevated at 45 degrees Respiratory exam: PRESENT: decreased breath sounds, rales Cardiovascular exam: PRESENT: systolic murmur Murmur grade: 2 Pulses: PRESENT: normal dorsalis pedis pul, +2 pedal pulses bilateral Vascular exam: PRESENT: normal capillary refill GI/Abdominal exam: PRESENT: normal bowel sounds, soft. ABSENT: distended, guarding, mass, organolmegaly, rebound, tenderness Extremities exam: PRESENT: full ROM Additional comments: no further edema Neurological exam: PRESENT: alert, awake, oriented to person, oriented to place , oriented to time, oriented to situation, CN II-XII grossly intact. ABSENT: motor sensory deficit Psychiatric exam: PRESENT: appropriate affect, normal mood. ABSENT: homicidal ideation, suicidal ideation Skin exam: PRESENT: dry, intact, warm. ABSENT: cyanosis, rash Results Laboratory Results: 07/04/18 04:28 07/04/18 04:28 07/04/18 07/04/18 04:28 04:28 WBC 6.7 RBC 3.81 Hgb 10.6 L Hct 32.1 L MCV 84 MCH 27.8 MCHC 33.0 RDW 14.2 H Plt Count 356 Seg Neutrophils % 49.9 Lymphocytes % 30.0 Monocytes % 15.1 H Eosinophils % 3.9 Basophils % 1.1 Absolute Neutrophils 3.3 Absolute Lymphocytes 2.0 Absolute Monocytes 1.0 Absolute Eosinophils 0.3 Absolute Basophils 0.1 Sodium 139.4 Potassium 4.0 Chloride 97 L Carbon Dioxide 30 Anion Gap 12 BUN 61 H Creatinine 1.49 H Est GFR ( Amer) 40 L Est GFR (Non-Af Amer) 33 L Glucose 72 L Calcium 8.4 06/29/18 06/29/18 06/29/18 11:25 11:25 17:20 Creatine Kinase 34 30 CK-MB (CK-2) 1.20 Troponin I < 0.012 NT-Pro-B Natriuret Pep 4570 H 06/29/18 06/29/18 06/29/18 17:20 23:18 23:18 Creatine Kinase 27 L CK-MB (CK-2) 1.09 0.64 Troponin I < 0.012 < 0.012 NT-Pro-B Natriuret Pep Impressions: Lung Scan-VQ NM 06/30/18 00:00 IMPRESSION: No perfusion defects worrisome for acute or chronic pulmonary emboli. Mild decrease in intensity of the activity over the right lung base related to right pleural effusion Chest X-Ray 07/03/18 06:00 IMPRESSION: NO CHANGE IN APPEARANCE OF THE CHEST. Assessment & Plan - Diagnosis (1) Congestive heart failure Qualifiers: Heart failure type: diastolic Heart failure chronicity: acute on chronic Qualified Code(s): I50.33 - Acute on chronic diastolic (congestive) heart failure Is this a current diagnosis for this admission?: Yes Plan: continue diuresing, monitor renal status and electrolytes (2) Chronic kidney disease, stage IV (severe) Is this a current diagnosis for this admission?: Yes Plan: continue current treatment (3) Diabetes mellitus type 2 in nonobese Is this a current diagnosis for this admission?: Yes Plan: continue lantus with humalog range 120-180 (4) Hypertension Qualifiers: Hypertension type: essential hypertension Qualified Code(s): I10 - Essential (primary) hypertension Is this a current diagnosis for this admission?: Yes Plan: controlled and continue current treatment - Time Time Spent with patient: 15-24 minutes Medications reviewed and adjusted accordingly: Yes Anticipated discharge: Home Within: Other - Inpatient Certification I certify that my determination is in accordance with my understanding of Medicare's requirements for reasonable and necessary INPATIENT services [42 CFR 412.3e].: Yes Medical Necessity: Failure to Improve With Outpatient Therapy, Significant Comorbidiites Make Outpatient Treatment Too Risky, Need Close Monitoring Due to Risk of Patient Decompensation
[2018-07-04] MEDS: INSULIN LISPRO 100 UNIT/ML 3 ML VIAL SUBCUT PRN ×2 (16:29→22:18)
--- NOTE | 2018-07-04 21:28 | Progress Note ---
Provider Note Provider Note: CARDIOLOGY PROGRESS NOTES by Dr. Andreia Zuniga on 07/04/2018. OBJECTIVE: As per the patient's daughter the patient feels a little more weaker today. Her appetite is still good. She remains in sinus rhythm. There is no chest pain or discomfort. Patient denies any shortness of breath she has only trace leg edema. Renal function is improved and her GFR has come up to 33 mL/ min. There is no TIA or CVA symptoms. PHYSICAL EXAMINATION: The patient is a frail build, and looks older than his stated age. She appears to be chronically ill. Selected Entries 07/04/18 07:50 Temperature 98.1 F Temperature Axillary Source Pulse Rate 68 Respiratory 18 Rate Blood Pressure 159/41 H Blood Pressure 80 Mean BP Location Left Arm BP Position Supine O2 Sat by Pulse 100 Oximetry Oxygen Flow 2.50 Rate Oxygen Delivery Nasal Cannula Method HEAD: Is atraumatic normocephalic. EYES: Pupils are equal round regular reactive to light accommodation. ENT: Is negative. Neck is supple there is no JVD. Carotids are equal there is no bruit there is no lymphadenopathy. There is no goiter. Trachea central. LUNGS: Clear to auscultation and percussion. And dullness of a small area in the right base. HEART: S1-S2 is heard there is no S3 gallop there is no S4 gallop the systolic murmur in the left sternal border and also at the apex. There is no rub. S1 is of normal intensity. ABDOMEN: Is soft nontender there is no hepatosplenomegaly. Bowel sounds are well heard. There is no tender areas of masses. EXTREMITIES: Pedal pulses are slightly diminished. Femorals are slightly diminished. There is no femoral bruits. There is no pedal edema. There is no DVT or cellulitis. There is no calf tenderness. There is no sinus or clubbing. CERTIFIED MIDWIFE: The patient is conscious awake alert oriented x3. PSYCHIATRIC: But the patient does not seem to be agitated or anxious. 07/04/18 07/04/18 04:28 04:28 WBC 6.7 Hgb 10.6 L Hct 32.1 L Plt Count 356 Sodium 139.4 Potassium 4.0 Chloride 97 L Carbon Dioxide 30 BUN 61 H Creatinine 1.49 H Est GFR (Non-Af Amer) 33 L Glucose 72 L Calcium 8.4 Total 24-hour intake is 437 mL, and output of 700 mL.. IMPRESSION/RECOMMENDATION: 1. Congestive heart failure secondary to volume overload due to renal failure causing systolic heart failure, and secondary to LV diastolic dysfunction. 2. Chronic kidney disease: At present slight improvement in the GFR patient now is stage III-IV compared with stage IV from prior GFR. The GFR is improved f from 30 to 33 mL/min. Continue diuresis. 3. Hyper kalemia: Resolved. Potassium now is normal. 4. Hypertension: Blood pressure well controlled. 5. 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 Continue antidiabetic medication. 6. Hypo-thyroidism: Continue replacement. As mentioned earlier will increase the patient's thyroid dosage, to see if this will bring the heart rate up in which case the patient's beta-beltran can be increased. Note medications have been reviewed, and medications adjusted. Medical decision making is of moderate complexity. Note 40 minutes spent on this patient with more than 50% of the time spent in direct patient care. Discussed with attending physician on the case. Will follow with you.
[2018-07-04] MEDS: INSULIN GLARGINE,HUM.REC.ANLOG 300 UNIT/3 ML INSULN.PEN SUBCUT SCH (22:14)
[2018-07-04] MEDS: GABAPENTIN 300 MG CAPSULE PO SCH (22:14)
[2018-07-05] MEDS: HYDRALAZINE HCL 50 MG TABLET PO PRN ×3 (01:45→15:11)
[2018-07-05 05:29] LABS: ANION GAP 11 (5-19); BLOOD UREA NITROGEN 63 mg/dL (7-20); CALCIUM 8.9 mg/dL (8.4-10.2); CARBON DIOXIDE 34 mmol/L (22-30); CHLORIDE 95 mmol/L (98-107); GLUCOSE 84 mg/dL (75-110); POTASSIUM 4.3 mmol/L (3.6-5.0); SODIUM 139.9 mmol/L (137-145)
[2018-07-05] MEDS: LEVOTHYROXINE SODIUM 0.075 MG TABLET PO SCH (05:56)
[2018-07-05] MEDS: ACETAMINOPHEN 325 MG TABLET PO PRN ×2 (06:16→14:37)
[2018-07-05] MEDS: ENOXAPARIN SODIUM INJ 30 MG/0.3 ML DISP.SYRIN SUBCUT SCH (09:04)
[2018-07-05] MEDS: CITALOPRAM HYDROBROMIDE 20 MG TABLET PO SCH (09:05)
[2018-07-05] MEDS: FUROSEMIDE INJ/PF 40 MG/4 ML SDV IV SCH ×2 (09:05→21:08)
[2018-07-05] MEDS: FOLIC ACID 1 MG TABLET PO SCH (09:05)
[2018-07-05] MEDS: CARVEDILOL 3.125 MG TABLET PO SCH ×2 (09:05→21:07)
[2018-07-05] MEDS: ASPIRIN 81 MG TABLET, ENT COATED PO SCH (09:05)
[2018-07-05] MEDS ORDERED: HYDRALAZINE HCL 50 MG TABLET PO PRN (09:20)
--- NOTE | 2018-07-05 09:25 | PDOC PROGRESS REPORT ---
Subjective Progress Note for:: 07/05/18 Subjective:: Patient seen in bed she just had breakfast, still some weakness denies c/p, SOB , palpitation, she was up out of bed yesterday, but refused PT, they will attempt today to re-eval. Reason For Visit: ACUTE SYSTOLIC HEART FAILURE Physical Exam Vital Signs: Temp Pulse Resp BP Pulse Ox 97.7 F 70 16 142/99 H 100 07/05/18 07:23 07/05/18 07:23 07/05/18 07:23 07/05/18 07:23 07/05/18 07:23 Intake & Output 07/04/18 07/05/18 07/06/18 06:59 06:59 06:59 Intake Total 437 318 Output Total 700 Balance -263 318 Weight 64.4 kg 69.2 kg General appearance: PRESENT: no acute distress, thin Head exam: PRESENT: atraumatic, normocephalic Eye exam: PRESENT: conjunctiva pink, EOMI, PERRLA. ABSENT: scleral icterus Ear exam: PRESENT: normal external ear exam Mouth exam: PRESENT: moist, tongue midline Neck exam: PRESENT: full ROM. ABSENT: carotid bruit, JVD, lymphadenopathy, thyromegaly Respiratory exam: PRESENT: decreased breath sounds Cardiovascular exam: PRESENT: systolic murmur Murmur grade: 2 Pulses: PRESENT: normal dorsalis pedis pul, +2 pedal pulses bilateral Vascular exam: PRESENT: normal capillary refill GI/Abdominal exam: PRESENT: normal bowel sounds, soft. ABSENT: distended, guarding, mass, organolmegaly, rebound, tenderness Rectal exam: PRESENT: deferred Additional comments: no c/c/e Musculoskeletal exam: PRESENT: ambulatory Psychiatric exam: PRESENT: appropriate affect, normal mood. ABSENT: homicidal ideation, suicidal ideation Skin exam: PRESENT: dry, intact, warm. ABSENT: cyanosis, rash Results Laboratory Results: 07/04/18 04:28 07/05/18 04:04 07/05/18 04:04 Sodium 139.9 Potassium 4.3 Chloride 95 L Carbon Dioxide 34 H Anion Gap 11 BUN 63 H Creatinine 1.37 H Est GFR ( Amer) 44 L Est GFR (Non-Af Amer) 36 L Glucose 84 Calcium 8.9 06/29/18 06/29/18 06/29/18 11:25 11:25 17:20 Creatine Kinase 34 30 CK-MB (CK-2) 1.20 Troponin I < 0.012 NT-Pro-B Natriuret Pep 4570 H 06/29/18 06/29/18 06/29/18 17:20 23:18 23:18 Creatine Kinase 27 L CK-MB (CK-2) 1.09 0.64 Troponin I < 0.012 < 0.012 NT-Pro-B Natriuret Pep Impressions: Lung Scan-VQ NM 06/30/18 00:00 IMPRESSION: No perfusion defects worrisome for acute or chronic pulmonary emboli. Mild decrease in intensity of the activity over the right lung base related to right pleural effusion Chest X-Ray 07/03/18 06:00 IMPRESSION: NO CHANGE IN APPEARANCE OF THE CHEST. Assessment & Plan - Diagnosis (1) Congestive heart failure Qualifiers: Heart failure type: diastolic Heart failure chronicity: acute on chronic Qualified Code(s): I50.33 - Acute on chronic diastolic (congestive) heart failure Is this a current diagnosis for this admission?: Yes Plan: continue diuretics her labs no show evidence of worsening. (2) Chronic kidney disease, stage IV (severe) Is this a current diagnosis for this admission?: Yes Plan: continue monitor electrolytes. (3) Diabetes mellitus type 2 in nonobese Is this a current diagnosis for this admission?: Yes Plan: continue lantus with humalog sliding scale maintain blood sugar between 120-180. (4) Hypertension Qualifiers: Hypertension type: essential hypertension Qualified Code(s): I10 - Essential (primary) hypertension Is this a current diagnosis for this admission?: Yes Plan: con orion. (5) Neuropathy Is this a current diagnosis for this admission?: Yes Plan: increase gabapentin 300 mg po tid. - Time Time Spent with patient: 15-24 minutes Anticipated discharge: Home Within: within 72 hours - Inpatient Certification Medical Necessity: Failure to Improve With Outpatient Therapy, Significant Comorbidiites Make Outpatient Treatment Too Risky Post Hospital Care: D/C Can Vacuum Tester Documentation - Plan Summary Plan Summary: patient will be seen by palliative care, and PT
[2018-07-05] MEDS ORDERED: LEVOTHYROXINE SODIUM 0.05 MG TABLET PO SCH (10:00)
[2018-07-05] MEDS: GABAPENTIN 300 MG CAPSULE PO SCH ×2 (13:37→21:07)
[2018-07-05] MEDS: INSULIN LISPRO 100 UNIT/ML 3 ML VIAL SUBCUT PRN ×2 (17:46→22:55)
--- NOTE | 2018-07-05 18:59 | Progress Note ---
Provider Note Provider Note: CARDIOLOGY PRODRESS NOTE ON 07/05/18.
[2018-07-05] MEDS: INSULIN GLARGINE,HUM.REC.ANLOG 300 UNIT/3 ML INSULN.PEN SUBCUT SCH (22:55)
[2018-07-06] MEDS: GABAPENTIN 300 MG CAPSULE PO SCH ×3 (05:40→21:46)
[2018-07-06] MEDS: LEVOTHYROXINE SODIUM 0.075 MG TABLET PO SCH (05:40)
[2018-07-06 05:44] LABS: ANION GAP 13 (5-19); BLOOD UREA NITROGEN 67 mg/dL (7-20); CALCIUM 8.9 mg/dL (8.4-10.2); CARBON DIOXIDE 32 mmol/L (22-30); CHLORIDE 95 mmol/L (98-107); GLUCOSE 89 mg/dL (75-110); POTASSIUM 4.3 mmol/L (3.6-5.0); SODIUM 139.7 mmol/L (137-145)
[2018-07-06] MEDS: HYDRALAZINE HCL 50 MG TABLET PO PRN ×2 (07:35→15:31)
[2018-07-06] MEDS: ENOXAPARIN SODIUM INJ 30 MG/0.3 ML DISP.SYRIN SUBCUT SCH (09:19)
[2018-07-06] MEDS: FUROSEMIDE INJ/PF 40 MG/4 ML SDV IV SCH (09:19)
[2018-07-06] MEDS: CARVEDILOL 3.125 MG TABLET PO SCH ×2 (09:20→21:46)
[2018-07-06] MEDS: CITALOPRAM HYDROBROMIDE 20 MG TABLET PO SCH (09:20)
[2018-07-06] MEDS: ASPIRIN 81 MG TABLET, ENT COATED PO SCH (09:20)
[2018-07-06] MEDS: FOLIC ACID 1 MG TABLET PO SCH (09:21)
[2018-07-06] MEDS: ACETAMINOPHEN 325 MG TABLET PO PRN (09:46)
--- NOTE | 2018-07-06 13:19 | PDOC PROGRESS REPORT ---
Subjective Progress Note for:: 07/06/18 Subjective:: Assumed care today. Ms. Breaux is an 88 yr old female with a PMH of CHF, CKD 3, DM2 and hypertension who was admitted for CHF exacerbation. No acute event overnight. Patient continues to improve. She says her leg swelling has significantly improved. She denies SOB at the moment. No chest pain or dizziness. Reason For Visit: ACUTE SYSTOLIC HEART FAILURE Physical Exam Vital Signs: Temp Pulse Resp BP Pulse Ox 98.5 F 61 16 151/49 H 95 07/06/18 11:15 07/06/18 11:15 07/06/18 11:15 07/06/18 11:15 07/06/18 11:21 Intake & Output 07/05/18 07/06/18 07/07/18 06:59 06:59 06:59 Intake Total 318 300 200 Balance 318 300 200 Weight 152 lb 8.958 oz 146 lb 2.664 oz General appearance: PRESENT: no acute distress, well-developed, well-nourished Head exam: PRESENT: atraumatic, normocephalic Eye exam: PRESENT: conjunctiva pink, EOMI, PERRLA. ABSENT: scleral icterus Ear exam: PRESENT: normal external ear exam Mouth exam: PRESENT: moist, tongue midline Neck exam: ABSENT: carotid bruit, JVD, lymphadenopathy, thyromegaly Respiratory exam: PRESENT: clear to auscultation francisco. ABSENT: rales, rhonchi, wheezes Cardiovascular exam: PRESENT: RRR. ABSENT: diastolic murmur, rubs, systolic murmur Pulses: PRESENT: normal dorsalis pedis pul GI/Abdominal exam: PRESENT: normal bowel sounds, soft. ABSENT: distended, guarding, mass, organolmegaly, rebound, tenderness Rectal exam: PRESENT: deferred Extremities exam: PRESENT: +1 edema Neurological exam: PRESENT: alert, awake, oriented to person, oriented to place , oriented to time, oriented to situation, CN II-XII grossly intact. ABSENT: motor sensory deficit Results Laboratory Results: 07/04/18 04:28 07/06/18 04:01 07/06/18 04:01 Sodium 139.7 Potassium 4.3 Chloride 95 L Carbon Dioxide 32 H Anion Gap 13 BUN 67 H Creatinine 1.46 H Est GFR ( Amer) 41 L Est GFR (Non-Af Amer) 34 L Glucose 89 Calcium 8.9 06/29/18 06/29/18 06/29/18 11:25 11:25 17:20 Creatine Kinase 34 30 CK-MB (CK-2) 1.20 Troponin I < 0.012 NT-Pro-B Natriuret Pep 4570 H 06/29/18 06/29/18 06/29/18 17:20 23:18 23:18 Creatine Kinase 27 L CK-MB (CK-2) 1.09 0.64 Troponin I < 0.012 < 0.012 NT-Pro-B Natriuret Pep Impressions: Lung Scan-VQ NM 06/30/18 00:00 IMPRESSION: No perfusion defects worrisome for acute or chronic pulmonary emboli. Mild decrease in intensity of the activity over the right lung base related to right pleural effusion Chest X-Ray 07/03/18 06:00 IMPRESSION: NO CHANGE IN APPEARANCE OF THE CHEST. Assessment & Plan - Diagnosis (1) Acute CHF (congestive heart failure) Qualifiers: Heart failure type: diastolic Qualified Code(s): I50.31 - Acute diastolic ( congestive) heart failure Is this a current diagnosis for this admission?: Yes Plan: Improved. From volume overload due to renal failure causing systolic heart failure with secondary to LV diastolic dysfunction. Patient's hypervolemia has improved. Decrease Lasix from 40 mg bid to daily as Creatinine is trending up again. (2) Acute kidney injury superimposed on chronic kidney disease Is this a current diagnosis for this admission?: Yes Plan: Reduce Lasix to 40 mg daily from bid as creatinine is trending up again. Avoid nephrotoxic agents. - Time Time Spent with patient: 15-24 minutes
[2018-07-06] MEDS: INSULIN LISPRO 100 UNIT/ML 3 ML VIAL SUBCUT PRN (16:41)
--- NOTE | 2018-07-06 21:11 | Progress Note ---
Provider Note Provider Note: CARDIOLOGY PROGRESS NOTES by Dr. Andreia Zuniga on 07/06/2018. OBJECTIVE: As per the patient's daughter the patient feels a little more weaker today. Her appetite is still good. She remains in sinus rhythm. There is no chest pain or discomfort. Patient denies any shortness of breath she has only trace leg edema. Renal function is improved and her GFR has come up to 33 mL/ min. There is no TIA or CVA symptoms. PHYSICAL EXAMINATION: The patient is a frail build, and looks older than his stated age. She appears to be chronically ill. Selected Entries 07/06/18 07/06/18 11:15 11:21 Temperature 98.5 F Temperature Oral Source Pulse Rate 61 Respiratory 16 Rate Blood Pressure 151/49 H Blood Pressure 83 Mean BP Location Left Arm BP Position Supine O2 Sat by Pulse 94 95 Oximetry Oxygen Delivery Room Air Method ( includes room air) Oxygen Delivery Room Air Method HEAD: Is atraumatic normocephalic. EYES: Pupils are equal round regular reactive to light accommodation. ENT: Is negative. Neck is supple there is no JVD. Carotids are equal there is no bruit there is no lymphadenopathy. There is no goiter. Trachea central. LUNGS: Clear to auscultation and percussion. And dullness of a small area in the right base. HEART: S1-S2 is heard there is no S3 gallop there is no S4 gallop the systolic murmur in the left sternal border and also at the apex. There is no rub. S1 is of normal intensity. ABDOMEN: Is soft nontender there is no hepatosplenomegaly. Bowel sounds are well heard. There is no tender areas of masses. EXTREMITIES: Pedal pulses are slightly diminished. Femorals are slightly diminished. There is no femoral bruits. There is no pedal edema. There is no DVT or cellulitis. There is no calf tenderness. There is no sinus or clubbing. OIL PROGRAM COMPLIANCE SPECIALIST: The patient is conscious awake alert oriented x3. PSYCHIATRIC: But the patient does not seem to be agitated or anxious. 07/06/18 07/06/18 04:01 06:16 Sodium 139.7 Potassium 4.3 Chloride 95 L Carbon Dioxide 32 H BUN 67 H Creatinine 1.46 H Est GFR (Non-Af Amer) 34 L Glucose 89 POC Glucose 72 Calcium 8.9 IMPRESSION/RECOMMENDATION: 1. Congestive heart failure secondary to volume overload due to renal failure causing systolic heart failure, and secondary to LV diastolic dysfunction. 2. Chronic kidney disease: At present slight improvement in the GFR patient now is stage III-IV compared with stage IV from prior GFR. The GFR is improved f from 34 mL/min. Continue diuresis. 3. Hyper kalemia: Resolved. Potassium now is normal. 4. Hypertension: Blood pressure well controlled. 5. 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 Continue antidiabetic medication. 6. Hypo-thyroidism: Continue replacement. As mentioned earlier will increase the patient's thyroid dosage, to see if this will bring the heart rate up in which case the patient's beta-beltran can be increased. Note medications have been reviewed, and medications adjusted. Medical decision making is of moderate complexity. Note 40 minutes spent on this patient with more than 50% of the time spent in direct patient care. Cardiac status is stable. We will sign off the case discussed with attending physician covering Dr. Wade.
[2018-07-06] MEDS: TRAMADOL HCL 50 MG TABLET PO PRN (21:51)
[2018-07-06] MEDS: INSULIN GLARGINE,HUM.REC.ANLOG 300 UNIT/3 ML INSULN.PEN SUBCUT SCH (22:00)
[2018-07-07] MEDS: HYDRALAZINE HCL 50 MG TABLET PO PRN (03:29)
[2018-07-07] MEDS: LEVOTHYROXINE SODIUM 0.075 MG TABLET PO SCH (05:31)
[2018-07-07] MEDS: GABAPENTIN 300 MG CAPSULE PO SCH ×3 (05:31→21:20)
[2018-07-07] MEDS: ACETAMINOPHEN 325 MG TABLET PO PRN (07:23)
[2018-07-07 08:30] LABS: ANION GAP 10 (5-19); BLOOD UREA NITROGEN 57 mg/dL (7-20); CALCIUM 8.6 mg/dL (8.4-10.2); CARBON DIOXIDE 34 mmol/L (22-30); CHLORIDE 94 mmol/L (98-107); GLUCOSE 133 mg/dL (75-110); POTASSIUM 4.4 mmol/L (3.6-5.0); SODIUM 137.9 mmol/L (137-145)
[2018-07-07] MEDS ORDERED: FUROSEMIDE INJ/PF 40 MG/4 ML SDV IV SCH (10:00)
[2018-07-07] MEDS: CARVEDILOL 3.125 MG TABLET PO SCH (10:04)
[2018-07-07] MEDS: ASPIRIN 81 MG TABLET, ENT COATED PO SCH (10:04)
[2018-07-07] MEDS: FOLIC ACID 1 MG TABLET PO SCH (10:04)
[2018-07-07] MEDS: CITALOPRAM HYDROBROMIDE 20 MG TABLET PO SCH (10:04)
[2018-07-07] MEDS: ENOXAPARIN SODIUM INJ 30 MG/0.3 ML DISP.SYRIN SUBCUT SCH (10:09)
--- NOTE | 2018-07-07 11:08 | RADIOLOGY REPORT (SQ) ---
EXAM DESCRIPTION: SHOULDER RIGHT 2 OR MORE VIEWS COMPLETED DATE/TIME: 07/07/2018 10:56 am REASON FOR STUDY: right shoulder pain and swelling COMPARISON: None. NUMBER OF VIEWS: Three views. TECHNIQUE: Internal rotation, external rotation, and Y view images acquired of the right shoulder. LIMITATIONS: None. FINDINGS: MINERALIZATION: Normal. BONES: No acute fracture or dislocation. No worrisome bone lesions. Osteophytes in the acromioclavicu lar joint. GLENOHUMERAL JOINT: No significant findings. ACROMIOCLAVICULAR JOINT: Prominent osteophytes. SOFT TISSUES: No calcifications. VISUALIZED RIBS, SPINE, AND LUNG: No other significant finding. OTHER: No other significant finding. IMPRESSION: DEGENERATIVE CHANGES WITH OSTEOPHYTES IN THE ACROMIOCLAVICULAR JOINT. NO ACUTE FINDINGS . TECHNICAL DOCUMENTATION: JOB ID: [id number] [employer]- All Rights Reserved Reading location - IP/workstation name: [email or web address]
--- NOTE | 2018-07-07 11:09 | RADIOLOGY REPORT (SQ) ---
EXAM DESCRIPTION: CHEST SINGLE VIEW COMPLETED DATE/TIME: 07/07/2018 10:56 am REASON FOR STUDY: reasses pleural effusions COMPARISON: 07/03/2018. EXAM PARAMETERS: NUMBER OF VIEWS: One view. TECHNIQUE: Single frontal radiographic view of the chest acquired. RADIATION DOSE: NA LIMITATIONS: None. FINDINGS: LUNGS AND PLEURA: Improved aeration in the lung bases with decrease in the pleural effusio ns. MEDIASTINUM AND HILAR STRUCTURES: No masses. Contour normal. HEART AND VASCULAR STRUCTURES: Heart normal in size. Normal vasculature. BONES: No acute findings. HARDWARE: None in the chest. OTHER: No other significant finding. IMPRESSION: IMPROVED AERATION IN THE LUNG BASES WITH DECREASE IN THE PLEURAL EFFUSIONS. TECHNICAL DOCUMENTATION: JOB ID: [id number] [employer]- All Rights Reserved Reading location - IP/workstation name: [email or web address]
[2018-07-07] MEDS: INSULIN LISPRO 100 UNIT/ML 3 ML VIAL SUBCUT PRN ×2 (12:18→17:23)
--- NOTE | 2018-07-07 14:12 | PDOC PROGRESS REPORT ---
Subjective Progress Note for:: 07/07/18 Subjective:: Ms. Breaux is an 88 yr old female with a PMH of CHF, CKD 3, DM2 and hypertension who was admitted for CHF exacerbation. No acute event overnight. Patient continues to improve. She says her breathing is much better and that she is almost at her baseline. Her leg swelling continue to improve and only now has minimal edema. She denies SOB at the moment. No chest pain or dizziness. She does complain of right shoulder pain this morning. Family did bring up she had a fall a few months back at home and requires assistance from time to time. Will consult PT to evaluate final disposition. Reason For Visit: ACUTE SYSTOLIC HEART FAILURE Physical Exam Vital Signs: Temp Pulse Resp BP Pulse Ox 97.8 F 61 17 160/77 H 97 07/07/18 11:28 07/07/18 11:28 07/07/18 11:28 07/07/18 11:28 07/07/18 11:28 Intake & Output 07/06/18 07/07/18 07/08/18 06:59 06:59 06:59 Intake Total 300 618 237 Balance 300 618 237 Weight 146 lb 2.664 oz 143 lb 11.862 oz General appearance: PRESENT: no acute distress, well-developed, well-nourished Head exam: PRESENT: atraumatic, normocephalic Eye exam: PRESENT: conjunctiva pink, EOMI, PERRLA. ABSENT: scleral icterus Ear exam: PRESENT: normal external ear exam Mouth exam: PRESENT: moist, tongue midline Neck exam: ABSENT: carotid bruit, JVD, lymphadenopathy, thyromegaly Respiratory exam: PRESENT: clear to auscultation francisco. ABSENT: rales, rhonchi, wheezes Cardiovascular exam: PRESENT: RRR. ABSENT: diastolic murmur, rubs, systolic murmur Pulses: PRESENT: normal dorsalis pedis pul GI/Abdominal exam: PRESENT: normal bowel sounds, soft. ABSENT: distended, guarding, mass, organolmegaly, rebound, tenderness Rectal exam: PRESENT: deferred Extremities exam: PRESENT: full ROM, pedal edema - trace. ABSENT: calf tenderness, clubbing Neurological exam: PRESENT: alert, awake, oriented to person, oriented to place Results Laboratory Results: 07/04/18 04:28 07/07/18 07:45 07/07/18 07:45 Sodium 137.9 Potassium 4.4 Chloride 94 L Carbon Dioxide 34 H Anion Gap 10 BUN 57 H Creatinine 1.63 H Est GFR ( Amer) 36 L Est GFR (Non-Af Amer) 30 L Glucose 133 H Calcium 8.6 06/29/18 06/29/18 06/29/18 11:25 11:25 17:20 Creatine Kinase 34 30 CK-MB (CK-2) 1.20 Troponin I < 0.012 NT-Pro-B Natriuret Pep 4570 H 06/29/18 06/29/18 06/29/18 17:20 23:18 23:18 Creatine Kinase 27 L CK-MB (CK-2) 1.09 0.64 Troponin I < 0.012 < 0.012 NT-Pro-B Natriuret Pep Impressions: Lung Scan-VQ NM 06/30/18 00:00 IMPRESSION: No perfusion defects worrisome for acute or chronic pulmonary emboli. Mild decrease in intensity of the activity over the right lung base related to right pleural effusion Chest X-Ray 07/07/18 00:00 IMPRESSION: IMPROVED AERATION IN THE LUNG BASES WITH DECREASE IN THE PLEURAL EFFUSIONS. Shoulder X-Ray 07/07/18 10:30 IMPRESSION: DEGENERATIVE CHANGES WITH OSTEOPHYTES IN THE ACROMIOCLAVICULAR JOINT. NO ACUTE FINDINGS. Assessment & Plan - Diagnosis (1) Acute CHF (congestive heart failure) Qualifiers: Heart failure type: diastolic Qualified Code(s): I50.31 - Acute diastolic ( congestive) heart failure Is this a current diagnosis for this admission?: Yes Plan: Improved. From volume overload due to renal failure causing systolic heart failure with secondary to LV diastolic dysfunction. Echo shows normal EF with grade 2 diastolic dysfunction. Patient's hypervolemia has significantly improved. Repeat chest x-ray shows significant improvement and decrease of pleural effusions with diuresis. Creatinine has trended to 1.6 from 1.4. Discontinue 40 mg of IV Lasix daily and resume home dose of 20 mg daily PO. (2) Acute kidney injury superimposed on chronic kidney disease Is this a current diagnosis for this admission?: Yes Plan: Creatinine has trended to 1.6 from 1.4. Discontinue 40 mg of IV Lasix daily and resume home dose of 20 mg daily PO. No identifiable pre renal causes of BALDOMERO. Family denies that patient takes NSAIDs at home. Patient did present with severely elevated blood pressures. (3) Hypertension Qualifiers: Hypertension type: essential hypertension Qualified Code(s): I10 - Essential (primary) hypertension Is this a current diagnosis for this admission?: Yes Plan: Resume home antihypertensive regimen: amlodipine 5 mg bid, hydralazine 50 mg tid and lopressor 25 mg tid. (4) Diabetes mellitus type 2 in nonobese Is this a current diagnosis for this admission?: Yes Plan: Noted blood sugars in the 200-300s. Increase Lantus to home dose of 20 u HS. - Time Time Spent with patient: 15-24 minutes
[2018-07-07] MEDS: HYDRALAZINE HCL 50 MG TABLET PO SCH ×2 (15:17→21:20)
[2018-07-07] MEDS: METOPROLOL TARTRATE 25 MG TABLET PO SCH ×2 (15:17→21:24)
[2018-07-07 15:25] LABS: APPEARANCE,URINE CLEAR; BILIRUBIN,URINE NEGATIVE (NEGATIVE); COLOR,URINE YELLOW; GLUCOSE, URINE NEGATIVE (NEGATIVE); KETONES,URINE NEGATIVE (NEGATIVE); LEUKOCYTE ESTERASE,URINE NEGATIVE (NEGATIVE); NITRITE,URINE NEGATIVE (NEGATIVE); PROTEIN,URINE 100 mg/dL (NEGATIVE); UROBILINOGEN,URINE NEGATIVE mg/dL (<2.0)
[2018-07-07] MEDS: INSULIN GLARGINE,HUM.REC.ANLOG 300 UNIT/3 ML INSULN.PEN SUBCUT SCH (21:21)
[2018-07-07] MEDS: AMLODIPINE BESYLATE 5 MG TABLET PO SCH (21:24)
[2018-07-07] MEDS: TRAMADOL HCL 50 MG TABLET PO PRN (21:32)
[2018-07-08] MEDS: GABAPENTIN 300 MG CAPSULE PO SCH ×3 (05:33→21:54)
[2018-07-08] MEDS: LEVOTHYROXINE SODIUM 0.075 MG TABLET PO SCH (05:34)
[2018-07-08] MEDS: HYDRALAZINE HCL 50 MG TABLET PO SCH ×3 (05:34→21:54)
[2018-07-08] MEDS: METOPROLOL TARTRATE 25 MG TABLET PO SCH ×3 (05:34→21:55)
[2018-07-08 05:38] LABS: ANION GAP 11 (5-19); BLOOD UREA NITROGEN 61 mg/dL (7-20); CALCIUM 8.6 mg/dL (8.4-10.2); CARBON DIOXIDE 32 mmol/L (22-30); CHLORIDE 94 mmol/L (98-107); GLUCOSE 134 mg/dL (75-110); POTASSIUM 4.6 mmol/L (3.6-5.0); SODIUM 136.8 mmol/L (137-145)
[2018-07-08] MEDS: ACETAMINOPHEN 325 MG TABLET PO PRN (07:20)
[2018-07-08] MEDS: ASPIRIN 81 MG TABLET, ENT COATED PO SCH (10:40)
[2018-07-08] MEDS: FUROSEMIDE 20 MG TABLET PO SCH (10:40)
[2018-07-08] MEDS: AMLODIPINE BESYLATE 5 MG TABLET PO SCH ×2 (10:40→21:54)
[2018-07-08] MEDS: CITALOPRAM HYDROBROMIDE 20 MG TABLET PO SCH (10:41)
[2018-07-08] MEDS: ENOXAPARIN SODIUM INJ 30 MG/0.3 ML DISP.SYRIN SUBCUT SCH (10:41)
[2018-07-08] MEDS: FOLIC ACID 1 MG TABLET PO SCH (10:41)
[2018-07-08] MEDS: INSULIN LISPRO 100 UNIT/ML 3 ML VIAL SUBCUT PRN ×3 (11:13→21:59)
--- NOTE | 2018-07-08 13:26 | PDOC PROGRESS REPORT ---
Subjective Progress Note for:: 07/08/18 Subjective:: Ms. Breaux is an 88 yr old female with a PMH of CHF, CKD 3, DM2 and hypertension who was admitted for CHF exacerbation. No acute event overnight. Patient continues to improve. She says her breathing is much better today and that she is close to her baseline. Her leg swelling continue to improve and only now has minimal edema. She denies SOB at the moment. No chest pain or dizziness. Right shoulder pain is better. Patient's family did meet with Palliative care team and daughter says the family is discussing possible hospice care for patient. Reason For Visit: ACUTE SYSTOLIC HEART FAILURE Physical Exam Vital Signs: Temp Pulse Resp BP Pulse Ox 98.7 F 58 L 20 141/46 H 95 07/08/18 11:06 07/08/18 11:06 07/08/18 11:06 07/08/18 11:06 07/08/18 11:06 Intake & Output 07/07/18 07/08/18 07/09/18 06:59 06:59 06:59 Intake Total 618 1137 237 Balance 618 1137 237 Weight 143 lb 11.862 oz 144 lb 13.499 oz General appearance: PRESENT: no acute distress, well-developed, well-nourished Head exam: PRESENT: atraumatic, normocephalic Eye exam: PRESENT: conjunctiva pink, EOMI, PERRLA. ABSENT: scleral icterus Ear exam: PRESENT: normal external ear exam Mouth exam: PRESENT: moist, tongue midline Neck exam: ABSENT: carotid bruit, JVD, lymphadenopathy, thyromegaly Respiratory exam: PRESENT: clear to auscultation francisco. ABSENT: rales, rhonchi, wheezes Cardiovascular exam: PRESENT: RRR. ABSENT: diastolic murmur, rubs, systolic murmur Pulses: PRESENT: normal dorsalis pedis pul GI/Abdominal exam: PRESENT: normal bowel sounds, soft. ABSENT: distended, guarding, mass, organolmegaly, rebound, tenderness Rectal exam: PRESENT: deferred Extremities exam: PRESENT: pedal edema - trace, much improved from yesterday Neurological exam: PRESENT: alert, awake, oriented to person, oriented to place Results Laboratory Results: 07/04/18 04:28 07/08/18 03:59 07/07/18 07/08/18 15:00 03:59 Sodium 136.8 L Potassium 4.6 Chloride 94 L Carbon Dioxide 32 H Anion Gap 11 BUN 61 H Creatinine 1.49 H Est GFR ( Amer) 40 L Est GFR (Non-Af Amer) 33 L Glucose 134 H Calcium 8.6 Urine Color YELLOW Urine Appearance CLEAR Urine pH 6.0 Ur Specific Harris 1.010 Urine Protein 100 H Urine Glucose (UA) NEGATIVE Urine Ketones NEGATIVE Urine Blood NEGATIVE Urine Nitrite NEGATIVE Ur Leukocyte Esterase NEGATIVE Urine WBC (Auto) 1 Urine RBC (Auto) 9 06/29/18 06/29/18 06/29/18 11:25 11:25 17:20 Creatine Kinase 34 30 CK-MB (CK-2) 1.20 Troponin I < 0.012 NT-Pro-B Natriuret Pep 4570 H 06/29/18 06/29/18 06/29/18 17:20 23:18 23:18 Creatine Kinase 27 L CK-MB (CK-2) 1.09 0.64 Troponin I < 0.012 < 0.012 NT-Pro-B Natriuret Pep Impressions: Lung Scan-VQ NM 06/30/18 00:00 IMPRESSION: No perfusion defects worrisome for acute or chronic pulmonary emboli. Mild decrease in intensity of the activity over the right lung base related to right pleural effusion Chest X-Ray 07/07/18 00:00 IMPRESSION: IMPROVED AERATION IN THE LUNG BASES WITH DECREASE IN THE PLEURAL EFFUSIONS. Shoulder X-Ray 07/07/18 10:30 IMPRESSION: DEGENERATIVE CHANGES WITH OSTEOPHYTES IN THE ACROMIOCLAVICULAR JOINT. NO ACUTE FINDINGS. Assessment & Plan - Diagnosis (1) Acute CHF (congestive heart failure) Qualifiers: Heart failure type: diastolic Qualified Code(s): I50.31 - Acute diastolic ( congestive) heart failure Is this a current diagnosis for this admission?: Yes Plan: Resolved. From volume overload due to renal failure causing systolic heart failure with secondary to LV diastolic dysfunction. Echo shows normal EF with grade 2 diastolic dysfunction. Repeat chest x-ray shows significant improvement and decrease of pleural effusions with diuresis. Lasix has been decreased back to home dose of 20 mg PO daily. (2) Acute kidney injury superimposed on chronic kidney disease Is this a current diagnosis for this admission?: Yes Plan: Creatinine has trended to 1.6 from 1.4. Lasix decreased back to home dose of 20 mg PO daily. No identifiable pre renal causes of BALDOMERO. Family denies that patient takes NSAIDs at home. Patient did present with severely elevated blood pressures. (3) Hypertension Qualifiers: Hypertension type: essential hypertension Qualified Code(s): I10 - Essential (primary) hypertension Is this a current diagnosis for this admission?: Yes Plan: Controlled. Continue amlodipine 5 mg bid, hydralazine 50 mg tid and lopressor 25 mg tid. (4) Diabetes mellitus type 2 in nonobese Is this a current diagnosis for this admission?: Yes Plan: Now controlled in the 100s after increasing Lantus to home dose of 20 u HS. - Time Time Spent with patient: 15-24 minutes
[2018-07-08] MEDS: INSULIN GLARGINE,HUM.REC.ANLOG 300 UNIT/3 ML INSULN.PEN SUBCUT SCH (21:54)
[2018-07-09] MEDS: LEVOTHYROXINE SODIUM 0.075 MG TABLET PO SCH (06:05)
[2018-07-09] MEDS: TRAMADOL HCL 50 MG TABLET PO PRN ×2 (06:05→22:50)
[2018-07-09] MEDS: GABAPENTIN 300 MG CAPSULE PO SCH ×3 (06:06→22:50)
[2018-07-09] MEDS: HYDRALAZINE HCL 50 MG TABLET PO SCH ×3 (06:06→22:50)
[2018-07-09] MEDS: METOPROLOL TARTRATE 25 MG TABLET PO SCH ×2 (06:06→13:29)
[2018-07-09 06:48] LABS: ANION GAP 12 (5-19); BLOOD UREA NITROGEN 63 mg/dL (7-20); CALCIUM 8.7 mg/dL (8.4-10.2); CARBON DIOXIDE 30 mmol/L (22-30); CHLORIDE 98 mmol/L (98-107); GLUCOSE 77 mg/dL (75-110); POTASSIUM 4.5 mmol/L (3.6-5.0); SODIUM 139.8 mmol/L (137-145)
[2018-07-09] MEDS: CITALOPRAM HYDROBROMIDE 20 MG TABLET PO SCH (10:47)
[2018-07-09] MEDS: ASPIRIN 81 MG TABLET, ENT COATED PO SCH (10:47)
[2018-07-09] MEDS: ACETAMINOPHEN 325 MG TABLET PO PRN (10:47)
[2018-07-09] MEDS: FOLIC ACID 1 MG TABLET PO SCH (10:48)
[2018-07-09] MEDS: ENOXAPARIN SODIUM INJ 30 MG/0.3 ML DISP.SYRIN SUBCUT SCH (10:48)
[2018-07-09] MEDS: FUROSEMIDE 20 MG TABLET PO SCH (10:48)
[2018-07-09] MEDS: AMLODIPINE BESYLATE 5 MG TABLET PO SCH (10:48)
--- NOTE | 2018-07-09 13:41 | PDOC PROGRESS REPORT ---
Subjective Progress Note for:: 07/09/18 Subjective:: Ms. Breaux is an 88 yr old female with a PMH of CHF, CKD 3, DM2 and hypertension who was admitted for CHF exacerbation. No acute event overnight. Patient continues to improve. She says her breathing is back to her baseline. Her leg swelling has also resolved. She denies SOB at the moment. No chest pain or dizziness. Right shoulder pain is better. Patient is deemed fit for discharge. Patient has decided to make her hospice. Awaiting for home hospice to be set-up. Reason For Visit: ACUTE SYSTOLIC HEART FAILURE Physical Exam Vital Signs: Temp Pulse Resp BP Pulse Ox 98.3 F 55 L 16 149/50 H 96 07/09/18 11:33 07/09/18 11:33 07/09/18 11:33 07/09/18 11:33 07/09/18 11:33 Intake & Output 07/08/18 07/09/18 07/10/18 06:59 06:59 06:59 Intake Total 1137 696 100 Balance 1137 696 100 Weight 144 lb 13.499 oz 147 lb 11.355 oz General appearance: PRESENT: no acute distress, well-developed, well-nourished Head exam: PRESENT: atraumatic, normocephalic Eye exam: PRESENT: conjunctiva pink, EOMI, PERRLA. ABSENT: scleral icterus Ear exam: PRESENT: normal external ear exam Mouth exam: PRESENT: moist, tongue midline Neck exam: ABSENT: carotid bruit, JVD, lymphadenopathy, thyromegaly Respiratory exam: PRESENT: clear to auscultation francisco. ABSENT: rales, rhonchi, wheezes Cardiovascular exam: PRESENT: RRR. ABSENT: diastolic murmur, rubs, systolic murmur Pulses: PRESENT: normal dorsalis pedis pul GI/Abdominal exam: PRESENT: normal bowel sounds, soft. ABSENT: distended, guarding, mass, organolmegaly, rebound, tenderness Rectal exam: PRESENT: deferred Neurological exam: PRESENT: alert, awake, oriented to person, oriented to place Results Laboratory Results: 07/04/18 04:28 07/09/18 06:25 07/09/18 06:25 Sodium 139.8 Potassium 4.5 Chloride 98 Carbon Dioxide 30 Anion Gap 12 BUN 63 H Creatinine 1.75 H Est GFR ( Amer) 33 L Est GFR (Non-Af Amer) 27 L Glucose 77 Calcium 8.7 06/29/18 06/29/18 06/29/18 11:25 11:25 17:20 Creatine Kinase 34 30 CK-MB (CK-2) 1.20 Troponin I < 0.012 NT-Pro-B Natriuret Pep 4570 H 06/29/18 06/29/18 06/29/18 17:20 23:18 23:18 Creatine Kinase 27 L CK-MB (CK-2) 1.09 0.64 Troponin I < 0.012 < 0.012 NT-Pro-B Natriuret Pep Impressions: Lung Scan-VQ NM 06/30/18 00:00 IMPRESSION: No perfusion defects worrisome for acute or chronic pulmonary emboli. Mild decrease in intensity of the activity over the right lung base related to right pleural effusion Chest X-Ray 07/07/18 00:00 IMPRESSION: IMPROVED AERATION IN THE LUNG BASES WITH DECREASE IN THE PLEURAL EFFUSIONS. Shoulder X-Ray 07/07/18 10:30 IMPRESSION: DEGENERATIVE CHANGES WITH OSTEOPHYTES IN THE ACROMIOCLAVICULAR JOINT. NO ACUTE FINDINGS. Assessment & Plan - Diagnosis (1) Acute CHF (congestive heart failure) Qualifiers: Heart failure type: diastolic Qualified Code(s): I50.31 - Acute diastolic ( congestive) heart failure Is this a current diagnosis for this admission?: Yes Plan: Resolved. From volume overload due to renal failure causing systolic heart failure with secondary to LV diastolic dysfunction. Echo shows normal EF with grade 2 diastolic dysfunction. Repeat chest x-ray shows significant improvement and decrease of pleural effusions with diuresis. Lasix has been decreased back to home dose of 20 mg PO daily. (2) Acute kidney injury superimposed on chronic kidney disease Is this a current diagnosis for this admission?: Yes Plan: Creatinine at 1.7 today. Lasix decreased back yesterday to home dose of 20 mg PO daily. No identifiable pre renal causes of BALDOMERO. Family denies that patient takes NSAIDs at home. Patient did present with severely elevated blood pressures and likely caused her BALDOMERO. (3) Hypertension Qualifiers: Hypertension type: essential hypertension Qualified Code(s): I10 - Essential (primary) hypertension Is this a current diagnosis for this admission?: Yes Plan: Controlled. On amlodipine 5 mg bid, hydralazine 50 mg tid and lopressor 25 mg tid. HR went down to the 50s this morning. She is not having symptoms. Will decrease lopressor to 12.5 mg bid. (4) Diabetes mellitus type 2 in nonobese Is this a current diagnosis for this admission?: Yes Plan: Now controlled in the 100s after increasing Lantus to home dose of 20 u HS. - Time Time Spent with patient: 15-24 minutes
[2018-07-09] MEDS ORDERED: TRAMADOL HCL 50 MG TABLET PO SCH (14:00)
[2018-07-09] MEDS: INSULIN LISPRO 100 UNIT/ML 3 ML VIAL SUBCUT PRN ×2 (16:26→22:51)
--- NOTE | 2018-07-09 16:47 | RADIOLOGY REPORT (SQ) ---
EXAM DESCRIPTION: HAND RIGHT 2 VIEWS COMPLETED DATE/TIME: 07/09/2018 2:59 pm REASON FOR STUDY: pain COMPARISON: None. EXAM PARAMETERS: NUMBER OF VIEWS: Two view. TECHNIQUE: AP and lateral radiographic images acquired of the right hand. LIMITATIONS: None. FINDINGS: MINERALIZATION: Normal. BONES: No acute fracture or dislocation. No worrisome bone lesions. No significant osteophytes. JOINTS: No erosions. No suad-articular osteopenia. No chondrocalcinosis. SOFT TISSUES: No swelling. No calcifications. OTHER: No other significant finding. IMPRESSION: NEGATIVE STUDY OF THE RIGHT HAND. NO EXPLANATION FOR PAIN. TECHNICAL DOCUMENTATION: JOB ID: [id number] [employer]- All Rights Reserved Reading location - IP/workstation name: [email or web address]
[2018-07-09] MEDS: INSULIN GLARGINE,HUM.REC.ANLOG 300 UNIT/3 ML INSULN.PEN SUBCUT SCH (22:51)
[2018-07-10] MEDS: GABAPENTIN 300 MG CAPSULE PO SCH ×4 (05:39→23:06)
[2018-07-10] MEDS: LEVOTHYROXINE SODIUM 0.075 MG TABLET PO SCH (05:39)
[2018-07-10] MEDS: HYDRALAZINE HCL 50 MG TABLET PO SCH ×3 (05:44→21:08)
[2018-07-10] MEDS ORDERED: METOPROLOL SUCCINATE 25 MG TAB.SR.24H PO SCH (10:00)
[2018-07-10] MEDS: FUROSEMIDE 20 MG TABLET PO SCH (10:33)
[2018-07-10] MEDS: METOPROLOL TARTRATE 25 MG TABLET PO SCH ×2 (10:33→21:08)
[2018-07-10] MEDS: ASPIRIN 81 MG TABLET, ENT COATED PO SCH (10:33)
[2018-07-10] MEDS: FOLIC ACID 1 MG TABLET PO SCH (10:34)
[2018-07-10] MEDS: ENOXAPARIN SODIUM INJ 30 MG/0.3 ML DISP.SYRIN SUBCUT SCH (10:34)
[2018-07-10] MEDS: CITALOPRAM HYDROBROMIDE 20 MG TABLET PO SCH (10:34)
--- NOTE | 2018-07-10 12:06 | PDOC PROGRESS REPORT ---
Subjective Progress Note for:: 07/10/18 Subjective:: Patient today is in a lot of pain and neck the hands, her swelling of her hands per family has decreased. She is off oxygen saturating at 95% she is afebrile her appetite is good she has had a bowel movement. She has not but been up out of bed in 2-3 days per family. Per family still has questions whether hospice or palliative with home health care or trying to make arrangements for him to home to prepare for discharge. Reason For Visit: ACUTE SYSTOLIC HEART FAILURE Physical Exam Vital Signs: Temp Pulse Resp BP Pulse Ox 99.0 F 64 16 149/42 H 95 07/10/18 11:11 07/10/18 11:11 07/10/18 11:11 07/10/18 11:11 07/10/18 11:11 Intake & Output 07/09/18 07/10/18 07/11/18 06:59 06:59 06:59 Intake Total 696 200 Balance 696 200 Weight 67 kg 69.1 kg General appearance: PRESENT: no acute distress, thin Head exam: PRESENT: atraumatic, normocephalic Eye exam: PRESENT: conjunctiva pink, EOMI, PERRLA. ABSENT: scleral icterus Ear exam: PRESENT: normal external ear exam Mouth exam: PRESENT: moist, tongue midline Neck exam: PRESENT: full ROM. ABSENT: carotid bruit, JVD, lymphadenopathy, thyromegaly Respiratory exam: PRESENT: clear to auscultation francisco Cardiovascular exam: PRESENT: RRR. ABSENT: diastolic murmur, rubs Murmur grade: 2 Pulses: PRESENT: normal dorsalis pedis pul, +2 pedal pulses bilateral Vascular exam: PRESENT: normal capillary refill GI/Abdominal exam: PRESENT: normal bowel sounds, soft. ABSENT: distended, guarding, mass, organolmegaly, rebound, tenderness Rectal exam: PRESENT: deferred Extremities exam: PRESENT: other - Right hand dorsum swelling Neurological exam: PRESENT: alert, awake, oriented to person, oriented to place , oriented to time, oriented to situation, CN II-XII grossly intact. ABSENT: motor sensory deficit Psychiatric exam: PRESENT: appropriate affect, normal mood. ABSENT: homicidal ideation, suicidal ideation Results Laboratory Results: 07/04/18 04:28 07/09/18 06:25 06/29/18 06/29/18 06/29/18 11:25 11:25 17:20 Creatine Kinase 34 30 CK-MB (CK-2) 1.20 Troponin I < 0.012 NT-Pro-B Natriuret Pep 4570 H 06/29/18 06/29/18 06/29/18 17:20 23:18 23:18 Creatine Kinase 27 L CK-MB (CK-2) 1.09 0.64 Troponin I < 0.012 < 0.012 NT-Pro-B Natriuret Pep Impressions: Lung Scan-VQ NM 06/30/18 00:00 IMPRESSION: No perfusion defects worrisome for acute or chronic pulmonary emboli. Mild decrease in intensity of the activity over the right lung base related to right pleural effusion Chest X-Ray 07/07/18 00:00 IMPRESSION: IMPROVED AERATION IN THE LUNG BASES WITH DECREASE IN THE PLEURAL EFFUSIONS. Shoulder X-Ray 07/07/18 10:30 IMPRESSION: DEGENERATIVE CHANGES WITH OSTEOPHYTES IN THE ACROMIOCLAVICULAR JOINT. NO ACUTE FINDINGS. Hand X-Ray 07/09/18 00:00 IMPRESSION: NEGATIVE STUDY OF THE RIGHT HAND. NO EXPLANATION FOR PAIN. Assessment & Plan - Diagnosis (1) Congestive heart failure Qualifiers: Heart failure type: diastolic Heart failure chronicity: acute on chronic Qualified Code(s): I50.33 - Acute on chronic diastolic (congestive) heart failure Is this a current diagnosis for this admission?: Yes Plan: And seems her last x-ray laboratory to be euvolemic, will continue low-dose Lasix. (2) Chronic kidney disease, stage IV (severe) Is this a current diagnosis for this admission?: Yes Plan: Anaya is back at baseline chronic kidney disease stage IIIb to stage IV. (3) Diabetes mellitus type 2 in nonobese Is this a current diagnosis for this admission?: Yes Plan: Is with daughter dosage and schedule of the Lantus insulin from 10 to 11 PM not the usual 7:54 PM decrease the incidence of hypoglycemias at home blood sugars in the hospital fastings have been running 80-100. She will require Lantus 20 units at at bedtime and then the Humalog with a sliding scale. (4) Hypertension Qualifiers: Hypertension type: essential hypertension Qualified Code(s): I10 - Essential (primary) hypertension Is this a current diagnosis for this admission?: Yes Plan: Since blood pressure controlled with metoprolol 12.5 twice daily and hydralazine 50 every 8 hours (5) Neuropathy Is this a current diagnosis for this admission?: Yes Plan: We will increase her gabapentin to 300 every 6 hours. 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 Attempt to give realistic goals with their mother's multiple chronic end-stage medical problems. Advised difficulty with pain management due to the effects his prior stronger analgesics in the contraindication of anti-inflammatories due to the chronic kidney disease stage III-IV only realistic option is as stated above we will increase the gabapentin will use Tylenol in use the tramadol. May try eventually topical NSAIDs. Advised out of bed to chair for the majority of the day to help with general state of well-being, encouraged ambulation with assistance for DVT prevention.
[2018-07-10 14:28] LABS: APPEARANCE,URINE SLIGHTLY-CLOUDY; BILIRUBIN,URINE NEGATIVE (NEGATIVE); COLOR,URINE YELLOW; GLUCOSE, URINE NEGATIVE (NEGATIVE); KETONES,URINE NEGATIVE (NEGATIVE); LEUKOCYTE ESTERASE,URINE NEGATIVE (NEGATIVE); NITRITE,URINE NEGATIVE (NEGATIVE); PROTEIN,URINE >=500 mg/dL (NEGATIVE); URINE SPECIFIC GRAVITY 1.015
[2018-07-10] MEDS: TRAMADOL HCL 50 MG TABLET PO PRN (19:55)
[2018-07-10] MEDS: INSULIN GLARGINE,HUM.REC.ANLOG 300 UNIT/3 ML INSULN.PEN SUBCUT SCH (21:07)
[2018-07-10] MEDS: INSULIN LISPRO 100 UNIT/ML 3 ML VIAL SUBCUT PRN (21:07)
[2018-07-10] MEDS: ACETAMINOPHEN 325 MG TABLET PO PRN (23:07)
[2018-07-11] MEDS: HYDRALAZINE HCL 50 MG TABLET PO SCH ×2 (05:18→14:59)
[2018-07-11] MEDS: GABAPENTIN 300 MG CAPSULE PO SCH (05:19)
[2018-07-11] MEDS: LEVOTHYROXINE SODIUM 0.075 MG TABLET PO SCH (05:19)
[2018-07-11] MEDS ORDERED: ALLOPURINOL 100 MG TABLET PO SCH (10:00)
[2018-07-11] MEDS ORDERED: GABAPENTIN 300 MG CAPSULE PO SCH (10:00)
[2018-07-11] MEDS: ASPIRIN 81 MG TABLET, ENT COATED PO SCH (10:56)
[2018-07-11] MEDS: CITALOPRAM HYDROBROMIDE 20 MG TABLET PO SCH (10:56)
[2018-07-11] MEDS: FUROSEMIDE 20 MG TABLET PO SCH (10:57)
[2018-07-11] MEDS: METOPROLOL TARTRATE 25 MG TABLET PO SCH (10:57)
[2018-07-11] MEDS: FOLIC ACID 1 MG TABLET PO SCH (10:57)
[2018-07-11] MEDS: ENOXAPARIN SODIUM INJ 30 MG/0.3 ML DISP.SYRIN SUBCUT SCH (10:57)
--- NOTE | 2018-07-11 13:15 | PDOC DISCHARGE SUMMARY ---
General - Admit/Disc Date/PCP Admission Date/Primary Care Provider: 06/29/18 10:29 MARISSA JOHN MD Discharge Date: 07/11/18 - Discharge Diagnosis (1) Congestive heart failure Is this a current diagnosis for this admission?: Yes (2) Chronic kidney disease, stage IV (severe) Is this a current diagnosis for this admission?: Yes (3) Diabetes mellitus type 2 in nonobese Is this a current diagnosis for this admission?: Yes (4) Hypertension Is this a current diagnosis for this admission?: Yes (5) Neuropathy Is this a current diagnosis for this admission?: Yes - Additional Information Resuscitation Status: Do Not Resuscitate Discharge Diet: Cardiac, Diabetic Discharge Activity: Activity As Tolerated, Balance Activity w/Rest, Weigh Daily Prescriptions: Allopurinol [Zyloprim 100 mg Tablet] 100 mg PO DAILY #30 tablet Metoprolol Tartrate [Lopressor 25 mg Tablet] 12.5 mg PO Q12 #60 tablet Home Medications: Aspirin [Adult Low Dose Aspirin EC] 81 mg PO DAILY 06/29/18 Citalopram Hydrobromide [Celexa 10 mg Tablet] 10 mg PO DAILY 06/29/18 Docusate Sodium [Colace 100 mg Capsule] 100 mg PO DAILYP PRN 06/29/18 Folic Acid [Folvite 1 mg Tablet] 1 mg PO DAILY 06/29/18 Furosemide [Lasix 20 mg Tablet] 20 mg PO DAILY 06/29/18 Hydralazine HCl [Apresoline 50 mg Tablet] 50 mg PO TID 06/29/18 Insulin Glargine,Hum.rec.anlog [Lantus Insulin 100 Unit/mL] 20 units SQ DAILY Iron Polysaccharide Complex [Poly-Iron] 150 mg PO DAILY 06/29/18 Levothyroxine Sodium [Synthroid 0.05 mg Tablet] 0.05 mg PO Q6AM 06/29/18 Acetaminophen [Tylenol 325 mg Tablet] 650 mg PO Q4HP PRN tablet 07/11/18 Allopurinol [Zyloprim 100 mg Tablet] 100 mg PO DAILY #30 tablet 07/11/18 Aspirin [Ecotrin 81 mg EC Tablet] 81 mg PO DAILY tabec 07/11/18 Citalopram Hydrobromide [Celexa 20 mg Tablet] 10 mg PO DAILY tablet 07/11/18 Folic Acid [Folvite 1 mg Tablet] 1 mg PO DAILY tablet 07/11/18 Gabapentin [Neurontin 300 mg Capsule] 600 mg PO DAILY capsule 07/11/18 Gabapentin [Neurontin 300 mg Capsule] 600 mg PO QHS #0 07/11/18 Insulin Glargine,Hum.rec.anlog [Lantus Insulin 100 Unit/mL] 20 unit SUBCUT QHS insuln.pen 07/11/18 Insulin Lispro [Humalog Insulin (Lispro) 100 unit/mL] 0 - 12 unit SUBCUT ACHSP PRN unit 07/11/18 Levothyroxine Sodium [Synthroid 0.075 mg Tablet] 0.075 mg PO Q6AM tablet Metoprolol Tartrate [Lopressor 25 mg Tablet] 12.5 mg PO Q12 #0 07/11/18 Metoprolol Tartrate [Lopressor 25 mg Tablet] 12.5 mg PO Q12 #60 tablet 07/11/18 Tramadol HCl [Ultram 50 mg Tablet] 50 mg PO Q8HP PRN tablet 07/11/18 History of Present Illness Patient complains of: Progressive edema , SOB, orthpnea. History of Present Illness: Patient comes into the hospital with progressive shortness of breath dyspnea on exertion orthopnea leg edema she has gained 15 pounds since discharge from the hospital. She was evaluated in the office and after attempts at outpatient management chest x-ray findings for patient better served to be admitted to the hospital. Hospital Course Hospital Course: Patient was admitted to [facility] she was started on fluid restrictions, continue cardiac monitoring, she was put on aggressive IV diuresing which she responded throughout that period of time she had an echocardiogram that showed left ventricular ejection fraction within normal but moderate to severe diastolic dysfunction. Unfortunately due to her chronic kidney disease stage III-IV CT was not done but she had a VQ scan which showed no evidence of ventilation/ perfusion mismatch. Throughout her hospital course she showed improvement in the respiratory status prior to discharge she was off oxygen with saturation of 96% she had a chest x-ray that showed improvement in the bilateral pleural effusions and she showed significant pulmonary symptomatology improvement and sustained edema improvement. Her kidney function prior to discharge showed a creatinine of 1.65 with a class III-IV kidney disease which had stabilized. Throughout her hospital course she had multiple episodes of joint pains x-rays were done no evidence of any fractures some arthritic changes due to her kidney disease she was only tolerant of Tylenol and tramadol which relieved the pain. She was seen by physical therapy recommended home physical therapy course. Long discussions were had with family regarding overall clinical condition which time hospice was entertained and concurred and patient will be discharged with home hospice care and my follow-up. Physical Exam Vital Signs: Temp Pulse Resp BP Pulse Ox 97.9 F 66 16 174/48 H 95 07/11/18 08:26 07/11/18 08:26 07/11/18 08:26 07/11/18 08:26 07/11/18 08:26 Intake & Output 07/10/18 07/11/18 07/12/18 06:59 06:59 06:59 Intake Total 200 834 Balance 200 834 Weight 69.1 kg 68.8 kg General appearance: PRESENT: thin Head exam: PRESENT: atraumatic, normocephalic Eye exam: PRESENT: conjunctiva pink, EOMI, PERRLA. ABSENT: scleral icterus Ear exam: PRESENT: normal external ear exam Mouth exam: PRESENT: moist, tongue midline Neck exam: PRESENT: full ROM. ABSENT: carotid bruit, JVD, lymphadenopathy, thyromegaly Respiratory exam: PRESENT: clear to auscultation francisco Cardiovascular exam: PRESENT: systolic murmur Murmur grade: 2 Pulses: PRESENT: normal dorsalis pedis pul, +2 pedal pulses bilateral Vascular exam: PRESENT: normal capillary refill GI/Abdominal exam: PRESENT: normal bowel sounds, soft. ABSENT: distended, guarding, mass, organolmegaly, rebound, tenderness Rectal exam: PRESENT: deferred Extremities exam: PRESENT: tenderness Additional comments: Right wrist tenderness no erythema some crepitus Neurological exam: PRESENT: alert, awake, oriented to person, oriented to place , oriented to time, oriented to situation, CN II-XII grossly intact. ABSENT: motor sensory deficit Psychiatric exam: PRESENT: appropriate affect, normal mood. ABSENT: homicidal ideation, suicidal ideation Skin exam: PRESENT: dry, intact, warm. ABSENT: cyanosis, rash Results Laboratory Results: 07/04/18 04:28 07/09/18 06:25 07/10/18 13:45 Urine Color YELLOW Urine Appearance SLIGHTLY-CLOUDY Urine pH 6.0 Ur Specific [place] 1.015 Urine Protein >=500 H Urine Glucose (UA) NEGATIVE Urine Ketones NEGATIVE Urine Blood NEGATIVE Urine Nitrite NEGATIVE Ur Leukocyte Esterase NEGATIVE Urine WBC (Auto) 5 Urine RBC (Auto) 7 06/29/18 06/29/18 06/29/18 11:25 11:25 17:20 Creatine Kinase 34 30 CK-MB (CK-2) 1.20 Troponin I < 0.012 NT-Pro-B Natriuret Pep 4570 H 06/29/18 06/29/18 06/29/18 17:20 23:18 23:18 Creatine Kinase 27 L CK-MB (CK-2) 1.09 0.64 Troponin I < 0.012 < 0.012 NT-Pro-B Natriuret Pep Impressions: Lung Scan-VQ NM 06/30/18 00:00 IMPRESSION: No perfusion defects worrisome for acute or chronic pulmonary emboli. Mild decrease in intensity of the activity over the right lung base related to right pleural effusion Chest X-Ray 07/07/18 00:00 IMPRESSION: IMPROVED AERATION IN THE LUNG BASES WITH DECREASE IN THE PLEURAL EFFUSIONS. Shoulder X-Ray 07/07/18 10:30 IMPRESSION: DEGENERATIVE CHANGES WITH OSTEOPHYTES IN THE ACROMIOCLAVICULAR JOINT. NO ACUTE FINDINGS. Hand X-Ray 07/09/18 00:00 IMPRESSION: NEGATIVE STUDY OF THE RIGHT HAND. NO EXPLANATION FOR PAIN. Qualifiers - * PATIENT BEING DISCHARGED WITH ANY OF THE FOLLOWING DIAGNOSIS: No, Heart Failure VTE patient discharged on overlapping Therapy?: Yes Stroke Pt being discharged on Anti-thrombolytic therapy?: Yes Stroke Pt being discharged on Anti-coagulation therapy?: No Reason(s) for not prescribing Anti-coagulation therapy:: Hospice Care Stroke Pt being discharged on Statins?: Yes ND Pt being discharged on Aspirin therapy?: Yes ND Pt being discharged on Statins?: Yes ND Pt discharged ACEI/ARBS?: No Reason(s) for not prescribing ACEI/ARBS:: Medical Contraindication - Patient has class III/IV renal disease, Hospice Care HF Pt being discharged on ACEI for LVEF less than 40%?: No Reason(s) for not prescribing ACEI:: Hospice Care HF Pt being discharged on ARBS for LVEF less than 40%?: No Reason(s) for not prescribing ARBS:: Hospice Care HF Pt with Afib discharged with Warfarin?: No Reason(s) for not prescribing Warfarin:: Hospice Care HF Pt discharged on evidence-based Beta Gregory:: Yes Plan Discharge Plan: And is being discharged home with v or hospice, home health care she will follow -up in our office in 1 week. She will have outpatient follow-up with cardiology and nephrology. Case was discussed in full detail with family. Time Spent: Greater than 30 Minutes
[2018-07-11 15:58] VITALS: BP 176/68
== END 2018-07-11 16:14 | disposition hospice, home (50) | DRG 291 ==
LOC: 3S 10:29 → 3N 07-02 21:40
PROVIDERS: ADMIT Internal Medicine; ATTEND Internal Medicine
DX: I13.0 Hypertensive heart and chronic kidney disease with heart failure and stage 1 through stage 4 chronic kidney disease, or unspecified chronic kidney disease (principal); I50.33 Acute on chronic diastolic (congestive) heart failure; N18.4 Chronic kidney disease, stage 4 (severe); E87.5 Hyperkalemia; D64.9 Anemia, unspecified; R62.7 Adult failure to thrive; I25.10 Atherosclerotic heart disease of native coronary artery without angina pectoris; E11.40 Type 2 diabetes mellitus with diabetic neuropathy, unspecified; E11.22 Type 2 diabetes mellitus with diabetic chronic kidney disease; Z66 Do not resuscitate; Z79.82 Long term (current) use of aspirin; Z79.4 Long term (current) use of insulin; Z79.899 Other long term (current) drug therapy
CPT/HCPCS: 36415; 71045; 71046; 78580; 80048; 80053; 81001; 82550; 82553; 82962; 83735; 83880; 84439; 84443; 84481; 84484; 84550; 85025; 85027; 93005; 93010; 93306; A9540; G8978-GP; G8979-GP; J1650; J1815; J1940; J3490; Q9969